=== PATIENT | male | born 1950 | race African-American/Black ===

== ENCOUNTER 2020-02-23 04:56 | Inpatient (IN) | payer MEDICARE, MEDICAID, OTHER ==
[2020-02-23] MEDS ORDERED: Furosemide 40 MG/4 ML VIAL ONE (05:16)
[2020-02-23 05:34] LABS: #Basophils 0.1 thou/uL (0.0-0.2); #Eosinphils 0.7 thou/uL (0.0-0.7); #Lymphocytes 0.9 thou/uL (1.20-3.40); #Monocytes 0.8 thou/uL (0.11-0.59); %Basophils 0.8 % (0.0-1.0); %Eosinophils 9.2 % (0.0-10.0); %Monocytes 11.2 % (0.0-10.0); %Neutrophils 66.8 % (42.0-75.0); Hemoglobin 10.2 g/dL (14.0-18.0); Mean Corpuscular HGB CONC 28.2 g/dL (32.0-36.0); Mean Corpuscular Hemoglobin 21.9 pg (27.0-31.0); Mean Corpuscular Volume 77.7 fL (78.0-98.0); Mean Platelet Volume 7.7 fL (7.4-10.4); Platelet Count 151 thou/uL (130-400); RBC Distribution Width 18.9 % (11.5-14.5); Red Blood Cell (RBC) Count 4.67 mill/uL (4.70-6.10); White Blood Cell (WBC) Count 7.5 thou/uL (4.8-10.8)
[2020-02-23 05:50] LABS: ALT (SGPT) 8 U/L (8-55); AST (SGOT) 16 U/L (5-34); Albumin 3.8 g/dL (3.4-4.8); Alkaline Phosphatase 47 U/L (40-110); Anion Gap 14 mmol/L (10-20); BUN (Urea Nitrogen) 26 mg/dL (8.4-25.7); Bilirubin, Total 1.8 mg/dL (0.2-1.2); Calc. Creatinine Clearance 0 mL/min (70-130); Calcium 8.5 mg/dL (7.8-10.44); Carbon Dioxide 23 mmol/L (23-31); Chloride 104 mmol/L (98-107); Estimated GFR-MDRD 42; Glucose 116 mg/dL (80-115); Potassium 4.4 mmol/L (3.5-5.1); Protein, Total 7.8 g/dL (5.8-8.1); Sodium 137 mmol/L (136-145)
[2020-02-23] MEDS ORDERED: Acetaminophen 325 MG TAB PO PRN (06:02)
[2020-02-23] MEDS ORDERED: Aspirin Chewable 81 MG TAB ONE (06:21)
[2020-02-23 06:29] LABS: CKMB 1.9 ng/mL (0-6.6)
--- NOTE | 2020-02-23 07:47 | RAD ---
EXAM: Single view of the chest HISTORY: Difficulty breathing COMPARISON: 02/08/2020 FINDINGS: Single view of the chest shows an enlarged but stable cardiomediastinal silhouette. The pa tient is status post sternotomy. The pacemaker is unchanged in position. There is no evidence of consolidation, mass, or pleural effusion. No acute osseous abnormality. IMPRESSION: Cardiomegaly without evidence of acute cardiopulmonary disease
--- NOTE | 2020-02-23 07:55 | HP ---
CHIEF COMPLAINT: Shortness of breath. HISTORY OF PRESENT ILLNESS: Mr. Pinto is a 69-year-old male with past medical history of congestive heart failure, COPD, hyperlipidemia, hypertension, and among others, presents to the emergency room with shortness of breath. When EMS got there, he was saturating in the high 80s on room air. The patient was recently admitted to the hospital secondary to fluid overload. He has been taking his fluid medication Lasix, but he says it has not been helping. The patient also notes worsening of both lower extremities and scrotal swelling. The patient has been having cough. Denies any fever or chills. The patient was swiped for COVID when he was hospitalized and it was negative. The patient states that he used to be on oxygen at home, but is no longer on it, but he feels that he needed to be on it again. He has a history of coronary artery bypass graft surgery, pacemaker, and cardiac stents. In the emergency room, the patient was orthopneic, edematous, and BNP elevated at 904. The patient was given 80 mg IV Lasix with some improvement. The patient is being admitted to hospital for further management. PAST MEDICAL HISTORY: 1. Congestive heart failure. 2. Hypertension. 3. Coronary artery disease. 4. Cardiac pacemaker. 5. CKD. PAST SURGICAL HISTORY: 1. Cardiac stent x2. 2. Coronary artery bypass graft surgery. 3. Cardiac pacemaker. 4. Tumor removed from navel. 5. Right eye surgery. PAST PSYCHIATRIC HISTORY: Depression. SOCIAL HISTORY: The patient is a former tobacco user, quit back in 2012. Denies alcohol drinking or drug abuse. FAMILY HISTORY: Reviewed and noncontributory. HOME MEDICATIONS: Please see home medication reconciliation form for updated medications. ALLERGIES: NO KNOWN ALLERGIES. REVIEW OF SYSTEMS: Review of 14 systems negative except what is mentioned in history of present illness. PHYSICAL EXAMINATION: GENERAL: The patient is awake, alert, orthopneic, in moderate respiratory distress. VITAL SIGNS: Blood pressure 146/90, pulse rate is 68, respiratory rate is 28, temperature is 98.5, and oxygen saturation is 98% on 2 L/minute nasal cannula. HEAD AND NECK: Normocephalic and atraumatic. NECK: Supple. CHEST: Few bibasilar crackles. HEART: Distant heart sounds. ABDOMEN: Obese and soft. Bowel sounds present. GENITOURINARY: Scrotal swelling. NEUROLOGIC: Awake, alert, oriented. He is moving extremities. Unable to assess extremities, positive for edema. LABORATORY DATA: BNP is elevated at 904. BUN is 26 and creatinine 1.9. Hemoglobin 10.2, WBC 7.5, and platelets 151. Chest x-ray shows cardiomegaly. Troponin 0.05. ASSESSMENT: 1. Acute exacerbation of congestive heart failure. 2. Acute on chronic renal failure. 3. Indeterminate troponin. 4. Coronary artery disease. 5. History of stents and coronary artery bypass graft surgery. 6. Hypertension. 7. Hyperlipidemia. PLAN: 1. Admit. 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 3. Oxygen to keep saturation more than 92%. 4. IV diuresis. 5. Monitor kidney function and urine output. 6. Serial troponins. 7. Consider Cardiology consultation in a.m. 8. Reconcile home medications. 9. DVT prophylaxis, as appropriate. 10. Expected length of stay, 2 midnights or more. Job ID: [id number]
[2020-02-23 08:02] VITALS: BMI 44.5
[2020-02-23] MEDS ORDERED: Aspirin 325 MG TAB PO SCH (09:00)
[2020-02-23] MEDS ORDERED: Heparin 5,000 UNITS/ML VIAL SC SCH (09:00)
[2020-02-23 09:36] LABS: INR-International Normal Ratio 1.3
[2020-02-23 09:56] LABS: Troponin I 0.058 ng/mL (< 0.028)
[2020-02-23] MEDS ORDERED: Nitroglycerin 0.4 MG TAB 1 EACH SL PRN (10:36)
--- NOTE | 2020-02-23 11:09 | PDOC.HOSPP ---
- Subjective Encounter Date: 02/23/20 Encounter Time: 11:08 Subjective: Mr. Pinto was seen today in follow-up of CHF exacerbation. He notes continued swelling in his legs and groin. He is breathing better. - Objective Vital Signs & Weight: Vital Signs (12 hours) Temp Pulse Resp BP Pulse Ox 02/23/20 08:00 100 02/23/20 07:20 97.5 F L 90 17 143/76 H 100 Weight Weight 284 lb 6 oz Result Diagrams: 02/23/20 05:17 02/23/20 05:17 - Exam Eye: PERRL, anicteric sclera Heart: RRR, no murmur, no gallops, no rubs, normal peripheral pulses Respiratory: no wheezes, no ronchi, rales (+ rales at both bases) Gastrointestinal: soft, non-tender, non-distended, normal bowel sounds, no palpable masses, no hepatomegaly Extremities: 1+ LE edema Extremities - other findings: + groin swelling Hosp A/P (1) Acute on chronic systolic heart failure, NYHA class 3 Code(s): I50.23 - ACUTE ON CHRONIC SYSTOLIC (CONGESTIVE) HEART FAILURE Status : Acute (2) Anticoagulant long-term use Code(s): Z79.01 - MAIL PROCESSOR (CURRENT) USE OF 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 Status: Chronic (3) COPD (chronic obstructive pulmonary disease) Status: Chronic Qualifiers: Emphysema type: unspecified (4) DMII (diabetes mellitus, type 2) Status: Chronic Qualifiers: Diabetes mellitus nursing home insulin use: without nursing home use Diabetes mellitus complication status: with kidney complications Diabetes mellitus complication detail: with chronic kidney disease Chronic kidney disease stage : stage 3 (moderate) Qualified Code(s): E11.22 - Type 2 diabetes mellitus with diabetic chronic kidney disease; N18.3 - Chronic kidney disease, stage 3 ( moderate) (5) HTN (hypertension) Code(s): I10 - ESSENTIAL (PRIMARY) HYPERTENSION Status: Chronic Qualifiers: Hypertension type: essential hypertension Qualified Code(s): I10 - Essential (primary) hypertension - Plan * Acute on chronic systolic heart failure- continue IV LAsix * Will re-start his home medications * Since he had a recent admission for similar complaints, and he reports being compliant with medications and diet- will consult Heart failure Specialist * Chronic kidney disease stage 3- slight worsening of his renal function * HTN- will re-start his home medications * Continue to monitor renal function and electrolytes
[2020-02-23 12:57] LABS: SARS-CoV-2 MS2 Positive; SARS-CoV-2 N Gene Negative; SARS-CoV-2 S Gene Negative; SARS-CoV-2 by NAA Not Detected (NotDetected); SARS-CoV-2 orf1ab Negative
[2020-02-23] MEDS ORDERED: Furosemide 40 MG/4 ML VIAL SLOW IVP SCH (14:00)
[2020-02-23] MEDS ORDERED: Furosemide 100 MG/10 ML VIAL SLOW IVP PRN (14:08)
[2020-02-23] MEDS: Milrinone Lactate/D5W 20 MG in Premix Bag 1 BAG IVPB SCH ×2 (15:39→23:55)
--- NOTE | 2020-02-23 16:05 | CON ---
DATE OF CONSULTATION: 02/23/2020 REASON FOR CONSULT: Management of acute on chronic heart failure. HISTORY OF PRESENT ILLNESS: Mr. Eulalio Pinto, a 69-year-old gentleman with known coronary artery disease and heart failure and renal insufficiency, was admitted for acute on chronic heart failure. He was recently moved back to [place], admitted on February 08, 2020, acute heart failure decompensation and discharged on February 10, 2020. He said that he went home and took all his medications including his increased dosage of furosemide. However, it did not help. He had increasing edema from the feet to leg, to his waist, to his abdomen, and to his lower back. He became more and more short of breath. He has orthopnea, where he needs to sleep at least 45 degrees angle or higher. He also has paroxysmal nocturnal dyspnea every night. He will wake up after sleeping to sit up to breathe and lean over. Then , he developed scrotal edema. He said the scrotal edema was painful. Combination of increasing edema everywhere, increasing shortness of breath, scrotal pain, and progressive loss of ability to even walk caused him to come into the hospital. Since being in the hospital this time, he did not feel like that much change has taken place. He was noted to have difficult to be diuresed, plus his creatinine was increasing, thus the consult was placed. Mr. Pinto's cardiac problems started back in 2015. He said he suffered a myocardial infarction. This occurred when he was incarcerated. He received coronary artery bypass in 2016. Two years later in 2018, he experienced chest pains. Apparently, he received two stents in the year 2018. He said those stents provided chest pain relief. He did not have chest pain symptoms since then. He remained incarcerated. His medical care apparently was done through [facility]. He was released from retirement in about December 2019. He moved back to [place], [place], that is where he finally resides. That is where he wants to live long-term. He currently lives with his sister in law Alyce Mireles and his niece in [place], [place]. PAST MEDICAL HISTORY: 1. Coronary artery disease with myocardial infarction by his history in 2015. 2. Coronary artery bypass in 2016. 3. Two stents in 2018. 4. Heart failure with reduced ejection fraction, requiring INSTALLATION TECHNICIAN-D. 5. Hypertension. 6. Type 2 diabetes. 7. COPD. 8. 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 SOCIAL HISTORY: 1. He said he smoked for 30 years, but stopped in the year 2019. 2. He said he used to drink alcohol, but stopped in 2009. 3. He used to use illicit drugs, especially cocaine, but he stopped the drug habit in 2012. FAMILY HISTORY: He does not know his father at all. His mother at age 73 due to complication of diabetes. He has five brothers and one sister. Three of his brother and his sister from HIV due to blood transfusion. Of note, he was incarcerated from 2012 through 2019. REVIEW OF SYSTEMS: GENERAL: There is no fever or chills. HEENT: There is no change in vision, hearing, or swallowing. However, he said that he has chronic difficulty seeing on the right eye, apparently, either cataracts or macular degeneration. There is no change in swallowing. PULMONARY: Please see HPI. CARDIAC: Please see HPI. GI: He does eat, however, he gets full earlier and he has a very much enlarged abdomen, please see HPI. : He says he has difficulty urinating. MUSCULOSKELETAL: He complains of lower back pain. INTEGUMENT: He does not complain of any new skin breakdown. NEUROLOGIC. He does not complain of any new focal deficits or weaknesses. MEDICATIONS: He is currently on that have cardiac effect include; 1. Aspirin 81 mg daily. 2. Atorvastatin 40 mg at bedtime. 3. Carvedilol at 12.5 mg b.i.d. 4. Losartan 25 mg daily. 5. Spironolactone 25 mg b.i.d. 6. Warfarin at 5 mg every afternoon. PHYSICAL EXAMINATION: VITAL SIGNS: Telemetry was reviewed. He is mainly in sinus rhythm, some paced rhythm. Currently, there is no concerning arrhythmia. His vitals are heart rate about 90, blood pressure 143/76. GENERAL: He is an obese gentleman, reclining in bed, looking in mild distress and uncomfortable. HEENT: Showed EOMI. Oropharynx shows poor dentition. NECK: He has a very large diameter neck, but his JVP seems to be elevated right at the earlobe. PULMONARY: He is tachypneic and short of breath at rest that he only can talk in short sentences. He has diffuse wheeze and he also has right basilar crackles. CARDIAC: Regular rate and rhythm. His heart sounds are distant; however, there is 2/6 holosystolic murmur best heard at the apex. ABDOMEN: Very much enlarged and distended with positive fluid wave and pitting edema, so he probably has a large amount of ascites. EXTREMITIES: His lower extremity has greater than 1 cm pitting edema from feet all the way to his waist. Overall, he is in state of anasarca. LABORATORY DATA: His labs were also reviewed, it showed sodium 137, potassium 4.4, BUN 26, and creatinine 1.94, this 1.94 is continuing to increase. His total bilirubin is also mildly elevated at 1.8. His troponin-I value is mildly increasing from 0.051 to 0.58. His BNP is about 905. His echocardiogram from February 09, 2020, was also reviewed. It showed; 1. Dilated left ventricle with an LVIDD at 6.5 cm. 2. Left ventricular ejection fraction of 25%. 3. There is moderate eccentric mitral regurgitation. 4. There is a moderately dilated right ventricle. 5. The right ventricular function is moderately depressed. 6. There is pulmonary hypertension with transpulmonary gradient about 40 by tricuspid jet. 7. The IVC is dilated and does not collapse. 8. Combining the 15 plus 40, which will give him pulmonary hypertension about 55 mmHg. 9. His chest x-ray was also reviewed. It showed cardiomegaly and mild pulmonary edema. There appears to be a INSTALLATION TECHNICIAN-D device. ASSESSMENT: A 69-year-old, gentleman, who is in severe heart failure decompensation due to heart failure with reduced ejection fraction with both systolic and diastolic dysfunctions. It is likely an ischemic cardiomyopathy since he has history of myocardial infarction, coronary artery bypass grafting, and stents. By echocardiogram and also by exam, he is showing right ventricular failure. Consequently, he will need a right ventricular augmentation, so the fluid can come off. He also has severe left ventricular dysfunction. By assessment, he is likely in [place] Heart Association stage D and [place] heart failure class 4 heart failure with reduced ejection fraction. Being in this amount of anasarca and this amount of cardiac dysfunction, he will need inotropic therapy to pull off fluids. Ideally, he is near the end of the age for consideration for advanced heart failure therapy such as left ventricular assist device. However, his social situation will make this possibility difficult. Please see the following for my recommendations. RECOMMENDATIONS: 1. Start milrinone at 0.125 mcg/kg per minute; if his systolic blood pressure is above 100 after 1 hour, then increase to 0.25 mcg/kg per minute; if his systolic blood pressure remains above 100 mmHg at 0.25 mcg/kg per minute, then increase milrinone to 0.375 mcg/kg per minute. 2. Please stop all IV Lasix diuretics for now. 3. Once Milrinone has reached a goal of 0.375 mcg/kg per minute, then give Lasix 80 mg IV one dose. This will be the test dose for how much diuretics that he will need tomorrow. 4. Please do abdominal ultrasound to quantify the amount of ascites. It may be necessary to consult Gastroenterology for paracentesis. 5. Please consider use of condom catheter because the patient requested. He has difficulty urinating. If condom catheter does not work, then we will need to do a Kilpatrick catheterization. 6. This gentleman is in severe anasarca. He will need to have inotropic support and long-term IV diuresis. It will take some time before sufficient fluid can come off. It has been a pleasure taking care of Mr. Pinto. If you have any questions, please give me a call. Job ID: [id number] MTDD
[2020-02-23 16:42] LABS: Troponin I 0.036 ng/mL (< 0.028)
[2020-02-23] MEDS: Warfarin Sodium 5 MG TAB PO SCH (17:26)
--- NOTE | 2020-02-23 17:35 | ULT ---
Sonogram abdomen limited HISTORY: Ascites. FINDINGS: Sonographic survey of the abdomen shows minimal fluid in the upper quadrants. IMPRESSION : Very small amount of free fluid in the abdomen.
[2020-02-23] MEDS: Atorvastatin Calcium 40 MG TAB PO SCH (20:38)
[2020-02-23] MEDS: Carvedilol 6.25 MG TAB PO SCH (20:39)
[2020-02-23] MEDS: Spironolactone 25 MG TAB PO SCH (20:40)
[2020-02-24 05:13] LABS: INR-International Normal Ratio 1.3
[2020-02-24] MEDS: Milrinone Lactate/D5W 20 MG in Premix Bag 1 BAG IVPB SCH ×3 (05:19→19:11)
[2020-02-24 05:23] LABS: Anion Gap 14 mmol/L (10-20); BUN (Urea Nitrogen) 35 mg/dL (8.4-25.7); Calc. Creatinine Clearance 66 mL/min (70-130); Calcium 8.4 mg/dL (7.8-10.44); Carbon Dioxide 26 mmol/L (23-31); Chloride 102 mmol/L (98-107); Estimated GFR-MDRD 43; Glucose 186 mg/dL (80-115); Potassium 5.2 mmol/L (3.5-5.1); Sodium 137 mmol/L (136-145)
[2020-02-24] MEDS: Losartan 25 MG TAB PO SCH (08:15)
[2020-02-24] MEDS: Aspirin 81 mg Enteric Coated Tablet PO SCH (08:16)
[2020-02-24] MEDS: Spironolactone 25 MG TAB PO SCH (08:16)
[2020-02-24] MEDS: Carvedilol 6.25 MG TAB PO SCH ×2 (08:16→21:03)
[2020-02-24] MEDS ORDERED: Furosemide 100 MG/10 ML VIAL SLOW IVP SCH (10:30)
--- NOTE | 2020-02-24 11:16 | PDOC.HOSPP ---
- Subjective Encounter Date: 02/24/20 Encounter Time: 11:14 Subjective: Mr. Pinto was seen today in follow-up of CHF exacerbation. He notes improved dyspnea. but has continued lower extremity edema. - Objective Vital Signs & Weight: Vital Signs (12 hours) Temp Pulse Resp BP Pulse Ox 02/24/20 08:05 97.6 F 63 17 124/59 L 97 02/24/20 04:00 97.7 F 91 24 H 153/65 H 94 L Weight Weight 278 lb I&O: 02/23/20 02/24/20 02/25/20 06:59 06:59 06:59 Intake Total 1170 Output Total 3500 Balance -2330 Result Diagrams: 02/23/20 05:17 02/24/20 04:32 Hospitalist ROS - Medication Medications: Active Medications Generic Name Dose Route Start Last Admin Trade Name Freq PRN Reason Stop Dose Admin Aspirin 81 mg 02/24/20 09:00 02/24/20 08:16 Ecotrin PO 81 mg DAILY WAYNE Administration Atorvastatin Calcium 40 mg 02/23/20 21:00 02/23/20 20:38 Lipitor PO 40 mg HS WAYNE Administration Carvedilol 12.5 mg 02/23/20 21:00 02/24/20 08:16 Coreg PO 12.5 mg BID WAYNE Administration Furosemide 80 mg 02/23/20 14:08 02/23/20 19:23 Lasix SLOW IVP 02/24/20 14:09 80 mg ONE PRN Administration ONCE MILRINONE@0.375MCG/KG/MIN Milrinone Lactate/Dextrose 20 100 mls @ 4.83 mls/hr 02/23/20 14:15 02/24/20 05:19 mg/ Device IVPB 100 mls INF WAYNE Administration 0.125 MCG/KG/MIN Losartan Potassium 25 mg 02/24/20 09:00 02/24/20 08:15 Cozaar PO 25 mg DAILY WAYNE Administration Warfarin Sodium 5 mg 02/23/20 17:00 02/23/20 17:26 Coumadin PO 5 mg 1700 WAYNE Administration - Exam Eye: PERRL, anicteric sclera Heart: RRR, no murmur, no gallops, no rubs, normal peripheral pulses Respiratory: no wheezes, no ronchi, rales (+ rales at both bases) Gastrointestinal: soft, non-tender, non-distended, normal bowel sounds, no palpable masses Extremities: no cyanosis, 1+ LE edema (+ bilateral lower extremity edema, massive up to the thighs) Hosp A/P (1) Acute on chronic systolic heart failure, NYHA class 3 Code(s): I50.23 - ACUTE ON CHRONIC SYSTOLIC (CONGESTIVE) HEART FAILURE Status : Acute (2) Anticoagulant long-term use Code(s): Z79.01 - MANPOWER DEVELOPMENT ADVISOR (CURRENT) USE OF 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 Status: Chronic (3) COPD (chronic obstructive pulmonary disease) Status: Chronic Qualifiers: Emphysema type: unspecified (4) DMII (diabetes mellitus, type 2) Status: Chronic Qualifiers: 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: without intermodal owner operator truck driver use Diabetes mellitus complication status: with kidney complications Diabetes mellitus complication detail: with chronic kidney disease Chronic kidney disease stage : stage 3 (moderate) Qualified Code(s): E11.22 - Type 2 diabetes mellitus with diabetic chronic kidney disease; N18.3 - Chronic kidney disease, stage 3 ( moderate) (5) HTN (hypertension) Code(s): I10 - ESSENTIAL (PRIMARY) HYPERTENSION Status: Chronic Qualifiers: Hypertension type: essential hypertension Qualified Code(s): I10 - Essential (primary) hypertension - Plan * Acute on chronic systolic heart failure- His Lasix dose has been adjusted * Aldoctone is on hold due to hyperkalemia * He has been started on a Milrinone drip * Chronic kidney disease stage 3- stable vsd slight improvement * HTN- better * Continue to monitor renal function and electrolytes * Right heart failure- we discussed the possibility of Sleep Apnea, and I have told him to obtain a sleep study once discharged from the hospital * Cardiac Rehab
--- NOTE | 2020-02-24 11:20 | PRG ---
DATE OF SERVICE: 02/24/2020 SUBJECTIVE: Mr. Pinto had a good day. He tolerated the start of milrinone without any difficulties. After milrinone was reached a goal 0.375 mcg/kg/min, Lasix 80 mg IV was given. The net result is that he had overall net negative 2.3 L out. He said that he can feel the fluid coming off, it is making him breathing easier. REVIEW OF SYSTEMS: GENERAL: There is no fever, chills, or productive cough. HEENT: There is no change in vision, hearing, or swallowing. PULMONARY: He is less short of breath. Please see HPI and more relaxed. CARDIAC: There is no chest pain, palpitation, or syncope. GI: He was able to eat. : He has a new condom catheter. He actually likes that because he is urinating better with that and that is what he believes. MUSCULOSKELETAL: There is no complaint of joint pain or muscle pain. INTEGUMENT: There are no complaints of skin breakdown. NEUROLOGIC: There are no complaints of new focal deficits or weaknesses. MEDICATIONS: To have cardiac effect include: 1. Aspirin 81 mg daily. 2. Atorvastatin 40 mg at bedtime. 3. Carvedilol 12.5 mg b.i.d. 4. Losartan 25 mg daily. 5. Spironolactone 25 mg b.i.d. 6. Warfarin 5 mg p.o. at bedtime. His pacemaker AICD BRIQUETTE OPERATOR-D was interrogated. Please see the procedure section for interrogation results. There were no arrhythmias. OBJECTIVE: VITAL SIGNS: His latest vitals consist of heart rate 75, blood pressure 126/58. GENERAL: He is very sleepy. He is sleeping in bed. He is easily arousable and answers questions correctly. He said he is breathing easier. HEENT: Show EOMI. Oropharynx shows poor dentition. Moist mucosa. NECK: His JVP is up to the earlobe. LUNGS: Decreased breath sounds at bilateral bases, worse on the left. CARDIAC: Regular rate and rhythm with normal S1 and S2. There is 2/6 holosystolic murmur at the apex. ABDOMEN: Very distended, large, soft. Positive bowel sounds. EXTREMITIES: Lower extremity, there is greater than 1 cm pitting edema from his feet all the way up towards his waist. He continued to be his stated anasarca. LABORATORY VALUES: Sodium 137, potassium 5.2, chloride 102, bicarb 26, BUN 35, creatinine has improved a bit down to 1.88. Procedure: His BRIQUETTE OPERATOR-D device was interrogated. It is a combination of biventricular pacing cardiac resynchronization device along with an automated implanted defibrillator. It is a Medtronic model Claria MRI quad BRIQUETTE OPERATOR-D [id number] with a serial #[id number], impedance atrial lead at 342 ohms, right ventricular impedance 342, and LV lead at 475. It is in DDD mode with lower rate 60 beats per minute. His nonadaptive pacing LV-RV with a fixed delay. This may have contributed to the dyssynchrony that is seen on the echocardiogram. There is no atrial fibrillation and atrial flutter. There is no ventricular tachycardia. There is also no ventricular fibrillation and he is biventricular paced about 98% at a time, but effective biventricular pacing about 97.6% at a time. His thoracic impedance in January 2019 was about 65. His thoracic impedance has been in a steady decline all way down to about 35 as of January to February 2020. Thus, he has significant fluid buildup for the last year. In terms of his OptiVol fluid index, he is in severe edematous territory since June 2019. ASSESSMENT: A 69-year-old gentleman has [id number] heart failure with reduced ejection fraction with combined systolic and diastolic dysfunction. He is needing milrinone to augment for effective diuresis. He may need a higher than 0.375 mcg/kg dosage. However, we will attempt to run this dosage. With amount of volume on board, it will be a slow and long process to get the fluid off him. This has been ongoing for 8 months now. He resides in [place] Heart Association stage C and [place] Heart Association class IIIB heart failure with reduced ejection fraction. It is due to ischemic cardiomyopathy. On the good side, there are no signs of arrhythmia. Please see the following for my recommendations. RECOMMENDATIONS: 1. Continue with milrinone 0.375 mcg/kg/min. 2. Adjust BRIQUETTE OPERATOR-D. This is already done. His basal rate changed from 60 to 70 beats per minute. He has non-adapted left ventricle to right ventricle, changed to an adapted left ventricle to right ventricle coordination with 0 msec delay. This is aimed to produce synchrony between the septum and lateral wall. 3. Need to do a followup echo to check a synchrony. 4. Discontinue all spironolactone for now. He is hyperkalemic. I am not sure if this is doing him any good. Initiate Lasix 80 mg IV daily. We will need to see how well this will go. 5. Yesterday gave worth of Lasix 80 mg IV one dose. He has significant urine output with net negative 2 L and improvement in creatinine. Thus, the milrinone 0.375 mcg/kg/min along with Lasix 80 mg IV daily seemed to be a good starting point for him. 6. For ease of infusion procedure, please consider placing a PICC. It is going to be a very difficult stick in terms of rotating IV and he may need more than one point, so this could be a consideration. It has been a pleasure taking care of Eulalio Pinto. If you have any questions, please give me a call. Job ID: [id number]
[2020-02-24 15:10] LABS: #Eosinphils 0.1 thou/uL (0.0-0.7); #Lymphocytes 0.8 thou/uL (1.20-3.40); #Monocytes 0.9 thou/uL (0.11-0.59); #Neutrophils 6.8 thou/uL (1.40-6.50); %Basophils 0.2 % (0.0-1.0); %Eosinophils 1.6 % (0.0-10.0); %Lymphocytes 9.1 % (21.0-51.0); %Monocytes 9.9 % (0.0-10.0); %Neutrophils 79.3 % (42.0-75.0); Anisocytosis SLIGHT = 6-15 cells (100X) (0-5/hpf); Elliptocytes MODERATE= 6-15 cells (100X) (0-1/hpf); Hemoglobin 9.6 g/dL (14.0-18.0); Hypochromia MODERATE=16-30 cells (100X) (0-5/hpf); MDiff Complete? YES; Mean Corpuscular HGB CONC 28.9 g/dL (32.0-36.0); Mean Corpuscular Hemoglobin 23.1 pg (27.0-31.0); Mean Corpuscular Volume 79.9 fL (78.0-98.0); Mean Platelet Volume 8.4 fL (7.4-10.4); Platelet Count 136 thou/uL (130-400); Platelet Morphology Comment Appears Decreased; Polychromasia SLIGHT = 2-3 cells (100X) (0-2/hpf); RBC Distribution Width 19.1 % (11.5-14.5); Red Blood Cell (RBC) Count 4.15 mill/uL (4.70-6.10); White Blood Cell (WBC) Count 8.6 thou/uL (4.8-10.8)
[2020-02-24 16:27] LABS: Chloride 102 mmol/L (98-107); Potassium 5.2 mmol/L (3.5-5.1); Sodium 135 mmol/L (136-145)
[2020-02-24 16:28] LABS: Calcium 8.4 mg/dL (7.8-10.44); Glucose 159 mg/dL (80-115)
[2020-02-24 16:30] LABS: Anion Gap 14 mmol/L (10-20); Carbon Dioxide 24 mmol/L (23-31)
[2020-02-24 16:32] LABS: BUN (Urea Nitrogen) 39 mg/dL (8.4-25.7); Calc. Creatinine Clearance 59 mL/min (70-130); Estimated GFR-MDRD 38
[2020-02-24] MEDS: Warfarin Sodium 5 MG TAB PO SCH (17:18)
[2020-02-24] MEDS: Atorvastatin Calcium 40 MG TAB PO SCH (21:03)
[2020-02-25] MEDS: Milrinone Lactate/D5W 20 MG in Premix Bag 1 BAG IVPB SCH ×5 (00:29→23:42)
[2020-02-25 04:58] LABS: Anion Gap 13 mmol/L (10-20); BUN (Urea Nitrogen) 42 mg/dL (8.4-25.7); Calc. Creatinine Clearance 59 mL/min (70-130); Calcium 8.3 mg/dL (7.8-10.44); Carbon Dioxide 26 mmol/L (23-31); Chloride 101 mmol/L (98-107); Estimated GFR-MDRD 38; Glucose 174 mg/dL (80-115); Potassium 4.7 mmol/L (3.5-5.1); Sodium 135 mmol/L (136-145)
[2020-02-25 06:38] LABS: INR-International Normal Ratio 1.2; Prothrombin Time 15.5 sec (12.0-14.7)
[2020-02-25] MEDS: Losartan 25 MG TAB PO SCH (08:16)
[2020-02-25] MEDS: Aspirin 81 mg Enteric Coated Tablet PO SCH (08:17)
[2020-02-25] MEDS: Carvedilol 6.25 MG TAB PO SCH ×2 (08:17→22:01)
[2020-02-25] MEDS ORDERED: Furosemide 100 MG/10 ML VIAL SLOW IVP SCH (09:00)
--- NOTE | 2020-02-25 09:58 | PDOC.HOSPP ---
- Subjective Encounter Date: 02/25/20 Encounter Time: 09:57 Subjective: Mr. Pinto was seen today in follow-up of CHF exacerbation. He says he is doing better. He notes decreased lower extremity edema. He denies chest pain. - Objective Vital Signs & Weight: Vital Signs (12 hours) Temp Pulse Resp BP Pulse Ox 02/25/20 04:00 98.1 F 81 18 108/55 L 95 Weight Weight 282 lb 1.6 oz I&O: 02/24/20 02/25/20 02/26/20 06:59 06:59 06:59 Intake Total 1170 1160 Output Total 3500 900 Balance -2330 260 Result Diagrams: 02/24/20 13:52 02/25/20 04:17 Hospitalist ROS - Medication Medications: Active Medications Generic Name Dose Route Start Last Admin Trade Name Freq PRN Reason Stop Dose Admin Aspirin 81 mg 02/24/20 09:00 02/25/20 08:17 Ecotrin PO 81 mg DAILY WAYNE Administration Atorvastatin Calcium 40 mg 02/23/20 21:00 02/24/20 21:03 Lipitor PO 40 mg HS WAYNE Administration Carvedilol 12.5 mg 02/23/20 21:00 02/25/20 08:17 Coreg PO 12.5 mg BID WAYNE Administration Furosemide 80 mg 02/25/20 09:00 02/25/20 08:17 Lasix SLOW IVP 80 mg DAILY WAYNE Administration Milrinone Lactate/Dextrose 20 100 mls @ 4.83 mls/hr 02/23/20 14:15 02/25/20 06:40 mg/ Device IVPB 100 mls INF WAYNE Administration 0.125 MCG/KG/MIN Losartan Potassium 25 mg 02/24/20 09:00 02/25/20 08:16 Cozaar PO 25 mg DAILY WAYNE Administration - Exam Eye: PERRL, anicteric sclera Heart: RRR, no murmur, no gallops, no rubs, normal peripheral pulses Respiratory: rales (+ rales bilaterally, no wheezing or rhonchi) Gastrointestinal: soft, non-tender, non-distended, normal bowel sounds, no palpable masses Extremities: no cyanosis, 2+ LE edema (+ lower extremity edema) Hosp A/P (1) Acute on chronic systolic heart failure, NYHA class 3 Code(s): I50.23 - ACUTE ON CHRONIC SYSTOLIC (CONGESTIVE) HEART FAILURE Status : Acute (2) Anticoagulant long-term use Code(s): Z79.01 - USABILITY ARCHITECT (CURRENT) USE OF 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 Status: Chronic (3) COPD (chronic obstructive pulmonary disease) Status: Chronic Qualifiers: Emphysema type: unspecified (4) DMII (diabetes mellitus, type 2) Status: Chronic Qualifiers: Diabetes mellitus terminal worker insulin use: without detention use Diabetes mellitus complication status: with kidney complications Diabetes mellitus complication detail: with chronic kidney disease Chronic kidney disease stage : stage 3 (moderate) Qualified Code(s): E11.22 - Type 2 diabetes mellitus with diabetic chronic kidney disease; N18.3 - Chronic kidney disease, stage 3 ( moderate) (5) HTN (hypertension) Code(s): I10 - ESSENTIAL (PRIMARY) HYPERTENSION Status: Chronic Qualifiers: Hypertension type: essential hypertension Qualified Code(s): I10 - Essential (primary) hypertension - Plan * Acute on chronic systolic heart failure- clinically improved. He has had negative fluid balance- ( unsure about the weight recording) * He has been started on a Milrinone drip * Chronic kidney disease stage 3- worsened overnight. May need to hold Lasix- and continue Milrinone * Will consult Nephrology * Echo results noted * Chronic anticoagulation- his INR has been subtherpeutic- will increase his coumadin dose * HTN- better * Continue to monitor renal function and electrolytes * Right heart failure- Outpatient sleep study * Cardiac Rehab- he was encouraged to participate in PT
--- NOTE | 2020-02-25 12:16 | PRG ---
DATE OF SERVICE: 02/25/2020 SUBJECTIVE: Mr. Pinto had a variable day. It was reported that he really did not want to get out of bed or participate with the nursing staff. However, he tells me that he is breathing better and feeling generally better. He believes that his edema has been decreasing. Some discussion took place about his prior care. He was seen at [facility]; however, he does not remember which doctor he did see at [facility] due to the need for potential advanced heart failure therapy evaluation. He agreed to [facility] in [place] because that will be his closer location. He also agreed to participate with physical therapy today. REVIEW OF SYSTEMS: GENERAL: There is no fever, chills, or productive cough. HEENT: There is no change in vision, hearing, or swallowing. PULMONARY: He is breathing easier. CARDIAC: There is no complaint of chest pain, palpitations, or syncope. GASTROINTESTINAL: He is able to eat. GENITOURINARY: He requests a condom catheter. It was reported that condom catheter is working. MUSCULOSKELETAL: There is no complaint of joint or muscle pains. INTEGUMENT: There are no complaints of skin breakdown. NEUROLOGIC: There are no focal deficits or weaknesses. MEDICATIONS: His active medications that have cardiac effect include, 1. Aspirin 81 mg daily. 2. Atorvastatin 40 mg at bedtime. 3. Carvedilol 12.5 mg twice a day. 4. Furosemide 80 mg IV daily. 5. Milrinone currently at 0.375 mcg/kg/minute. PHYSICAL EXAMINATION: TELEMETRY: Reviewed. He has a variety of rhythm including some long sustained bigeminy, which means that is a PVC followed by a regular ventricular beat. I did interrogate the patient to found that the bigeminy only occurs during slow normally conducted rhythm and otherwise when he has a slow natural beat, then the bigeminy occurs. During the bigeminy, he has ineffective contraction. During bigeminy, there is very diminished pulse pressure. VITAL SIGNS: His heart rate 75, blood pressure 107/55. GENERAL: He is alert and conversational, relaxing in bed, is under no acute distress this morning. He is breathing much easier than 2 days ago. HEENT: Show EOMI. Oropharynx is benign with moist mucosa, but poor dentition. NECK: His JVP is elevated at the earlobe. PULMONARY: There is decreased air movement in bilateral bases. CARDIAC: Regular rate and rhythm with normal S1 and S2. There is a 2/6 holosystolic murmur at the apex. ABDOMEN: Distended, soft, nontender. Positive bowel sounds. EXTREMITIES: Lower extremities, there is some about 1 cm pitting edema from feet to above his knees. Thus, he is still in a state of severe edema. LABORATORY VALUES: This morning, hemoglobin 9.6, platelets at 136. His chemistry shows sodium 135, potassium 4.7, chloride 101, bicarb 26, BUN 42, creatinine 2.12. His I's and O's for the last 24 hours recorded at 1160 in and 900 out. PROCEDURE: His AICD - HAT BLOCK BENCH HAND-D device was interrogated and reprogrammed for effect. It is a Nitro quad HAT BLOCK BENCH HAND-D, [id number]. It has a serial number of [id number]. Interrogation showed there is no atrial fibrillation, no ventricular tachycardia , and there is no ventricular fibrillation. During interrogation, it also showed that he does have bigeminy taking place in natural beat. His basal rate was slowed down to 50 bpd to see what the underlying rhythm is. With underlying rhythm, he will have bigeminy with his [place] rhythm. During bigeminy , he has ineffective contraction of every other beat as felt by greatly diminished pulse pressure during the immediate follow-on PVC of bigimeny. It was found that at a basal rate of 75 removed bigeminy and produced steady pulse with each beat. Furthermore, both atrial and ventricular rate stabilizations were turned on. So consequently, if there are PACs or PVCs, the device will speed up the rate just enough to suppress the PVCs and PACs. ASSESSMENT: 69-year-old gentleman has acute on chronic heart failure with reduced ejection fraction. This has both systolic and diastolic dysfunction. It is ischemic cardiomyopathy. He also remains in volume overload and anasarca state. He also has cardiorenal syndrome with renal dysfunction. At this point, milrinone at 0.375 mcg/kg/minute is insufficient in producing enough cardiac output to sustain diuresis. So, we will need to increase milrinone dose along with the HAT BLOCK BENCH HAND-D adjustment to increase cardiac output to sustain diuresis. Please see the following for my recommendations. RECOMMENDATIONS: 1. Increase milrinone to 0.5 mcg/kg/minute. 2. If his systolic blood pressure drops below 95 mm of pressure consistently, then we will need to reduce the milrinone dose to 0.25 mcg/kg/minute and add on dobutamine 2.5 mcg/kg/minute. 3. We will wait until how he does all day and tomorrow, if the kidney function is better, we will increase Lasix to 80 mg IV b.i.d. 4. His heart is not doing well. He does have a right ventricular dysfunction. He will need evaluation for advanced heart failure therapy sooner than later. However, his social status is troublesome. I will attempt to contact [facility] to see there is a possibility. It has been a pleasure taking care of Bianka Eulalio Pinto. If you have any questions, please give me a call. Job ID: [id number] MTDD
--- NOTE | 2020-02-25 14:06 | CON ---
DATE OF CONSULTATION: 02/25/2020 CONSULTING PHYSICIAN: Asim Romero MD REASON FOR CONSULTATION: Acute kidney injury. REASON FOR ADMISSION: Shortness of breath. HISTORY OF PRESENT ILLNESS: This is a 69-year-old male with history of CHF, COPD, who came to the hospital with shortness of breath and was found to have elevated creatinine. The patient is having diuresis. Nephrology consulted for renal management. The patient's creatinine is 2.12, baseline seems to be around 1.8 and 1.9. No fever or chills. No nausea or vomiting. PAST MEDICAL HISTORY: Positive for congestive heart failure, hypertension, coronary artery disease, and CKD. PAST SURGICAL HISTORY: Cardiac stents, coronary artery bypass, and pacemaker. HOME MEDICATIONS: Reviewed. ALLERGIES: NO KNOWN DRUG ALLERGIES. SOCIAL HISTORY: No smoking, alcohol, or illicit drugs abuse. FAMILY HISTORY: No history of kidney disease. REVIEW OF SYSTEMS: CONSTITUTIONAL: Negative for weight loss or gain, ability to conduct usual activities. SKIN: Negative for rash, itching. EYES: Negative for double vision, pain. ENT/MOUTH: Negative for nose bleeding, neck stiffness, pain, tenderness. CARDIOVASCULAR: Negative for palpitations, dyspnea on exertion, orthopnea. RESPIRATORY: Negative for shortness of breath, wheezing, cough, hemoptysis, fever or night sweats. GASTROINTESTINAL: Negative for poor appetite, abdominal pain, heartburn, nausea, vomiting, constipation, or diarrhea. GENITOURINARY: Negative for urgency, frequency, dysuria, nocturia. MUSCULOSKELETAL: Negative for pain, swelling. NEUROLOGIC/PSYCHIATRIC: Negative for anxiety, depression. ALLERGY/IMMUNOLOGIC: Negative for skin rash, bleeding tendency. PHYSICAL EXAMINATION: GENERAL: This is a well-built male, in no apparent distress. VITAL SIGNS: Temperature 97.4, pulse 78, respiratory rate 18, and blood pressure 115/54. HEENT: Atraumatic, normocephalic. Oral mucosa moist. NECK: Supple. CV: S1 and S2. Rate and rhythm regular. RESPIRATORY: Clear. GASTROINTESTINAL: Abdomen is soft. MUSCULOSKELETAL: No tenderness. No edema. DERMATOLOGIC: No skin rash. NEUROLOGIC: Alert and awake. PSYCHIATRIC: Mood and affect normal. LABORATORY DATA: Hemoglobin is 9.6, potassium is 4.7, BUN is 42, and creatinine is 2.1. ASSESSMENT AND PLAN: 1. Acute kidney injury on chronic kidney disease, stage 3, secondary to cardiorenal syndrome. Agree with diuresis for now. We will hold losartan while diuresing. 2. Edema. 3. Hypertension. 4. Fluid overload. 5. Cardiorenal syndrome. 6. History of hypertension. 7. History of hyperlipidemia. 8. History of coronary artery disease. Hold losartan and agree with holding the spironolactone while diuresis. We will follow. Job ID: [id number]
[2020-02-25 14:49] LABS: #Eosinphils 0.4 thou/uL (0.0-0.7); #Lymphocytes 0.6 thou/uL (1.20-3.40); #Monocytes 0.7 thou/uL (0.11-0.59); #Neutrophils 5.2 thou/uL (1.40-6.50); %Basophils 0.2 % (0.0-1.0); %Eosinophils 5.1 % (0.0-10.0); %Monocytes 10.2 % (0.0-10.0); %Neutrophils 75.5 % (42.0-75.0); Anisocytosis SLIGHT = 6-15 cells (100X) (0-5/hpf); Hemoglobin 9.9 g/dL (14.0-18.0); Hypochromia SLIGHT = 6-15 cells (100X) (0-5/hpf); Large Platelets SLIGHT; MDiff Complete? YES; Mean Corpuscular HGB CONC 28.6 g/dL (32.0-36.0); Mean Corpuscular Hemoglobin 23.1 pg (27.0-31.0); Mean Corpuscular Volume 80.7 fL (78.0-98.0); Platelet Count 132 thou/uL (130-400); Platelet Morphology Comment Appears Adequate; RBC Distribution Width 18.6 % (11.5-14.5); Red Blood Cell (RBC) Count 4.26 mill/uL (4.70-6.10); White Blood Cell (WBC) Count 6.9 thou/uL (4.8-10.8)
[2020-02-25 14:53] LABS: Anion Gap 13 mmol/L (10-20); BUN (Urea Nitrogen) 45 mg/dL (8.4-25.7); Calc. Creatinine Clearance 59 mL/min (70-130); Calcium 8.3 mg/dL (7.8-10.44); Carbon Dioxide 27 mmol/L (23-31); Chloride 100 mmol/L (98-107); Estimated GFR-MDRD 38; Glucose 145 mg/dL (80-115); Potassium 4.5 mmol/L (3.5-5.1); Sodium 135 mmol/L (136-145)
[2020-02-25] MEDS ORDERED: Warfarin Sodium 7.5 MG TAB PO SCH (17:00)
[2020-02-25] MEDS ORDERED: Apixaban 5 MG TAB PO SCH (21:00)
[2020-02-25] MEDS: Atorvastatin Calcium 40 MG TAB PO SCH (22:01)
[2020-02-26 00:44] VITALS: BP 105/51; TEMP 97.9
== END 2020-02-26 03:10 | disposition short-term general hospital (02) | DRG 291 ==
LOC: ERS 04:56 → 2NO 06:05
PROVIDERS: ADMIT Internal Medicine; ATTEND Internal Medicine
PROC: 4B02XTZ Measurement of Cardiac Defibrillator, External Approach (ICD-10-PCS; principal; 2020-02-25)
DX: I13.0 Hypertensive heart and chronic kidney disease with heart failure and stage 1 through stage 4 chronic kidney disease, or unspecified chronic kidney disease (principal); I50.43 Acute on chronic combined systolic (congestive) and diastolic (congestive) heart failure; N17.9 Acute kidney failure, unspecified; Z68.41 Body mass index [BMI] 40.0-44.9, adult; I25.10 Atherosclerotic heart disease of native coronary artery without angina pectoris; N18.3 Chronic kidney disease, stage 3 (moderate); E78.5 Hyperlipidemia, unspecified; E78.00 Pure hypercholesterolemia, unspecified; F32.9 Major depressive disorder, single episode, unspecified; Z20.828 Contact with and (suspected) exposure to other viral communicable diseases; E66.9 Obesity, unspecified; I34.0 Nonrheumatic mitral (valve) insufficiency; I25.5 Ischemic cardiomyopathy; I50.810 Right heart failure, unspecified; J43.9 Emphysema, unspecified; E11.22 Type 2 diabetes mellitus with diabetic chronic kidney disease; E87.5 Hyperkalemia; Z95.5 Presence of coronary angioplasty implant and graft; Z95.1 Presence of aortocoronary bypass graft; Z87.891 Personal history of nicotine dependence; I25.2 Old myocardial infarction; Z95.810 Presence of automatic (implantable) cardiac defibrillator; Z79.899 Other long term (current) drug therapy; Z79.01 Long term (current) use of anticoagulants; Z79.82 Long term (current) use of aspirin
CPT/HCPCS: 36415; 71045; 76705; 80048; 80053; 82553; 83735; 83880; 84484; 85025; 85610; 85730; 87635; 93005; 93306; 94760; 96374; J1940; J2260; U0003

== ENCOUNTER 2020-03-23 21:38 | Inpatient (IN) | payer MEDICARE, MEDICAID, OTHER ==
--- NOTE | 2020-03-23 22:35 | RAD ---
XR Chest 1 View Portable HISTORY: Dyspnea, cough COMPARISON: 02/23/2020 FINDINGS: Changes of median sternotomy, cardiomegaly and left-sided pacemaker are again seen. The aor ta is tortuous. No lobar consolidation, pneumothoraces, luis pulmonary edema or pleural effusions are seen. IMPRESSION: No radiographic evidence of acute cardiopulmonary process.
[2020-03-23 22:55] LABS: #Basophils 0.1 thou/uL (0.0-0.2); #Eosinphils 0.6 thou/uL (0.0-0.7); #Lymphocytes 0.7 thou/uL (1.20-3.40); #Monocytes 0.5 thou/uL (0.11-0.59); #Neutrophils 3.8 thou/uL (1.40-6.50); %Basophils 1.2 % (0.0-1.0); %Eosinophils 10.7 % (0.0-10.0); %Lymphocytes 12.3 % (21.0-51.0); %Monocytes 8.5 % (0.0-10.0); %Neutrophils 67.2 % (42.0-75.0); Hemoglobin 7.3 g/dL (14.0-18.0); Mean Corpuscular HGB CONC 28.5 g/dL (32.0-36.0); Mean Corpuscular Hemoglobin 21.7 pg (27.0-31.0); Mean Corpuscular Volume 76.1 fL (78.0-98.0); Platelet Count 138 thou/uL (130-400); RBC Distribution Width 21.5 % (11.5-14.5); Red Blood Cell (RBC) Count 3.36 mill/uL (4.70-6.10); White Blood Cell (WBC) Count 5.7 thou/uL (4.8-10.8)
[2020-03-23 23:12] LABS: ALT (SGPT) 11 U/L (8-55); AST (SGOT) 13 U/L (5-34); Alkaline Phosphatase 48 U/L (40-110); Anion Gap 16 mmol/L (10-20); BUN (Urea Nitrogen) 31 mg/dL (8.4-25.7); Bilirubin, Total 1.5 mg/dL (0.2-1.2); Calc. Creatinine Clearance 0 mL/min (70-130); Calcium 8.6 mg/dL (7.8-10.44); Carbon Dioxide 20 mmol/L (23-31); Chloride 104 mmol/L (98-107); Estimated GFR-MDRD 46; Globulin 3.9 g/dL (2.4-3.5); Glucose 115 mg/dL (80-115); Potassium 4.1 mmol/L (3.5-5.1); Protein, Total 7.9 g/dL (5.8-8.1); Sodium 136 mmol/L (136-145)
[2020-03-23 23:35] LABS: CKMB 2.4 ng/mL (0-6.6)
[2020-03-24] MEDS ORDERED: Furosemide 40 MG/4 ML VIAL ONE (00:59)
--- NOTE | 2020-03-24 02:19 | PDOC.HHP ---
Hospitalist HPI - History of Present Illness Shortness of breath History of Present Illness: 69-year-old gentleman with a history of chronic systolic heart failure, most recent ejection fraction of 20 to 25%, recently admitted about a month ago for anasarca, later transferred to [facility] for refractory anasarca and cardiogenic shock, presented to the emergency department with a complaint of shortness of breath. Patient reports the shortness of breath started when he choked on [place] fries. His BNP in the ED was 1400 compared to 900 during previous hospitalization. Chest x-ray did not demonstrate any overt pulmonary edema or vascular congestion. Patient was requiring oxygen to maintain SaO2 above 90%. He will dropped to the low 80s on room air. He denied any chest pain but endorsed lower extremity edema. He also reports abdominal distention that has persisted since his hospitalization 1 month ago. He was incarcerated and now on house arrest. Patient is admitted for further management of CHF exacerbation. Hospitalist ROS - Review of Systems Other: Except as documented, all other systems reviewed and negative. Hospitalist History - Past Medical History Cardiac: reports: CAD, CHF (Systolic heart failure), HTN Pulmonary: reports: COPD Heme/Onc: reports: Cancer (Testicular cancer status post removal.), Other Renal/: reports: Chronic renal failure Endocrine: reports: Diabetes - Past Surgical History Past Surgical History: reports: CABG, Other (Cardiac stent, eye surgery, tumor removed from the level, cardiac pacemaker.) - Family History Family History: reports: diabetes mellitus (Mother) - Social History Smoking Status: Former smoker Alcohol: reports: None Drugs: reports: none - Exam General - other findings: Morbidly obese Eye: PERRL, anicteric sclera ENT: normocephalic atraumatic, no oropharyngeal lesions, moist mucosa Neck: supple, symmetric, no JVD, no thyromegaly Heart: RRR, no murmur, no gallops, no rubs Respiratory: no rales Respiratory - other findings: Markedly diminished breath sounds Gastrointestinal: soft, non-tender, normal bowel sounds, distended (Ascites.) Extremities: no cyanosis, 2+ LE edema (Bilateral) Skin: normal turgor, no rashes Neurological: cranial nerve grossly intact, no focal deficits Musculoskeletal: normal tone, normal strength Hospitalist Results - Labs Result Diagrams: 03/23/20 22:40 03/23/20 22:40 Lab results: WBC 5.7 thou/uL (4.8-10.8) 03/23/20 22:40 Hgb 7.3 g/dL (14.0-18.0) L 03/23/20 22:40 Hct 25.6 % (42.0-52.0) L 03/23/20 22:40 MCV 76.1 fL (78.0-98.0) L 03/23/20 22:40 Plt Count 138 thou/uL (130-400) 03/23/20 22:40 Neutrophils % 67.2 % (42.0-75.0) 03/23/20 22:40 Sodium 136 mmol/L (136-145) 03/23/20 22:40 Potassium 4.1 mmol/L (3.5-5.1) 03/23/20 22:40 Chloride 104 mmol/L (98-107) 03/23/20 22:40 Carbon Dioxide 20 mmol/L (23-31) L 03/23/20 22:40 BUN 31 mg/dL (8.4-25.7) H 03/23/20 22:40 Creatinine 1.80 mg/dL (0.7-1.3) H 03/23/20 22:40 Glucose 115 mg/dL (80-115) 03/23/20 22:40 Calcium 8.6 mg/dL (7.8-10.44) 03/23/20 22:40 Total Bilirubin 1.5 mg/dL (0.2-1.2) H 03/23/20 22:40 AST 13 U/L (5-34) 03/23/20 22:40 ALT 11 U/L (8-55) 03/23/20 22:40 Alkaline Phosphatase 48 U/L (40-110) 03/23/20 22:40 CK-MB (CK-2) 2.4 ng/mL (0-6.6) 03/23/20 22:40 Troponin I 0.041 ng/mL (< 0.028) H 03/23/20 22:40 B-Natriuretic Peptide 1454.6 pg/mL (0-100) H 03/23/20 22:40 Serum Total Protein 7.9 g/dL (5.8-8.1) 03/23/20 22:40 Albumin 4.0 g/dL (3.4-4.8) 03/23/20 22:40 - Radiology Interpretation Chest x-ray Status: report reviewed by me (No acute cardiopulmonary disease.) Hospitalist H&P A/P - Problem (1) Acute on chronic systolic heart failure, NYHA class 3 Code(s): I50.23 - ACUTE ON CHRONIC SYSTOLIC (CONGESTIVE) HEART FAILURE Status: Acute (2) COPD exacerbation Code(s): J44.1 - CHRONIC OBSTRUCTIVE PULMONARY DISEASE W (ACUTE) EXACERBATION Status: Acute (3) Acute respiratory failure with hypoxia Code(s): J96.01 - ACUTE RESPIRATORY FAILURE WITH HYPOXIA Status: Acute (4) Elevated troponin Code(s): R79.89 - OTHER SPECIFIED ABNORMAL FINDINGS OF BLOOD CHEMISTRY Status: Acute (5) Ascites Code(s): R18.8 - OTHER ASCITES Status: Acute (6) DMII (diabetes mellitus, type 2) Status: Chronic Qualifiers: Diabetes mellitus retirement insulin use: without termination clerk use Diabetes mellitus complication status: with kidney complications Diabetes mellitus complication detail: with chronic kidney disease Chronic kidney disease stage: stage 3 (moderate) Qualified Code(s): E11.22 - Type 2 diabetes mellitus with diabetic chronic kidney disease; N18.3 - Chronic kidney disease, stage 3 (moderate) (7) HTN (hypertension) Code(s): I10 - ESSENTIAL (PRIMARY) HYPERTENSION Status: Chronic Qualifiers: Hypertension type: essential hypertension Qualified Code(s): I10 - Essential (primary) hypertension - Plan Plan: Admit to telemetry Trend troponin Start IV Lasix 40 mg twice daily Cardiology consult Monitor intake and output, daily weight. US paracentesis given patient is dyspneic and checks x-ray does not show any overt pulmonary edema. US paracentesis may also reduce the need for IV Lasix. Will treat COPD exacerbation with scheduled DuoNeb and short course IV steroids. Aldactone 12.5 mg daily. Monitor blood pressure and treat accordingly. Caution with antihypertensives as patient was hypotensive last hospitalization. Heart failure teaching.
--- NOTE | 2020-03-24 02:30 | PDOC.FMACP ---
Advance Care Planning - Problem (1) Acute on chronic systolic heart failure, NYHA class 3 Status: Acute Code(s): I50.23 - ACUTE ON CHRONIC SYSTOLIC (CONGESTIVE) HEART FAILURE (2) COPD exacerbation Status: Acute Code(s): J44.1 - CHRONIC OBSTRUCTIVE PULMONARY DISEASE W (ACUTE) EXACERBATION (3) Acute respiratory failure with hypoxia Status: Acute Code(s): J96.01 - ACUTE RESPIRATORY FAILURE WITH HYPOXIA (4) Elevated troponin Status: Acute Code(s): R79.89 - OTHER SPECIFIED ABNORMAL FINDINGS OF BLOOD CHEMISTRY (5) Ascites Status: Acute Code(s): R18.8 - OTHER ASCITES (6) DMII (diabetes mellitus, type 2) Status: Chronic Qualifiers: Diabetes mellitus assisted insulin use: without terminal computer operator use Diabetes mellitus complication status: with kidney complications Diabetes mellitus complication detail: with chronic kidney disease Chronic kidney disease stage: stage 3 (moderate) Qualified Code(s): E11.22 - Type 2 diabetes mellitus with diabetic chronic kidney disease; N18.3 - Chronic kidney disease, stage 3 (moderate) (7) HTN (hypertension) Status: Chronic Code(s): I10 - ESSENTIAL (PRIMARY) HYPERTENSION Qualifiers: Hypertension type: essential hypertension Qualified Code(s): I10 - Essential (primary) hypertension - Note Summary: Advanced Care Planning was discussed. The diagnosis, prognosis and goals of care were discussed. Appropriate forms and documentation to accomplish the goals of care were discussed. All questions were answered. The Palliative Care Team will be engaged to assist with completion of any outstanding forms that are needed. Patient stated his surrogate decision maker is her daughter Rosio Ann. He wishes to be full code. He has no living will. Time Spent (mins): 17
[2020-03-24 02:50] LABS: Troponin I 0.045 ng/mL (< 0.028)
[2020-03-24 03:08] VITALS: BMI 39.6
[2020-03-24] MEDS ORDERED: Dextrose 50% Abboject 50 ML SYRINGE SLOW IVP PRN (03:49)
[2020-03-24] MEDS ORDERED: Dextrose 5% in Water 1,000 ML IV PRN (03:49)
[2020-03-24 05:30] LABS: #Eosinphils 0.4 thou/uL (0.0-0.7); #Lymphocytes 0.7 thou/uL (1.20-3.40); #Monocytes 0.5 thou/uL (0.11-0.59); #Neutrophils 3.3 thou/uL (1.40-6.50); %Basophils 0.3 % (0.0-1.0); %Eosinophils 7.7 % (0.0-10.0); %Lymphocytes 14.5 % (21.0-51.0); %Monocytes 9.7 % (0.0-10.0); %Neutrophils 67.8 % (42.0-75.0); Hemoglobin 7.2 g/dL (14.0-18.0); Mean Corpuscular HGB CONC 28.8 g/dL (32.0-36.0); Mean Corpuscular Hemoglobin 21.9 pg (27.0-31.0); Mean Corpuscular Volume 75.9 fL (78.0-98.0); Mean Platelet Volume 6.4 fL (7.4-10.4); Platelet Count 114 thou/uL (130-400); Platelet Morphology Comment Appears Decreased; RBC Distribution Width 21.6 % (11.5-14.5); Red Blood Cell (RBC) Count 3.29 mill/uL (4.70-6.10); White Blood Cell (WBC) Count 4.9 thou/uL (4.8-10.8)
[2020-03-24 05:37] LABS: Troponin I 0.057 ng/mL (< 0.028)
[2020-03-24] MEDS: Furosemide 40 MG/4 ML VIAL SLOW IVP SCH ×2 (06:37→13:51)
[2020-03-24] MEDS: methylPREDNISolone Sod Succ 40 MG VIAL IVP SCH ×3 (06:37→21:42)
[2020-03-24] MEDS: Aspirin Chewable 81 MG TAB PO SCH (08:08)
[2020-03-24] MEDS: Spironolactone 25 MG TAB PO SCH (08:08)
--- NOTE | 2020-03-24 08:48 | ULT ---
EXAM: US Abdomen Limited CLINICAL HISTORY: Evaluate for ascites. Possible paracentesis. COMPARISON: None. FINDINGS: Sonographic imaging of all 4 quadrants demonstrates only a small amount of fluid in the rig ht lower quadrant. The amount of fluid does not warrant a paracentesis at this time. IMPRESSION: No significant ascites to warrant paracentesis at this time.
[2020-03-24] MEDS ORDERED: Heparin 1,000 UNITS/ML VIAL ONE (08:58)
[2020-03-24 11:52] LABS: SARS-CoV-2 by NAA DETECTED (NotDetected)
[2020-03-24 11:53] LABS: SARS-CoV-2 MS2 Positive; SARS-CoV-2 N Gene Positive; SARS-CoV-2 S Gene Negative; SARS-CoV-2 orf1ab Positive
[2020-03-24] MEDS ORDERED: cefTRIAXone\\ROCEPHIN 1 GM in Sodium Chloride 0.9% 100 ML IVPB SCH (13:00)
[2020-03-24] MEDS: HumaLOG 300 UNITS/3 ML VIAL SC PRN ×3 (13:51→22:54)
[2020-03-24] MEDS: hydrALAZINE 25 MG TAB PO SCH ×2 (13:52→21:37)
[2020-03-24] MEDS ORDERED: Magnesium 2 GM/50 ML 2 GM in Premix Bag 1 BAG IVPB SCH (15:00)
[2020-03-24] MEDS ORDERED: Carvedilol 6.25 MG TAB PO SCH (15:00)
[2020-03-24 15:01] LABS: Albumin 4.2 g/dL (3.4-4.8); Anion Gap 21 mmol/L (10-20); BUN (Urea Nitrogen) 31 mg/dL (8.4-25.7); Bilirubin, Total 1.6 mg/dL (0.2-1.2); Calc. Creatinine Clearance 59 mL/min (70-130); Calcium 9.1 mg/dL (7.8-10.44); Carbon Dioxide 18 mmol/L (23-31); Chloride 101 mmol/L (98-107); Estimated GFR-MDRD 43; Globulin 4.3 g/dL (2.4-3.5); Glucose 245 mg/dL (80-115); Potassium 4.7 mmol/L (3.5-5.1); Protein, Total 8.5 g/dL (5.8-8.1); Sodium 135 mmol/L (136-145)
[2020-03-24 15:02] LABS: ALT (SGPT) 10 U/L (8-55); AST (SGOT) 14 U/L (5-34); Alkaline Phosphatase 52 U/L (40-110); Magnesium 1.6 mg/dL (1.6-2.6)
--- NOTE | 2020-03-24 16:31 | CON ---
DATE OF CONSULTATION: 03/24/2020 REASON FOR CONSULT: Management of heart failure during hypoxia due to smalls virus. HISTORY OF PRESENT ILLNESS: Mr. Eulalio Pinto, 69-year-old gentleman with known history of coronary artery lngkzjw-THUO-lyqxzudketyj-heart failure with reduced ejection fraction, presented with severe shortness of breath. Mr. Pinto was recently discharged from [facility] in [place], [place] for acute on chronic heart failure with reduced ejection fraction. He said he came home. He was doing seemingly well at home. His niece, whom he lives with, started developing cough about 4 days ago. The cough was quite persistent. Then a day later, his nephew, which is the niece's son, also began to cough. Then 2 days ago, Mr. Pinto himself began to cough, and he became more short of breath during the coughing spells. Yesterday, he made himself some English fries. Unfortunately, the English fries were loaded with lot of salt and ketchup. As he was eating his English fries, he became very short of breath. He felt so short of breath that he came to the ER. He was noted that he had oxygen saturation about 80s% in room air. He required supplemental oxygen to bring his saturation above 90%. The COVID-19 test was done. He tested positive for COVID-19. Mr. Eulalio Pinto was transferred from [place] to [facility] for acute on chronic heart failure with reduced ejection fraction at 25% for possible consideration of left ventricular assist device workup on February 26, 2020. Milrinone was used to augment diuresis while maintaining renal function. A coronary angiogram was done. It was reported that HERNANDEZ to LAD is still open. Imaging also showed small area reversible ischemia was present at the apex but was not amenable to stenting. [facility] then use PA catheter guidance to diurese him down to PCWP of only 16. [facility] also reported that his LVEF improved. Together with family support questions, it was decided that they will manage Mr. Pinto medically instead of proceeding onto a LVAD. Mr. Pinto was doing well at first. He noticed that he had increasing edema around his legs. His shoes no longer fit. Because of that, he doubled up on the diuretics that was prescribed. He said that doubling up the diuretics did decrease some amount of swelling. But for the last several days, he noticed that he has two pillow orthopnea. Then for last 3 days before admission, he had paroxysmal nocturnal dyspnea once per night. He believes that he has gained water weight. However, the water weight that he has is much less than what it was in comparison to the last admission to [place]. Opon questioning carefully, Mr. Pinto has not been eating well. He has been adding salt to eggs. He has been having ice-cream. As seen above, he has been eating home cooked English fries with lots of salt and ketchup. In general, he has not been following a heart failure diet. He has been overindulgence on salty food. PAST MEDICAL HISTORY: 1. Coronary artery disease with myocardial infarction by history in 2015. 2. Coronary artery bypass done in 2016. 3. Two stents placed in 2019 due to chest pains and probably myocardial infarction. 4. Heart failure with reduced ejection fraction. EF was 25% at one point by echocardiogram, which required LIME KILN TENDER-D device. 5. Hypertension. 6. Type 2 diabetes. 7. COPD. 8. He said he had testicular cancer that was removed in 2009. 9. He then said he probably had atrial fibrillation one time and that he was on anticoagulation one time. SOCIAL HISTORY: 1. He said he has smoked for 30 years but stopped in year 2012. 2. He used to drink alcohol but stopped in year 2012. 3. He used to use illicit drugs especially cocaine, but he stopped that drug in 2012. 4. He was incarcerated from 2012 until 2019. FAMILY HISTORY: He does not know his father at all. His mother at age 73 due to complication of diabetes. He has 5 brothers and sisters. Three of brothers and one of his sisters from HIV. ADDITIONAL FAMILY AND SOCIAL HISTORY: Since being released from incarceration, he is still on probation. However, he lives with his niece and her mom in the past, they said they can stay with the patient and provide him support. REVIEW OF SYSTEMS: GENERAL: There is no fever, chills, or productive cough. HEENT: There is no change in vision, hearing, or swallowing. However, he has chronic difficulty seeing through the right eye. PULMONARY: He is short of breath. Please see HPI. CARDIAC: Please see HPI. GI: He does eat well. Please see HPI. : He does not have difficulty with urination. MUSCULOSKELETAL: He complains of lower back pain. INTEGUMENT: He does not complain of any new skin breakdown. NEUROLOGIC: He does not complain of any new focal deficits or weaknesses. ALLERGIES: HE IS ALLERGIC TO IBUPROFEN AND TOMATOES. CURRENT MEDICATIONS: Include 1. Aspirin 81 mg daily. 2. Atorvastatin 40 mg at bedtime. 3. Azithromycin 500 mg daily. 4. Carvedilol 3.125 mg b.i.d. 5. Ceftriaxone at 1 g IV q.24 hours. 6. Lasix 40 mg IV b.i.d. 7. Hydralazine 25 mg p.o. q.8 hours. 8. Solu-Medrol 40 mg IV q.8 hours. 9. Spironolactone 12.5 mg p.o. daily. Telemetry was reviewed. He is in sinus rhythm. There is no concerning arrhythmia. PHYSICAL EXAMINATION: VITAL SIGNS: His oxygen saturation is 87% on room air. 2 L of oxygen by nasal cannula will bring his oxygen saturations to 95%. His heart rate is measured to be 84 and blood pressure 145/77. GENERAL: He is alert and conversational, sitting comfortably in bed. He is a little bit short of breath but not severely so, better than the last visit that I saw him when he had acute heart failure with reduced ejection fraction exacerbation. HEENT: EOMI. Oropharynx is benign with moist mucosa. NECK: His JVP is very elevated about 14 cm with positive hepatojugular reflux. PULMONARY: His breath sounds are distant, but it is clear to auscultation. There are no crackles. CARDIAC: His heart sounds are distant. There is regular rate and rhythm. There is normal S1, S2. There is 2/6 holosystolic murmur near the apex with radiation to the left axilla. There also seemed to be a 1/6 systolic murmur at the left upper sternal border. He has mitral regurgitation and also tricuspid regurgitation murmur. There are no gallops, no rubs. ABDOMEN: Large, soft, nontender. Positive bowel sounds. This seemed to be more like fat than fluid. EXTREMITIES: There is some slight pitting edema at the thighs. He has severe pitting edema from feet to all of his knees. There is about 1 cm pitting. However, it is hard, so he has lot of fluid in his legs. LABORATORY DATA: His TSH is normal at 2.573. He has elevated BNP at 1495, which is higher than the previous admission. His indeterminate range of troponin I is 0.057. His BUN from yesterday is 31. There are no new labs from today in terms of the chemistry. His creatinine from yesterday is 1.8. Chest x-ray was reviewed. It shows cardiomegaly. There was prominent pulmonary vasculature. There are some Marcia B lines of very mild pulmonary edema, but no large amount of pulmonary edema. However, there are bilateral infiltrates and this could be a sign of coronavirus. There is also a spot on the right lower lung. There is a LIME KILN TENDER-D device with RA, RV, and LV leads. ASSESSMENT: 69-year-old gentleman has primary cause of severe shortness of breath due to COVID-19 infection. This is exacerbated by his heart failure with reduced ejection fraction. He also has cardiac renal syndrome and coronary artery disease. The sequence of 4 days coughing from his niece, transmission to his nephew, transmission to him followed by himself coughing, being short of breath, strongly support angie COVID-19. However, he also has a level of decompensated heart failure. He did have increasing edema where his shoes did not fit. He did admit to eating a lot of salty food. He also had paroxysmal nocturnal dyspnea. That is another sign of heart failure. On exam, he is very much volume overloaded. Thus besides the coronavirus infection, he also has acute on chronic heart failure with reduced ejection fraction due to ischemic cardiomyopathy. He resides in [place] [employer] Class C and [place] Heart [employer] class 3B heart failure with reduced ejection fraction with combined systolic and diastolic dysfunctions. At this point, we need to aggressively treat his COVID- 19. He is at a high risk for severe COVID-19 complication due to existence of heart failure, existence of hypertension, existence of diabetes and also being obese. Thus, he needs to be aggressively treated. Please see the following for my recommendations. RECOMMENDATIONS: 1. Agree with the current regimen of smalls treatment. 2. Please consider using remdesivir sooner than later. He is already needing supplemental oxygenation and he is on high risk for complications. 3. Increase carvedilol to 6.25 p.o. q.12 hours. Please check labs because we need to know his BUN and creatinine values, so we can adjust medication. We will also need to know his electrolytes and potassium. 4. Agree with Lasix 40 mg IV b.i.d. 5. Please start Entresto at 24/26 combination p.o. q.12 hours, first dose now. The patient was on anticoagulation before most likely due to history of atrial fibrillation. Coronavirus is also a probability, so for now I will go ahead and start Eliquis at 5 mg p.o. b.i.d. 6. We will monitor his kidney function closely. If he starts to decompensate with worsening renal function, then we will need to add milrinone to supplement cardiac output, but at this point, he does not quite need it. 7. I will contact [facility] to find out what was probably the outcome of the evaluation and what is their long-term plan forward. It has been a pleasure taking care of Mr. Eulalio Pinto. If any questions, please give me a call. The total visitation time was about 70 minutes. This includes personally performing history and physical, reading chest x-ray, reading outside records, reading data, coordinating care with multiple physicians and greater than 50% of time was spent on direct patient interaction. Job ID: [id number] MTDD
--- NOTE | 2020-03-24 18:57 | PDOC.HOSPP ---
- Subjective Subjective: Patient was seen examined at bedside. Patient still complaining of dyspnea. Patient was seen by advanced heart failure management, Dr. Mock who has optimized his heart failure regimen. His symptoms started about 4 days ago. I have discussed with ID, and he is high risk for decompensation. Dr. Gotti is okay to start him on Remdesivir. No fever. - Objective Vital Signs & Weight: Vital Signs (12 hours) Temp Pulse Resp BP Pulse Ox 03/24/20 15:49 80 16 149/65 H 100 03/24/20 13:52 84 03/24/20 12:14 98.2 F 84 18 145/77 H 95 03/24/20 11:30 87 L 03/24/20 08:00 80 20 03/24/20 07:42 98.2 F 84 16 145/77 H 97 Weight Weight 252 lb 14.4 oz I&O: 03/23/20 03/24/20 03/25/20 06:59 06:59 06:59 Intake Total 100 Output Total 600 550 Balance -500 -550 Result Diagrams: 03/24/20 05:00 03/24/20 14:38 Additional Labs: Accuchecks 03/24/20 03/24/20 03/24/20 17:53 12:41 06:54 POC Glucose 192 H 236 H 112 H Radiology Reviewed by me: Yes Hospitalist ROS - Medication Medications: Active Medications Generic Name Dose Route Start Last Admin Trade Name Freq PRN Reason Stop Dose Admin Aspirin 81 mg 03/24/20 09:00 03/24/20 08:08 Aspirin Chewable 81 Mg Tab PO 81 mg DAILY WAYNE Administration Furosemide 40 mg 03/24/20 06:00 03/24/20 13:51 Furosemide 40 Mg/4 Ml Vial SLOW IVP 03/25/20 06:01 40 mg 0600,1400 WAYNE Administration Hydralazine HCl 25 mg 03/24/20 14:00 03/24/20 13:52 Hydralazine 25 Mg Tab PO 25 mg Q8HR WAYNE Administration Ceftriaxone Sodium 1 gm/ 100 mls @ 200 mls/hr 03/24/20 13:00 03/24/20 13:50 Sodium Chloride IVPB 100 mls Q24HR WAYNE Administration Insulin Human Lispro 0 units 03/24/20 03:49 03/24/20 18:05 Humalog 300 Units/3 Ml Vial SC 2 unit .MODERATE SLIDING SC PRN Administration Moderate Correctional Scale Methylprednisolone Sodium Succinate 40 mg 03/24/20 06:00 03/24/20 13:51 Methylprednisolone Sod Succ 40 Mg Vial IVP 40 mg Q8HR WAYNE Administration Spironolactone 12.5 mg 03/24/20 09:00 03/24/20 08:08 Spironolactone 25 Mg Tab PO 12.5 mg DAILY WAYNE Administration - Exam General Appearance: NAD Eye: PERRL ENT: normocephalic atraumatic Neck: supple, symmetric Heart: RRR, no murmur Respiratory: CTAB, no wheezes Gastrointestinal: soft, non-tender Extremities: no cyanosis, no clubbing, no edema Skin: normal turgor, no lesions, no rashes Neurological: cranial nerve grossly intact Musculoskeletal: normal tone Psychiatric: normal affect, normal behavior, A&O x 3 Hosp A/P - Plan 69 years old -[place] gentleman, who has significant past medical history of chronic systolic heart failure, with EF of 20-25%, COPD, diabetes, who present to ED with worsening dyspnea. Pt was initially admitted for decompensated HF, later found to have positive COVID 19. Acute hypoxic respiratory failure likely due to multifactorial including COVID- 19 infection, heart failure, and COPD exacerbation --Continue O2 supplement, IV steroid, add empiric antibiotics. Discussed with ID, add Remdesivir COVID-19 infection --isolation, cont steroids, add empiric IV abx with azithromycin and Rocephin. Start Remdesivir Acute on chronic systolic heart failure with EF of 20% --Patient was seen by cardiology, Entresto was added. Continue current HF regimens as per cardiology --Monitor I&O and daily weight COPD with exac --mgt as above Ascites --Paracentesis was attempted but no not enough fluid. We will continue with IV diuresis as mentioned above. DM2 --cont Sliding scale DVT ppx: pt is on Eliquis PPI ppx: PPI Code: Full
[2020-03-24] MEDS ORDERED: Carvedilol 3.125 MG TAB PO SCH (21:00)
[2020-03-24] MEDS ORDERED: FLU VACC QS2020-21(65YR UP)/PF 240 MCG/0.7 ML SYRINGE IM ONE (21:00)
[2020-03-24] MEDS: Azithromycin 500 MG in Sodium Chloride 0.9% 250 ML 250 ML IVPB SCH (21:15)
[2020-03-24] MEDS: Atorvastatin Calcium 40 MG TAB PO SCH (21:37)
[2020-03-24] MEDS: Carvedilol 6.25 MG TAB PO SCH (21:37)
[2020-03-24] MEDS: Apixaban 5 MG TAB PO SCH (21:37)
[2020-03-24] MEDS ORDERED: Guaifenesin DM 100-10/5 ML UDCUP PO PRN (22:28)
[2020-03-25 05:32] LABS: #Lymphocytes 0.4 thou/uL (1.20-3.40); #Monocytes 0.2 thou/uL (0.11-0.59); #Neutrophils 5.5 thou/uL (1.40-6.50); %Lymphocytes 6.5 % (21.0-51.0); %Monocytes 2.6 % (0.0-10.0); %Neutrophils 90.8 % (42.0-75.0); Mean Corpuscular HGB CONC 28.8 g/dL (32.0-36.0); Mean Corpuscular Hemoglobin 21.7 pg (27.0-31.0); Mean Corpuscular Volume 75.3 fL (78.0-98.0); Mean Platelet Volume 7.2 fL (7.4-10.4); Platelet Count 84 thou/uL (130-400); RBC Distribution Width 20.9 % (11.5-14.5); Red Blood Cell (RBC) Count 3.23 mill/uL (4.70-6.10); Reticulocyte Count 3.3 % (0.5-1.5)
[2020-03-25 05:37] LABS: INR-International Normal Ratio 1.4; Prothrombin Time 17.6 sec (12.0-14.7)
[2020-03-25 05:51] LABS: Anion Gap 13 mmol/L (10-20); BUN (Urea Nitrogen) 36 mg/dL (8.4-25.7); Calc. Creatinine Clearance 62 mL/min (70-130); Calcium 8.2 mg/dL (7.8-10.44); Carbon Dioxide 24 mmol/L (23-31); Chloride 102 mmol/L (98-107); Estimated GFR-MDRD 45; Glucose 183 mg/dL (80-115); Iron 13 ug/dL (65-175); Iron Binding Capacity, Total 384 mcg/dL (261-462); Magnesium 1.9 mg/dL (1.6-2.6); Potassium 4.7 mmol/L (3.5-5.1); Sodium 134 mmol/L (136-145)
[2020-03-25] MEDS: HumaLOG 300 UNITS/3 ML VIAL SC PRN ×3 (06:20→18:43)
[2020-03-25] MEDS: methylPREDNISolone Sod Succ 40 MG VIAL IVP SCH ×3 (06:42→23:10)
[2020-03-25] MEDS: hydrALAZINE 25 MG TAB PO SCH (06:42)
[2020-03-25] MEDS: Furosemide 40 MG/4 ML VIAL SLOW IVP SCH (06:42)
[2020-03-25] MEDS: Apixaban 5 MG TAB PO SCH ×2 (09:35→23:08)
[2020-03-25] MEDS: Aspirin Chewable 81 MG TAB PO SCH (09:35)
[2020-03-25] MEDS: Spironolactone 25 MG TAB PO SCH (09:36)
[2020-03-25] MEDS: Carvedilol 6.25 MG TAB PO SCH ×2 (09:36→23:08)
[2020-03-25 11:27] LABS: Reticulocyte Count 3.1 % (0.5-1.5)
[2020-03-25 11:34] LABS: INR-International Normal Ratio 1.4; Prothrombin Time 17.9 sec (12.0-14.7)
[2020-03-25 11:40] LABS: CRP (Inflammatory) 0.5 mg/dL (= or < 0.5)
[2020-03-25 11:41] LABS: Iron 15 ug/dL (65-175); Iron Binding Capacity, Total 398 mcg/dL (261-462)
[2020-03-25] MEDS ORDERED: Furosemide 100 MG/10 ML VIAL SLOW IVP SCH (12:30)
[2020-03-25] MEDS ORDERED: Magnesium 2 GM/50 ML 2 GM in Premix Bag 1 BAG IVPB SCH (12:30)
--- NOTE | 2020-03-25 14:42 | PDOC.HOSPP ---
- Subjective Encounter Date: 03/25/20 Encounter Time: 10:30 Subjective: pt up in chair no complains - Objective Vital Signs & Weight: Vital Signs (12 hours) Temp Pulse Resp BP BP Pulse Ox 03/25/20 11:50 97.3 F L 76 20 134/65 99 03/25/20 09:36 124/63 03/25/20 08:40 100 03/25/20 08:10 96.2 F L 75 20 124/63 100 03/25/20 05:20 98.2 F 75 18 115/59 L 98 Weight Weight 244 lb 4.8 oz I&O: 03/24/20 03/25/20 03/26/20 06:59 06:59 06:59 Intake Total 100 2780 Output Total 600 2650 Balance -500 130 Result Diagrams: 03/25/20 05:23 03/25/20 05:23 Additional Labs: Accuchecks 03/25/20 03/24/20 11:54 17:53 POC Glucose 221 H 192 H Hospitalist ROS - Review of Systems Cardiovascular: denies: chest pain, palpitations, orthopnea, paroxysmal noc. dyspnea, edema, light headedness, other Gastrointestinal: denies: nausea, vomiting, abdominal pain, diarrhea, constipation, melena, hematochezia, other Genitourinary: denies: dysuria, frequency, incontinence, hematuria, retention, other - Medication Medications: Active Medications Generic Name Dose Route Start Last Admin Trade Name Freq PRN Reason Stop Dose Admin Aspirin 81 mg 03/24/20 09:00 03/25/20 09:35 Aspirin Chewable 81 Mg Tab PO 81 mg DAILY WAYNE Administration Atorvastatin Calcium 40 mg 03/24/20 21:00 03/24/20 21:37 Atorvastatin Calcium 40 Mg Tab PO 40 mg HS WAYNE Administration Guaifenesin/Dextromethorphan 15 ml 03/24/20 22:28 03/24/20 23:09 Guaifenesin Dm 100-10/5 Ml Udcup PO 15 ml Q4H PRN Administration Cough Azithromycin 500 mg/ Sodium 250 mls @ 250 mls/hr 03/24/20 20:00 03/24/20 21:15 Chloride IVPB 250 mls 2000 WAYNE Administration Magnesium Sulfate 2 gm/ Device 50 mls @ 100 mls/hr 03/25/20 12:30 03/25/20 13:12 IVPB 10/03/20 15:00 50 mls NOW WAYNE Administration Insulin Human Lispro 0 units 03/24/20 03:49 03/25/20 13:12 Humalog 300 Units/3 Ml Vial SC 4 unit .MODERATE SLIDING SC PRN Administration Moderate Correctional Scale Insulin Human Lispro 0 units 03/24/20 22:28 03/24/20 22:54 Humalog 300 Units/3 Ml Vial SC 2 unit .BEDTIME SLIDING SC PRN Administration Bedtime Correctional Scale Methylprednisolone Sodium Succinate 40 mg 03/24/20 06:00 03/25/20 06:42 Methylprednisolone Sod Succ 40 Mg Vial IVP 40 mg Q8HR WAYNE Administration Pantoprazole Sodium 40 mg 03/25/20 09:00 03/25/20 09:37 Pantoprazole 40 Mg Tab PO 40 mg DAILY WAYNE Administration Sacubitril/Valsartan 1 tab 03/24/20 21:00 03/25/20 11:14 Sacubitril 24mg/Valsartan 26mg Tab PO 1 tab Q12HR WAYNE Administration Sodium Chloride 10 ml 03/24/20 21:00 03/25/20 09:37 Flush - Normal Saline 10 Ml Syringe IVF 10 ml Q12HR WAYNE Administration Spironolactone 12.5 mg 03/24/20 09:00 03/25/20 09:36 Spironolactone 25 Mg Tab PO 12.5 mg DAILY WAYNE Administration - Exam Neck: negative: supple, symmetric, no JVD, no thyromegaly, no lymphadenopathy, no carotid bruit, JVD Heart: negative: RRR, no murmur, no gallops, no rubs, normal peripheral pulses, irregular, diminshed peripheral pulses, murmur present, II/IV, III/IV Respiratory: negative: CTAB, no wheezes, no rales, no ronchi, normal chest expansion, no tachypnea, normal percussion, rales, rhonchi, tachypneic, wheezes Gastrointestinal: negative: soft, non-tender, non-distended, normal bowel sounds, no palpable masses, no hepatomegaly, no splenomegaly, no bruit, no guarding, no rigidity, tender to palpation, distended, diminished bowl sounds, voluntary guarding Extremities: 1+ LE edema Hosp A/P (1) Acute respiratory failure with hypoxia Code(s): J96.01 - ACUTE RESPIRATORY FAILURE WITH HYPOXIA Status: Acute (2) Acute exacerbation of CHF (congestive heart failure) Code(s): I50.9 - HEART FAILURE, UNSPECIFIED Status: Acute Qualifiers: Heart failure type: unspecified Qualified Code(s): I50.9 - Heart failure, unspecified (3) Anticoagulant long-term use Code(s): Z79.01 - MCFP (CURRENT) USE OF 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 Status: Chronic (4) Atrial fibrillation with controlled ventricular response Code(s): I48.91 - UNSPECIFIED ATRIAL FIBRILLATION Status: Chronic (5) DMII (diabetes mellitus, type 2) Status: Chronic Qualifiers: Diabetes mellitus senior care insulin use: without senior care use Diabetes mellitus complication status: with kidney complications Diabetes mellitus complication detail: with chronic kidney disease Chronic kidney disease stage: stage 3 (moderate) Qualified Code(s): E11.22 - Type 2 diabetes mellitus with diabetic chronic kidney disease; N18.3 - Chronic kidney disease, stage 3 (moderate) (6) GERD (gastroesophageal reflux disease) Code(s): K21.9 - GASTRO-ESOPHAGEAL REFLUX DISEASE WITHOUT ESOPHAGITIS Status: Chronic (7) HTN (hypertension) Code(s): I10 - ESSENTIAL (PRIMARY) HYPERTENSION Status: Chronic Qualifiers: Hypertension type: essential hypertension Qualified Code(s): I10 - Essential (primary) hypertension (8) V tach Code(s): I47.2 - VENTRICULAR TACHYCARDIA Status: Acute - Plan pt's electrolytes stable. will monitor closely. Pt on diuretics. pt has thrombocytopenia will continue eliquis for now. pt on decadron. pt on solumedrol if he continues to improve will change to decadron.
[2020-03-25] MEDS ORDERED: Iron Sucrose Complex 100 MG in Sodium Chloride 0.9% 100 ML IVPB SCH (14:45)
[2020-03-25] MEDS ORDERED: Iron, Sodium Ferric Gluconate 125 MG in Sodium Chloride 0.9% 100 ML IVPB SCH (15:00)
[2020-03-25] MEDS: Atorvastatin Calcium 40 MG TAB PO SCH (23:08)
[2020-03-25] MEDS: Magnesium Oxide 400 MG TAB PO SCH (23:09)
[2020-03-25] MEDS: Azithromycin 500 MG in Sodium Chloride 0.9% 250 ML 250 ML IVPB SCH (23:17)
[2020-03-26] MEDS: methylPREDNISolone Sod Succ 40 MG VIAL IVP SCH ×2 (05:08→14:58)
[2020-03-26 05:35] LABS: INR-International Normal Ratio 1.6; Prothrombin Time 19.2 sec (12.0-14.7)
[2020-03-26] MEDS: HumaLOG 300 UNITS/3 ML VIAL SC PRN ×2 (05:51→11:18)
[2020-03-26 05:53] LABS: Anion Gap 16 mmol/L (10-20); BUN (Urea Nitrogen) 42 mg/dL (8.4-25.7); Calc. Creatinine Clearance 59 mL/min (70-130); Calcium 8.8 mg/dL (7.8-10.44); Carbon Dioxide 21 mmol/L (23-31); Chloride 100 mmol/L (98-107); Estimated GFR-MDRD 44; Glucose 231 mg/dL (80-115); Magnesium 2.2 mg/dL (1.6-2.6); Potassium 4.7 mmol/L (3.5-5.1); Sodium 132 mmol/L (136-145)
[2020-03-26 05:54] LABS: ALT (SGPT) 8 U/L (8-55); AST (SGOT) 12 U/L (5-34); Albumin 3.9 g/dL (3.4-4.8); Alkaline Phosphatase 47 U/L (40-110); Bilirubin, Direct 1.1 mg/dL (0.1-0.3); Bilirubin, Total 2.1 mg/dL (0.2-1.2); Protein, Total 7.9 g/dL (5.8-8.1)
[2020-03-26 06:10] LABS: Band 3 % (5-11); Hemoglobin 10.2 g/dL (14.0-18.0); Hypochromia SLIGHT = 6-15 cells (100X) (0-5/hpf); Lymphocytes 2 % (21-51); MDiff Complete? YES; Mean Corpuscular HGB CONC 29.5 g/dL (32.0-36.0); Mean Corpuscular Hemoglobin 23.4 pg (27.0-31.0); Mean Corpuscular Volume 79.1 fL (78.0-98.0); Mean Platelet Volume 7.6 fL (7.4-10.4); Microcytosis SLIGHT = 6-15 cells (100X) (0-5/hpf); Monocytes 3 % (0-10); Neutrophil 91 % (42-75); Platelet Count 88 thou/uL (130-400); Platelet Morphology Comment Appears Decreased; Reactive Lymphocytes 1 % (0-10); Red Blood Cell (RBC) Count 4.38 mill/uL (4.70-6.10); White Blood Cell (WBC) Count 7.9 thou/uL (4.8-10.8)
--- NOTE | 2020-03-26 06:20 | PRG ---
DATE OF SERVICE: 03/25/2020 SERVICE: [facility] SUBJECTIVE: Mr. Eulalio Pinto had a good day. He said he was able to urinate a lot of fluid yesterday. He felt better with that. He was able to sleep without having PND. He also received remdesivir, Solu-Medrol and also antibiotics including azithromycin for treatment of his coronavirus. He said he is coughing. The nurses did notice that he is coughing. I was able to talk to Dr. Live on the phone about what transpired at [facility] yesterday. The patient was placed on milrinone therapy. They were using milrinone augmentation to diurese him. After milrinone augmented diuresis, they did coronary angiogram. It seems like most of the grafts were down. However, his HERNANDEZ to LAD was still open. Afterwards, they did a myocardial perfusion and viability scan. There was spot of reversible ischemic region near the apex and apparently majority of his myocardium were salvageable. They also did a right heart catheterization. They were able to decrease RA pressure. He had a high PA pressure in the 50s. Eventually they were able to diurese down his pulmonary capillary wedge pressure down to about 16. Afterwards, the echocardiogram showed that he had significant improvement in ejection fraction to about 35% to 40%. Thus at that point, they did not think that he needed LVAD. They did not think they could find a way to do stenting, thus they opted for medical management. That is the reason why he was not on inotrope and did not receive LVAD. Furthermore, there are also issues with his family. He may not have enough family support to support LVAD, but this is yet to be determined. REVIEW OF SYSTEMS: GENERAL: There is no fever or chills. However, he does cough. See HPI. HEENT: There is no change in vision, hearing, or swallowing. PULMONARY: Please see HPI. CARDIAC: There are no complaints of chest pain, palpitations, syncope. GI: He is apparently eating well. There is no complaint of nausea or vomiting or diarrhea. : He is able to urinate. MUSCULOSKELETAL: He has some back pain. INTEGUMENT: There is no complaint of new skin breakdown. NEUROLOGIC: There are no focal deficits or weaknesses. MEDICATIONS: Medications that he is currently on include 1. Apixaban 5 mg b.i.d. 2. Aspirin 81 mg daily. 3. Atorvastatin at 40 mg at bedtime. 4. Azithromycin 500 mg daily. 5. Carvedilol 6.25 mg b.i.d. 6. Vitamin D or ergocalciferol 1.25 mg p.o. daily for 7 days. 7. Hydralazine 25 mg p.o. q.8 hours. 8. Solu-Medrol 40 mg IV q.8 hours. 9. Protonix 40 mg daily. 10. Remdesivir. 11. Sacubitril and valsartan at combination, one tab q.12 hours. 12. Spironolactone 12.5 mg daily. Telemetry was reviewed. Around 2:43 a.m., he had some wide-complex tachycardia. It starts with 3 beats of wide-complex tachycardia followed by 7 beats of wide-complex tachycardia. This was self-terminated. 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 PHYSICAL EXAMINATION: GENERAL: Mr. Pinto is reclining comfortably in bed. He is not short of breath with oxygen supplementation with 2 L of oxygen by nasal cannula. He is saturating at 99%. HEENT: EOMI. Oropharynx benign. NECK: JVP is elevated about 13 or 14 cm. PULMONARY: He has distant breath sounds. However, there are no crackles, so it is clear to auscultation. CARDIAC: Regular rate and rhythm with occasional irregularity, there is normal S1, S2, there is 2/6 holosystolic murmur at the apex and also the left sternal border. ABDOMEN: Large, mildly distended, positive bowel sounds. EXTREMITIES: He has some pitting edema about his thighs. He has a very tight and at least 1 cm pitting edema from the bilateral feet toward bilateral knees. LABORATORY DATA: White cell count is 6, hemoglobin 7, and platelets only 84. His chemistry shows sodium 134, potassium 4.7, chloride 102, bicarbonate 24, BUN at 36, creatinine 1.82, his glucose 183, magnesium 1.9. ASSESSMENT: 69-year-old gentleman has two diagnoses. His primary diagnosis is coronavirus pulmonary infection. This is causing him to be short of breath, now cough. He is being aggressively treated with steroids, antiviral, and also antibiotics. He also has acute on chronic heart failure with reduced ejection fraction. He resides in [place] Heart Association stage C and [place] heart Association class III heart failure with reduced ejection fraction with both systolic and diastolic dysfunctions. It is an ischemic cardiomyopathy. Per conversation with [facility], he remains ischemic. So this probably contributed to his short run of nonsustained ventricular tachycardia last night. He is also very anemic with hemoglobin 7.0. In heart failure and also ongoing ischemia, this needs to be transfused with a goal to keep the hemoglobin above 9. He also has thrombocytopenia. His platelet count has significant drop since admission. It is unclear which medication or what took place. I was unable to find documentation of heparin use. So apixaban could be a culprit, less so would be Entresto. At this point, we will stop apixaban for now to see if the platelet count comes back up. Please see the following for my recommendations. RECOMMENDATIONS: 1. Stop hydralazine. 2. Stop Eliquis. 3. Increase carvedilol to 12.5 mg q.12 hours. 4. Please do type and screen, retic count, iron studies. 5. Transfuse 2 units of blood. 6. Please give Lasix 60 mg IV one dose between 1st and 2nd unit of blood. 7. Please provide magnesium oxide 400 mg p.o. b.i.d. 8. Please give magnesium sulfate 2 g IV now. This is to reduce chance of another bout of NSVT. It has been a pleasure taking care of Mr. Eulalio Pinto. If you have any questions, please give me a call. This visitation took about 40 minutes. This includes personally performing history and physical, speaking to 7th grade teacher at [facility], coordinating care, reviewing data and direct patient interaction. Job ID: [id number] MTDD
[2020-03-26] MEDS: Aspirin Chewable 81 MG TAB PO SCH (11:11)
[2020-03-26] MEDS: Spironolactone 25 MG TAB PO SCH (11:11)
[2020-03-26] MEDS: Magnesium Oxide 400 MG TAB PO SCH ×2 (11:12→21:41)
[2020-03-26] MEDS: Carvedilol 6.25 MG TAB PO SCH ×2 (11:12→21:41)
[2020-03-26] MEDS: Apixaban 5 MG TAB PO SCH ×2 (11:12→21:41)
[2020-03-26] MEDS: Ergocalciferol 1.25 MG(50,000 UNITS) CAP PO SCH (11:13)
[2020-03-26] MEDS ORDERED: Furosemide 40 MG/4 ML VIAL SLOW IVP SCH (11:15)
--- NOTE | 2020-03-26 11:31 | PRG ---
DATE OF SERVICE: 03/26/2020 SERVICE: [facility] Consult Service. SUBJECTIVE: Mr. Pinto had a good day. He tolerated blood transfusion without any problem. He said that his breathing has really improved. He is a lot less short of breath and breathing easier. He is more energetic today too. This occurred despite that he is essentially net even, so remdesivir probably worked. REVIEW OF SYSTEMS: GENERAL: There is no fever or chills. His cough has decreased. HEENT: There is no change in vision, hearing, or swallowing. PULMONARY: Please see HPI. CARDIAC: There are no chest pain, palpitations, or syncope. GASTROINTESTINAL: There is no nausea, vomiting, or diarrhea. GENITOURINARY: He is able to urinate well on his own. MUSCULOSKELETAL: He has not complained of back or muscle pains today. INTEGUMENT: There is no skin breakdown. NEUROLOGIC: There are no focal deficits or weaknesses. MEDICATIONS: He is on, 1. Apixaban 5 mg b.i.d. 2. Aspirin 81 mg daily. 3. Atorvastatin 40 mg at bedtime. 4. Azithromycin at 500 mg daily. 5. Carvedilol at 12.5 mg b.i.d. 6. Vitamin D in ergocalciferol 1.25 mg daily for 7 days. 7. Insulin. 8. Magnesium oxide 400 mg b.i.d. 9. Solu-Medrol 40 mg IV q.8 hours. 10. Protonix 40 mg daily. 11. Remdesivir at 100 mg daily. 12. Sacubitril/valsartan, which is Entresto, combination one tab q.12 hours. 13. Spironolactone 12.5 mg daily. PHYSICAL EXAMINATION: TELEMETRY: Reviewed. He is in a majority of paced rhythm at 75 beats per minute. There are occasional PVCs. VITAL SIGNS: His blood pressure between 131 to 141 systolic and diastolic blood pressure between 67 to 62. GENERAL: He is doing well generally overall. He is alert and conversational, sitting and able to walk. He is looking much better today. HEENT: Show EOMI. Oropharynx is benign with moist mucosa. NECK: His JVP is difficult to tell, but is still elevated at least 12 cm. PULMONARY: His breath sounds are distant due to body habitus, but it appears to be clear to auscultation. CARDIAC: His heart sounds are very difficult to hear. Regular rate and rhythm. Normal S1 and S2. There is faint 1/6 holosystolic murmur near the apex. ABDOMEN: Distended, soft, nontender. Positive bowel sounds. He has about 0.5 cm or deeper pitting edema from his feet up to his knees, so he is still edematous. LABORATORY VALUES: White cell count 7.9, hemoglobin 12.2, platelets are stable at 88. His chemistry is sodium 132, potassium is 4.7, BUN 42, and creatinine 1.85. ASSESSMENT: 69-year-old gentleman is improving from COVID-19 infection. He is breathing easier, feeling better despite no volume change supports this premis. He has also improved energy after transfusing 2 units of blood. However, the source of blood loss needs to be investigated. He remains in [place] Heart Association stage C and [place] Heart Association class III heart failure with reduced ejection fraction with combined systolic and diastolic dysfunctions. This is due to ischemic cardiomyopathy. He is still volume overloaded, but seemed to be compensated. He is tolerating his increased doses of carvedilol and also Entresto without any problem. Being volume overloaded, we will be more aggressive in diuresis today. Please see the following for recommendations. RECOMMENDATIONS: 1. Agree with restarting apixaban at 5 mg b.i.d. to decrease thromboembolic event with coronavirus. In the past, he did have atrial fibrillation and he was on anticoagulation before, so this is excellent. 2. Start furosemide 40 mg IV b.i.d. We will follow this daily. We will transition to oral when it is needed. 3. Continue with current dose of carvedilol and Entresto. It has been a pleasure taking care of Mr. Eulalio Pinto. If you have any questions, please give me a call. Visitation time is 30 minutes. This includes personally performing history and physical, reviewing data, coordinating care, and also direct patient interaction. Job ID: [id number] [facility]
[2020-03-26] MEDS: Furosemide 40 MG/4 ML VIAL SLOW IVP SCH (14:58)
--- NOTE | 2020-03-26 17:08 | PDOC.HOSPP ---
- Subjective Encounter Date: 03/26/20 Encounter Time: 16:30 Subjective: pt up in bed feels good. - Objective Vital Signs & Weight: Weight Weight 244 lb 4.8 oz Most Recent Monitor Data Heart Rate from ECG 76 NIBP 140/62 Respiration from ECG 16 I&O: 03/25/20 03/26/20 03/27/20 06:59 06:59 06:59 Intake Total 2780 1994 Output Total 2650 1999 Balance 130 -5 Result Diagrams: 03/26/20 05:19 03/26/20 05:19 Additional Labs: Accuchecks 03/26/20 03/25/20 03/25/20 05:39 20:57 17:46 POC Glucose 192 H 221 H 212 H Hospitalist ROS - Review of Systems Respiratory: denies: cough, dry, shortness of breath, hemoptysis, SOB with excertion, pleuritic pain, sputum, wheezing, other Cardiovascular: denies: chest pain, palpitations, orthopnea, paroxysmal noc. dyspnea, edema, light headedness, other Gastrointestinal: denies: nausea, vomiting, abdominal pain, diarrhea, constipation, melena, hematochezia, other - Medication Medications: Active Medications Generic Name Dose Route Start Last Admin Trade Name Freq PRN Reason Stop Dose Admin Apixaban 5 mg 03/25/20 21:00 03/26/20 11:12 Apixaban 5 Mg Tab PO 5 mg BID WAYNE Administration Aspirin 81 mg 03/24/20 09:00 03/26/20 11:11 Aspirin Chewable 81 Mg Tab PO 81 mg DAILY WAYNE Administration Atorvastatin Calcium 40 mg 03/24/20 21:00 03/25/20 23:08 Atorvastatin Calcium 40 Mg Tab PO 40 mg HS WAYNE Administration Carvedilol 12.5 mg 03/25/20 21:00 03/26/20 11:12 Carvedilol 6.25 Mg Tab PO 12.5 mg BID WAYNE Administration Ergocalciferol 1.25 mg 03/26/20 09:00 03/26/20 11:13 Ergocalciferol 1.25 Mg(50,000 Units) Cap PO Not Given Q7D WAYNE Furosemide 40 mg 03/26/20 14:00 03/26/20 14:58 Furosemide 40 Mg/4 Ml Vial SLOW IVP 40 mg 0600,1400 WAYNE Administration Guaifenesin/Dextromethorphan 15 ml 03/24/20 22:28 03/24/20 23:09 Guaifenesin Dm 100-10/5 Ml Udcup PO 15 ml Q4H PRN Administration Cough Azithromycin 500 mg/ Sodium 250 mls @ 250 mls/hr 03/24/20 20:00 03/25/20 23:17 Chloride IVPB 250 mls 1999 WAYNE Administration Remdesivir 100 mg/ Sodium 250 mls @ 250 mls/hr 03/25/20 20:00 03/26/20 01:08 Chloride IV 03/28/20 20:59 250 mls Q24HR@1999 WAYNE Administration Insulin Human Lispro 0 units 03/24/20 03:49 03/26/20 11:18 Humalog 300 Units/3 Ml Vial SC 4 unit .MODERATE SLIDING SC PRN Administration Moderate Correctional Scale Insulin Human Lispro 0 units 03/24/20 22:28 03/24/20 22:54 Humalog 300 Units/3 Ml Vial SC 2 unit .BEDTIME SLIDING SC PRN Administration Bedtime Correctional Scale Magnesium Oxide 400 mg 03/25/20 21:00 03/26/20 11:12 Magnesium Oxide 400 Mg Tab PO 400 mg BID WAYNE Administration Methylprednisolone Sodium Succinate 40 mg 03/24/20 06:00 03/26/20 14:58 Methylprednisolone Sod Succ 40 Mg Vial IVP 40 mg Q8HR WAYNE Administration Pantoprazole Sodium 40 mg 03/25/20 09:00 03/26/20 11:12 Pantoprazole 40 Mg Tab PO 40 mg DAILY WAYNE Administration Sacubitril/Valsartan 1 tab 03/24/20 21:00 03/26/20 11:13 Sacubitril 24mg/Valsartan 26mg Tab PO 1 tab Q12HR WAYNE Administration Sodium Chloride 10 ml 03/24/20 21:00 03/26/20 11:13 Flush - Normal Saline 10 Ml Syringe IVF 10 ml Q12HR WAYNE Administration Spironolactone 12.5 mg 03/24/20 09:00 03/26/20 11:11 Spironolactone 25 Mg Tab PO 12.5 mg DAILY WAYNE Administration - Exam Heart: negative: RRR, no murmur, no gallops, no rubs, normal peripheral pulses, irregular, diminshed peripheral pulses, murmur present, II/IV, III/IV Respiratory: negative: CTAB, no wheezes, no rales, no ronchi, normal chest expansion, no tachypnea, normal percussion, rales, rhonchi, tachypneic, wheezes Gastrointestinal: negative: soft, non-tender, non-distended, normal bowel sounds, no palpable masses, no hepatomegaly, no splenomegaly, no bruit, no guarding, no rigidity, tender to palpation, distended, diminished bowl sounds, voluntary guarding Extremities: 2+ LE edema Hosp A/P (1) Acute respiratory failure with hypoxia Code(s): J96.01 - ACUTE RESPIRATORY FAILURE WITH HYPOXIA Status: Acute (2) Acute exacerbation of CHF (congestive heart failure) Code(s): I50.9 - HEART FAILURE, UNSPECIFIED Status: Acute Qualifiers: Heart failure type: unspecified Qualified Code(s): I50.9 - Heart failure, unspecified (3) Anticoagulant long-term use Code(s): Z79.01 - LONG-TERM (CURRENT) USE OF 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 Status: Chronic (4) Atrial fibrillation with controlled ventricular response Code(s): I48.91 - UNSPECIFIED ATRIAL FIBRILLATION Status: Chronic (5) DMII (diabetes mellitus, type 2) Status: Chronic Qualifiers: Diabetes mellitus salvage determiner insulin use: without [place] [facility] use Diabetes mellitus complication status: with kidney complications Diabetes mellitus complication detail: with chronic kidney disease Chronic kidney disease stage: stage 3 (moderate) Qualified Code(s): E11.22 - Type 2 diabetes mellitus with diabetic chronic kidney disease; N18.3 - Chronic kidney disease, stage 3 (moderate) (6) GERD (gastroesophageal reflux disease) Code(s): K21.9 - GASTRO-ESOPHAGEAL REFLUX DISEASE WITHOUT ESOPHAGITIS Status: Chronic (7) HTN (hypertension) Code(s): I10 - ESSENTIAL (PRIMARY) HYPERTENSION Status: Chronic Qualifiers: Hypertension type: essential hypertension Qualified Code(s): I10 - Essential (primary) hypertension (8) V tach Code(s): I47.2 - VENTRICULAR TACHYCARDIA Status: Acute - Plan pt's electrolytes stable. will monitor closely. Pt on diuretics. pt has thrombocytopenia will continue eliquis for now. pt on decadron. pt on solumedrol if he continues to improve will change to decadron. 03/26 we will change dosing of Solu-Medrol. Patient appears to be stable. Will need oxygen on discharge. Will talk with heart failure for possible discharge. Will continue Eliquis his thrombocytopenia is stable but not worsening.
[2020-03-26] MEDS: Azithromycin 500 MG in Sodium Chloride 0.9% 250 ML 250 ML IVPB SCH (21:40)
[2020-03-26] MEDS: Atorvastatin Calcium 40 MG TAB PO SCH (21:41)
[2020-03-27 05:15] LABS: #Lymphocytes 0.5 thou/uL (1.20-3.40); #Monocytes 0.4 thou/uL (0.11-0.59); %Eosinophils 0.1 % (0.0-10.0); %Lymphocytes 7.4 % (21.0-51.0); %Monocytes 5.4 % (0.0-10.0); %Neutrophils 87.1 % (42.0-75.0); Hemoglobin 9.7 g/dL (14.0-18.0); Mean Corpuscular HGB CONC 30.1 g/dL (32.0-36.0); Mean Corpuscular Hemoglobin 23.7 pg (27.0-31.0); Mean Corpuscular Volume 78.8 fL (78.0-98.0); Platelet Count 64 thou/uL (130-400); White Blood Cell (WBC) Count 6.8 thou/uL (4.8-10.8)
[2020-03-27 05:18] LABS: INR-International Normal Ratio 1.6; Prothrombin Time 19.2 sec (12.0-14.7)
[2020-03-27 05:36] LABS: Anion Gap 14 mmol/L (10-20); BUN (Urea Nitrogen) 50 mg/dL (8.4-25.7); Calc. Creatinine Clearance 53 mL/min (70-130); Calcium 8.3 mg/dL (7.8-10.44); Carbon Dioxide 24 mmol/L (23-31); Chloride 99 mmol/L (98-107); Estimated GFR-MDRD 38; Glucose 332 mg/dL (80-115); Magnesium 2.1 mg/dL (1.6-2.6); Potassium 4.4 mmol/L (3.5-5.1); Sodium 133 mmol/L (136-145)
[2020-03-27 05:37] LABS: ALT (SGPT) 8 U/L (8-55); AST (SGOT) 9 U/L (5-34); Albumin 3.7 g/dL (3.4-4.8); Alkaline Phosphatase 41 U/L (40-110); Bilirubin, Direct 0.6 mg/dL (0.1-0.3); Protein, Total 7.2 g/dL (5.8-8.1)
[2020-03-27] MEDS: Furosemide 40 MG/4 ML VIAL SLOW IVP SCH (06:29)
[2020-03-27] MEDS: HumaLOG 300 UNITS/3 ML VIAL SC PRN ×3 (06:29→22:06)
[2020-03-27] MEDS ORDERED: methylPREDNISolone Sod Succ 40 MG VIAL IVP SCH (09:00)
[2020-03-27] MEDS: Magnesium Oxide 400 MG TAB PO SCH ×2 (09:20→22:05)
[2020-03-27] MEDS: Carvedilol 6.25 MG TAB PO SCH ×2 (09:20→22:04)
[2020-03-27] MEDS: Apixaban 5 MG TAB PO SCH ×2 (09:20→22:03)
[2020-03-27] MEDS: Aspirin Chewable 81 MG TAB PO SCH (09:21)
[2020-03-27] MEDS: Spironolactone 25 MG TAB PO SCH (09:21)
[2020-03-27 11:42] LABS: INR-International Normal Ratio 1.5; Prothrombin Time 18.8 sec (12.0-14.7)
--- NOTE | 2020-03-27 13:08 | PRG ---
DATE OF SERVICE: 03/27/2020 SERVICE: [facility] Failure Cardiology Consulting Service. SUBJECTIVE: Mr. Eulalio Pinto had a good day. He said that he felt like a lot of fluid came off from yesterday. He is breathing easier. He still has cough, but the cough has decreased some. He is very happy with the care. He was notified that he has been approved for 14-day inpatient quarantine for coronavirus. REVIEW OF SYSTEMS: GENERAL: There is no fever or chills. HEENT: There is no change in vision, hearing, or swallowing. PULMONARY: Please see HPI. CARDIAC: There is no chest pain, palpitation, or syncope. GASTROINTESTINAL: There is no nausea, vomiting, or diarrhea. GENITOURINARY: He is able to urinate well. MUSCULOSKELETAL: He is not complaining of any joint or muscular pains. INTEGUMENT: There is no skin breakdown. NEUROLOGIC: There are no new focal deficits or weaknesses. MEDICATIONS: His current inpatient medications that have cardiac effects include, 1. Apixaban 5 mg b.i.d. 2. Aspirin 81 mg daily. 3. Atorvastatin at 40 mg at bedtime. 4. Azithromycin at 500 mg daily. 5. Carvedilol 12.5 mg b.i.d. 6. Ergocalciferol, which is vitamin D, at 1.25 mg daily for 7 days. 7. Furosemide 40 mg IV twice a day. 8. Lispro sliding scale insulin. 9. Magnesium oxide 400 mg b.i.d. 10. Solu-Medrol 40 mg IV daily. 11. Protonix 40 mg daily. 12. Remdesivir 100 mg daily, roughly for 5 days. 13. Entresto 24/26 combination 1 tablet twice a day. 14. Spironolactone at 12.5 mg daily. PHYSICAL EXAMINATION: TELEMETRY: Reviewed. He is paced rhythm at 75 beats per minute. However, he has another run of 4-beat wide-complex tachycardia. This is second time now in 2 days. VITAL SIGNS: He is on 2 L oxygen, saturating 100% on 2 L right now. His heart rate is 75 and pressure is144/58. GENERAL: He is looking much more comfortable as the best I have seen yet. He is alert, conversational, and not in any acute distress. HEENT: Show EOMI. Oropharynx is benign. NECK: His JVP is about 12 cm and positive hepatojugular reflux. LUNGS: His breath sounds are distant. However, there is still some slight wheeze. CARDIAC: His heart sounds are distant. It is regular rate and rhythm. Normal S1 and S2. There is 2/6 holosystolic murmur near the apex. ABDOMEN: Large, soft, and nontender. Positive bowel sounds. EXTREMITIES: He has about 0.5 cm pitting edema from feet up two-third of the way toward the knee. He has some slight pitting edema in his thighs. This is improved from yesterday. LABORATORY VALUES: Show white cell count 6.18, hemoglobin 9.7, platelets 64. His chemistry shows sodium 133, potassium 4.4, chloride 99, bicarb 24, BUN at 50, creatinine 2.09, and glucose at 332. ASSESSMENT: A 69-year-old gentleman suffered with 2 primary diagnoses of coronavirus infection and acute on chronic heart failure with reduced ejection fraction. He is improving from coronavirus perspective. He is breathing easier and his oxygen saturation is now 100% with 2 L nasal cannula. He seemed to be improving. He resides in [place] Heart Association stage C and [place] Heart Association class 3B heart failure with reduced ejection fraction. 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 He is still volume overloaded, but reaching toward euvolemia. However, his kidneys start to suffer, so at this point, we need to pull off IV diuresis. We will need to augment his cardiac output in this situation. He also has ventricular tachycardia. This also needs to be addressed. Please see the following for my recommendations. RECOMMENDATIONS: 1. Continue with the coronavirus treatment as you are. 2. Please continue remdesivir. 3. We will start milrinone at 0.125 mcg/kg/minute. If systolic blood pressure is greater than 100 after 1 hour, increase to 0.25 mcg/kg/minute. 4. Hold off Lasix for today, may restart tomorrow. 5. Increase atorvastatin to 80 mg p.o. at bedtime. 6. Start amiodarone 200 mg p.o. daily. It has been a pleasure taking care of Mr. Pinto. If you have any questions, please give me a call. The visitation time is total of 40 minutes. This includes personally performing history and physical, reviewing data, coordinating with other services, and direct patient interaction. Job ID: [id number]
[2020-03-27] MEDS: Milrinone Lactate/D5W 20 MG in Premix Bag 1 BAG IVPB SCH (15:13)
[2020-03-27 15:27] LABS: Hemoglobin A1c 6.6 % (4.0-6.0)
--- NOTE | 2020-03-27 16:13 | SPC ---
Ultrasound and Fluoroscopic guided right upper extremity PICC placement HISTORY: Covid positive. Patient needs long-term IV access. FINDINGS: Informed consent obtained prior to the procedure. An appropriate access site was determined with ultrasound guidance. The area was then meticulously pr epped and draped in usual sterile fashion. Skin overlying the left basilic vein anesthetized with 1% buffered lidocaine. Utilizing direct sonogr aphic guidance, vascular access is obtained via the left basilic vein, and an 0.018in guidewire was advanced to the cavoatrial junction. Intravascular length is calculated at 38.5 cm, and the PICC is c ut accordingly. Needle is removed and replaced with a peel-away sheath. The PICC was advanced over the wire. Wire and peel-away sheath were removed. The tip of the catheter overlies the cavoatrial junction. The catheter was accessed and aspirated/flushed easily. Exposure data: 0 minutes of fluoroscopic time 254 mGy centimeter squared FINDINGS: Technically successful placement of a 38.5 centimeter dual-lumen 5 [place]ili left upper extremity PICC l ine. IMPRESSION: Successful ultrasound guided placement of a left upper extremity PICC.
--- NOTE | 2020-03-27 17:22 | PDOC.HOSPP ---
- Subjective Encounter Date: 03/27/20 Encounter Time: 16:00 Subjective: pt up in bed no complains. Patient has been walking with physical therapy did well. - Objective Vital Signs & Weight: Vital Signs (12 hours) Temp Pulse Resp BP BP Pulse Ox 03/27/20 12:00 98.1 F 74 20 140/62 98 03/27/20 09:20 144/58 H 99 03/27/20 08:00 97.8 F 72 18 144/58 H 99 03/27/20 07:55 100 Weight Weight 245 lb 11.41 oz Most Recent Monitor Data Heart Rate from ECG 76 NIBP 140/62 Respiration from ECG 16 I&O: 03/26/20 03/27/20 03/28/20 06:59 06:59 06:59 Intake Total 1994 950 Output Total 1999 3142 [facility] -[id number] [id number] Result Diagrams: 03/27/20 04:31 03/27/20 04:31 Additional Labs: Accuchecks 03/27/20 03/26/20 03/26/20 12:24 21:07 11:22 POC Glucose 156 H 261 H 244 H 03/24/20 21:55 POC Glucose 211 H Hospitalist ROS - Review of Systems Respiratory: denies: cough, dry, shortness of breath, hemoptysis, SOB with excertion, pleuritic pain, sputum, wheezing, other Cardiovascular: denies: chest pain, palpitations, orthopnea, paroxysmal noc. dyspnea, edema, light headedness, other Gastrointestinal: denies: nausea, vomiting, abdominal pain, diarrhea, const ipation, melena, hematochezia, other Genitourinary: denies: dysuria, frequency, incontinence, hematuria, retention, other - Medication Medications: Active Medications Generic Name Dose Route Start Last Admin Trade Name Freq PRN Reason Stop Dose Admin Apixaban 5 mg 03/25/20 21:00 03/27/20 09:20 Apixaban 5 Mg Tab PO 5 mg BID WAYNE Administration Aspirin 81 mg 03/24/20 09:00 03/27/20 09:21 Aspirin Chewable 81 Mg Tab PO 81 mg DAILY WAYNE Administration Carvedilol 12.5 mg 03/25/20 21:00 03/27/20 09:20 Carvedilol 6.25 Mg Tab PO 12.5 mg BID WAYNE Administration Ergocalciferol 1.25 mg 03/26/20 09:00 03/26/20 11:13 Ergocalciferol 1.25 Mg(50,000 Units) Cap PO Not Given Q7D WAYNE Guaifenesin/Dextromethorphan 15 ml 03/24/20 22:28 03/24/20 23:09 Guaifenesin Dm 100-10/5 Ml Udcup PO 15 ml Q4H PRN Administration Cough Remdesivir 100 mg/ Sodium 250 mls @ 250 mls/hr 03/25/20 20:00 03/26/20 21:40 Chloride IV 03/29/20 20:59 250 mls Q24HR@2000 WAYNE Administration Milrinone Lactate/Dextrose 20 100 mls @ 4.18 mls/hr 03/27/20 13:00 03/27/20 15:13 mg/ Device IVPB 100 mls INF WAYNE Administration 0.125 MCG/KG/MIN Insulin Human Lispro 0 units 03/24/20 03:49 03/27/20 06:29 Humalog 300 Units/3 Ml Vial SC 8 unit .MODERATE SLIDING SC PRN Administration Moderate Correctional Scale Insulin Human Lispro 0 units 03/24/20 22:28 03/24/20 22:54 Humalog 300 Units/3 Ml Vial SC 2 unit .BEDTIME SLIDING SC PRN Administration Bedtime Correctional Scale Magnesium Oxide 400 mg 03/25/20 21:00 03/27/20 09:20 Magnesium Oxide 400 Mg Tab PO 400 mg BID WAYNE Administration Pantoprazole Sodium 40 mg 03/25/20 09:00 03/27/20 09:20 Pantoprazole 40 Mg Tab PO 40 mg DAILY WAYNE Administration Sacubitril/Valsartan 1 tab 03/24/20 21:00 03/27/20 10:15 Sacubitril 24mg/Valsartan 26mg Tab PO 1 tab Q12HR WAYNE Administration Sodium Chloride 10 ml 03/24/20 21:00 03/27/20 09:21 Flush - Normal Saline 10 Ml Syringe IVF 10 ml Q12HR WAYNE Administration Spironolactone 12.5 mg 03/24/20 09:00 03/27/20 09:21 Spironolactone 25 Mg Tab PO 12.5 mg DAILY WAYNE Administration - Exam Neck: negative: supple, symmetric, no JVD, no thyromegaly, no lymphadenopathy, no carotid bruit, JVD Heart: negative: RRR, no murmur, no gallops, no rubs, normal peripheral pulses, irregular, diminshed peripheral pulses, murmur present, II/IV, III/IV Respiratory: negative: CTAB, no wheezes, no rales, no ronchi, normal chest expansion, no tachypnea, normal percussion, rales, rhonchi, tachypneic, wheezes Gastrointestinal: negative: soft, non-tender, non-distended, normal bowel sounds, no palpable masses, no hepatomegaly, no splenomegaly, no bruit, no guarding, no rigidity, tender to palpation, distended, diminished bowl sounds, voluntary guarding Hosp A/P (1) Acute respiratory failure with hypoxia Code(s): J96.01 - ACUTE RESPIRATORY FAILURE WITH HYPOXIA Status: Acute (2) Acute exacerbation of CHF (congestive heart failure) Code(s): I50.9 - HEART FAILURE, UNSPECIFIED Status: Acute Qualifiers: Heart failure type: unspecified Qualified Code(s): I50.9 - Heart failure, unspecified (3) Anticoagulant long-term use Code(s): Z79.01 - Status: Chronic (4) Atrial fibrillation with controlled ventricular response Code(s): I48.91 - Status: Chronic (5) DMII (diabetes mellitus, type 2) Status: Chronic Qualifiers: Diabetes mellitus middle or intermediate school principal insulin use: without nursing home use Diabetes mellitus complication status: with kidney complications Diabetes mellitus complication detail: with chronic kidney disease Chronic kidney disease stage: stage 3 (moderate) (6) GERD (gastroesophageal reflux disease) Code(s): K21.9 - GASTRO-ESOPHAGEAL REFLUX DISEASE WITHOUT ESOPHAGITIS Status: Chronic (7) HTN (hypertension) Code(s): I10 - Status: Chronic Qualifiers: Hypertension type: essential hypertension Qualified Code(s): I10 - Essential (primary) hypertension (8) V tach Code(s): I47.2 - VENTRICULAR TACHYCARDIA Status: Acute - Plan pt's electrolytes stable. will monitor closely. Pt on diuretics. pt has thrombocytopenia will continue eliquis for now. pt on decadron. pt on solumedrol if he continues to improve will change to decadron. 03/26 we will change dosing of Solu-Medrol. Patient appears to be stable. Will need oxygen on discharge. Will talk with heart failure for possible discharge. Will continue Eliquis his thrombocytopenia is stable but not worsening. 03/27 we will stop Solu-Medrol. Will stop azithromycin. Patient started on milrinone per heart failure. Clinically patient is doing well. We will continue Eliquis. Will check CMP in the morning. Continue diuretics. Patient's platelets are little bit low than previous day. picc line placed
[2020-03-27] MEDS: Amiodarone 200 MG TAB PO SCH (22:03)
[2020-03-27] MEDS: Atorvastatin Calcium 40 MG TAB PO SCH (22:04)
[2020-03-28 05:13] LABS: #Lymphocytes 0.7 thou/uL (1.20-3.40); #Monocytes 0.6 thou/uL (0.11-0.59); #Neutrophils 5.3 thou/uL (1.40-6.50); %Basophils 0.1 % (0.0-1.0); %Lymphocytes 10.7 % (21.0-51.0); %Monocytes 9.7 % (0.0-10.0); %Neutrophils 79.5 % (42.0-75.0); Mean Corpuscular HGB CONC 29.9 g/dL (32.0-36.0); Mean Corpuscular Hemoglobin 23.7 pg (27.0-31.0); Mean Platelet Volume 8.8 fL (7.4-10.4); Platelet Count 55 thou/uL (130-400); RBC Distribution Width 21.7 % (11.5-14.5); Red Blood Cell (RBC) Count 3.81 mill/uL (4.70-6.10); White Blood Cell (WBC) Count 6.6 thou/uL (4.8-10.8)
[2020-03-28 05:16] LABS: INR-International Normal Ratio 1.9; Prothrombin Time 21.8 sec (12.0-14.7)
[2020-03-28 05:30] LABS: ALT (SGPT) 8 U/L (8-55); AST (SGOT) 10 U/L (5-34); Albumin 3.4 g/dL (3.4-4.8); Alkaline Phosphatase 35 U/L (40-110); Anion Gap 12 mmol/L (10-20); BUN (Urea Nitrogen) 51 mg/dL (8.4-25.7); Calc. Creatinine Clearance 57 mL/min (70-130); Calcium 8.2 mg/dL (7.8-10.44); Carbon Dioxide 28 mmol/L (23-31); Chloride 99 mmol/L (98-107); Estimated GFR-MDRD 42; Globulin 3.2 g/dL (2.4-3.5); Glucose 191 mg/dL (80-115); Magnesium 2.2 mg/dL (1.6-2.6); Potassium 4.3 mmol/L (3.5-5.1); Protein, Total 6.6 g/dL (5.8-8.1); Sodium 135 mmol/L (136-145)
[2020-03-28] MEDS: Milrinone Lactate/D5W 20 MG in Premix Bag 1 BAG IVPB SCH ×4 (05:47→23:41)
[2020-03-28] MEDS: Aspirin Chewable 81 MG TAB PO SCH (08:00)
[2020-03-28] MEDS: Amiodarone 200 MG TAB PO SCH ×2 (08:01→22:09)
[2020-03-28] MEDS: Carvedilol 6.25 MG TAB PO SCH ×2 (08:01→22:09)
[2020-03-28] MEDS: Spironolactone 25 MG TAB PO SCH (08:01)
[2020-03-28] MEDS: Magnesium Oxide 400 MG TAB PO SCH ×2 (08:02→22:09)
[2020-03-28] MEDS: HumaLOG 300 UNITS/3 ML VIAL SC PRN ×3 (12:39→22:34)
[2020-03-28] MEDS ORDERED: Dexamethasone 4 mg/ml Vial SLOW IVP SCH (16:15)
--- NOTE | 2020-03-28 16:31 | PDOC.HOSPP ---
- Subjective Encounter Date: 03/28/20 Encounter Time: 11:15 Subjective: Patient up in bed denies any complaints - Objective Vital Signs & Weight: Vital Signs (12 hours) Temp Pulse Resp BP Pulse Ox 03/28/20 12:40 75 113/51 L 94 L 03/28/20 11:34 97.9 F 76 18 107/46 L 95 03/28/20 08:00 97.9 F 74 20 116/55 L 98 Weight Weight 244 lb 1.6 oz Most Recent Monitor Data Heart Rate from ECG 76 NIBP 140/62 Respiration from ECG 16 I&O: 03/27/20 03/28/20 03/29/20 06:59 06:59 06:59 Intake Total 950 1666.8 Output Total 2425 1465 Balance -1475 201.8 Result Diagrams: 03/28/20 04:36 03/28/20 04:36 Additional Labs: Accuchecks 03/28/20 03/28/20 03/27/20 11:24 06:00 20:00 POC Glucose 220 H 169 H 360 H 03/27/20 17:14 POC Glucose 307 H Hospitalist ROS - Review of Systems Respiratory: denies: cough, dry, shortness of breath, hemoptysis, SOB with excertion, pleuritic pain, sputum, wheezing, other Cardiovascular: denies: chest pain, palpitations, orthopnea, paroxysmal noc. dyspnea, edema, light headedness, other Gastrointestinal: denies: nausea, vomiting, abdominal pain, diarrhea, constipation, melena, hematochezia, other - Medication Medications: Active Medications Generic Name Dose Route Start Last Admin Trade Name Anastacioq PRN Reason Stop Dose Admin Amiodarone HCl 200 mg 03/27/20 21:00 03/28/20 08:01 Amiodarone 200 Mg Tab PO 200 mg BID WAYNE Administration Apixaban 5 mg 03/25/20 21:00 03/27/20 22:03 Apixaban 5 Mg Tab PO 5 mg BID WAYNE Administration Aspirin 81 mg 03/24/20 09:00 03/28/20 08:00 Aspirin Chewable 81 Mg Tab PO 81 mg DAILY WAYNE Administration Atorvastatin Calcium 80 mg 03/27/20 21:00 03/27/20 22:04 Atorvastatin Calcium 40 Mg Tab PO 80 mg HS WAYNE Administration Carvedilol 12.5 mg 03/25/20 21:00 03/28/20 08:01 Carvedilol 6.25 Mg Tab PO 12.5 mg BID WAYNE Administration Ergocalciferol 1.25 mg 03/26/20 09:00 03/26/20 11:13 Ergocalciferol 1.25 Mg(50,000 Units) Cap PO Not Given Q7D WAYNE Guaifenesin/Dextromethorphan 15 ml 03/24/20 22:28 03/24/20 23:09 Guaifenesin Dm 100-10/5 Ml Udcup PO 15 ml Q4H PRN Administration Cough Remdesivir 100 mg/ Sodium 250 mls @ 250 mls/hr 03/25/20 20:00 03/26/20 21:40 Chloride IV 03/29/20 20:59 250 mls Q24HR@2000 WAYNE Administration Milrinone Lactate/Dextrose 20 100 mls @ 12.539 mls/hr 03/28/20 11:00 03/28/20 16:12 mg/ Device IVPB 100 mls INF WAYNE Administration 0.375 MCG/KG/MIN Insulin Human Lispro 0 units 03/24/20 03:49 03/28/20 12:39 Humalog 300 Units/3 Ml Vial SC 4 unit .MODERATE SLIDING SC PRN Administration Moderate Correctional Scale Insulin Human Lispro 0 units 03/24/20 22:28 03/27/20 22:06 Humalog 300 Units/3 Ml Vial SC 5 unit .BEDTIME SLIDING SC PRN Administration Bedtime Correctional Scale Magnesium Oxide 400 mg 03/25/20 21:00 03/28/20 08:02 Magnesium Oxide 400 Mg Tab PO 400 mg BID WAYNE Administration Pantoprazole Sodium 40 mg 03/25/20 09:00 03/28/20 08:02 Pantoprazole 40 Mg Tab PO 40 mg DAILY WAYNE Administration Sacubitril/Valsartan 1 tab 03/24/20 21:00 03/28/20 10:39 Sacubitril 24mg/Valsartan 26mg Tab PO 1 tab Q12HR WAYNE Administration Sodium Chloride 10 ml 03/24/20 21:00 03/28/20 09:00 Flush - Normal Saline 10 Ml Syringe IVF Not Given Q12HR WAYNE Spironolactone 12.5 mg 03/24/20 09:00 03/28/20 08:01 Spironolactone 25 Mg Tab PO 12.5 mg DAILY WAYNE Administration - Exam Neck: negative: supple, symmetric, no JVD, no thyromegaly, no lymphadenopathy, no carotid bruit, JVD Heart: negative: RRR, no murmur, no gallops, no rubs, normal peripheral pulses, irregular, diminshed peripheral pulses, murmur present, II/IV, III/IV Respiratory: negative: CTAB, no wheezes, no rales, no ronchi, normal chest expansion, no tachypnea, normal percussion, rales, rhonchi, tachypneic, wheezes Gastrointestinal: negative: soft, non-tender, non-distended, normal bowel sounds, no palpable masses, no hepatomegaly, no splenomegaly, no bruit, no guarding, no rigidity, tender to palpation, distended, diminished bowl sounds, voluntary guarding Hosp A/P (1) Acute respiratory failure with hypoxia Code(s): J96.01 - ACUTE RESPIRATORY FAILURE WITH HYPOXIA Status: Acute (2) Acute exacerbation of CHF (congestive heart failure) Code(s): I50.9 - HEART FAILURE, UNSPECIFIED Status: Acute Qualifiers: Heart failure type: unspecified Qualified Code(s): I50.9 - Heart failure, unspecified (3) Anticoagulant long-term use Code(s): Z79.01 - RESIDENTIAL (CURRENT) USE OF 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 Status: Chronic (4) Atrial fibrillation with controlled ventricular response Code(s): I48.91 - UNSPECIFIED ATRIAL FIBRILLATION Status: Chronic (5) DMII (diabetes mellitus, type 2) Status: Chronic Qualifiers: Diabetes mellitus usp insulin use: without usp use Diabetes mellitus complication status: with kidney complications Diabetes mellitus complication detail: with chronic kidney disease Chronic kidney disease stage: stage 3 (moderate) (6) GERD (gastroesophageal reflux disease) Code(s): K21.9 - GASTRO-ESOPHAGEAL REFLUX DISEASE WITHOUT ESOPHAGITIS Status: Chronic (7) HTN (hypertension) Code(s): I10 - ESSENTIAL (PRIMARY) HYPERTENSION Status: Chronic Qualifiers: Hypertension type: essential hypertension Qualified Code(s): I10 - Essential (primary) hypertension (8) V tach Code(s): I47.2 - VENTRICULAR TACHYCARDIA Status: Acute - Plan pt's electrolytes stable. will monitor closely. Pt on diuretics. pt has thrombocytopenia will continue eliquis for now. pt on decadron. pt on solumedrol if he continues to improve will change to decadron. 03/26 we will change dosing of Solu-Medrol. Patient appears to be stable. Will need oxygen on discharge. Will talk with heart failure for possible discharge. Will continue Eliquis his thrombocytopenia is stable but not worsening. 03/27 we will stop Solu-Medrol. Will stop azithromycin. Patient started on milrinone per heart failure. Clinically patient is doing well. We will continue Eliquis. Will check CMP in the morning. Continue diuretics. Patient's platelets are little bit low than previous day. picc line placed 03/28 we will check labs in a.m. Will start patient on Decadron. Patient will need oxygen when he goes home. Will monitor CBC for hemoglobin and platelets. Patient currently on SCDs Eliquis on hold. Patient is up and ambulating. Tolerating oral diet no diarrhea.
[2020-03-28 21:04] LABS: #Lymphocytes 0.4 thou/uL (1.20-3.40); #Monocytes 0.3 thou/uL (0.11-0.59); #Neutrophils 5.1 thou/uL (1.40-6.50); %Eosinophils 0.2 % (0.0-10.0); %Lymphocytes 6.4 % (21.0-51.0); %Monocytes 4.7 % (0.0-10.0); %Neutrophils 88.7 % (42.0-75.0); Hemoglobin 9.4 g/dL (14.0-18.0); Mean Corpuscular HGB CONC 29.6 g/dL (32.0-36.0); Mean Corpuscular Hemoglobin 23.7 pg (27.0-31.0); Mean Platelet Volume 10.6 fL (7.4-10.4); Platelet Count 61 thou/uL (130-400); RBC Distribution Width 21.8 % (11.5-14.5); Red Blood Cell (RBC) Count 3.98 mill/uL (4.70-6.10); White Blood Cell (WBC) Count 5.7 thou/uL (4.8-10.8)
[2020-03-28] MEDS: Atorvastatin Calcium 40 MG TAB PO SCH (22:08)
--- NOTE | 2020-03-29 00:25 | CON ---
DATE OF CONSULTATION: 03/28/2020 REQUESTING PHYSICIAN: Daniel Mock MD REASON FOR CONSULTATION: Iron deficiency anemia. HISTORY OF PRESENT ILLNESS: Eulalio Pinto is a 69-year-old -French gentleman who was admitted to the hospital 4 days ago with COVID pneumonia complicating chronic systolic heart failure. He has a known history of chronic systolic CHF with ejection fraction of 20% to 25% and was recently admitted here with cardiogenic shock and transferred to [facility] for further treatment. It was decided to treat medically instead of proceeding with an LVAD. He has a pacemaker in place. He had been discharged from the hospital, is currently under house arrest, but staying with family. He had been doing well until about 3 to 4 days prior to admission. At that time, multiple family members developed a cough and then he also developed a cough. He started feeling short of breath. Upon presentation, he was hypoxic, requiring nasal cannula oxygen to maintain his saturations above 90%. It was also felt his abdomen was distended and lower extremity edema had worsened. His BNP was quite elevated and COVID PCR was positive. He has been treated aggressively with steroids, nebulizers, Lasix and remdesivir as well as Entresto and azithromycin. He was also started on Eliquis 5 mg b.i.d. Notably on presentation, his hemoglobin was 7.3 down from baseline of 9 to 10. He received 2 units RBC transfusion and came up to 10.2, but over the course of a couple of days, it is down to 9.0. Through all of this, he denies any overt bleeding from anywhere. He denies any hematemesis, epistaxis, gross hematuria, melena, or hematochezia. He has no known history of gastrointestinal illness or malignancy. He does not recall ever having undergone upper or lower endoscopy. He is not having any abdominal symptoms. He is tolerating his diet well. Further labs do demonstrate iron deficiency. He has been receiving Eliquis the past few days, though it was held last night. REVIEW OF SYSTEMS: Full review of systems including constitutional, head, eyes, ears, nose, throat, GI, , cardiovascular, respiratory, musculoskeletal, neurologic systems is negative except as noted in the HPI. PAST MEDICAL HISTORY: 1. Chronic systolic congestive heart failure with ejection fraction of 20% to 25%. 2. Coronary artery disease. 3. Coronary artery bypass graft in 2017. 4. Coronary stents in 2019. 5. Hypertension. 6. Diabetes type 2. 7. COPD. 8. Testicular cancer removed in 2009. 9. Tobacco abuse, quit smoking in 2012. 10. Drug abuse including cocaine, quit in 2012. SOCIAL HISTORY: The patient is under house arrest. He was recently incarcerated. He is a former smoker. Formerly used cocaine, none since 2012. No alcohol use currently. FAMILY HISTORY: Noncontributory. ALLERGIES: IBUPROFEN AND TOMATO. MEDICATIONS: 1. Amiodarone. 2. Eliquis 5 mg b.i.d. 3. Aspirin 81 mg daily. 4. Lipitor. 5. Coreg. 6. Robitussin. 7. Sliding scale insulin. 8. Magnesium oxide 400 mg b.i.d. 9. Milrinone drip. 10. Pantoprazole 40 mg daily. 11. Remdesivir. 12. Entresto. 13. Spironolactone. PHYSICAL EXAMINATION: VITAL SIGNS: Temperature 97.9, pulse 75, blood pressure 113/51, and 94% oxygen saturation on room air. GENERAL: A 69-year-old man, sitting up in bed comfortably, in no distress. Breathing comfortably on nasal cannula. SKIN: No jaundice, no rashes were palpable. EYES: No scleral icterus. Extraocular movements intact. ENT: Mucous membranes moist. No oral lesions. LYMPH: No submandibular or supraclavicular lymphadenopathy. THYROID: Nontender to palpation. HEART: Regular rate and rhythm. LUNGS: Bibasilar crackles. No respiratory distress. ABDOMEN: Bowel sounds present. Soft, nontender to palpation throughout. EXTREMITIES: Trace pretibial edema bilaterally. NEURO: Cranial nerves 2 through 12 intact bilaterally. No focal deficits. LABORATORY STUDIES: Hemoglobin 9.0, WBC 6.6, and platelets 55. INR 1.9. Sodium 135, potassium 4.3, BUN 51, creatinine 1.94, glucose 220, total bilirubin 1.0, alkaline phosphatase 35, AST 10, and ALT 8. BNP was 1495, now down to 505. Ferritin 19.34, iron only 15, TIBC 398, 4% iron saturation. FOBT negative. IMAGING STUDIES: Abdominal ultrasound showed not enough abdominal fluid to tap. Initial chest x-ray was read as no acute processes. There is cardiomegaly and pacemaker placement. There is some interstitial prominence. ASSESSMENT AND PLAN: 1. Iron deficiency anemia, in the absence of any overt bleeding. FOBT is negative, but this is not adequately reassuring in ruling out occult gastrointestinal bleeding lesion in this context. 2. Congestive heart failure, severe systolic, on Eliquis. 3. COVID pneumonia, active, currently on remdesivir and steroids. I had a long discussion with the patient about iron deficiency anemia. He has never undergone endoscopy. Occult gastrointestinal bleeding lesion would lead the differential, despite the negative FOBT. On the other hand, this is not really an acute part of his presentation. He responded well to transfusion. There is no overt bleeding. EGD and colonoscopy are certainly warranted for further investigation, but now is not the time to do this, in the context of active COVID pneumonia. I would not perform any aerosolizing procedures in the context of COVID unless it was a life-threatening emergency. I think if the patient's hemoglobin remains stable this admission, then we should plan to follow up in clinic in the next few weeks, plan for outpatient EGD and colonoscopy in the next month or two. 4. Also, the patient's Eliquis would need to be held for at least 2 days prior to the procedure. He can probably be continued for now. 5. We will follow up H and H tomorrow. Job ID: [id number]
[2020-03-29 05:00] LABS: #Lymphocytes 0.4 thou/uL (1.20-3.40); #Monocytes 0.2 thou/uL (0.11-0.59); #Neutrophils 4.1 thou/uL (1.40-6.50); %Eosinophils 0.1 % (0.0-10.0); %Lymphocytes 8.3 % (21.0-51.0); %Monocytes 4.7 % (0.0-10.0); %Neutrophils 86.9 % (42.0-75.0); Hemoglobin 9.1 g/dL (14.0-18.0); Mean Corpuscular HGB CONC 29.7 g/dL (32.0-36.0); Mean Corpuscular Hemoglobin 23.7 pg (27.0-31.0); Mean Corpuscular Volume 79.8 fL (78.0-98.0); Mean Platelet Volume 6.9 fL (7.4-10.4); Platelet Count 50 thou/uL (130-400); Red Blood Cell (RBC) Count 3.82 mill/uL (4.70-6.10); White Blood Cell (WBC) Count 4.7 thou/uL (4.8-10.8)
[2020-03-29 05:09] LABS: INR-International Normal Ratio 1.4; Prothrombin Time 17.6 sec (12.0-14.7)
[2020-03-29 05:38] LABS: Anion Gap 14 mmol/L (10-20); BUN (Urea Nitrogen) 52 mg/dL (8.4-25.7); Calc. Creatinine Clearance 51 mL/min (70-130); Calcium 8.1 mg/dL (7.8-10.44); Carbon Dioxide 25 mmol/L (23-31); Chloride 98 mmol/L (98-107); Estimated GFR-MDRD 37; Glucose 406 mg/dL (80-115); Magnesium 2.2 mg/dL (1.6-2.6); Potassium 4.8 mmol/L (3.5-5.1); Sodium 132 mmol/L (136-145)
--- NOTE | 2020-03-29 07:31 | PRG ---
DATE OF SERVICE: 03/28/2020 SUBJECTIVE: Mr. Eulalio Pinto did very well. He said that his cough has decreased. He is breathing easy. Apparently, he is able to be with oxygen saturation over 90% on room air now, this is a significant improvement. He feels like that he is still losing swelling around his abdomen. Overall, he is very satisfied. He denied any dark color stool. He denied blood in his stool. REVIEW OF SYSTEMS: GENERAL: There is no fever, chills. HEENT: There is no change in vision, hearing, or swallowing. PULMONARY: Please see HPI. CARDIAC: There is no palpitation, chest pain or syncope. GASTROINTESTINAL: Please see HPI. GENITOURINARY: There is no difficulty with urination. MUSCULOSKELETAL: He does not complain of pain. INTEGUMENT: There is no new breakdown. NEUROLOGIC: There are no focal deficits or weaknesses. MEDICATIONS: His medications that have cardiac effect include 1. Amiodarone 200 mg b.i.d. 2. Apixaban 5 mg b.i.d. 3. Aspirin 81 mg daily. 4. Atorvastatin 80 mg at bedtime. 5. Carvedilol 12.5 mg b.i.d. 6. Ergocalciferol 1.25 mg daily for 7 days. 7. He is on moderate insulin sliding scale. 8. Magnesium oxide 400 mg b.i.d. 9. Milrinone 0.25 mcg/kg/minute. 10. Protonix 40 mg daily. 11. Remdesivir 100 mg IV daily. 12. Sacubitril and valsartan, which is Entresto at 24/26 combination one tab q.12 hours. 13. Spironolactone 12.5 mg daily. 14. His prednisone has been stopped. His telemetry was reviewed. It is paced rate at 75. At this time around, there is no ventricular tachycardia seen. PHYSICAL EXAMINATION: VITAL SIGNS: His oxygen saturation on room air saturating 97%. His heart rate is 75, blood pressure 116/55. GENERAL: He is alert and conversational, sitting comfortably in bed. HEENT: EOMI. Oropharynx is benign with moist mucosa. NECK: His JVP is approximately 10 cm with positive hepatojugular reflux. PULMONARY: He has distant breath sounds. He appears to have good air movement without crackles or wheeze. CARDIAC: His heart sounds are distant, normal rate and rhythm with normal S1, S2, there is 2/6 holosystolic murmur near the apex. ABDOMEN: Distended, but soft, nontender. EXTREMITIES: There is at least 1 cm pitting edema from the feet on toward the knees. His lower extremities still very fully infected and quite tense. His 24-hour I and O is 1667 in and 1465 out.. LABORATORY DATA: White cell count 6.6, hemoglobin 9, this is a significant drop. Platelets also dropped to 55. His chemistries are sodium 135, potassium 4.3, BUN 51, creatinine 1.94. ASSESSMENT: 69-year-old gentleman has made significant progress in COVID-19 pulmonary infection. He pretty much normalized on room air with remdesivir treatment. His acute on chronic heart failure is also improving. He is still volume overloaded, but he appears to be well compensated. He will need milrinone augmentation for fluid removal. He has an open issue of iron deficiency anemia. Apparently, he is losing blood. His hemoglobin had drop significantly in 2 days from 10.2 down to 9.0. This is despite diuresing and in negative of volume. He also has a very low iron of 15, very low ferritin of 19, and also only 4% iron saturation. So this suggests that he has been bleeding somewhere. Thus, this should be investigated. Please see the following for my recommendations. RECOMMENDATIONS: 1. Increase milrinone to 0.375 mcg/kg/minute. 2. We will hold diuretics for another day to improve renal function. So this will allow the next two doses of remdesivir to be used. 3. Continue to follow up CBC. 4. Consult Gastroenterology to see how and when to investigate a potential GI bleed. He is at an age of colon cancer. He may also have AVMs. 5. The platelet has been dropping, so please consider stopping apixaban. It has been a pleasure taking care of Mr. Eulalio Pinto. If any questions, please give me a call. The total visit time is 40 minutes. This includes personally performing history and physical, reviewing data including telemetry, coordinating his care with multiple services and direct patient interaction. Job ID: [id number] [id number]
[2020-03-29] MEDS: Milrinone Lactate/D5W 20 MG in Premix Bag 1 BAG IVPB SCH ×2 (08:07→16:46)
[2020-03-29] MEDS: HumaLOG 300 UNITS/3 ML VIAL SC PRN ×4 (08:09→20:39)
[2020-03-29] MEDS: Amiodarone 200 MG TAB PO SCH ×2 (08:11→20:35)
[2020-03-29] MEDS: Aspirin Chewable 81 MG TAB PO SCH (08:12)
[2020-03-29] MEDS: Carvedilol 6.25 MG TAB PO SCH ×2 (08:12→20:36)
[2020-03-29] MEDS: Dexamethasone 4 mg/ml Vial SLOW IVP SCH (08:12)
[2020-03-29] MEDS: Magnesium Oxide 400 MG TAB PO SCH ×2 (08:12→20:36)
[2020-03-29] MEDS ORDERED: Iron, Sodium Ferric Gluconate 125 MG in Sodium Chloride 0.9% 100 ML IVPB SCH (08:15)
[2020-03-29] MEDS ORDERED: Insulin Glargine 5 UNITS in Pre-Filled Syringe 1 EACH SC SCH (08:15)
[2020-03-29] MEDS: Spironolactone 25 MG TAB PO SCH (08:16)
[2020-03-29] MEDS: Polyethylene Glycol 3350 17 GM Packet PO SCH (08:22)
[2020-03-29 10:20] LABS: INR-International Normal Ratio 1.4; Prothrombin Time 17.3 sec (12.0-14.7)
[2020-03-29 13:13] LABS: ALT (SGPT) 13 U/L (8-55); AST (SGOT) 31 U/L (5-34); Albumin 3.5 g/dL (3.4-4.8); Alkaline Phosphatase 38 U/L (40-110); Bilirubin, Direct 0.4 mg/dL (0.1-0.3); Protein, Total 7.1 g/dL (5.8-8.1)
--- NOTE | 2020-03-29 13:41 | PRG ---
DATE OF SERVICE: 03/29/2020 SUBJECTIVE: Mr. Eulalio Pinto said he is feeling pretty good. He said the cough has been decreasing. He is able to sleep well overnight. He said he believed the flu is still coming off, however, his platelet count is decreasing. He has increased oxygen need again, so he has been requiring oxygen supplementation again. He also had some brief episodes of hypotension yesterday. He says overall he is actually doing worse. REVIEW OF SYSTEMS: GENERAL: There is no fever or chills. HEENT: There is no change in vision, hearing, or swallowing. PULMONARY: He is currently not short of breath, decreasing cough, but increasing oxygen need. CARDIAC: No chest pain, palpitations, or syncope. GASTROINTESTINAL: There is no nausea, vomiting, or diarrhea. GENITOURINARY: He is able to urinate on his own. MUSCULOSKELETAL: There is no complaint of joint pains or muscle pains. INTEGUMENT: No new reports of skin breakdown. NEUROLOGIC: There is no focal deficits or weaknesses. MEDICATIONS: Include: 1. Amiodarone 200 mg b.i.d. 2. Aspirin 81 mg daily. 3. Atorvastatin 80 mg at bedtime. 4. Carvedilol 12.5 mg b.i.d. 5. Dexamethasone 6 mg IV daily. 6. Ergocalciferol 1.25 mg daily. 7. Lispro Insulin - sliding scale 8. Magnesium oxide 400 mg b.i.d. 9. Milrinone currently at 0.375 mcg/kg/minute. 10. Protonix 40 mg daily. 11. Remdesivir 100 mg daily. 12. Entresto 24/ combination 1 tablet twice a day. 13. Spironolactone 12.5 mg daily. PHYSICAL EXAMINATION: Telemetry was reviewed. He is in mainly paced rhythm of 75 beats per minute, however, there is occasional PVC. There is 1 set of wide-complex not quite tachycardia, but this is most likely due to PVC followed by paced beat fused together. VITAL SIGNS: His current vital signs are heart rate 75, blood pressure 140/64. His input and output are probably not correct, reported 250 in and 1450 out. I think he drank more than 250 in; thus, the I/O is not accurate. GENERAL: Alert and conversational. Little bit more short of breath than yesterday on oxygen via nasal cannula. HEENT: Show EOMI. Oropharynx benign. NECK: His JVP is approximately 10 cm with positive hepatojugular reflux. PULMONARY: Distant breath sounds, but there are no crackles. CARDIAC: Regular rate and rhythm with occasional irregularity with 2/6 holosystolic murmur at the apex. ABDOMEN: Distended, soft, nontender. Positive bowel sounds. No change from yesterday. EXTREMITIES: Lower extremity has 0.5 cm pitting edema that is firm from feet toward his knee, is no change from yesterday. LABORATORY VALUES: This morning, white cell count 4.7; hemoglobin 9.1; platelet count is 50, does further drop. His chemistry shows sodium 132, potassium 4.8, bicarb 25, BUN 52, and creatinine 2.16. He said his BUN and creatinine are a bit worse. ASSESSMENT: 69-year-old gentleman is getting worse from his COVID-19 infection. The need for oxygen again. Worsening renal function and dropping platelet, all points to this likely possibility. He also resides in [place] [employer] stage C and also [place] Heart [employer] class 3B heart failure with reduced ejection fraction. 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 Currently, his COVID-19 infection is having systemic effect, causing multiple organ dysfunctions. At this point, we need to support his cardiac output as much as we can, allow his renal function and platelets to recover. Please see the following for my recommendations. RECOMMENDATIONS: 1. Continue remdesivir as much as he can. 2. Continue Milrinone at 0.375 mcg/kg/minute. 3. Hold Entresto for now because we need the kidney function to return. 4. Hold spironolactone for now. We need kidney function to return. 5. We may reinitiate diuresis tomorrow as soon as that he has some better renal function with milrinone. 6. He is heading into the critical 7-10 days. He is at high-risk for a bad outcome. So, we need to keep him in the hospital and monitor this closely. 7. Please provide insulin regimen to keep his glucose under control. He is getting a little bit too high. It has been a pleasure taking care of Mr. Pinto. If you have any questions, please give me a call. Visitation time is 35 minutes. This includes personally performing history and physical, reviewing data, coordinating care, and direct patient interaction. Job ID: [id number] MTDD
[2020-03-29] MEDS ORDERED: HumaLOG 300 UNITS/3 ML VIAL SC SCH ×2 (13:45→21:00)
--- NOTE | 2020-03-29 16:58 | PDOC.HOSPP ---
- Subjective Encounter Date: 03/29/20 - Objective Vital Signs & Weight: Vital Signs (12 hours) Temp Pulse Resp BP Pulse Ox 03/29/20 15:23 98.0 F 75 17 127/56 L 97 03/29/20 11:00 97.7 F 75 16 140/64 100 03/29/20 08:00 97.6 F 72 16 151/68 H 100 Weight Weight 246 lb 9.6 oz Most Recent Monitor Data Heart Rate from ECG 76 NIBP 140/62 Respiration from ECG 16 I&O: 03/28/20 03/29/20 03/30/20 06:59 06:59 06:59 Intake Total 1666.8 250 Output Total 1465 1450 Balance 201.8 -1200 Result Diagrams: 03/29/20 04:37 03/29/20 04:37 Additional Labs: Accuchecks 03/29/20 03/29/20 03/28/20 16:44 10:55 22:35 POC Glucose 277 H 321 H 370 H 03/28/20 17:07 POC Glucose 199 H Hospitalist ROS - Medication Medications: Active Medications Generic Name Dose Route Start Last Admin Trade Name Freq PRN Reason Stop Dose Admin Amiodarone HCl 200 mg 03/27/20 21:00 03/29/20 08:11 Amiodarone 200 Mg Tab PO 200 mg BID WAYNE Administration Aspirin 81 mg 03/24/20 09:00 03/29/20 08:12 Aspirin Chewable 81 Mg Tab PO 81 mg DAILY WAYNE Administration Atorvastatin Calcium 80 mg 03/27/20 21:00 03/28/20 22:08 Atorvastatin Calcium 40 Mg Tab PO 80 mg HS WAYNE Administration Carvedilol 12.5 mg 03/25/20 21:00 03/29/20 08:12 Carvedilol 6.25 Mg Tab PO 12.5 mg BID WAYNE Administration Dexamethasone 6 mg 03/29/20 09:00 03/29/20 08:12 Dexamethasone 4 Mg/Ml Vial SLOW IVP 6 mg DAILY WAYNE Administration Ergocalciferol 1.25 mg 03/26/20 09:00 03/26/20 11:13 Ergocalciferol 1.25 Mg(50,000 Units) Cap PO Not Given Q7D WAYNE Guaifenesin/Dextromethorphan 15 ml 03/24/20 22:28 03/24/20 23:09 Guaifenesin Dm 100-10/5 Ml Udcup PO 15 ml Q4H PRN Administration Cough Remdesivir 100 mg/ Sodium 250 mls @ 250 mls/hr 03/25/20 20:00 03/28/20 22:06 Chloride IV 03/29/20 20:59 250 mls Q24HR@2000 WAYNE Administration Milrinone Lactate/Dextrose 20 100 mls @ 12.539 mls/hr 03/28/20 11:00 03/29/20 16:46 mg/ Device IVPB 100 mls INF WAYNE Administration 0.375 MCG/KG/MIN Insulin Human Lispro 0 units 03/24/20 03:49 03/29/20 16:42 Humalog 300 Units/3 Ml Vial SC 6 unit .MODERATE SLIDING SC PRN Administration Moderate Correctional Scale Insulin Human Lispro 0 units 03/24/20 22:28 03/28/20 22:34 Humalog 300 Units/3 Ml Vial SC 5 unit .BEDTIME SLIDING SC PRN Administration Bedtime Correctional Scale Magnesium Oxide 400 mg 03/25/20 21:00 03/29/20 08:12 Magnesium Oxide 400 Mg Tab PO 400 mg BID WAYNE Administration Pantoprazole Sodium 40 mg 03/25/20 09:00 03/29/20 08:13 Pantoprazole 40 Mg Tab PO 40 mg DAILY WAYNE Administration Polyethylene Glycol 17 gm 03/29/20 09:00 03/29/20 08:22 Polyethylene Glycol 3350 17 Gm Packet PO 17 gm DAILY WAYNE Administration Sodium Chloride 10 ml 03/24/20 21:00 03/29/20 08:16 Flush - Normal Saline 10 Ml Syringe IVF 10 ml Q12HR WAYNE Administration Hosp A/P (1) Acute respiratory failure with hypoxia Code(s): J96.01 - ACUTE RESPIRATORY FAILURE WITH HYPOXIA Status: Acute (2) Acute exacerbation of CHF (congestive heart failure) Code(s): I50.9 - HEART FAILURE, UNSPECIFIED Status: Acute Qualifiers: Heart failure type: unspecified Qualified Code(s): I50.9 - Heart failure, unspecified (3) Anticoagulant long-term use Code(s): 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 Status: Chronic (4) Atrial fibrillation with controlled ventricular response Code(s): I48.91 - UNSPECIFIED ATRIAL FIBRILLATION Status: Chronic (5) DMII (diabetes mellitus, type 2) Status: Chronic Qualifiers: Diabetes mellitus penitentiary insulin use: without terminal carman use Diabetes mellitus complication status: with kidney complications Diabetes mellitus complication detail: with chronic kidney disease Chronic kidney disease stage: stage 3 (moderate) (6) GERD (gastroesophageal reflux disease) Code(s): K21.9 - GASTRO-ESOPHAGEAL REFLUX DISEASE WITHOUT ESOPHAGITIS Status: Chronic (7) HTN (hypertension) Code(s): I10 - ESSENTIAL (PRIMARY) HYPERTENSION Status: Chronic Qualifiers: Hypertension type: essential hypertension Qualified Code(s): I10 - Essent ial (primary) hypertension (8) V tach Code(s): I47.2 - VENTRICULAR TACHYCARDIA Status: Acute - Plan pt's electrolytes stable. will monitor closely. Pt on diuretics. pt has thrombocytopenia will continue eliquis for now. pt on decadron. pt on solumedrol if he continues to improve will change to decadron. 03/26 we will change dosing of Solu-Medrol. Patient appears to be stable. Will need oxygen on discharge. Will talk with heart failure for possible discharge. Will continue Eliquis his thrombocytopenia is stable but not worsening. 03/27 we will stop Solu-Medrol. Will stop azithromycin. Patient started on milrinone per heart failure. Clinically patient is doing well. We will continue Eliquis. Will check CMP in the morning. Continue diuretics. Patient's platelets are little bit low than previous day. picc line placed 03/28 we will check labs in a.m. Will start patient on Decadron. Patient will need oxygen when he goes home. Will monitor CBC for hemoglobin and platelets. Patient currently on SCDs Eliquis on hold. Patient is up and ambulating. Tolerating oral diet no diarrhea. 03/29 patient continues to have thrombocytopenia. We will continue to monitor Eliquis is on hold he does require aspirin given his ischemia. If patient continues to have thrombocytopenia may consider consulting hematology. However I think his thrombocytopenia could be due to his underlying COVID. Continue steroids. Patient's fecal occult was negative. We will give him IV iron since his iron level is low.. I discussed this with the heart failure physician we will continue to monitor. I will hold his Entresto and spironolactone given his worsening kidney function.
--- NOTE | 2020-03-29 17:38 | PRG ---
DATE OF SERVICE: 03/29/2020 SUBJECTIVE: Mr. Pinto has had no blood in his stool. Nursing does report brown stools. OBJECTIVE: GENERAL: No acute distress. VITAL SIGNS: Temperature is 98.0, pulse 75, blood pressure 127/56. LABORATORY DATA: White blood cell count 4.7, hemoglobin 9.1, platelets 50. INR 1.4. Creatinine 2.16. IMPRESSION: 1. Iron deficiency anemia, on Eliquis without evidence of overt bleeding. 2. Congestive heart failure. 3. COVID pneumonia, on steroids and remdesivir. RECOMMENDATIONS: 1. After resolution of the acute pneumonia and heart failure, he can follow up in GI Clinic over the next 1 to 2 months and we can perform outpatient endoscopy for further evaluation of his iron deficiency anemia. 2. I will sign off for now. Please call if GI can be of assistance. Job ID: [id number]
[2020-03-29] MEDS: Atorvastatin Calcium 40 MG TAB PO SCH (20:36)
[2020-03-30] MEDS: Milrinone Lactate/D5W 20 MG in Premix Bag 1 BAG IVPB SCH ×3 (00:33→17:57)
[2020-03-30] MEDS: HumaLOG 300 UNITS/3 ML VIAL SC PRN ×2 (06:12→21:17)
[2020-03-30 06:26] LABS: INR-International Normal Ratio 1.3; Prothrombin Time 16.6 sec (12.0-14.7)
[2020-03-30 06:39] LABS: #Lymphocytes 0.6 thou/uL (1.20-3.40); #Monocytes 0.6 thou/uL (0.11-0.59); %Basophils 0.2 % (0.0-1.0); %Eosinophils 0.1 % (0.0-10.0); %Lymphocytes 9.9 % (21.0-51.0); %Monocytes 10.1 % (0.0-10.0); %Neutrophils 79.8 % (42.0-75.0); Mean Corpuscular HGB CONC 29.2 g/dL (32.0-36.0); Mean Corpuscular Hemoglobin 23.9 pg (27.0-31.0); Mean Corpuscular Volume 81.6 fL (78.0-98.0); Platelet Count 51 thou/uL (130-400); RBC Distribution Width 22.2 % (11.5-14.5); Red Blood Cell (RBC) Count 3.76 mill/uL (4.70-6.10); White Blood Cell (WBC) Count 6.3 thou/uL (4.8-10.8)
[2020-03-30] MEDS ORDERED: Iron Sucrose Complex 100 MG in Sodium Chloride 0.9% 100 ML IVPB SCH (07:00)
[2020-03-30] MEDS ORDERED: Iron, Sodium Ferric Gluconate 125 MG in Sodium Chloride 0.9% 100 ML IVPB SCH (07:15)
[2020-03-30 07:34] LABS: Anion Gap 12 mmol/L (10-20); BUN (Urea Nitrogen) 44 mg/dL (8.4-25.7); Calc. Creatinine Clearance 59 mL/min (70-130); Calcium 8.5 mg/dL (7.8-10.44); Carbon Dioxide 25 mmol/L (23-31); Chloride 100 mmol/L (98-107); Estimated GFR-MDRD 43; Glucose 345 mg/dL (80-115); Magnesium 2.3 mg/dL (1.6-2.6); Potassium 5.1 mmol/L (3.5-5.1); Sodium 132 mmol/L (136-145)
[2020-03-30] MEDS ORDERED: HumaLOG 300 UNITS/3 ML VIAL SC SCH (08:00)
[2020-03-30] MEDS: Aspirin Chewable 81 MG TAB PO SCH (09:17)
[2020-03-30] MEDS: Magnesium Oxide 400 MG TAB PO SCH ×2 (09:17→21:16)
[2020-03-30] MEDS: Dexamethasone 4 mg/ml Vial SLOW IVP SCH (09:17)
[2020-03-30] MEDS: Ferrous Gluconate 324 MG TAB PO SCH (09:17)
[2020-03-30] MEDS: Amiodarone 200 MG TAB PO SCH ×2 (09:17→21:16)
[2020-03-30] MEDS: Carvedilol 6.25 MG TAB PO SCH ×2 (09:18→21:16)
[2020-03-30] MEDS: Insulin Glargine 10 UNITS in Pre-Filled Syringe 1 EACH SC SCH (09:18)
[2020-03-30] MEDS: Polyethylene Glycol 3350 17 GM Packet PO SCH (09:18)
[2020-03-30] MEDS: HumaLOG 300 UNITS/3 ML VIAL SC SCH ×3 (09:18→17:59)
[2020-03-30] MEDS ORDERED: Cosyntropin 250 MCG VIAL SLOW IVP SCH (17:15)
--- NOTE | 2020-03-30 17:33 | PDOC.HOSPP ---
- Subjective Encounter Date: 03/30/20 Encounter Time: 11:30 Subjective: pt up in bed no complains - Objective Vital Signs & Weight: Vital Signs (12 hours) Temp Pulse Resp BP Pulse Ox 03/30/20 12:10 97.9 F 74 18 115/50 L 95 03/30/20 08:20 98.0 F 75 18 127/52 L 100 Weight Weight 247 lb Most Recent Monitor Data Heart Rate from ECG 76 NIBP 140/62 Respiration from ECG 16 I&O: 03/29/20 03/30/20 03/31/20 06:59 06:59 06:59 Intake Total 250 1464 Output Total 1450 1550 Balance -1200 -86 Result Diagrams: 03/31/20 04:56 03/31/20 04:56 Additional Labs: Accuchecks 03/30/20 03/30/20 03/29/20 12:11 06:00 19:53 POC Glucose 220 H 322 H 298 H Hospitalist ROS - Review of Systems Cardiovascular: denies: chest pain, palpitations, orthopnea, paroxysmal noc. dyspnea, edema, light headedness, other Gastrointestinal: denies: nausea, vomiting, abdominal pain, diarrhea, constipation, melena, hematochezia, other Genitourinary: denies: dysuria, frequency, incontinence, hematuria, retention, other - Medication Medications: Active Medications Generic Name Dose Route Start Last Admin Trade Name Freq PRN Reason Stop Dose Admin Amiodarone HCl 200 mg 03/27/20 21:00 03/30/20 09:17 Amiodarone 200 Mg Tab PO 200 mg BID WAYNE Administration Aspirin 81 mg 03/24/20 09:00 03/30/20 09:17 Aspirin Chewable 81 Mg Tab PO 81 mg DAILY WAYNE Administration Atorvastatin Calcium 80 mg 03/27/20 21:00 03/29/20 20:36 Atorvastatin Calcium 40 Mg Tab PO 80 mg HS WAYNE Administration Carvedilol 12.5 mg 03/25/20 21:00 03/30/20 09:18 Carvedilol 6.25 Mg Tab PO 12.5 mg BID WAYNE Administration Dexamethasone 6 mg 03/29/20 09:00 03/30/20 09:17 Dexamethasone 4 Mg/Ml Vial SLOW IVP 6 mg DAILY WAYNE Administration Ergocalciferol 1.25 mg 03/26/20 09:00 03/26/20 11:13 Ergocalciferol 1.25 Mg(50,000 Units) Cap PO Not Given Q7D WAYNE Ferrous Gluconate 324 mg 03/30/20 08:00 03/30/20 09:17 Ferrous Gluconate 324 Mg Tab PO 324 mg QAM-WM WAYNE Administration Guaifenesin/Dextromethorphan 15 ml 03/24/20 22:28 03/24/20 23:09 Guaifenesin Dm 100-10/5 Ml Udcup PO 15 ml Q4H PRN Administration Cough Milrinone Lactate/Dextrose 20 100 mls @ 12.539 mls/hr 03/28/20 11:00 03/30/20 10:00 mg/ Device IVPB 03/31/20 05:59 100 mls INF WAYNE Administration 0.375 MCG/KG/MIN Insulin Glargine 10 units/ 0.1 mls @ 0 mls/hr 03/30/20 09:00 03/30/20 09:18 Miscellaneous Medication SC 0.1 mls QAM WAYNE Administration Insulin Human Lispro 0 units 03/24/20 03:49 03/30/20 06:12 Humalog 300 Units/3 Ml Vial SC 8 unit .MODERATE SLIDING SC PRN Administration Moderate Correctional Scale Insulin Human Lispro 0 units 03/24/20 22:28 03/28/20 22:34 Humalog 300 Units/3 Ml Vial SC 5 unit .BEDTIME SLIDING SC PRN Administration Bedtime Correctional Scale Insulin Human Lispro 8 units 03/30/20 08:00 03/30/20 11:54 Humalog 300 Units/3 Ml Vial SC 8 unit TID-WM WAYNE Administration Magnesium Oxide 400 mg 03/25/20 21:00 03/30/20 09:17 Magnesium Oxide 400 Mg Tab PO 400 mg BID WAYNE Administration Pantoprazole Sodium 40 mg 03/25/20 09:00 03/30/20 09:17 Pantoprazole 40 Mg Tab PO 40 mg DAILY WAYNE Administration Polyethylene Glycol 17 gm 03/29/20 09:00 03/30/20 09:18 Polyethylene Glycol 3350 17 Gm Packet PO 17 gm DAILY WAYNE Administration Sodium Chloride 10 ml 03/24/20 21:00 03/30/20 09:18 Flush - Normal Saline 10 Ml Syringe IVF 10 ml Q12HR WAYNE Administration - Exam Neck: negative: supple, symmetric, no JVD, no thyromegaly, no lymphadenopathy, no carotid bruit, JVD Heart: negative: RRR, no murmur, no gallops, no rubs, normal peripheral pulses, irregular, diminshed peripheral pulses, murmur present, II/IV, III/IV Respiratory: negative: CTAB, no wheezes, no rales, no ronchi, normal chest expansion, no tachypnea, normal percussion, rales, rhonchi, tachypneic, wheezes Gastrointestinal: negative: soft, non-tender, non-distended, normal bowel sounds, no palpable masses, no hepatomegaly, no splenomegaly, no bruit, no guarding, no rigidity, tender to palpation, distended, diminished bowl sounds, voluntary guarding Hosp A/P (1) Acute respiratory failure with hypoxia Code(s): J96.01 - ACUTE RESPIRATORY FAILURE WITH HYPOXIA Status: Acute (2) Acute exacerbation of CHF (congestive heart failure) Code(s): I50.9 - HEART FAILURE, UNSPECIFIED Status: Acute Qualifiers: Heart failure type: unspecified Qualified Code(s): I50.9 - Heart failure, unspecified (3) Anticoagulant long-term use 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 Status: Chronic (4) Atrial fibrillation with controlled ventricular response Code(s): I48.91 - UNSPECIFIED ATRIAL FIBRILLATION Status: Chronic (5) DMII (diabetes mellitus, type 2) Status: Chronic 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 Diabetes mellitus complication status: with kidney complications Diabetes mellitus complication detail: with chronic kidney disease Chronic kidney disease stage: stage 3 (moderate) (6) GERD (gastroesophageal reflux disease) Code(s): K21.9 - GASTRO-ESOPHAGEAL REFLUX DISEASE WITHOUT ESOPHAGITIS Status: Chronic (7) HTN (hypertension) Code(s): I10 - ESSENTIAL (PRIMARY) HYPERTENSION Status: Chronic Qualifiers: Hypertension type: essential hypertension Qualified Code(s): I10 - Essential (primary) hypertension (8) V tach Code(s): I47.2 - VENTRICULAR TACHYCARDIA Status: Acute - Plan pt's electrolytes stable. will monitor closely. Pt on diuretics. pt has thrombocytopenia will continue eliquis for now. pt on decadron. pt on solumedrol if he continues to improve will change to decadron. 03/26 we will change dosing of Solu-Medrol. Patient appears to be stable. Will need oxygen on discharge. Will talk with heart failure for possible discharge. Will continue Eliquis his thrombocytopenia is stable but not worsening. 03/27 we will stop Solu-Medrol. Will stop azithromycin. Patient started on milrinone per heart failure. Clinically patient is doing well. We will continue Eliquis. Will check CMP in the morning. Continue diuretics. Patient's platelets are little bit low than previous day. picc line placed 03/28 we will check labs in a.m. Will start patient on Decadron. Patient will need oxygen when he goes home. Will monitor CBC for hemoglobin and platelets. Patient currently on SCDs Eliquis on hold. Patient is up and ambulating. Tolerating oral diet no diarrhea. 03/29 patient continues to have thrombocytopenia. We will continue to monitor Eliquis is on hold he does require aspirin given his ischemia. If patient continues to have thrombocytopenia may consider consulting hematology. However I think his thrombocytopenia could be due to his underlying COVID. Continue steroids. Patient's fecal occult was negative. We will give him IV iron since his iron level is low.. I discussed this with the heart failure physician we will continue to monitor. I will hold his Entresto and spironolactone given his worsening kidney function. 03/30 we will continue milrinone drip. Patient continues to have thrombocytopenia. Will continue to hold anticoagulation. Patient on SCDs. Patient's kidney function improving.
--- NOTE | 2020-03-30 17:52 | PRG ---
DATE OF SERVICE: 03/30/2020 SUBJECTIVE: Mr. Pinto had a better day. He is breathing easier. He was able to get off oxygen for most of the day. He had a cough, but it essentially has dissipated. He also noticed that he has continued to lose edema around his abdomen and around his legs too. He wants to go home. He also is asking for [place] 3 times a day for back pain. He says his chronic back pain is getting worse. REVIEW OF SYSTEMS: GENERAL: There is no fever, chills, productive cough. HEENT: There is no change in vision, hearing, or swallowing. PULMONARY: Please see HPI. CARDIAC: There is no palpitation, chest pain, or syncope. GI: There is no nausea, vomiting, diarrhea. : He is able to urinate on his own. MUSCULOSKELETAL: He has chronic back pain. He has complained about that today. INTEGUMENT: There is no new skin breakdown. NEUROLOGIC: There are no focal deficits or weaknesses. CURRENT MEDICATIONS: 1. Amiodarone 200 mg twice a day. 2. Aspirin 81 mg daily. 3. Atorvastatin 80 mg at bedtime. 4. Carvedilol 12.5 mg b.i.d. 5. Dexamethasone 6 mg daily. 6. Vitamin D in cholecalciferol 1.25 mg daily. 7. Ferrous gluconate 324 mg daily. 8. Lispro insulin at 8 units t.i.d. with schedule. 9. Mag oxide 400 mg b.i.d. 10. Milrinone currently at 0.375 mcg/kg/minute. 11. Protonix 40 mg daily. 12. MiraLAX 17 g daily. Telemetry is briefly reviewed. He is in paced rhythm, 75 beats per minute. PHYSICAL EXAMINATION: VITAL SIGNS: Current vitals are heart rate 75, which is paced, and blood pressure 115/50. GENERAL: He is alert and conversational. He is relaxed. He is looking the best yet. HEENT: Show EOMI. Oropharynx with moist mucosa. NECK: His JVP is approximately 10 or 11 cm. PULMONARY: His breath sounds are distant, but there are no crackles or wheezes. CARDIAC: His heart sounds are distant. Normal S1, S2. There is a likely 1/6 holosystolic murmur near the apex. ABDOMEN: Distended, soft, nontender, but less distended than admission. EXTREMITIES: Lower extremity has 0.5 cm pitting edema, but a lot less than yesterday, much loose on his feet on toward his knees, so he is less edematous. His in's and out's for the day is 1464 in and 1550 out but looking at him, it actually seem to be greater net loss than 100 mL. LABORATORY DATA: His white cell count is 6.8, hemoglobin 9, and platelets 51. His platelets really did not change from yesterday, so he still has thrombocytopenia. His chemistry shows sodium 132, potassium 5.1, chloride 100, bicarb 25, BUN 44, and creatinine 1.8, it is an improvement to what it was and BUN has also dropped. ASSESSMENT: This 69-year-old gentleman is making good recovery from COVID-19 infection again. He is breathing easier. He can almost go off oxygen support now. However, he still has low platelets. He remains in [place] [employer] stage C, [place] Heart class III heart failure with reduced ejection fraction. His volume status, his functional status has improved significantly with milrinone alone. At this point, we will need to slowly titrate off the milrinone and get him back on his oral heart failure medications. He still has thrombocytopenia likely due to smalls virus. He has low diastolic pressure. He could be adrenally suppressed at this point. So we will need to do a Cortrosyn stimulation test. If he is, he will need to be supplemented with fludrocortisone and also low-dose hydrocortisone. Please see the following for my recommendations. RECOMMENDATION: 1. Decrease milrinone to 0.25 mcg/kg/minute. 2. Use Lyrica 75 mg twice a day for his back pain. 3. Please consider Cortrosyn stimulation test to see if he has a good response. If he does not, we will need to start adrenal supplementation. 4. If all goes well, we will aim for discharge on Friday morning. It has been a pleasure taking care of Mr. Pinto. If any questions, please give me a call. This visit took 45 minutes. This includes personally performing history and physical, reviewing his data, direct patient interaction including a long counseling and explanation session. Of note, I told him that I will not be able to prescribe opioids as an outpatient for him. Job ID: [id number] [facility]
[2020-03-30] MEDS: Atorvastatin Calcium 40 MG TAB PO SCH (21:16)
[2020-03-30] MEDS: Pregabalin 75 MG CAP PO SCH (21:16)
[2020-03-31 05:15] LABS: INR-International Normal Ratio 1.3; Prothrombin Time 16.7 sec (12.0-14.7)
[2020-03-31 05:22] LABS: #Lymphocytes 0.6 thou/uL (1.20-3.40); #Monocytes 0.4 thou/uL (0.11-0.59); #Neutrophils 5.6 thou/uL (1.40-6.50); %Eosinophils 0.1 % (0.0-10.0); %Lymphocytes 8.9 % (21.0-51.0); %Monocytes 6.2 % (0.0-10.0); %Neutrophils 84.7 % (42.0-75.0); Hemoglobin 9.2 g/dL (14.0-18.0); Mean Corpuscular HGB CONC 30.1 g/dL (32.0-36.0); Mean Corpuscular Hemoglobin 24.3 pg (27.0-31.0); Mean Corpuscular Volume 80.5 fL (78.0-98.0); Mean Platelet Volume 7.2 fL (7.4-10.4); Platelet Count 51 thou/uL (130-400); RBC Distribution Width 22.4 % (11.5-14.5); Red Blood Cell (RBC) Count 3.79 mill/uL (4.70-6.10); White Blood Cell (WBC) Count 6.6 thou/uL (4.8-10.8)
[2020-03-31 05:37] LABS: ALT (SGPT) 16 U/L (8-55); AST (SGOT) 14 U/L (5-34); Albumin 3.4 g/dL (3.4-4.8); Alkaline Phosphatase 41 U/L (40-110); Anion Gap 8 mmol/L (10-20); BUN (Urea Nitrogen) 38 mg/dL (8.4-25.7); Bilirubin, Total 0.9 mg/dL (0.2-1.2); Calc. Creatinine Clearance 61 mL/min (70-130); Calcium 8.7 mg/dL (7.8-10.44); Carbon Dioxide 30 mmol/L (23-31); Chloride 98 mmol/L (98-107); Estimated GFR-MDRD 44; Globulin 3.2 g/dL (2.4-3.5); Glucose 361 mg/dL (80-115); Magnesium 2.2 mg/dL (1.6-2.6); Potassium 4.9 mmol/L (3.5-5.1); Protein, Total 6.6 g/dL (5.8-8.1); Sodium 131 mmol/L (136-145)
[2020-03-31] MEDS: HumaLOG 300 UNITS/3 ML VIAL SC PRN ×4 (05:58→21:16)
[2020-03-31] MEDS: Milrinone Lactate/D5W 20 MG in Premix Bag 1 BAG IVPB SCH (06:06)
[2020-03-31] MEDS: Insulin Glargine 10 UNITS in Pre-Filled Syringe 1 EACH SC SCH (09:32)
[2020-03-31] MEDS: HumaLOG 300 UNITS/3 ML VIAL SC SCH ×3 (09:33→17:18)
[2020-03-31] MEDS: Carvedilol 6.25 MG TAB PO SCH ×2 (09:36→21:06)
[2020-03-31] MEDS: Dexamethasone 4 mg/ml Vial SLOW IVP SCH (09:36)
[2020-03-31] MEDS: Amiodarone 200 MG TAB PO SCH ×2 (09:36→21:06)
[2020-03-31] MEDS: Aspirin Chewable 81 MG TAB PO SCH (09:36)
[2020-03-31] MEDS: Ferrous Gluconate 324 MG TAB PO SCH (09:36)
[2020-03-31] MEDS: Pregabalin 75 MG CAP PO SCH ×2 (09:38→21:04)
[2020-03-31] MEDS: Magnesium Oxide 400 MG TAB PO SCH ×2 (09:38→21:03)
[2020-03-31] MEDS: Polyethylene Glycol 3350 17 GM Packet PO SCH (09:38)
[2020-03-31] MEDS ORDERED: Fludrocortisone Acetate 0.1 MG TAB PO SCH (13:45)
[2020-03-31] MEDS ORDERED: Torsemide 20 MG TAB PO SCH (14:00)
--- NOTE | 2020-03-31 14:32 | PRG ---
DATE OF SERVICE: 03/31/2020 SUBJECTIVE: Mr. Eulalio Pinto had an excellent day. He is breathing easier. He said his cough has pretty much ceased. He also noticed his lower extremity edema has gone down. He is comfortable with staying here. However, he persistently asks for [place] 3 times a day for back pain as outpatient. Lyrica 75 mg twice a day was started for back pain, he said it does help his back pain some, but he still prefers [place]. REVIEW OF SYSTEMS: GENERAL: There is no fever, chills, or productive cough. HEENT: There is no change in vision, hearing, or swallowing. PULMONARY: Please see HPI. CARDIAC: There is no palpitation, chest pain, or syncope. GI: There is no nausea, vomiting, or diarrhea. : He is able to urinate on his own. MUSCULOSKELETAL: There is no joint or muscle pains. INTEGUMENT: There is no new skin breakdown. NEUROLOGIC: There are no new focal deficits or weaknesses. MEDICATIONS: His cardiac medications include; 1. Amiodarone 200 mg twice a day. 2. Aspirin 81 mg daily. 3. Atorvastatin 80 mg p.o. at bedtime. 4. Carvedilol 12.5 mg b.i.d. 5. Insulin. 6. Magnesium oxide 400 mg b.i.d. 7. Lyrica 75 mg b.i.d. The telemetry was reviewed. It is paced rhythm at 75 beats per minute. There is occasional PVC, but other than that, there is no concerning arrhythmia. PHYSICAL EXAMINATION: VITAL SIGNS: Heart rate 75, blood pressure 136/62. GENERAL: He is alert and conversational. He is sitting up, looking relaxed. HEENT: Showed EOMI. Oropharynx is benign with moist mucosa. NECK: His JVP is now a little bit more elevated at 11 cm, this is the highest I have seen in several days. PULMONARY: The lungs sounds are distant; however, I believe it is clear to auscultation bilaterally. CARDIAC: Heart sounds are distant too, regular rate and rhythm, normal S1 and S2, has faint 1/6 holosystolic murmur at the apex. ABDOMEN: Soft, nontender. Positive bowel sounds. EXTREMITIES: Lower extremities, I do not feel any thigh edema today. He still has a mild pedal edema and some lower extremity edema about 1/[address] up towards the knee, but definitely a lot less. LABORATORY DATA: His CBC shows white cell count 6.6, hemoglobin 9.2, platelets 51. His chemistry shows sodium 131, potassium 4.9, BUN of 38, creatinine 1.85, again this is an improvement. Cortrosyn stimulation test was done. His cortisol response was this, at baseline value was 1.5, at 30 minutes 7.7, in 60 minutes 10.3, in 90 minutes 10.3, so he had response of 8.5, this is very much less than the 20. Thus, he has adrenal insufficiency. It is not surprising since he has been on steroids and his other factors. ASSESSMENT: 69-year-old gentleman continues to make progress in terms of COVID-19 infection. He is breathing easier and his cough has decreased. However, he still has thrombocytopenia with this. He also has adrenal insufficiency, cannot tell if it is because of coronavirus effect or the steroid he received. However, he resides in [place] Heart Association stage C, also [place] Heart Association class 3 heart failure with reduced ejection fraction. With milrinone, he improved. Now we can decrease milrinone some more with a goal of titrating off. We will need to supplement for his adrenal insufficiency and also start mild diuresis again. Please see following for my recommendations. RECOMMENDATIONS: 1. Decrease milrinone to 0.125 mcg/kg per minute at 6 p.m. tonight. We will aim to turn off tomorrow. 2. Start fludrocortisone at 0.1 mg daily, this is supplement for his adrenal insufficiency. 3. He will need some form of glucocorticoid supplemen in future, but for now, dexamethasone is sufficient. 4. Start torsemide 20 mg p.o. daily, first dose now. 5. Tomorrow when the milrinone goes off, we will need to start the Entresto again. It has been a pleasure taking care of Mr. Eulalio Pinto. If you have any questions, please give me a call. Time for this visit is 35 minutes. This includes direct patient interaction, reviewing data, and also coordinating care, mostly direct patient interaction. Job ID: [id number] MTDD
[2020-03-31] MEDS ORDERED: Milrinone Lactate/D5W 20 MG in Premix Bag 1 BAG IVPB SCH (18:00)
--- NOTE | 2020-03-31 18:57 | PDOC.HOSPP ---
- Subjective Encounter Date: 03/31/20 Encounter Time: 15:55 Subjective: pt up in bed no complains - Objective Vital Signs & Weight: Vital Signs (12 hours) Temp Pulse Resp BP BP Pulse Ox 03/31/20 15:30 97.9 F 74 20 136/65 96 03/31/20 11:13 98.3 F 74 20 117/57 L 94 L 03/31/20 07:40 98.2 F 75 22 H 136/62 94 L Weight Weight 250 lb 14.4 oz Most Recent Monitor Data Heart Rate from ECG 76 NIBP 140/62 Respiration from ECG 16 I&O: 03/30/20 03/31/20 04/01/20 06:59 06:59 06:59 Intake Total 1464 2259.6 600 Output Total 1550 2425 400 Balance -86 -165.4 200 Result Diagrams: 03/31/20 04:56 03/31/20 04:56 Additional Labs: Accuchecks 03/31/20 03/31/20 03/31/20 16:38 11:16 04:46 POC Glucose 263 H 307 H 309 H 03/30/20 20:37 POC Glucose 264 H Hospitalist ROS - Review of Systems Respiratory: denies: cough, dry, shortness of breath, hemoptysis, SOB with excertion, pleuritic pain, sputum, wheezing, other Cardiovascular: denies: chest pain, palpitations, orthopnea, paroxysmal noc. dyspnea, edema, light headedness, other Gastrointestinal: denies: nausea, vomiting, abdominal pain, diarrhea, constipation, melena, hematochezia, other - Medication Medications: Active Medications Generic Name Dose Route Start Last Admin Trade Name Anastacioq PRN Reason Stop Dose Admin Amiodarone HCl 200 mg 03/27/20 21:00 03/31/20 09:36 Amiodarone 200 Mg Tab PO 200 mg BID WAYNE Administration Aspirin 81 mg 03/24/20 09:00 03/31/20 09:36 Aspirin Chewable 81 Mg Tab PO 81 mg DAILY WAYNE Administration Atorvastatin Calcium 80 mg 03/27/20 21:00 03/30/20 21:16 Atorvastatin Calcium 40 Mg Tab PO 80 mg HS WAYNE Administration Carvedilol 12.5 mg 03/25/20 21:00 03/31/20 09:36 Carvedilol 6.25 Mg Tab PO 12.5 mg BID WAYNE Administration Cosyntropin 250 mcg 03/30/20 17:15 03/30/20 17:59 Cosyntropin 250 Mcg Vial SLOW IVP 250 mcg WILLCALL WAYNE Administration Dexamethasone 6 mg 03/29/20 09:00 03/31/20 09:36 Dexamethasone 4 Mg/Ml Vial SLOW IVP 6 mg DAILY WAYNE Administration Ergocalciferol 1.25 mg 03/26/20 09:00 03/26/20 11:13 Ergocalciferol 1.25 Mg(50,000 Units) Cap PO Not Given Q7D WAYNE Ferrous Gluconate 324 mg 03/30/20 08:00 03/31/20 09:36 Ferrous Gluconate 324 Mg Tab PO 324 mg QAM-WM WAYNE Administration Guaifenesin/Dextromethorphan 15 ml 03/24/20 22:28 03/24/20 23:09 Guaifenesin Dm 100-10/5 Ml Udcup PO 15 ml Q4H PRN Administration Cough Insulin Glargine 10 units/ 0.1 mls @ 0 mls/hr 03/30/20 09:00 03/31/20 09:32 Miscellaneous Medication SC 0.1 mls QAM WAYNE Administration Milrinone Lactate/Dextrose 20 100 mls @ 4.18 mls/hr 03/31/20 18:00 03/31/20 17:17 mg/ Device IVPB 100 mls INF WAYNE Administration 0.125 MCG/KG/MIN Insulin Human Lispro 0 units 03/24/20 03:49 03/31/20 17:19 Humalog 300 Units/3 Ml Vial SC 6 unit .MODERATE SLIDING SC PRN Administration Moderate Correctional Scale Insulin Human Lispro 0 units 03/24/20 22:28 03/30/20 21:17 Humalog 300 Units/3 Ml Vial SC 3 unit .BEDTIME SLIDING SC PRN Administration Bedtime Correctional Scale Insulin Human Lispro 8 units 03/30/20 08:00 03/31/20 17:18 Humalog 300 Units/3 Ml Vial SC 8 unit TID-WM WAYNE Administration Magnesium Oxide 400 mg 03/25/20 21:00 03/31/20 09:38 Magnesium Oxide 400 Mg Tab PO 400 mg BID WAYNE Administration Pantoprazole Sodium 40 mg 03/25/20 09:00 03/31/20 09:38 Pantoprazole 40 Mg Tab PO 40 mg DAILY WAYNE Administration Polyethylene Glycol 17 gm 03/29/20 09:00 03/31/20 09:38 Polyethylene Glycol 3350 17 Gm Packet PO 17 gm DAILY WAYNE Administration Pregabalin 75 mg 03/30/20 21:00 03/31/20 09:38 Pregabalin 75 Mg Cap PO 75 mg BID WAYNE Administration Sodium Chloride 10 ml 03/24/20 21:00 03/31/20 09:35 Flush - Normal Saline 10 Ml Syringe IVF 10 ml Q12HR WAYNE Administration - Exam Neck: negative: supple, symmetric, no JVD, no thyromegaly, no lymphadenopathy, no carotid bruit, JVD Heart: negative: RRR, no murmur, no gallops, no rubs, normal peripheral pulses, irregular, diminshed peripheral pulses, murmur present, II/IV, III/IV Respiratory: negative: CTAB, no wheezes, no rales, no ronchi, normal chest expansion, no tachypnea, normal percussion, rales, rhonchi, tachypneic, wheezes Gastrointestinal: negative: soft, non-tender, non-distended, normal bowel sounds, no palpable masses, no hepatomegaly, no splenomegaly, no bruit, no guarding, no rigidity, tender to palpation, distended, diminished bowl sounds, voluntary guarding Hosp A/P (1) Acute respiratory failure with hypoxia Code(s): J96.01 - ACUTE RESPIRATORY FAILURE WITH HYPOXIA Status: Acute (2) Acute exacerbation of CHF (congestive heart failure) Code(s): I50.9 - HEART FAILURE, UNSPECIFIED Status: Acute Qualifiers: Heart failure type: unspecified Qualified Code(s): I50.9 - Heart failure, unspecified (3) Anticoagulant long-term use Code(s): 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 Status: Chronic (4) Atrial fibrillation with controlled ventricular response Code(s): I48.91 - UNSPECIFIED ATRIAL FIBRILLATION Status: Chronic (5) DMII (diabetes mellitus, type 2) Status: Chronic Qualifiers: Diabetes mellitus chcf insulin use: without moth exterminator use Diabetes mellitus complication status: with kidney complications Diabetes mellitus complication detail: with chronic kidney disease Chronic kidney disease stage: stage 3 (moderate) (6) GERD (gastroesophageal reflux disease) Code(s): K21.9 - GASTRO-ESOPHAGEAL REFLUX DISEASE WITHOUT ESOPHAGITIS Status: Chronic (7) HTN (hypertension) Code(s): I10 - ESSENTIAL (PRIMARY) HYPERTENSION Status: Chronic Qualifiers: Hypertension type: essential hypertension Qualified Code(s): I10 - Essential (primary) hypertension (8) V tach Code(s): I47.2 - VENTRICULAR TACHYCARDIA Status: Acute - Plan pt's electrolytes stable. will monitor closely. Pt on diuretics. pt has thrombocytopenia will continue eliquis for now. pt on decadron. pt on solumedrol if he continues to improve will change to decadron. 03/26 we will change dosing of Solu-Medrol. Patient appears to be stable. Will need oxygen on discharge. Will talk with heart failure for possible discharge. Will continue Eliquis his thrombocytopenia is stable but not worsening. 03/27 we will stop Solu-Medrol. Will stop azithromycin. Patient started on milrinone per heart failure. Clinically patient is doing well. We will continue Eliquis. Will check CMP in the morning. Continue diuretics. Patient's platelets are little bit low than previous day. picc line placed 03/28 we will check labs in a.m. Will start patient on Decadron. Patient will need oxygen when he goes home. Will monitor CBC for hemoglobin and platelets. Patient currently on SCDs Eliquis on hold. Patient is up and ambulating. Tolerating oral diet no diarrhea. 03/29 patient continues to have thrombocytopenia. We will continue to monitor Eliquis is on hold he does require aspirin given his ischemia. If patient continues to have thrombocytopenia may consider consulting hematology. However I think his thrombocytopenia could be due to his underlying COVID. Continue steroids. Patient's fecal occult was negative. We will give him IV iron since his iron level is low.. I discussed this with the heart failure physician we will continue to monitor. I will hold his Entresto and spironolactone given his worsening kidney function. 03/30 we will continue milrinone drip. Patient continues to have thrombocytopenia. Will continue to hold anticoagulation. Patient on SCDs. Patient's kidney function improving. 03/31 we will continue milrinone drip. Patient's thrombocytopenia low stable. Patient has been encouraged to keep the SCDs on since we are unable to an ticoagulate him for DVT prophylaxis due to his thrombocytopenia. H&H low stable. Creatinine stable. Patient was started on fludrocortisone by heart failure
[2020-03-31] MEDS: Atorvastatin Calcium 40 MG TAB PO SCH (21:06)
[2020-04-01 05:15] LABS: INR-International Normal Ratio 1.2; Prothrombin Time 15.4 sec (12.0-14.7)
[2020-04-01 05:30] LABS: Anion Gap 13 mmol/L (10-20); BUN (Urea Nitrogen) 40 mg/dL (8.4-25.7); Calc. Creatinine Clearance 59 mL/min (70-130); Carbon Dioxide 29 mmol/L (23-31); Chloride 97 mmol/L (98-107); Estimated GFR-MDRD 43; Glucose 312 mg/dL (80-115); Magnesium 2.1 mg/dL (1.6-2.6); Potassium 4.8 mmol/L (3.5-5.1); Sodium 134 mmol/L (136-145)
[2020-04-01 05:40] LABS: #Lymphocytes 0.7 thou/uL (1.20-3.40); #Monocytes 0.7 thou/uL (0.11-0.59); #Neutrophils 6.9 thou/uL (1.40-6.50); %Basophils 0.2 % (0.0-1.0); %Eosinophils 0.1 % (0.0-10.0); %Lymphocytes 8.3 % (21.0-51.0); %Monocytes 8.4 % (0.0-10.0); %Neutrophils 82.9 % (42.0-75.0); Anisocytosis MODERATE=16-30 cells (100X) (0-5/hpf); Hemoglobin 9.6 g/dL (14.0-18.0); Hypochromia SLIGHT = 6-15 cells (100X) (0-5/hpf); MDiff Complete? YES; Mean Corpuscular HGB CONC 29.6 g/dL (32.0-36.0); Mean Corpuscular Hemoglobin 23.7 pg (27.0-31.0); Mean Platelet Volume 8.1 fL (7.4-10.4); Platelet Count 62 thou/uL (130-400); Platelet Morphology Comment Appears Decreased; RBC Distribution Width 22.9 % (11.5-14.5); Red Blood Cell (RBC) Count 4.05 mill/uL (4.70-6.10); White Blood Cell (WBC) Count 8.3 thou/uL (4.8-10.8)
[2020-04-01] MEDS: HumaLOG 300 UNITS/3 ML VIAL SC PRN ×2 (06:05→21:19)
[2020-04-01] MEDS: Pregabalin 75 MG CAP PO SCH ×2 (08:27→21:09)
[2020-04-01] MEDS: Polyethylene Glycol 3350 17 GM Packet PO SCH (08:27)
[2020-04-01] MEDS: Magnesium Oxide 400 MG TAB PO SCH ×2 (08:27→21:08)
[2020-04-01] MEDS: Carvedilol 6.25 MG TAB PO SCH ×2 (08:28→21:09)
[2020-04-01] MEDS: Torsemide 20 MG TAB PO SCH (08:28)
[2020-04-01] MEDS: Aspirin Chewable 81 MG TAB PO SCH (08:28)
[2020-04-01] MEDS: Ferrous Gluconate 324 MG TAB PO SCH (08:29)
[2020-04-01] MEDS: Fludrocortisone Acetate 0.1 MG TAB PO SCH (08:29)
[2020-04-01] MEDS: Dexamethasone 4 mg/ml Vial SLOW IVP SCH (08:29)
[2020-04-01] MEDS: Amiodarone 200 MG TAB PO SCH (08:29)
[2020-04-01] MEDS: HumaLOG 300 UNITS/3 ML VIAL SC SCH ×3 (08:31→17:59)
[2020-04-01] MEDS: Insulin Glargine 10 UNITS in Pre-Filled Syringe 1 EACH SC SCH (09:28)
--- NOTE | 2020-04-01 10:39 | PDOC.HOSPP ---
- Subjective Encounter Date: 04/01/20 Encounter Time: 10:38 Subjective: Mr. Pinto was seen today in follow-up of respiratory failure due to CHF . He says he feels " great". He denies feeling short of breath. He is laying in bed, without supplemental oxygen. He denies chest pain or diarrhea. - Objective Vital Signs & Weight: Vital Signs (12 hours) Temp Pulse Resp BP Pulse Ox 04/01/20 08:43 98.6 F 75 17 135/60 96 04/01/20 05:01 98.0 F 74 16 137/64 94 L 04/01/20 01:05 98.0 F 73 18 139/60 95 Weight Weight 250 lb 9 oz Most Recent Monitor Data Heart Rate from ECG 76 NIBP 140/62 Respiration from ECG 16 I&O: 03/31/20 04/01/20 04/02/20 06:59 06:59 06:59 Intake Total 2259.6 1493.4 Output Total 2425 1510 Balance -165.4 -16.6 Result Diagrams: 04/01/20 04:48 04/01/20 04:48 Additional Labs: Accuchecks 03/31/20 03/31/20 03/31/20 21:19 16:38 11:16 POC Glucose 261 H 263 H 307 H Hospitalist ROS - Medication Medications: Active Medications Generic Name Dose Route Start Last Admin Trade Name Freq PRN Reason Stop Dose Admin Amiodarone HCl 200 mg 03/27/20 21:00 04/01/20 08:29 Amiodarone 200 Mg Tab PO 200 mg BID WAYNE Administration Aspirin 81 mg 03/24/20 09:00 04/01/20 08:28 Aspirin Chewable 81 Mg Tab PO 81 mg DAILY WAYNE Administration Atorvastatin Calcium 80 mg 03/27/20 21:00 03/31/20 21:06 Atorvastatin Calcium 40 Mg Tab PO 80 mg HS WAYNE Administration Carvedilol 12.5 mg 03/25/20 21:00 04/01/20 08:28 Carvedilol 6.25 Mg Tab PO 12.5 mg BID WAYNE Administration Cosyntropin 250 mcg 03/30/20 17:15 03/30/20 17:59 Cosyntropin 250 Mcg Vial SLOW IVP 250 mcg WILLCALL WAYNE Administration Dexamethasone 6 mg 03/29/20 09:00 04/01/20 08:29 Dexamethasone 4 Mg/Ml Vial SLOW IVP 6 mg DAILY WAYNE Administration Ergocalciferol 1.25 mg 03/26/20 09:00 03/26/20 11:13 Ergocalciferol 1.25 Mg(50,000 Units) Cap PO Not Given Q7D WAYNE Ferrous Gluconate 324 mg 03/30/20 08:00 04/01/20 08:29 Ferrous Gluconate 324 Mg Tab PO 324 mg QAM-WM WAYNE Administration Fludrocortisone Acetate 0.1 mg 04/01/20 09:00 04/01/20 08:29 Fludrocortisone Acetate 0.1 Mg Tab PO 0.1 mg DAILY WAYNE Administration Guaifenesin/Dextromethorphan 15 ml 03/24/20 22:28 03/24/20 23:09 Guaifenesin Dm 100-10/5 Ml Udcup PO 15 ml Q4H PRN Administration Cough Insulin Glargine 10 units/ 0.1 mls @ 0 mls/hr 03/30/20 09:00 04/01/20 09:28 Miscellaneous Medication SC 0.1 mls QAM WAYNE Administration Insulin Human Lispro 0 units 03/24/20 03:49 04/01/20 06:05 Humalog 300 Units/3 Ml Vial SC 8 unit .MODERATE SLIDING SC PRN Administration Moderate Correctional Scale Insulin Human Lispro 0 units 03/24/20 22:28 03/31/20 21:16 Humalog 300 Units/3 Ml Vial SC 3 unit .BEDTIME SLIDING SC PRN Administration Bedtime Correctional Scale Insulin Human Lispro 8 units 03/30/20 08:00 04/01/20 08:31 Humalog 300 Units/3 Ml Vial SC 8 unit TID-WM WAYNE Administration Magnesium Oxide 400 mg 03/25/20 21:00 04/01/20 08:27 Magnesium Oxide 400 Mg Tab PO 400 mg BID WAYNE Administration Pantoprazole Sodium 40 mg 03/25/20 09:00 04/01/20 08:29 Pantoprazole 40 Mg Tab PO 40 mg DAILY WAYNE Administration Polyethylene Glycol 17 gm 03/29/20 09:00 04/01/20 08:27 Polyethylene Glycol 3350 17 Gm Packet PO 17 gm DAILY WAYNE Administration Pregabalin 75 mg 03/30/20 21:00 04/01/20 08:27 Pregabalin 75 Mg Cap PO 75 mg BID WAYNE Administration Sodium Chloride 10 ml 03/24/20 21:00 04/01/20 08:28 Flush - Normal Saline 10 Ml Syringe IVF 10 ml Q12HR WAYNE Administration Torsemide 20 mg 04/01/20 09:00 04/01/20 08:28 Torsemide 20 Mg Tab PO 20 mg DAILY WAYNE Administration - Exam Eye: PERRL, anicteric sclera Heart: RRR, no murmur, no gallops, no rubs, normal peripheral pulses Respiratory: CTAB, no wheezes, no rales, no ronchi, normal chest expansion, no tachypnea, normal percussion Gastrointestinal: soft, non-tender, non-distended, normal bowel sounds, no p alpable masses, no hepatomegaly Extremities: no cyanosis, no edema Hosp A/P (1) Acute on chronic systolic heart failure, NYHA class 3 Code(s): I50.23 - ACUTE ON CHRONIC SYSTOLIC (CONGESTIVE) HEART FAILURE Status: Acute (2) COVID-19 virus infection Code(s): U07.1 - COVID-19 Status: Acute (3) Acute exacerbation of CHF (congestive heart failure) Code(s): I50.9 - HEART FAILURE, UNSPECIFIED Status: Acute Qualifiers: Heart failure type: unspecified Qualified Code(s): I50.9 - Heart failure, unspecified (4) DMII (diabetes mellitus, type 2) Status: Chronic Qualifiers: Diabetes mellitus intermediate project manager insulin use: without [place] [facility] use Diabetes mellitus complication status: with kidney complications Diabetes mellitus complication detail: with chronic kidney disease Chronic kidney disease stage: stage 3 (moderate) (5) GERD (gastroesophageal reflux disease) Code(s): K21.9 - GASTRO-ESOPHAGEAL REFLUX DISEASE WITHOUT ESOPHAGITIS Status: Chronic (6) HTN (hypertension) Code(s): I10 - ESSENTIAL (PRIMARY) HYPERTENSION Status: Chronic Qualifiers: Hypertension type: essential hypertension Qualified Code(s): I10 - Essential (primary) hypertension (7) Adrenal insufficiency Code(s): E27.40 - UNSPECIFIED ADRENOCORTICAL INSUFFICIENCY Status: Acute - Plan * Acute on chronic systolic heart failure- he is now off the Milronone dip * He has diuresed well, with stable renal function * COVID infection- relatively asymptomatic from this- continue Decadron * DM- Blood glucose is elevated- will increase the dose of Lantus * HTN- blood pressure is stable * Adrenal insufficiency- continue Florinef * Anticipate home soon
[2020-04-01] MEDS ORDERED: Insulin Glargine 5 UNITS in Pre-Filled Syringe 1 EACH SC SCH (12:00)
[2020-04-01] MEDS ORDERED: HYDROcodone/Acetaminophen 5/325 mg Tablet PO PRN (12:31)
--- NOTE | 2020-04-01 17:38 | PRG ---
DATE OF SERVICE: 04/01/2020 SERVICE: [facility]. SUBJECTIVE: Mr. Eulalio Pinto had an excellent day. He said he is breathing easy. He does not have any more cough. He was able to ambulate around the room without any difficulties. He says this is the best he has felt in a long, long time. He is quite pleased. REVIEW OF SYSTEMS: GENERAL: There is no fever, chills, or productive cough. PULMONARY: Please see the HPI. CARDIAC: There is no palpitation, chest pain, or syncope. GI: There is no nausea, vomiting, or diarrhea. : He is able to urinate well on his own. MUSCULOSKELETAL: He has chronic lower back pain. INTEGUMENT: There is no new skin breakdown. NEUROLOGIC: There are no focal deficits or weaknesses. The telemetry was reviewed. He resides in a paced rhythm at 75 beats per minute. There is occasional PVC. Other than that, there are no other problems. There is no any wide-complex tachycardia at all. MEDICATIONS: His current cardiac medications include: 1. Amiodarone 200 mg twice a day. 2. Aspirin 81 mg daily. 3. Atorvastatin 80 mg at bedtime. 4. Carvedilol 12.5 mg b.i.d. 5. Dexamethasone still at 6 mg daily. 6. Insulin lispro 8 units t.i.d. a.c. 7. Magnesium oxide 400 mg b.i.d. 8. Lyrica for his back pain 75 mg b.i.d. 9. Torsemide 20 mg daily. PHYSICAL EXAMINATION: VITAL SIGNS: His vitals are excellent. They have increased since stopping of the milrinone. His systolic blood pressure between 135 to 140. This is a bit high, but it sits into the mid range Entresto. His heart rate is as before paced at 75. GENERAL: He is alert and conversational, relaxed. He is able to walk around without any difficulties. HEENT: EOMI. Oropharynx benign with moist mucosa. NECK: His JVP is roughly right about 10 cm. LUNGS: Breath sounds are distant, but they are clear to auscultation. CARDIAC: The heart sounds are distant. They are normal rate and rhythm, normal S1/S2, there is 2/6 holosystolic murmur at the left sternal border. ABDOMEN: Soft, nontender. Positive bowel sounds. EXTREMITIES: Lower extremity, there is about 0.5 cm pitting edema, but this is much, much better than what it was before. LABORATORY DATA: His laboratory value shows white cell count at 8.3, hemoglobin 9.6, platelet is increasing finally at 62. His chemistry showed that sodium is 134, this is an increase. Potassium 4.8, chloride 97, bicarbonate 29, BUN 14, creatinine 1.91. His glucose is still high at 312 and magnesium is 2.1. ASSESSMENT: 69-year-old gentleman is recovering from Coronavirus infection. He is doing exceptionally well. Resolution of needing oxygen and platelet is coming back combine to show strong evidence of recovery from Coronavirus infection. He has been titrated off milrinone. His BUN and creatinine as we expected to rise some due to loss of his inotropic support. However, he resides in [place] Heart Association stage C, [place] Heart Association class III heart failure with reduced ejection fraction. He has both systolic and diastolic dysfunction. This is due to ischemic cardiomyopathy. We will aim to maximize his treatment with carvedilol and also Entresto. We will leave off spironolactone for now because spironolactone will elevate potassium too high and has the least effective in comparison to the other two. RECOMMENDATIONS: Please see the following for my recommendations: 1. Start Entresto at 49/51 combination, first dose tonight. It is for b.i.d. 2. Please help with the patient, we would give him a note that he has recovered from COVID-19. The people he stay want to see that note, otherwise they will be afraid to let him back in. 3. Reduce amiodarone to 200 mg just once a day. 4. Increase Lyrica to 150 mg twice a day. 5. If everything goes well, the patient should be ready to be discharged on Friday morning. 6. Make sure the patient has the [facility]' 30 days free samples cart. Please instruct the patient to apply for assistance for continuation of the Entresto on the lower cost. This will be a Federal low-income assistance. However, if the patient is on Medicaid, it is already completely pay for. It has been a pleasure taking care of Mr. Pinto. If you have any questions, please give me a call. Time for this visit is 35 minutes. This includes personally performing history and physical, reviewing data, coordinating the care, and direct patient interaction. Job ID: [id number] MTDD
[2020-04-01] MEDS: Atorvastatin Calcium 40 MG TAB PO SCH (21:08)
[2020-04-01] MEDS: Sacubitril 49 MG/Valsartan 51 MG TABLET PO SCH (21:09)
[2020-04-02 05:12] LABS: INR-International Normal Ratio 1.1
[2020-04-02 05:26] LABS: Anion Gap 13 mmol/L (10-20); BUN (Urea Nitrogen) 41 mg/dL (8.4-25.7); Calc. Creatinine Clearance 49 mL/min (70-130); Calcium 8.9 mg/dL (7.8-10.44); Carbon Dioxide 32 mmol/L (23-31); Chloride 95 mmol/L (98-107); Estimated GFR-MDRD 35; Glucose 333 mg/dL (80-115); Sodium 135 mmol/L (136-145)
[2020-04-02 05:35] LABS: #Lymphocytes 0.9 thou/uL (1.20-3.40); #Monocytes 0.8 thou/uL (0.11-0.59); %Basophils 0.2 % (0.0-1.0); %Eosinophils 0.3 % (0.0-10.0); %Lymphocytes 9.5 % (21.0-51.0); %Neutrophils 82.1 % (42.0-75.0); Anisocytosis SLIGHT = 6-15 cells (100X) (0-5/hpf); Hemoglobin 10.2 g/dL (14.0-18.0); Hypochromia SLIGHT = 6-15 cells (100X) (0-5/hpf); MDiff Complete? YES; Mean Corpuscular HGB CONC 29.4 g/dL (32.0-36.0); Mean Corpuscular Hemoglobin 23.9 pg (27.0-31.0); Mean Corpuscular Volume 81.1 fL (78.0-98.0); Platelet Count 103 thou/uL (130-400); Platelet Morphology Comment Appears Decreased; RBC Distribution Width 23.4 % (11.5-14.5); Red Blood Cell (RBC) Count 4.27 mill/uL (4.70-6.10); White Blood Cell (WBC) Count 9.8 thou/uL (4.8-10.8)
[2020-04-02] MEDS: HumaLOG 300 UNITS/3 ML VIAL SC PRN ×4 (05:49→20:28)
[2020-04-02] MEDS ORDERED: Insulin Glargine 15 UNITS in Pre-Filled Syringe 1 EACH SC SCH (09:00)
[2020-04-02] MEDS: HumaLOG 300 UNITS/3 ML VIAL SC SCH ×3 (09:50→16:55)
[2020-04-02] MEDS: Amiodarone 200 MG TAB PO SCH (09:53)
[2020-04-02] MEDS: Ferrous Gluconate 324 MG TAB PO SCH (09:53)
[2020-04-02] MEDS: Dexamethasone 4 mg/ml Vial SLOW IVP SCH (09:54)
[2020-04-02] MEDS: Fludrocortisone Acetate 0.1 MG TAB PO SCH (09:54)
[2020-04-02] MEDS: Magnesium Oxide 400 MG TAB PO SCH ×2 (09:54→20:16)
[2020-04-02] MEDS: Aspirin Chewable 81 MG TAB PO SCH (09:54)
[2020-04-02] MEDS: Carvedilol 6.25 MG TAB PO SCH ×2 (09:54→20:18)
[2020-04-02] MEDS: Ergocalciferol 1.25 MG(50,000 UNITS) CAP PO SCH (09:54)
[2020-04-02] MEDS: Sacubitril 49 MG/Valsartan 51 MG TABLET PO SCH (09:55)
[2020-04-02] MEDS: Polyethylene Glycol 3350 17 GM Packet PO SCH (09:55)
[2020-04-02] MEDS: Pregabalin 75 MG CAP PO SCH ×2 (09:55→20:17)
[2020-04-02] MEDS: Torsemide 20 MG TAB PO SCH (09:55)
--- NOTE | 2020-04-02 10:40 | PDOC.HOSPP ---
- Subjective Encounter Date: 04/02/20 Encounter Time: 10:38 Subjective: Mr. Pinto was seen today in follow-up of CHF exacerbation. He says he feels fine. No complaints. He has been off supplemental oxygen for 2 days without difficulty. - Objective Vital Signs & Weight: Vital Signs (12 hours) Temp Pulse Resp BP BP Pulse Ox 04/02/20 08:20 98.5 F 75 15 136/67 95 04/02/20 04:40 98.6 F 73 19 116/57 L 92 L 04/02/20 00:03 98.1 F 75 18 120/57 L 97 Weight Weight 246 lb 12.8 oz Most Recent Monitor Data Heart Rate from ECG 76 NIBP 140/62 Respiration from ECG 16 I&O: 04/01/20 04/02/20 04/03/20 06:59 06:59 06:59 Intake Total 1493.4 1000 Output Total 1510 2450 Balance -16.6 -1450 Result Diagrams: 04/02/20 04:56 04/02/20 04:56 Additional Labs: Accuchecks 04/01/20 04/01/20 16:48 12:19 POC Glucose 247 H 283 H Hospitalist ROS - Medication Medications: Active Medications Generic Name Dose Route Start Last Admin Trade Name Freq PRN Reason Stop Dose Admin Amiodarone HCl 200 mg 04/02/20 09:00 04/02/20 09:53 Amiodarone 200 Mg Tab PO 200 mg DAILY WAYNE Administration Aspirin 81 mg 03/24/20 09:00 04/02/20 09:54 Aspirin Chewable 81 Mg Tab PO 81 mg DAILY WAYNE Administration Atorvastatin Calcium 80 mg 03/27/20 21:00 04/01/20 21:08 Atorvastatin Calcium 40 Mg Tab PO 80 mg HS WAYNE Administration Carvedilol 12.5 mg 03/25/20 21:00 04/02/20 09:54 Carvedilol 6.25 Mg Tab PO 12.5 mg BID WAYNE Administration Cosyntropin 250 mcg 03/30/20 17:15 03/30/20 17:59 Cosyntropin 250 Mcg Vial SLOW IVP 250 mcg WILLCALL WAYNE Administration Dexamethasone 6 mg 03/29/20 09:00 04/02/20 09:54 Dexamethasone 4 Mg/Ml Vial SLOW IVP 6 mg DAILY WAYNE Administration Ergocalciferol 1.25 mg 03/26/20 09:00 04/02/20 09:54 Ergocalciferol 1.25 Mg(50,000 Units) Cap PO 1.25 mg Q7D WAYNE Administration Ferrous Gluconate 324 mg 03/30/20 08:00 04/02/20 09:53 Ferrous Gluconate 324 Mg Tab PO 324 mg QAM-WM WAYNE Administration Fludrocortisone Acetate 0.1 mg 04/01/20 09:00 04/02/20 09:54 Fludrocortisone Acetate 0.1 Mg Tab PO 0.1 mg DAILY WAYNE Administration Guaifenesin/Dextromethorphan 15 ml 03/24/20 22:28 03/24/20 23:09 Guaifenesin Dm 100-10/5 Ml Udcup PO 15 ml Q4H PRN Administration Cough Insulin Glargine 15 units/ 0.15 mls @ 0 mls/hr 04/02/20 09:00 04/02/20 09:49 Miscellaneous Medication SC 0.15 mls QAM WAYNE Administration Insulin Human Lispro 0 units 03/24/20 03:49 04/02/20 05:49 Humalog 300 Units/3 Ml Vial SC 8 unit .MODERATE SLIDING SC PRN Administration Moderate Correctional Scale Insulin Human Lispro 0 units 03/24/20 22:28 04/01/20 21:19 Humalog 300 Units/3 Ml Vial SC 3 unit .BEDTIME SLIDING SC PRN Administration Bedtime Correctional Scale Insulin Human Lispro 8 units 03/30/20 08:00 04/02/20 09:50 Humalog 300 Units/3 Ml Vial SC 8 unit TID-WM WAYNE Administration Magnesium Oxide 400 mg 03/25/20 21:00 04/02/20 09:54 Magnesium Oxide 400 Mg Tab PO 400 mg BID WAYNE Administration Pantoprazole Sodium 40 mg 03/25/20 09:00 04/02/20 09:55 Pantoprazole 40 Mg Tab PO 40 mg DAILY WAYNE Administration Polyethylene Glycol 17 gm 03/29/20 09:00 04/02/20 09:55 Polyethylene Glycol 3350 17 Gm Packet PO 17 gm DAILY WAYNE Administration Pregabalin 150 mg 04/01/20 21:00 04/02/20 09:55 Pregabalin 75 Mg Cap PO 150 mg BID WAYNE Administration Sacubitril/Valsartan 1 tab 04/01/20 21:00 04/02/20 09:55 Sacubitril 49 Mg/Valsartan 51 Mg Tablet PO 1 tab BID WAYNE Administration Sodium Chloride 10 ml 03/24/20 21:00 04/02/20 09:53 Flush - Normal Saline 10 Ml Syringe IVF 10 ml Q12HR WAYNE Administration Torsemide 20 mg 04/01/20 09:00 04/02/20 09:55 Torsemide 20 Mg Tab PO 20 mg DAILY WAYNE Administration - Exam Eye: PERRL, anicteric sclera Heart: RRR, no murmur, no gallops, no rubs, normal peripheral pulses Respiratory: CTAB, no wheezes, no rales, no ronchi, normal chest expansion, no tachypnea, normal percussion Gastrointestinal: soft, non-tender, non-distended, normal bowel sounds, no palpa ble masses, no hepatomegaly Extremities: no cyanosis, no edema Hosp A/P (1) Acute on chronic systolic heart failure, NYHA class 3 Code(s): I50.23 - ACUTE ON CHRONIC SYSTOLIC (CONGESTIVE) HEART FAILURE Status: Acute (2) COVID-19 virus infection Code(s): U07.1 - COVID-19 Status: Acute (3) Acute exacerbation of CHF (congestive heart failure) Code(s): I50.9 - HEART FAILURE, UNSPECIFIED Status: Acute Qualifiers: Heart failure type: unspecified Qualified Code(s): I50.9 - Heart failure, unspecified (4) DMII (diabetes mellitus, type 2) Status: Chronic Qualifiers: Diabetes mellitus prison insulin use: without prison use Diabetes mellitus complication status: with kidney complications Diabetes mellitus complication detail: with chronic kidney disease Chronic kidney disease stage: stage 3 (moderate) (5) GERD (gastroesophageal reflux disease) Code(s): K21.9 - GASTRO-ESOPHAGEAL REFLUX DISEASE WITHOUT ESOPHAGITIS Status: Chronic (6) HTN (hypertension) Code(s): I10 - ESSENTIAL (PRIMARY) HYPERTENSION Status: Chronic Qualifiers: Hypertension type: essential hypertension Qualified Code(s): I10 - Essential (primary) hypertension (7) Adrenal insufficiency Code(s): E27.40 - UNSPECIFIED ADRENOCORTICAL INSUFFICIENCY Status: Acute - Plan * Acute on chronic systolic heart failure- Entresto was added, as well as Torsemide last night * His creatinine has bumped up a bit, but this is expected with the ARB- will continue to monitor * COVID infection- relatively asymptomatic from this- Decadron can be stopped * Will place him on Decadron 2mg twice a day for adrenal insufficiency * DM- Blood glucose is elevated- will increase the dose of Lantus * HTN- blood pressure is stable * Adrenal insufficiency- continue Florinef * Anticipate home tomorrow
[2020-04-02] MEDS: Dexamethasone 1 MG TAB PO SCH (16:52)
--- NOTE | 2020-04-02 16:57 | PRG ---
DATE OF SERVICE: 04/02/2020 SERVICE: [facility]. SUBJECTIVE: Mr. Eulalio Pinto did very well today. He also did well last night. He said he is breathing easy. The cough is completely dissipated. He is able to walk around the room without any difficulties. He also believes that he is urinating quite a bit. He believes his edema continues to decrease. He is very happy about this and wanted to go home. However, he said he still has a chronic back pain. He wants [place] for his chronic back pain. He did admit Lyrica did help his back pain. He also wants to seek some type of letter or reference stating that he is safe for the people around him. Apparently, the niece whom he lives with, their family have concerns about having coming back in house. REVIEW OF SYSTEMS: GENERAL: There is no fever, chills, or productive cough. HEENT: There is no change in vision, hearing, or swallowing. PULMONARY: Please see HPI. CARDIAC: There is no palpitation, chest pain, or syncope. GI: There is no nausea, vomiting, or diarrhea. : He is able to urinate well on his own. MUSCULOSKELETAL: There are no muscle or joint pains. INTEGUMENT: There is no new skin breakdown. NEUROLOGIC: There are no new focal deficits or weaknesses. CURRENT MEDICATIONS: Include: 1. Amiodarone 200 mg daily. 2. Aspirin 81 mg daily. 3. Atorvastatin 80 mg at bedtime. 4. Carvedilol at 12.5 mg b.i.d. 5. Ferrous gluconate 325 mg daily. 6. Fludrocortisone at 0.1 mg daily. 7. He is on lispro insulin 8 units t.i.d. a.c. 8. Magnesium oxide 400 mg b.i.d. 9. Lyrica 150 mg b.i.d. for back pain. 10. He was on sacubitril/valsartan 49/51 mg twice a day. 11. Torsemide 20 mg daily. PHYSICAL EXAMINATION: His telemetry was reviewed. It showed paced rhythm at 75 beats per minute. VITAL SIGNS: Currently, heart rate paced at 75, blood pressure 130/68. GENERAL: He is alert and conversational. Apparent, heart relaxed, breathing easily, and able to sustain long sentences. HEENT: Show EOMI. Oropharynx with moist mucosa. NECK: JVP is about 10 cm. PULMONARY: His lung sounds are distant. However, there is good air movement. Clear to auscultation bilaterally. CARDIAC: Regular rate and rhythm. There is normal S1 and S2. There is 2/6 holosystolic murmur near the apex. ABDOMEN: Still large, soft, nontender. Positive bowel sounds. EXTREMITIES: Lower extremity, there is about 0.5 cm pitting edema from feet to about 2/[address] up towards knees; however, this amounted edema is dramatically less than his admission. LABORATORY VALUES: Show white cell count 9.8, hemoglobin at 10.2, platelet count has increased to 103 from 62. Thus, his thrombocytopenia has resolved with clearing of COVID. His chemistry shows sodium 135, potassium 5, chloride 95, bicarb 32, BUN 41, creatinine 2.26. This has increased back towards the baseline due to combination, stopping the milrinone, and also restarting of Entresto. This will need to decrease Entresto. ASSESSMENT: 69-year-old gentleman has recovered well from his COVID-19 infection. Resolution of hypoxia and being able to breathe well without oxygen is excellent recovery. His platelet count also returned back towards normal. He is doing well from coronavirus perspective. He has [place] [employer] stage C and [place] Heart Association class III heart failure with reduced ejection fraction. It is due to ischemic cardiomyopathy. He has both systolic and diastolic dysfunction. Currently, his creatinine would be well compensated. He still has mildly volume overloaded, so he will need to continue diuresis. For now, he will need both carvedilol at 12.5 and reduced dose of Entresto of . Unfortunately, he will need to continue with amiodarone at 200 mg daily to suppress his nonsustained ventricular tachycardia. He also has chronic cardiorenal syndrome. As long as creatinine stays below 2.5, then he should be okay. Please see the following for my recommendations. RECOMMENDATIONS: 1. Decrease Entresto dose down to 24 combination one tablet twice a day. 2. Continue with the current cardiac regimen including amiodarone 200 mg daily, aspirin 81 mg daily, atorvastatin 80 mg at bedtime, carvedilol 12.5 mg b.i.d., sacubitril/valsartan at combination b.i.d., torsemide at 20 mg daily. 3. He also need to have fludrocortisone 0.1 mg daily, this is for his adrenal insufficiency. Please do consider adding on hydrocortisone 10 in the morning, 5 in the afternoon. This may be needed because his adrenal is fully suppressed. 4. Please ensure that the patient has followup at the [facility] with the nurse practitioner, Gale Gaspar. It has been a pleasure taking care of Mr. Eulalio Pinto. If you have any questions, please give me a call. Total visitation time is 35 minutes. This includes personally performing history and physical, coordinating care, and direct patient interaction. Job ID: [id number] MTDD
[2020-04-02] MEDS: Atorvastatin Calcium 40 MG TAB PO SCH (20:17)
[2020-04-03 05:15] LABS: INR-International Normal Ratio 1.2; Prothrombin Time 15.6 sec (12.0-14.7)
[2020-04-03 05:38] LABS: Anion Gap 13 mmol/L (10-20); BUN (Urea Nitrogen) 45 mg/dL (8.4-25.7); Calc. Creatinine Clearance 50 mL/min (70-130); Calcium 8.5 mg/dL (7.8-10.44); Carbon Dioxide 30 mmol/L (23-31); Chloride 93 mmol/L (98-107); Estimated GFR-MDRD 36; Glucose 407 mg/dL (80-115); Potassium 4.7 mmol/L (3.5-5.1); Sodium 131 mmol/L (136-145)
[2020-04-03 05:43] LABS: #Lymphocytes 0.8 thou/uL (1.20-3.40); #Monocytes 0.7 thou/uL (0.11-0.59); #Neutrophils 9.6 thou/uL (1.40-6.50); %Eosinophils 0.3 % (0.0-10.0); %Lymphocytes 6.9 % (21.0-51.0); %Monocytes 6.2 % (0.0-10.0); %Neutrophils 86.6 % (42.0-75.0); Anisocytosis SLIGHT = 6-15 cells (100X) (0-5/hpf); Hemoglobin 10.1 g/dL (14.0-18.0); MDiff Complete? YES; Mean Corpuscular HGB CONC 29.7 g/dL (32.0-36.0); Mean Corpuscular Hemoglobin 24.1 pg (27.0-31.0); Mean Corpuscular Volume 80.9 fL (78.0-98.0); Platelet Count 157 thou/uL (130-400); RBC Distribution Width 23.6 % (11.5-14.5); Red Blood Cell (RBC) Count 4.19 mill/uL (4.70-6.10); White Blood Cell (WBC) Count 11.1 thou/uL (4.8-10.8)
[2020-04-03] MEDS: HumaLOG 300 UNITS/3 ML VIAL SC PRN (06:21)
[2020-04-03 08:16] VITALS: TEMP 97.7
[2020-04-03] MEDS: Polyethylene Glycol 3350 17 GM Packet PO SCH (08:41)
[2020-04-03] MEDS: Dexamethasone 1 MG TAB PO SCH ×2 (08:41→17:17)
[2020-04-03] MEDS: Magnesium Oxide 400 MG TAB PO SCH (08:41)
[2020-04-03] MEDS: Aspirin Chewable 81 MG TAB PO SCH (08:41)
[2020-04-03] MEDS: Ferrous Gluconate 324 MG TAB PO SCH (08:42)
[2020-04-03] MEDS: Carvedilol 6.25 MG TAB PO SCH (08:42)
[2020-04-03] MEDS: Torsemide 20 MG TAB PO SCH (08:42)
[2020-04-03] MEDS: Fludrocortisone Acetate 0.1 MG TAB PO SCH (08:42)
[2020-04-03] MEDS: Pregabalin 75 MG CAP PO SCH (08:43)
[2020-04-03] MEDS: Amiodarone 200 MG TAB PO SCH (08:43)
[2020-04-03] MEDS: HumaLOG 300 UNITS/3 ML VIAL SC SCH ×3 (08:45→17:16)
[2020-04-03] MEDS ORDERED: Insulin Glargine 20 UNITS in Pre-Filled Syringe 1 EACH SC SCH (09:00)
--- NOTE | 2020-04-03 09:36 | PDOC.HOSPP ---
- Subjective Encounter Date: 04/03/20 Encounter Time: 09:34 Subjective: Mr. Pinto was seen today in follow-up of respiratory failure. He says he feels fine, and is ready to go home. - Objective Vital Signs & Weight: Vital Signs (12 hours) Temp Pulse Resp BP BP Pulse Ox 04/03/20 07:30 97.7 F 75 16 147/71 H 95 04/03/20 03:07 98.7 F 75 16 129/59 L 95 04/02/20 23:35 98.1 F 75 16 109/55 L 94 L Weight Weight 245 lb 12.8 oz Most Recent Monitor Data Heart Rate from ECG 76 NIBP 140/62 Respiration from ECG 16 I&O: 04/02/20 04/03/20 04/04/20 06:59 06:59 06:59 Intake Total 1000 1547 Output Total 2450 1750 300 Balance -1450 -203 -300 Result Diagrams: 04/03/20 04:56 04/03/20 04:56 Additional Labs: Accuchecks 04/03/20 04/03/20 04/02/20 09:00 06:22 20:32 POC Glucose 340 H 358 H 295 H 04/02/20 04/02/20 17:01 12:22 POC Glucose 282 H 270 H Hospitalist ROS - Medication Medications: Active Medications Generic Name Dose Route Start Last Admin Trade Name Freq PRN Reason Stop Dose Admin Amiodarone HCl 200 mg 04/02/20 09:00 04/03/20 08:43 Amiodarone 200 Mg Tab PO 200 mg DAILY WAYNE Administration Aspirin 81 mg 03/24/20 09:00 04/03/20 08:41 Aspirin Chewable 81 Mg Tab PO 81 mg DAILY WAYNE Administration Atorvastatin Calcium 80 mg 03/27/20 21:00 04/02/20 20:17 Atorvastatin Calcium 40 Mg Tab PO 80 mg HS WAYNE Administration Carvedilol 12.5 mg 03/25/20 21:00 04/03/20 08:42 Carvedilol 6.25 Mg Tab PO 12.5 mg BID WAYNE Administration Cosyntropin 250 mcg 03/30/20 17:15 03/30/20 17:59 Cosyntropin 250 Mcg Vial SLOW IVP 250 mcg WILLCALL WAYNE Administration Dexamethasone 2 mg 04/02/20 17:00 04/03/20 08:41 Dexamethasone 1 Mg Tab PO 2 mg BID-WM WAYNE Administration Ergocalciferol 1.25 mg 03/26/20 09:00 04/02/20 09:54 Ergocalciferol 1.25 Mg(50,000 Units) Cap PO 1.25 mg Q7D WAYNE Administration Ferrous Gluconate 324 mg 03/30/20 08:00 04/03/20 08:42 Ferrous Gluconate 324 Mg Tab PO 324 mg QAM-WM WAYNE Administration Fludrocortisone Acetate 0.1 mg 04/01/20 09:00 04/03/20 08:42 Fludrocortisone Acetate 0.1 Mg Tab PO 0.1 mg DAILY WAYNE Administration Guaifenesin/Dextromethorphan 15 ml 03/24/20 22:28 03/24/20 23:09 Guaifenesin Dm 100-10/5 Ml Udcup PO 15 ml Q4H PRN Administration Cough Insulin Glargine 20 units/ 0.2 mls @ 0 mls/hr 04/03/20 09:00 04/03/20 08:46 Miscellaneous Medication SC 0.2 mls QAM WAYNE Administration Insulin Human Lispro 0 units 03/24/20 03:49 04/03/20 06:21 Humalog 300 Units/3 Ml Vial SC 10 unit .MODERATE SLIDING SC PRN Administration Moderate Correctional Scale Insulin Human Lispro 0 units 03/24/20 22:28 04/02/20 20:28 Humalog 300 Units/3 Ml Vial SC 3 unit .BEDTIME SLIDING SC PRN Administration Bedtime Correctional Scale Insulin Human Lispro 8 units 03/30/20 08:00 04/03/20 08:45 Humalog 300 Units/3 Ml Vial SC 8 unit TID-WM WAYNE Administration Magnesium Oxide 400 mg 03/25/20 21:00 04/03/20 08:41 Magnesium Oxide 400 Mg Tab PO 400 mg BID WAYNE Administration Pantoprazole Sodium 40 mg 03/25/20 09:00 04/03/20 08:42 Pantoprazole 40 Mg Tab PO 40 mg DAILY WAYNE Administration Polyethylene Glycol 17 gm 03/29/20 09:00 04/03/20 08:41 Polyethylene Glycol 3350 17 Gm Packet PO 17 gm DAILY WAYNE Administration Pregabalin 150 mg 04/01/20 21:00 04/03/20 08:43 Pregabalin 75 Mg Cap PO 150 mg BID WAYNE Administration Sacubitril/Valsartan 1 tab 04/02/20 21:00 04/03/20 08:41 Sacubitril 24mg/Valsartan 26mg Tab PO 1 tab BID WAYNE Administration Sodium Chloride 10 ml 03/24/20 21:00 04/03/20 08:44 Flush - Normal Saline 10 Ml Syringe IVF 10 ml Q12HR WAYNE Administration Torsemide 20 mg 04/01/20 09:00 04/03/20 08:42 Torsemide 20 Mg Tab PO 20 mg DAILY WAYNE Administration - Exam Eye: PERRL, anicteric sclera Heart: RRR, no murmur, no gallops, no rubs, normal peripheral pulses Respiratory: CTAB, no wheezes, no rales, no ronchi, normal chest expansion Gastrointestinal: soft, non-tender, non-distended, normal bowel sounds, no palpable masses, no hepatomegaly Extremities: no cyanosis, 1+ LE edema Hosp A/P (1) Acute on chronic systolic heart failure, NYHA class 3 Code(s): I50.23 - ACUTE ON CHRONIC SYSTOLIC (CONGESTIVE) HEART FAILURE Status: Acute (2) COVID-19 virus infection Code(s): U07.1 - COVID-19 Status: Acute (3) Acute exacerbation of CHF (congestive heart failure) Code(s): I50.9 - HEART FAILURE, UNSPECIFIED Status: Acute Qualifiers: Heart failure type: unspecified Qualified Code(s): I50.9 - Heart failure, unspecified (4) DMII (diabetes mellitus, type 2) Status: Chronic Qualifiers: Diabetes mellitus longterm insulin use: without longterm use Diabetes mellitus complication status: with kidney complications Diabetes mellitus complication detail: with chronic kidney disease Chronic kidney disease stage: stage 3 (moderate) (5) GERD (gastroesophageal reflux disease) Code(s): K21.9 - GASTRO-ESOPHAGEAL REFLUX DISEASE WITHOUT ESOPHAGITIS Status: Chronic (6) HTN (hypertension) Code(s): I10 - ESSENTIAL (PRIMARY) HYPERTENSION Status: Chronic Qualifiers: Hypertension type: essential hypertension Qualified Code(s): I10 - Essential (primary) hypertension (7) Adrenal insufficiency Code(s): E27.40 - UNSPECIFIED ADRENOCORTICAL INSUFFICIENCY Status: Acute - Plan * Acute on chronic systolic heart failure- compensated * His rebnal function remained stable overnight * Stable for discharge home
[2020-04-03 13:51] VITALS: BP 131/61
--- NOTE | 2020-04-04 01:09 | DIS ---
DATE OF ADMISSION: 03/24/2020 DATE OF DISCHARGE: 04/03/2020 PRIMARY CARE PHYSICIAN: The patient currently does not have a primary care physician. DISCHARGE DISPOSITION: Home. DISCHARGE DIAGNOSES: 1. Acute respiratory failure with hypoxemia. 2. Acute on chronic systolic heart failure. 3. COVID-19 infection. 4. Chronic kidney disease stage 3. 5. Diabetes mellitus type 2. 6. Hypertension. 7. Right heart failure with history of cor pulmonale. DISCHARGE MEDICATIONS: Include; 1. Entresto one tablet p.o. b.i.d. 2. Fergon 324 mg p.o. daily. 3. Florinef 0.1 mg p.o. daily. 4. Lantus insulin 25 units subcu daily. 5. Lyrica 150 mg p.o. b.i.d. 6. Magnesium oxide 400 mg p.o. b.i.d. 7. Novolin R sliding scale. 8. Decadron 2 mg p.o. daily. 9. Coreg 12.5 mg p.o. b.i.d. 10. Amiodarone 200 mg p.o. daily. 11. Aspirin 81 mg daily. 12. Vitamin D2 of 50,000 units p.o. once a week. 13. Omeprazole 20 mg p.o. b.i.d. 14. Atorvastatin 40 mg p.o. at bedtime. IMAGING DONE DURING THE HOSPITAL STAY: The patient had an abdominal ultrasound, which was negative for ascites and there was no need for paracentesis. CODE STATUS: Full code. ALLERGIES: TO IBUPROFEN AND TOMATOES. HOSPITAL COURSE: Mr. Pinto is a pleasant 69-year-old gentleman, who has a history of chronic systolic as well as diastolic heart failure and right heart failure as well. He had recently been hospitalized at our facility approximately a month ago and discharged to [facility] for advanced treatment of heart failure. He had been treated and then discharged home when shortly thereafter he began having shortness of breath once again as well as a cough, but no fever. He was found to have bilateral infiltrates on exam consistent with heart failure exacerbation. He also had a COVID screen as well, which came back positive. It is therefore felt that the COVID-19 infection precipitated his heart failure exacerbation. He was seen by Dr. Mock, the heart failure specialist while he was in the hospital. He was placed on a Milrinone drip as well as his heart failure medications were adjusted. He was also seen by Dr. Gotti with Infectious Disease and was felt to be a candidate for remdesivir, in which he received this treatment as well. He slowly improved over the course of the next several days. Due to concerns for potentially worsening his renal failure. The dose of Entresto was reduced as well as his diuretic dose. His renal function remained stable. It was also felt that there was concern for his blood pressure being marginal to low side. He had a Cortrosyn stim test done during his hospital stay, which demonstrated that he had some degree of adrenal insufficiency. He was started on Florinef as well as Decadron, which was for two purposes, one for the COVID-19 infection and one for the adrenal insufficiency. At the time of discharge, the dose of Decadron was decreased to 2 mg daily and Florinef was continued. Also as a result of the steroid treatment, his blood glucose was elevated. For this reason, he was placed on a scheduled dose of long-acting insulin in the form of Lantus as well as a sliding scale. The patient has used insulin before he was able to talk me through how he would administer his insulin at home as well as a sliding scale. Once he was clinically stable, he was able to be discharged home. He is to follow up with Dr. Mock as instructed and also with his primary care physician in 1 to 2 weeks. Job ID: [id number]
== END 2020-04-03 17:33 | disposition home or self-care (01) | DRG 177 ==
LOC: ERS 21:38 → 2SW 03-24 01:55 → OBSVTOIN 03-24 12:28
PROVIDERS: ADMIT Internal Medicine; ATTEND Internal Medicine
PROC: 8E0ZXY6 Isolation (ICD-10-PCS; principal; 2020-03-24)
PROC: XW033E5 Introduction of Remdesivir Anti-infective into Peripheral Vein, Percutaneous Approach, New Technology Group 5 (ICD-10-PCS; 2020-03-24)
PROC: 3E02340 Introduction of Influenza Vaccine into Muscle, Percutaneous Approach (ICD-10-PCS; 2020-03-25)
PROC: 30233N1 Transfusion of Nonautologous Red Blood Cells into Peripheral Vein, Percutaneous Approach (ICD-10-PCS; 2020-03-25)
PROC: 02HV33Z Insertion of Infusion Device into Superior Vena Cava, Percutaneous Approach (ICD-10-PCS; 2020-03-27)
PROC: B548ZZA Ultrasonography of Superior Vena Cava, Guidance (ICD-10-PCS; 2020-03-27)
DX: U07.1 COVID-19 (principal); J96.01 Acute respiratory failure with hypoxia; I50.43 Acute on chronic combined systolic (congestive) and diastolic (congestive) heart failure; J12.89 Other viral pneumonia; E27.40 Unspecified adrenocortical insufficiency; J44.1 Chronic obstructive pulmonary disease with (acute) exacerbation; J44.0 Chronic obstructive pulmonary disease with (acute) lower respiratory infection; R18.8 Other ascites; I47.2 Ventricular tachycardia; I48.20 Chronic atrial fibrillation, unspecified; I13.0 Hypertensive heart and chronic kidney disease with heart failure and stage 1 through stage 4 chronic kidney disease, or unspecified chronic kidney disease; N18.30 Chronic kidney disease, stage 3 unspecified; E11.22 Type 2 diabetes mellitus with diabetic chronic kidney disease; I50.810 Right heart failure, unspecified; I25.10 Atherosclerotic heart disease of native coronary artery without angina pectoris; D69.6 Thrombocytopenia, unspecified; K21.9 Gastro-esophageal reflux disease without esophagitis; I25.5 Ischemic cardiomyopathy; D50.9 Iron deficiency anemia, unspecified; Z95.1 Presence of aortocoronary bypass graft; Z87.891 Personal history of nicotine dependence; I25.2 Old myocardial infarction; Z88.6 Allergy status to analgesic agent; Z23 Encounter for immunization
CPT/HCPCS: 36415; 36416; 36430; 36569; 71045; 76705; 80048; 80053; 80076; 80400; 82274; 82553; 82728; 83036; 83540; 83550; 83615; 83735; 83880; 84443; 84484; 85025; 85046; 85610; 86140; 86850; 86900; 86901; 87635; 90471; 90662; 93005; 93798; 94640; 96374; 96375; 96376; G0008; G0378; J0456; J0696; J0834; J1100; J1644; J1815; J1940; J2260; J2916; J2920; J3475; J3490; J7050; J7620; J8540; P9016; U0003

== ENCOUNTER 2020-06-13 14:25 | Inpatient (IN) | payer MEDICARE, MEDICAID ==
--- NOTE | 2020-06-13 15:37 | RAD ---
EXAM: XR Chest Pa Lat STANDARD PROVIDED CLINICAL HISTORY: Fluid overload COMPARISON: 03/23/2020 FINDINGS: Cardiac silhouette remains enlarged. Median sternotomy changes and left subclavian cardiac pacing dev ice are redemonstrated. Pulmonary vasculature is upper limits normal. No focal consolidation, pleural fluid or pneumothorax apparent. IMPRESSION: Cardiomegaly without definite evidence for an acute cardiopulmonary process.
[2020-06-13 16:30] LABS: #Eosinphils 0.3 thou/uL (0.0-0.7); #Lymphocytes 0.8 thou/uL (1.20-3.40); #Monocytes 0.6 thou/uL (0.11-0.59); #Neutrophils 5.1 thou/uL (1.40-6.50); %Basophils 0.2 % (0.0-1.0); %Eosinophils 4.3 % (0.0-10.0); %Lymphocytes 12.1 % (21.0-51.0); %Monocytes 8.8 % (0.0-10.0); %Neutrophils 74.6 % (42.0-75.0); Hemoglobin 11.1 g/dL (14.0-18.0); Mean Corpuscular HGB CONC 30.2 g/dL (32.0-36.0); Mean Corpuscular Hemoglobin 25.9 pg (27.0-31.0); Mean Corpuscular Volume 85.8 fL (78.0-98.0); Mean Platelet Volume 10.3 fL (7.4-10.4); Platelet Count 233 thou/uL (130-400); RBC Distribution Width 18.4 % (11.5-14.5); White Blood Cell (WBC) Count 6.8 thou/uL (4.8-10.8)
[2020-06-13] MEDS ORDERED: Furosemide 40 MG/4 ML VIAL ONE (16:40)
[2020-06-13] MEDS ORDERED: Nitroglycerin 2% Ointment 1 INCH/1 GM Packet ONE (16:40)
[2020-06-13] MEDS ORDERED: Albuterol 200 PUFF (6.7GM INHALER) ONE (16:44)
[2020-06-13 16:52] LABS: ALT (SGPT) 8 U/L (8-55); AST (SGOT) 12 U/L (5-34); Albumin 3.8 g/dL (3.4-4.8); Alkaline Phosphatase 46 U/L (40-110); Anion Gap 14 mmol/L (10-20); BUN (Urea Nitrogen) 16 mg/dL (8.4-25.7); Bilirubin, Total 1.2 mg/dL (0.2-1.2); Calc. Creatinine Clearance 0 mL/min (70-130); Calcium 8.4 mg/dL (7.8-10.44); Carbon Dioxide 24 mmol/L (23-31); Chloride 105 mmol/L (98-107); Globulin 3.4 g/dL (2.4-3.5); Glucose 122 mg/dL (80-115); Potassium 3.8 mmol/L (3.5-5.1); Protein, Total 7.2 g/dL (5.8-8.1); Sodium 139 mmol/L (136-145)
[2020-06-13 17:14] LABS: CKMB 2.5 ng/mL (0-6.6)
--- NOTE | 2020-06-13 18:10 | PDOC.HHP ---
Hospitalist HPI - History of Present Illness Dyspnea History of Present Illness: PCP: None The patient is a 69-year-old male with a past medical history significant for CHF, CAD (2 stents), COPD and DM2 that presents to the emergency department for the above complaint. The patient reports over the past 4 days increasing swelling to his bilateral lower extremities. He reports associated dyspnea on exertion, orthopnea, weight gain of approximately 10 to 15 pounds. He reports that he is been eating poorly, including high salt intake. He has also been noncompliant with his diuretic. He denies any chest pain, heart palpitations or lightheadedness. He denies any cough, wheezing or increased sputum. Denies any abdominal pain, nausea, vomiting, diarrhea. He has no fever or illness. Of note, he was recently admitted to our hospital in March of this year for congestive heart failure and Covid pneumonia. He reports that he completed his course of remdesivir and that Dr. Mock evaluated him for his heart failure. ED Course: VITAL SIGNS FriJun 13, 2020 14:27 TOM Montez Dannette Pulse: 74, Resp: 18, Temp: 97.6 (Oral), O2 sat: 95, Time: 06/13/2020 14:27. VITAL SIGNS FriJun 13, 2020 15:55 TOM Connors Elizabeth BP: 138/69, Pulse: 75, Resp: 19, Pain: 10, O2 sat: 96, Time: 06/13/2020 15:55. VITAL SIGNS FriJun 13, 2020 16:06 TOM Connors Elizabeth Temp: 97.8 (Oral), Time: 06/13/2020 16:06. VITAL SIGNS FriJun 13, 2020 16:47 TOM Connors Elizabeth BP: 142/84, MAP: 103, Pulse: 75, Resp: 16, Pain: 8, O2 sat: 93 on (Room Air), Time: 06/13/2020 16:47. Medications: Proventil HFA 2 inhalation Inhaler-MDI Given 16:49 06/13/2020 furosemide injection 40 mg IV Push Given 16:46 06/13/2020 Nitro-Bid transdermal 1 inch Topical Given 16:45 06/13/2020 Hospitalist ROS - Review of Systems All other systems reviewed; all pertinent +/- noted in HPI/Subj - Medication Medications: Medication Instructions Recorded Confirmed Type Amiodarone [Cordarone] 200 mg PO DAILY #30 tab 04/03/20 06/13/20 Rx Aspirin Chewable [Aspirin Chewable 81 mg PO DAILY #30 tab 04/03/20 06/13/20 Rx Tablet] Carvedilol [Coreg] 12.5 mg PO BID #60 tab 04/03/20 06/13/20 Rx Dexamethasone [Decadron] 2 mg PO DAILY #30 tab 04/03/20 06/13/20 Rx Ferrous Gluconate [Fergon] 324 mg PO QAM-WM #30 tab 04/03/20 06/13/20 Rx Fludrocortisone Acetate [Florinef] 0.1 mg PO DAILY #30 tab 04/03/20 06/13/20 Rx Magnesium Oxide 400 mg PO BID #60 tab 04/03/20 06/13/20 Rx Pregabalin [Lyrica] 150 mg PO BID #60 cap 04/03/20 Rx Sacubitril/Valsartan [Entresto 24 1 tab PO BID #60 tab 04/03/20 06/13/20 Rx mg-26 mg Tablet] Torsemide [Demadex] 20 mg PO DAILY #30 tab 04/03/20 06/13/20 Rx DULoxetine HCl [Cymbalta] 30 mg PO DAILY 06/13/20 06/13/20 History HYDROcodone/Acetaminophen [[place] 2 tab PO TID PRN 06/13/20 06/13/20 History 5-325 Tablet] Warfarin Sodium 2 mg PO 06/14/20 History Allergies: Ibuprofen, tomato 06/13/20 18:38 Resuscitation Status Routine Co-Sign Provider: Resuscitation Status: FULL: Full Resuscitation Discussed with: Patient Hospitalist History - Past Medical History Source: patient, RN notes reviewed Cardiac: reports: CAD, CHF ([place] heart association class III), HTN, Hyperlipidemia Pulmonary: reports: COPD Heme/Onc: reports: Cancer (Testicular cancer status post removal.), Other Renal/: reports: Chronic renal insuff (Stage III) Endocrine: reports: Diabetes (Type II) - Past Surgical History Past Surgical History: reports: CABG, Other (Cardiac stent, eye surgery, tumor removed from the level, cardiac pacemaker.) - Family History Family History: reports: diabetes mellitus - Social History Smoking Status: Former smoker (Quit 2012) Alcohol: reports: None Drugs: reports: cocaine (Quit 2013), marijuana (Smokes daily) Living Situation: With Family Occupation: Disabled on Social Security Activity level: uses cane/walker - Exam General Appearance: NAD, awake alert. negative: ill appearing Eye: PERRL, anicteric sclera ENT: normocephalic atraumatic Neck: supple, symmetric, JVD (Mild) Heart: RRR, no gallops, no rubs, normal peripheral pulses, III/IV Respiratory: no rales, no ronchi, no tachypnea, wheezes (Expiratory) Gastrointestinal: soft, non-tender, normal bowel sounds, no guarding, no rigidity Extremities: 2+ LE edema (Tot) Skin: no rashes Neurological: no focal deficits Psychiatric: normal affect, A&O x 3 Hospitalist Results - Labs Result Diagrams: 06/13/20 16:15 06/13/20 16:15 Lab results: WBC 6.8 thou/uL (4.8-10.8) 06/13/20 16:15 Hgb 11.1 g/dL (14.0-18.0) L 06/13/20 16:15 Hct 36.9 % (42.0-52.0) L 06/13/20 16:15 MCV 85.8 fL (78.0-98.0) 06/13/20 16:15 Plt Count 233 thou/uL (130-400) 06/13/20 16:15 Neutrophils % 74.6 % (42.0-75.0) 06/13/20 16:15 Sodium 139 mmol/L (136-145) 06/13/20 16:15 Potassium 3.8 mmol/L (3.5-5.1) 06/13/20 16:15 Chloride 105 mmol/L (98-107) 06/13/20 16:15 Carbon Dioxide 24 mmol/L (23-31) 06/13/20 16:15 BUN 16 mg/dL (8.4-25.7) 06/13/20 16:15 Creatinine 1.75 mg/dL (0.7-1.3) H 06/13/20 16:15 Glucose 122 mg/dL (80-115) H 06/13/20 16:15 Calcium 8.4 mg/dL (7.8-10.44) 06/13/20 16:15 Total Bilirubin 1.2 mg/dL (0.2-1.2) 06/13/20 16:15 AST 12 U/L (5-34) 06/13/20 16:15 ALT 8 U/L (8-55) 06/13/20 16:15 Alkaline Phosphatase 46 U/L (40-110) 06/13/20 16:15 CK-MB (CK-2) 2.5 ng/mL (0-6.6) 06/13/20 16:15 Troponin I 0.048 ng/mL (< 0.028) H 06/13/20 16:15 B-Natriuretic Peptide 1265.7 pg/mL (0-100) H 06/13/20 16:15 Serum Total Protein 7.2 g/dL (5.8-8.1) 06/13/20 16:15 Albumin 3.8 g/dL (3.4-4.8) 06/13/20 16:15 - EKG Interpretation EK lead EKG interpreted by Emergency Department Physician at time of study, Heart rate 75, AV dual paced rhythm, left bundle branch block morphology c onsistent with V paced rhythm, negative Sgarbossa criteria. - Radiology Interpretation Chest x-ray Status: report reviewed by me Additional Comment: IMPRESSION: Cardiomegaly without definite evidence for an acute cardiopulmonary process. Hospitalist H&P A/P - Problem (1) Acute exacerbation of CHF (congestive heart failure) Code(s): I50.9 - HEART FAILURE, UNSPECIFIED Status: Acute (2) Dyspnea Code(s): R06.00 - DYSPNEA, UNSPECIFIED Status: Acute (3) Elevated troponin Code(s): R77.8 - OTHER SPECIFIED ABNORMALITIES OF PLASMA PROTEINS Status: Acute (4) COPD (chronic obstructive pulmonary disease) Status: Chronic (5) DM2 (diabetes mellitus, type 2) Status: Chronic (6) CAD (coronary artery disease) of artery bypass graft Code(s): I25.810 - ATHEROSCLEROSIS OF CABG W/O ANGINA PECTORIS Status: Acute (7) HLD (hyperlipidemia) Code(s): E78.5 - HYPERLIPIDEMIA, UNSPECIFIED Status: Chronic (8) H/O cardiac arrhythmia Code(s): Z86.79 - PERSONAL HISTORY OF OTHER DISEASES OF THE CIRCULATORY SYSTEM Status: Chronic (9) CKD (chronic kidney disease), stage III Code(s): N18.30 - CHRONIC KIDNEY DISEASE, STAGE 3 UNSPECIFIED Status: Chronic - Plan Plan: 69/M with PMH CAD (on warfarin), CHF (PM), and COPD that presents to the hospital for lower extremity swelling and dyspnea. Admit to telemetry floor, inpatient status. Expected length stay greater than 2 midnights. Presented stable vital signs. EKG AV paced, 75 bpm, LBBB, negative Grey score. CXR no acute process. Troponin 0.048, BNP 1265 Creatinine 1.75, BUN 16, glucose 122 WBC 6.8 #Acute exacerbation of CHF NYHA class III, chronic. Echo 02/24/2020 EF 20-30%, hypokinetic ventricle, moderate dilated LA, trivial AR, mildmoderate TR, moderate MR, mild TX. Received Lasix 40 mg IVP in ED with 1L UOP. Continue Lasix IVP twice daily. Continue Nitropaste. Strict I's and O's, 1500 mL FR, daily weights, low-sodium diet. Consult cardiology. Restart home dose amiodarone, entretresto and carvedilol when reconciled by nursing. #Dyspnea Likely related to problem #1. #Elevated troponin Patient denied any chest pain. EKG paced rhythm, negative sgarbossa criteria. Likely secondary to demand ischemia. Appears chronically elevated, indeterminate Trend troponins. Continue patient's home dose aspirin and warfarin. Check TSH and mag level. #COPD Chronic, stable. Restart home medications when reconciled by nursing. #DM2 Poor historian, denies taking home insulin. We will start moderate ISS. Accu-Cheks AC at bedtime. We will review home medications when reconciled by nursing. #CAD History CABG x2 (2017) Dual pacemaker (2017) Stents x2. Takes warfarin and aspirin unknown dosage. -History atrial fibrillation Restart home medications reconciled by nursing. We will check PT/INR. #HLD Restart home statin when reconciled by nursing. Recent FLP on 02/09/2020. #History of cardiac arrhythmia Has history of atrial fibrillation and V. tach. Has dual-chamber pacemaker. Takes warfarin at home. 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 #CKD stage III Chronic, stable. No pharmacological DVT prophylaxis. No SCDs for DVT prophylaxis. Talk for GI prophylaxis. Full code. Medical power of linux system admin is his daughter Joanne, unable to give her telephone number. Discussed the case with Dr. Jones.
[2020-06-13] MEDS ORDERED: Dextrose 50% Abboject 50 ML SYRINGE SLOW IVP PRN (18:38)
[2020-06-13] MEDS ORDERED: Senokot S 8.6-50 MG TAB PO PRN (18:38)
[2020-06-13] MEDS ORDERED: Bisacodyl 5 MG TAB PO PRN (18:38)
[2020-06-13] MEDS ORDERED: Calcium Carbonate 500 MG ChewTAB PO PRN (18:38)
[2020-06-13] MEDS ORDERED: Dextrose 5% in Water 1,000 ML IV PRN (18:38)
[2020-06-13] MEDS ORDERED: Acetaminophen 325 MG TAB PO PRN (18:38)
[2020-06-13] MEDS ORDERED: Ondansetron PF 4 MG/2 ML Vial IVP PRN (18:38)
[2020-06-13] MEDS ORDERED: Ondansetron ODT 4 MG TAB PO PRN (18:38)
[2020-06-13] MEDS ORDERED: Guaifenesin DM 100-10/5 ML UDCUP PO PRN (18:38)
[2020-06-13] MEDS ORDERED: Sodium Chloride 0.9% (PF) 10 ML VIAL FS PRN (19:15)
[2020-06-13 19:31] LABS: INR-International Normal Ratio 1.2; PTT 29.9 sec (22.9-36.1)
[2020-06-13 19:59] LABS: Troponin I 0.048 ng/mL (< 0.028)
[2020-06-13] MEDS ORDERED: Enoxaparin Sodium 40 MG/0.4 ML SYRINGE SC SCH (21:00)
[2020-06-13 21:19] VITALS: BMI 42.3
[2020-06-13] MEDS: Nitroglycerin 2% Ointment 1 INCH/1 GM Packet TOP SCH (22:05)
[2020-06-13 23:26] LABS: Troponin I 0.035 ng/mL (< 0.028)
[2020-06-14 06:06] LABS: SARS-CoV-2 MS2 Positive; SARS-CoV-2 N Gene Negative; SARS-CoV-2 S Gene Negative; SARS-CoV-2 by NAA Not Detected (NotDetected); SARS-CoV-2 orf1ab Negative
[2020-06-14] MEDS: Furosemide 40 MG/4 ML VIAL SLOW IVP SCH ×2 (06:21→16:01)
[2020-06-14] MEDS: Nitroglycerin 2% Ointment 1 INCH/1 GM Packet TOP SCH ×3 (06:21→21:17)
--- NOTE | 2020-06-14 06:55 | PDOC.HOSPP ---
- Subjective Encounter Date: 06/14/20 Subjective: Patient with known history of CHF as well as medication and diet noncompliance presents to emergency department for evaluation of about 4 to 5 days progression of shortness of breath, dyspnea on exertion, orthopnea, lower extremity edema. Tells me that he frequently forgets to take his heart medications. During my assessment he is currently requiring no oxygen and he is laying down flat. On exam he does have bilateral crackles as well as lower extremity edema. Chest x- ray does appear to have some pulmonary congestion per my own interpretation although official read is clear. BNP is elevated > 1000. Troponin 0.035. Receiving IV Lasix for diuresis. - Objective Vital Signs & Weight: Vital Signs (12 hours) Temp Pulse Resp BP BP Pulse Ox 06/14/20 04:13 97.6 F 76 18 128/64 93 L 06/14/20 00:34 97.7 F 68 18 123/58 L 93 L 06/13/20 20:10 97.4 F L 75 22 H 152/70 H 97 Weight Weight 270 lb 4.8 oz I&O: 06/12/20 06/13/20 06/14/20 06:59 06:59 06:59 Intake Total 720 Output Total 1575 Balance -855 Result Diagrams: 06/14/20 07:57 06/14/20 07:57 Additional Labs: Accuchecks 06/14/20 06/13/20 06:08 22:04 POC Glucose 119 H 130 H Radiology Reviewed by me: Yes (Possible pulmonary congestion ) Hospitalist ROS - Review of Systems Constitutional: denies: fever, chills, sweats, weakness, malaise, other Respiratory: reports: cough, shortness of breath, SOB with excertion Cardiovascular: reports: orthopnea, edema. denies: chest pain, palpitations, paroxysmal noc. dyspnea, light headedness, other Gastrointestinal: denies: nausea, vomiting, abdominal pain, diarrhea, constipation, melena, hematochezia, other Genitourinary: denies: dysuria, frequency, incontinence, hematuria, retention, other Musculoskeletal: reports: back pain (History of chronic back pain). denies: neck pain, shoulder pain, arm pain, hand pain, leg pain, foot pain, other Neurological: denies: weakness, numbness, incoordination, change in speech, confusion, seizures, other - Medication Medications: Active Medications Generic Name Dose Route Start Last Admin Trade Name Alejandra PRN Reason Stop Dose Admin Furosemide 40 mg 06/14/20 06:00 06/14/20 06:21 Furosemide 40 Mg/4 Ml Vial SLOW IVP 40 mg 0600,1400 WAYNE Administration Nitroglycerin 0.5 inch 06/13/20 22:00 06/14/20 06:21 Nitroglycerin 2% Ointment 1 Inch/1 Gm Packet TOP 0.5 inch Q8HR AWYNE Administration Sodium Chloride 10 ml 06/13/20 21:00 06/13/20 22:05 Flush - Normal Saline 10 Ml Syringe IVF 10 ml Q12HR WAYNE Administration - Exam General Appearance: NAD, awake alert Eye: PERRL, anicteric sclera Neck: supple, symmetric, no JVD, no thyromegaly, no lymphadenopathy, no carotid bruit Heart: no murmur, no gallops, no rubs, normal peripheral pulses Respiratory: no wheezes, no ronchi, normal chest expansion, no tachypnea, normal percussion, rales (Bilateral crackles) Gastrointestinal: soft, non-tender, non-distended, normal bowel sounds, no palpable masses, no hepatomegaly, no splenomegaly, no bruit Extremities: no cyanosis, no clubbing, no edema, 1+ LE edema (Mild pitting edema that extends above the knee) Neurological: cranial nerve grossly intact, normal sensation to touch, no weakness, no focal deficits, no new deficit Musculoskeletal: normal tone, normal strength, no muscle wasting Musculoskeletal - other findings: Chronic back pain Psychiatric: normal affect, normal behavior, A&O x 3 Hosp A/P - Plan old records reviewed/req A/P: Presents with above 4-5 days progression of shortness of breath, dyspnea on exertion, orthopnea, lower extremity edema. Admits to poor compliance with diet and diuretics. On exam with evidence of fluid overload including bilateral crackles, lower extremity edema above the knee, not requiring any oxygen. Initial blood work reveals elevated BNP of > 1000 as well as marginal elevation of troponin markers. CHF exacerbation: Acute exacerbation of systolic CHF. Continue mely diuresis at current dose of 40 mg IV Lasix twice daily. Continue with nitroglycerin. Continue Entresto. Monitor electrolytes and fluid status closely. Recent echocardiogram on file with ejection fraction 25-30%. Extensively counseled regarding medication compliance and diet modifications. Recheck BNP in 2-3 days to assess progression. CAD status post CABG and PCI: None history of CABG x2, PCI with stenting x2. Marginal elevation of troponin marker in setting of demand ischemia due to CHF. No EKG changes to suggest acute myocardial injury. Continue with aspirin and carvedilol. Noted not to be on any statins & no allergies listed. Check lipid profile in a.m. Will consider starting statin prior to discharge. History of cardiac dysrhythmia: History of V. fib, V. tach, AF status post PPM. Continue with amiodarone and beta-andrés (carvedilol). Warfarin for AC. Continue with magnesium supplements. COPD: No evidence of acute exacerbation. Continue to monitor. COVID19: Recent history of COVID19 PNA. Repeat COVID19 on 06-13-20 is negative. CKD: Close to baseline with BUN of 18/SCr 1.8. Continue to monitor closely while being diuresed. HTN: Continue with carvedilol, Entresto DM Type2: Unclear history of diabetes mellitus, check A1c in a.m. Continue with ISS. Anemia of chronic disease: H&H is stable. Continue to monitor. Outpatient follow up. Adrenal insufficiency: Continue with fludrocortisone as well as dexamethasone. Chronic back pain: Continue with Tylenol and [place] PRN. Promote mobility when able. DISPOSITION: Continue with IV diuresis for treatment of acute exacerbation of systolic CHF. Disposition pending clinical progression.
[2020-06-14 08:34] LABS: Anion Gap 14 mmol/L (10-20); BUN (Urea Nitrogen) 18 mg/dL (8.4-25.7); Calc. Creatinine Clearance 67 mL/min (70-130); Calcium 8.3 mg/dL (7.8-10.44); Carbon Dioxide 27 mmol/L (23-31); Chloride 104 mmol/L (98-107); Glucose 107 mg/dL (80-115); Potassium 3.7 mmol/L (3.5-5.1); Sodium 141 mmol/L (136-145)
[2020-06-14] MEDS ORDERED: Dexamethasone 1 MG TAB PO SCH (09:00)
[2020-06-14] MEDS ORDERED: Carvedilol 6.25 MG TAB PO SCH (09:00)
[2020-06-14] MEDS: Amiodarone 200 MG TAB PO SCH (09:26)
[2020-06-14] MEDS: DULoxetine 30 MG CAP PO SCH (09:26)
[2020-06-14] MEDS: Ferrous Gluconate 324 MG TAB PO SCH (09:26)
[2020-06-14] MEDS: Aspirin Chewable 81 MG TAB PO SCH (09:26)
[2020-06-14] MEDS: Fludrocortisone Acetate 0.1 MG TAB PO SCH (09:26)
[2020-06-14] MEDS: Magnesium Oxide 400 MG TAB PO SCH ×2 (09:26→21:17)
[2020-06-14] MEDS: Pantoprazole 40 MG VIAL IVP SCH (09:27)
[2020-06-14 09:38] LABS: #Eosinphils 0.3 thou/uL (0.0-0.7); #Lymphocytes 0.8 thou/uL (1.20-3.40); #Monocytes 0.5 thou/uL (0.11-0.59); #Neutrophils 4.3 thou/uL (1.40-6.50); %Eosinophils 5.2 % (0.0-10.0); %Lymphocytes 13.1 % (21.0-51.0); %Monocytes 7.9 % (0.0-10.0); %Neutrophils 73.7 % (42.0-75.0); Hemoglobin 10.5 g/dL (14.0-18.0); Hypochromia SLIGHT = 6-15 cells (100X) (0-5/hpf); MDiff Complete? YES; Mean Corpuscular HGB CONC 29.4 g/dL (32.0-36.0); Mean Corpuscular Hemoglobin 24.6 pg (27.0-31.0); Mean Corpuscular Volume 83.8 fL (78.0-98.0); Mean Platelet Volume 10.8 fL (7.4-10.4); Platelet Count 263 thou/uL (130-400); Platelet Morphology Comment Appears Adequate; Polychromasia SLIGHT = 2-3 cells (100X) (0-2/hpf); RBC Distribution Width 18.4 % (11.5-14.5); Red Blood Cell (RBC) Count 4.28 mill/uL (4.70-6.10); White Blood Cell (WBC) Count 5.9 thou/uL (4.8-10.8)
[2020-06-14] MEDS: HYDROcodone/Acetaminophen 5/325 mg Tablet PO PRN ×2 (12:20→21:19)
[2020-06-14 14:22] LABS: INR-International Normal Ratio 1.1; Prothrombin Time 14.6 sec (12.0-14.7)
[2020-06-14] MEDS: Warfarin Sodium 5 MG TAB PO SCH (16:03)
[2020-06-14] MEDS ORDERED: Potassium Chloride 20 MEQ TAB PO SCH (17:00)
--- NOTE | 2020-06-14 17:14 | CON ---
DATE OF CONSULTATION: 06/14/2020 REASON FOR CONSULTATION: Congestive heart failure. PRIMARY DIRECTOR OF SPORTS PERFORMANCE: Dr. Vikash Gaffney. HISTORY OF PRESENT ILLNESS: Mr. Pinto is a 69-year-old gentleman with advanced heart disease. He has been in the hospital here in March. He was seen by Dr. Mock and did receive intravenous pressors to help on diurese. He has actually done pretty well up until the last few days. He started suddenly increasing his weight and increasing the swelling of his lower extremities, also becoming somewhat short of breath. He came to the emergency room extremely volume overloaded, has been admitted. He is feeling better now. No chest pain or pressure. PAST MEDICAL HISTORY: Does have a history of coronary artery disease as outlined previously in the chart; history of congestive heart failure, systolic, chronic in the past. HOME MEDICATIONS: He was takin. Carvedilol 12.5 mg twice a day. 2. Torsemide 20 mg a day. 3. Entresto 24/26 twice a day. 4. Magnesium. 5. Warfarin. 6. Amiodarone. 7. Aspirin. SOCIAL HISTORY: Lives at home. ALLERGIES: HE IS ALLERGIC TO IBUPROFEN AND TOMATOES. REVIEW OF SYSTEMS: CONSTITUTIONAL: Positive for weight gain. VISION: No changes. HEARING: No changes. PULMONARY: Positive for shortness of breath. CARDIAC: No chest pain. GASTROINTESTINAL: No nausea, vomiting, or diarrhea. SKIN: No rashes. NEUROLOGIC: No unilateral weakness or numbness. PSYCHIATRIC: No unusual depression or anxiety. PHYSICAL EXAMINATION: GENERAL: This is a very pleasant gentleman. He is extremely edematous. VITAL SIGNS: Blood pressure 121/58, pulse 76 and regular. EYES: Sclerae nonicteric. MOUTH: Mucous membranes moist. NECK: Supple. No lymphadenopathy. Neck veins are somewhat distended. LUNGS: Clear anteriorly and posteriorly. CARDIAC: Normal S1, normal S2. I do not hear murmur, rub, or gallop. ABDOMEN: Obese, nontender. No hepatosplenomegaly. EXTREMITIES: No clubbing or cyanosis. There is severe peripheral edema. LABORATORY AND DIAGNOSTIC DATA: On reviewing records, his ferritin level is 19.3 on the last admission. On this admission, the patient's hemoglobin is 10.5, it was all the way down to 7.2 on March. His creatinine is stable at 1.8, estimated GFR is 45. The EKG reveals atrial and ventricular paced rhythm, appears to be a biventricular device/defibrillator. The patient's previous evaluation did reveal that he has severely depressed left ventricular function with an ejection fraction of 25% to 30%. ASSESSMENT: 1. Congestive heart failure, systolic, acute on chronic, decompensated. 2. Renal failure, stage 3, stable. 3. History of iron-deficiency anemia, he remains anemic. PLAN: 1. Continue diuresis. 2. Hold next dose of Coreg, then reduce dose until he is compensated. 3. Check ferritin level. If it is under 100, give him intravenous iron. 4. The patient hopes to be home by [place]. It is unclear whether he will be able to be diurese that fast. We will give him another dose of Lasix tonight. Dr. Ferreira will see tomorrow. Job ID: [id number] MTDD
[2020-06-14] MEDS: HumaLOG 300 UNITS/3 ML VIAL SC PRN ×2 (18:31→21:18)
[2020-06-14] MEDS ORDERED: Furosemide 40 MG/4 ML VIAL SLOW IVP SCH (20:00)
[2020-06-14] MEDS: Iron, Sodium Ferric Gluconate 250 MG in Sodium Chloride 0.9% 100 ML IVPB SCH (21:17)
[2020-06-15 05:16] LABS: Hemoglobin A1c 8.4 % (4.0-6.0)
[2020-06-15 05:18] LABS: #Eosinphils 0.1 thou/uL (0.0-0.7); #Lymphocytes 0.6 thou/uL (1.20-3.40); #Monocytes 0.5 thou/uL (0.11-0.59); #Neutrophils 6.2 thou/uL (1.40-6.50); %Basophils 0.1 % (0.0-1.0); %Eosinophils 1.2 % (0.0-10.0); %Lymphocytes 8.4 % (21.0-51.0); %Monocytes 6.8 % (0.0-10.0); %Neutrophils 83.5 % (42.0-75.0); Hemoglobin 10.9 g/dL (14.0-18.0); Mean Corpuscular HGB CONC 28.9 g/dL (32.0-36.0); Mean Corpuscular Hemoglobin 24.5 pg (27.0-31.0); Mean Corpuscular Volume 84.9 fL (78.0-98.0); Mean Platelet Volume 10.5 fL (7.4-10.4); Platelet Count 313 thou/uL (130-400); RBC Distribution Width 18.3 % (11.5-14.5); Red Blood Cell (RBC) Count 4.47 mill/uL (4.70-6.10); White Blood Cell (WBC) Count 7.4 thou/uL (4.8-10.8)
[2020-06-15 05:36] LABS: Anion Gap 14 mmol/L (10-20); BUN (Urea Nitrogen) 22 mg/dL (8.4-25.7); Calc. Creatinine Clearance 59 mL/min (70-130); Calcium 8.4 mg/dL (7.8-10.44); Carbon Dioxide 24 mmol/L (23-31); Cardiac Risk 3.5 (Less than 4.5); Chloride 103 mmol/L (98-107); Cholesterol 144 mg/dl (< 200 Desired); Glucose 150 mg/dL (80-115); HDL Cholesterol 41 mg/dL (>60 Neg Risk); LDL Cholesterol, Calculated 88 mg/dL; Magnesium 1.7 mg/dL (1.6-2.6); Potassium 4.3 mmol/L (3.5-5.1); Sodium 137 mmol/L (136-145); Triglycerides 75 mg/dL (Less than 150)
[2020-06-15 06:02] LABS: INR-International Normal Ratio 1.2; Prothrombin Time 15.1 sec (12.0-14.7)
[2020-06-15] MEDS: Nitroglycerin 2% Ointment 1 INCH/1 GM Packet TOP SCH ×2 (06:17→13:22)
[2020-06-15] MEDS: Furosemide 40 MG/4 ML VIAL SLOW IVP SCH ×2 (06:17→13:22)
[2020-06-15] MEDS: HYDROcodone/Acetaminophen 5/325 mg Tablet PO PRN ×2 (06:23→21:27)
[2020-06-15] MEDS: Aspirin Chewable 81 MG TAB PO SCH (08:40)
[2020-06-15] MEDS: Ferrous Gluconate 324 MG TAB PO SCH (08:40)
[2020-06-15] MEDS: Magnesium Oxide 400 MG TAB PO SCH ×2 (08:40→21:22)
[2020-06-15] MEDS: Amiodarone 200 MG TAB PO SCH (08:41)
[2020-06-15] MEDS: Dexamethasone 4 MG TAB PO SCH (08:41)
[2020-06-15] MEDS: Fludrocortisone Acetate 0.1 MG TAB PO SCH (08:42)
[2020-06-15] MEDS: Pantoprazole 40 MG VIAL IVP SCH (08:43)
[2020-06-15] MEDS: DULoxetine 30 MG CAP PO SCH (08:46)
[2020-06-15] MEDS: hydrALAZINE 25 MG TAB PO SCH ×3 (08:48→21:22)
[2020-06-15] MEDS ORDERED: Carvedilol 6.25 MG TAB PO SCH ×2 (09:00→09:15)
[2020-06-15] MEDS: Iron, Sodium Ferric Gluconate 250 MG in Sodium Chloride 0.9% 100 ML IVPB SCH (10:33)
[2020-06-15] MEDS: HumaLOG 300 UNITS/3 ML VIAL SC PRN ×3 (13:23→21:23)
[2020-06-15] MEDS: Carvedilol 6.25 MG TAB PO SCH (17:07)
[2020-06-15] MEDS: Warfarin Sodium 5 MG TAB PO SCH (17:09)
--- NOTE | 2020-06-15 20:42 | PDOC.HOSPP ---
- Subjective Encounter Date: 06/15/20 Encounter Time: 14:00 Subjective: Patient seen and examined for congestive heart failure exacerbation. Shortness of breath improving. Denies any fever or chills. No chest pain, palpitations or syncope. - Objective Vital Signs & Weight: Vital Signs (12 hours) Temp Pulse Resp BP BP Pulse Ox 06/15/20 17:07 113/64 06/15/20 16:00 97.3 F L 75 16 118/58 L 06/15/20 15:35 77 118/58 L 06/15/20 12:00 96.9 F L 77 16 125/67 93 L 06/15/20 10:43 153/69 H 06/15/20 10:33 153/69 H 06/15/20 08:48 75 153/69 H Weight Weight 264 lb 1.6 oz I&O: 06/14/20 06/15/20 06/16/20 06:59 06:59 06:59 Intake Total 720 1540 1560 Output Total 7941 4089 1041 [facility], [place] [phone] Result Diagrams: 06/15/20 04:31 06/15/20 04:31 Additional Labs: Accuchecks 06/15/20 06/15/20 06/15/20 16:56 10:59 05:54 POC Glucose 251 H 170 H 153 H 06/14/20 17:21 POC Glucose 277 H Abnormal Lab Results - Last 48 hrs 06/13/20 22:51: Troponin I 0.035 H 06/14/20 07:57: Creatinine 1.81 H 06/14/20 07:57: RBC 4.28 L, Hgb 10.5 L, Hct 35.8 L, MCH 24.6 L, MCHC 29.4 L, RDW 18.4 H, MPV 10.8 H, Lymphocytes % 13.1 L, Lymphocytes # 0.8 L 06/14/20 07:57: Ferritin 20.43 L 06/15/20 04:31: Creatinine 2.05 H 06/15/20 04:31: RBC 4.47 L, Hgb 10.9 L, Hct 37.9 L, MCH 24.5 L, MCHC 28.9 L, RDW 18.3 H, MPV 10.5 H, Neutrophils % 83.5 H, Lymphocytes % 8.4 L, Lymphocytes # 0.6 L 06/15/20 04:31: PT 15.1 H 06/15/20 04:31: Hemoglobin A1c 8.4 H Radiology Reviewed by me: Yes (Cardiomegaly with some pulmonary vascular congestion) EKG Reviewed by me: Yes (Sinus rhythm on telemetry) Hospitalist ROS - Review of Systems Constitutional: denies: fever, chills, sweats, weakness, malaise, other Gastrointestinal: denies: nausea, vomiting, abdominal pain, diarrhea, constipation, melena, hematochezia, other - Medication Medications: Active Medications Generic Name Dose Route Start Last Admin Trade Name Freq PRN Reason Stop Dose Admin Hydrocodone Bitart/Acetaminophen 2 tab 06/14/20 11:10 06/15/20 06:23 Hydrocodone/Acetaminophen 5/325 Mg Tablet PO 2 tab TID PRN Administration Moderate Pain Amiodarone HCl 200 mg 06/14/20 09:00 06/15/20 08:41 Amiodarone 200 Mg Tab PO 200 mg DAILY WAYNE Administration Aspirin 81 mg 06/14/20 09:00 06/15/20 08:40 Aspirin Chewable 81 Mg Tab PO 81 mg DAILY WAYNE Administration Carvedilol 6.25 mg 06/15/20 17:00 06/15/20 17:07 Carvedilol 6.25 Mg Tab PO 6.25 mg BID-WM WAYNE Administration Dexamethasone 2 mg 06/15/20 09:00 06/15/20 08:41 Dexamethasone 4 Mg Tab PO 2 mg DAILY WAYNE Administration Duloxetine HCl 30 mg 06/14/20 09:00 06/15/20 08:46 Duloxetine 30 Mg Cap PO 30 mg DAILY WAYNE Administration Ferrous Gluconate 324 mg 06/14/20 08:00 06/15/20 08:40 Ferrous Gluconate 324 Mg Tab PO 324 mg QAM-WM WAYNE Administration Fludrocortisone Acetate 0.1 mg 06/14/20 09:00 06/15/20 08:42 Fludrocortisone Acetate 0.1 Mg Tab PO 0.1 mg DAILY WAYNE Administration Furosemide 40 mg 06/14/20 06:00 06/15/20 13:22 Furosemide 40 Mg/4 Ml Vial SLOW IVP 40 mg 0600,1400 WAYNE Administration Hydralazine HCl 25 mg 06/15/20 09:00 06/15/20 15:35 Hydralazine 25 Mg Tab PO Not Given TID WAYNE Insulin Human Lispro 0 units 06/13/20 18:38 06/15/20 17:07 Humalog 300 Units/3 Ml Vial SC 6 unit .MODERATE SLIDING SC PRN Administration Moderate [place] Scale Insulin Human Lispro 0 units 06/13/20 18:38 06/14/20 21:18 Humalog 300 Units/3 Ml Vial SC 2 unit .BEDTIME SLIDING SC PRN Administration Bedtime Correctional Scale Magnesium Oxide 400 mg 06/14/20 09:00 06/15/20 08:40 Magnesium Oxide 400 Mg Tab PO 400 mg BID WAYNE Administration Pantoprazole Sodium 40 mg 06/14/20 09:00 06/15/20 08:43 Pantoprazole 40 Mg Vial IVP 40 mg DAILY WAYNE Administration Sacubitril/Valsartan 1 tab 06/14/20 09:00 06/15/20 08:42 Sacubitril 24mg/Valsartan 26mg Tab PO 1 tab BID WAYNE Administration Sodium Chloride 10 ml 06/13/20 21:00 06/15/20 08:41 Flush - Normal Saline 10 Ml Syringe IVF 10 ml Q12HR WAYNE Administration Warfarin Sodium 5 mg 06/14/20 17:00 06/15/20 17:09 Warfarin Sodium 5 Mg Tab PO 5 mg 1700 WAYNE Administration - Exam General Appearance: ill appearing Neck: supple Heart: RRR, no gallops Respiratory: no wheezes, rales, rhonchi Gastrointestinal: soft, non-tender, no guarding, no rigidity Extremities: 1+ LE edema Neurological: no new deficit Psychiatric: normal affect, A&O x 3 Hosp A/P - Plan DVT proph w/SCDs Acute on chronic systolic heart failure exacerbation CKD stage III Chronic anemia suspected due to nutritional deficiency Coronary artery disease s/p stent COPD Diabetes mellitus type 2 History of testicular cancer Hypertension Hyperlipidemia Hypomagnesemia History of paroxysmal atrial fibrillation on anticoagulationsubtherapeutic INR Former smoker History of cocaine abuse Chronic pain syndrome Morbid obesity with a BMI of 41.4 Suspected sleep apneasleep study as outpatient is recommended Plan: Continue IV diuretics. Discontinue nitroglycerin patch. Continue asp irin. Continue warfarin. Continue Entresto. Continue sliding scale. Add fluid restriction 1500 mL in 24 hours. Counseled on congestive heart failure. Cardiac rehabilitation. Continue amiodarone. Continue warfarin. Monitor PT/INR. Low vitamin K diet. A.m. labs. Continue other medications as above
[2020-06-16 04:40] LABS: INR-International Normal Ratio 1.2; Prothrombin Time 15.6 sec (12.0-14.7)
[2020-06-16 04:54] LABS: Phosphorus 3.1 mg/dL (2.3-4.7)
[2020-06-16 05:04] LABS: Anion Gap 14 mmol/L (10-20); BUN (Urea Nitrogen) 21 mg/dL (8.4-25.7); Calc. Creatinine Clearance 62 mL/min (70-130); Calcium 8.6 mg/dL (7.8-10.44); Carbon Dioxide 27 mmol/L (23-31); Chloride 99 mmol/L (98-107); Glucose 169 mg/dL (80-115); Magnesium 1.7 mg/dL (1.6-2.6); Potassium 3.8 mmol/L (3.5-5.1); Sodium 136 mmol/L (136-145)
[2020-06-16] MEDS: HumaLOG 300 UNITS/3 ML VIAL SC PRN ×3 (05:56→21:03)
[2020-06-16] MEDS: Furosemide 40 MG/4 ML VIAL SLOW IVP SCH ×2 (05:56→14:46)
[2020-06-16] MEDS: Pantoprazole 40 MG VIAL IVP SCH (08:45)
[2020-06-16] MEDS: DULoxetine 30 MG CAP PO SCH (08:46)
[2020-06-16] MEDS: Fludrocortisone Acetate 0.1 MG TAB PO SCH (08:46)
[2020-06-16] MEDS: Carvedilol 6.25 MG TAB PO SCH ×2 (08:46→17:32)
[2020-06-16] MEDS: Dexamethasone 4 MG TAB PO SCH (08:46)
[2020-06-16] MEDS: Aspirin Chewable 81 MG TAB PO SCH (08:46)
[2020-06-16] MEDS: Ferrous Gluconate 324 MG TAB PO SCH (08:46)
[2020-06-16] MEDS: Magnesium Oxide 400 MG TAB PO SCH ×2 (08:46→21:05)
[2020-06-16] MEDS: Amiodarone 200 MG TAB PO SCH (08:46)
[2020-06-16] MEDS: hydrALAZINE 25 MG TAB PO SCH ×3 (08:47→21:05)
[2020-06-16] MEDS: HYDROcodone/Acetaminophen 5/325 mg Tablet PO PRN ×3 (09:01→22:42)
[2020-06-16] MEDS: Isosorbide Dinitrate 20 MG TAB PO SCH ×3 (09:01→21:05)
[2020-06-16] MEDS ORDERED: Magnesium 2 GM/50 ML 2 GM in Premix Bag 1 BAG IVPB SCH (10:00)
[2020-06-16] MEDS ORDERED: Magnesium Sulfate 2 GM in Sodium Chloride 0.9% 100 ML IVPB SCH (10:00)
[2020-06-16] MEDS ORDERED: Electrolyte Replacement Protocol 1 EACH FS SCH (10:00)
--- NOTE | 2020-06-16 15:00 | PDOC.HOSPP ---
- Subjective Encounter Date: 06/16/20 Encounter Time: 12:30 Subjective: Patient seen and examined for shortness of breath due to CHF/COPD exacerbation. Shortness of breath improving. Mild dry cough. Denies any wheezing. - Objective Vital Signs & Weight: Vital Signs (12 hours) Temp Pulse Pulse Pulse Resp BP BP 06/16/20 14:46 75 06/16/20 10:45 76 75 137/63 129/60 06/16/20 08:47 75 06/16/20 08:00 96.8 F L 73 17 06/16/20 04:34 06/16/20 04:20 97.8 F 75 14 BP Pulse Ox Pulse Ox Pulse Ox 06/16/20 14:46 06/16/20 10:45 92 L 94 L 06/16/20 08:47 06/16/20 08:00 127/61 94 L 06/16/20 04:34 100 06/16/20 04:20 124/58 L 86 L Weight Weight 259 lb 6.4 oz I&O: 06/15/20 06/16/20 06/17/20 06:59 06:59 06:59 Intake Total 1540 1800 Output Total 0261 3107 Balance -1835 -2315 Result Diagrams: 06/15/20 04:31 06/16/20 04:10 Additional Labs: Accuchecks 06/16/20 06/16/20 06/15/20 10:51 05:51 16:56 POC Glucose 170 H 171 H 251 H Abnormal Lab Results - Last 48 hrs 06/14/20 07:57: Ferritin 20.43 L 06/15/20 04:31: Creatinine 2.05 H 06/15/20 04:31: RBC 4.47 L, Hgb 10.9 L, Hct 37.9 L, MCH 24.5 L, MCHC 28.9 L, RDW 18.3 H, MPV 10.5 H, Neutrophils % 83.5 H, Lymphocytes % 8.4 L, Lymphocytes # 0.6 L 06/15/20 04:31: PT 15.1 H 06/15/20 04:31: Hemoglobin A1c 8.4 H 06/16/20 04:10: Creatinine 1.92 H 06/16/20 04:11: PT 15.6 H EKG Reviewed by me: Yes (Sinus rhythm on telemetry) Hospitalist ROS - Review of Systems Cardiovascular: denies: chest pain, palpitations, orthopnea, paroxysmal noc. dyspnea, edema, light headedness, other Gastrointestinal: denies: nausea, vomiting, abdominal pain, diarrhea, constipation, melena, hematochezia, other - Medication Medications: Active Medications Generic Name Dose Route Start Last Admin Trade Name Freq PRN Reason Stop Dose Admin Hydrocodone Bitart/Acetaminophen 2 tab 06/14/20 11:10 06/16/20 14:46 Hydrocodone/Acetaminophen 5/325 Mg Tablet PO 2 tab TID PRN Administration Moderate Pain Amiodarone HCl 200 mg 06/14/20 09:00 06/16/20 08:46 Amiodarone 200 Mg Tab PO 200 mg DAILY WAYNE Administration Aspirin 81 mg 06/14/20 09:00 06/16/20 08:46 Aspirin Chewable 81 Mg Tab PO 81 mg DAILY WAYNE Administration Carvedilol 6.25 mg 06/15/20 17:00 06/16/20 08:46 Carvedilol 6.25 Mg Tab PO 6.25 mg BID-WM WAYNE Administration Dexamethasone 2 mg 06/15/20 09:00 06/16/20 08:46 Dexamethasone 4 Mg Tab PO 2 mg DAILY WAYNE Administration Duloxetine HCl 30 mg 06/14/20 09:00 06/16/20 08:46 Duloxetine 30 Mg Cap PO 30 mg DAILY WAYNE Administration Ferrous Gluconate 324 mg 06/14/20 08:00 06/16/20 08:46 Ferrous Gluconate 324 Mg Tab PO 324 mg QAM-WM WAYNE Administration Fludrocortisone Acetate 0.1 mg 06/14/20 09:00 06/16/20 08:46 Fludrocortisone Acetate 0.1 Mg Tab PO 0.1 mg DAILY WAYNE Administration Furosemide 40 mg 06/14/20 06:00 06/16/20 14:46 Furosemide 40 Mg/4 Ml Vial SLOW IVP 40 mg 0600,1400 WAYNE Administration Hydralazine HCl 25 mg 06/15/20 09:00 06/16/20 14:46 Hydralazine 25 Mg Tab PO 25 mg TID WAYNE Administration Insulin Human Lispro 0 units 06/13/20 18:38 06/16/20 05:56 Humalog 300 Units/3 Ml Vial SC 2 unit .MODERATE SLIDING SC PRN Administration Moderate Correctional Scale Insulin Human Lispro 0 units 06/13/20 18:38 06/15/20 21:23 Humalog 300 Units/3 Ml Vial SC 2 unit .BEDTIME SLIDING SC PRN Administration Bedtime Correctional Scale Isosorbide Dinitrate 20 mg 06/16/20 09:00 06/16/20 14:46 Isosorbide Dinitrate 20 Mg Tab PO 20 mg TID WAYNE Administration Magnesium Oxide 400 mg 06/14/20 09:00 06/16/20 08:46 Magnesium Oxide 400 Mg Tab PO 400 mg BID WAYNE Administration Pantoprazole Sodium 40 mg 06/14/20 09:00 06/16/20 08:45 Pantoprazole 40 Mg Vial IVP 40 mg DAILY WAYNE Administration Sacubitril/Valsartan 1 tab 06/14/20 09:00 06/16/20 08:53 Sacubitril 24mg/Valsartan 26mg Tab PO 1 tab BID WAYNE Administration Sodium Chloride 10 ml 06/13/20 21:00 06/16/20 08:47 Flush - Normal Saline 10 Ml Syringe IVF 10 ml Q12HR WAYNE Administration Warfarin Sodium 5 mg 06/14/20 17:00 06/15/20 17:09 Warfarin Sodium 5 Mg Tab PO 5 mg 1700 WAYNE Administration - Exam General Appearance: NAD Neck: supple, no JVD Heart: RRR, no gallops Respiratory: no wheezes, rhonchi Gastrointestinal: non-tender, non-distended Extremities: no cyanosis, no clubbing Hosp A/P - Plan DVT proph w/SCDs Acute on chronic systolic heart failure exacerbation CKD stage III Chronic anemia suspected due to nutritional deficiency Coronary artery disease s/p stent COPD Diabetes mellitus type 2 History of testicular cancer Hypertension Hyperlipidemia Hypomagnesemia History of paroxysmal atrial fibrillation on anticoagulationINR subtherapeutic Former smoker History of cocaine abuse Chronic pain syndrome Morbid obesity with a BMI of 41.4 Suspected sleep apneasleep study as outpatient is recommended Plan: Continue IV diuretics. Continue beta-blockers. Replace magnesium. Continue aspirin with Entresto/isosorbide dinitrate/hydralazine. A.m. labs. Continue other medications as above. Monitor INR on the daily basis. INR 1.2 today. Continue warfarin.
[2020-06-16] MEDS: Warfarin Sodium 5 MG TAB PO SCH (17:32)
[2020-06-17 05:21] LABS: INR-International Normal Ratio 1.1; Prothrombin Time 14.7 sec (12.0-14.7)
[2020-06-17 05:35] LABS: Anion Gap 12 mmol/L (10-20); BUN (Urea Nitrogen) 23 mg/dL (8.4-25.7); Calc. Creatinine Clearance 56 mL/min (70-130); Calcium 8.9 mg/dL (7.8-10.44); Carbon Dioxide 34 mmol/L (23-31); Chloride 96 mmol/L (98-107); Glucose 183 mg/dL (80-115); Phosphorus 2.9 mg/dL (2.3-4.7); Potassium 4.1 mmol/L (3.5-5.1); Sodium 138 mmol/L (136-145)
[2020-06-17] MEDS: Furosemide 40 MG/4 ML VIAL SLOW IVP SCH (05:45)
[2020-06-17] MEDS: HumaLOG 300 UNITS/3 ML VIAL SC PRN (05:45)
[2020-06-17] MEDS ORDERED: Magnesium 2 GM/50 ML 2 GM in Premix Bag 1 BAG IVPB SCH (06:30)
[2020-06-17] MEDS: HYDROcodone/Acetaminophen 5/325 mg Tablet PO PRN (07:23)
[2020-06-17] MEDS: Amiodarone 200 MG TAB PO SCH (08:17)
[2020-06-17] MEDS: Carvedilol 6.25 MG TAB PO SCH (08:17)
[2020-06-17] MEDS: Aspirin Chewable 81 MG TAB PO SCH (08:17)
[2020-06-17] MEDS: Dexamethasone 4 MG TAB PO SCH (08:17)
[2020-06-17] MEDS: hydrALAZINE 25 MG TAB PO SCH (08:17)
[2020-06-17] MEDS: Ferrous Gluconate 324 MG TAB PO SCH (08:17)
[2020-06-17] MEDS: Isosorbide Dinitrate 20 MG TAB PO SCH (08:17)
[2020-06-17] MEDS: Magnesium Oxide 400 MG TAB PO SCH (08:17)
[2020-06-17] MEDS: Fludrocortisone Acetate 0.1 MG TAB PO SCH (08:18)
[2020-06-17] MEDS: Pantoprazole 40 MG VIAL IVP SCH (08:18)
[2020-06-17] MEDS: DULoxetine 30 MG CAP PO SCH (08:18)
[2020-06-17 09:04] LABS: Hemoglobin 10.8 g/dL (14.0-18.0); Platelet Count 347 thou/uL (130-400)
[2020-06-17 11:51] VITALS: BP 131/61; TEMP 97.7
[2020-06-17] MEDS ORDERED: Warfarin Sodium 10 MG TAB PO SCH (17:00)
[2020-06-18] MEDS ORDERED: Furosemide 40 MG TAB PO SCH (07:30)
--- NOTE | 2020-06-18 15:03 | DIS ---
DATE OF ADMISSION: 06/13/2020 DATE OF DISCHARGE: 06/17/2020 DISCHARGE DISPOSITION: Home. PRIMARY DISCHARGE DIAGNOSES: CHF exacerbation with systolic dysfunction and ejection fraction of around 25%, acute kidney injury with history of chronic kidney disease stage 3. SECONDARY DISCHARGE DIAGNOSES: COPD, history of coronary artery disease with prior stent, chronic anemia, diabetes mellitus type 2, history of chronic atrial fibrillation, obesity, chronic pain syndrome, chronic anemia. PROCEDURES DONE DURING HOSPITALIZATION: BNP 1267. Chest x-ray done on the day of admission showed cardiomegaly. H and H 10 and 37, platelet count 347, MCV 84. Discharge BUN and creatinine are 23 and 2.0. Serum bicarb 34 on the day of discharge. Total cholesterol 144, triglycerides 75, LDL 88, HDL 41. COVID-19 PCR was not detected on 06/13/2020. DISCHARGE MEDICATIONS: 1. Cymbalta 30 mg p.o. daily. 2. [place] p.r.n. for pain. 3. Hydralazine 25 mg three times daily. 4. Aspirin 81 mg p.o. daily. 5. Amiodarone 200 mg p.o. daily. 6. Carvedilol 6.25 mg twice daily. 7. Dexamethasone 2 mg daily. 8. Eliquis 2.5 mg twice daily. 9. Entresto 24/26 mg one tablet twice daily. 10. Ferrous sulfate 324 mg p.o. daily. 11. Florinef 0.1 mg p.o. daily. 12. Isordil 20 mg three times daily. 13. Lasix 40 mg daily. 14. Magnesium oxide 400 mg twice daily. ALLERGIES: MOTRIN AND TOMATO. DISCHARGE PLAN: The patient to find a primary care physician and follow up in 1 week. He needs to follow up with [facility] in 1 week, Dr. Ferreira in 2 to 3 weeks. BRIEF COURSE DURING HOSPITALIZATION: The patient initially came on the with complaints of shortness of breath. The patient was found to be in CHF exacerbation with known history of systolic dysfunction and ejection fraction of around 25%. The patient had gained nearly 15 pounds prior to hospitalization. He had bilateral lower extremity edema as well. He has had gentle diuresis done during the stay here. The patient has had consultation with Dr. Ferreira for Cardiology as well. Dr. Ferreira and Dr. Burris for Cardiology as well. He has done remarkably well with diuresis and is at his baseline. The patient lost around 12 pounds during his brief stay here. He is ambulating and is wanting to go home today. He has been cleared by Cardiology for discharge. Medications were optimized. The patient has been advised heart healthy 2 g sodium restricted diet with fluid restrictions as well. He is also counseled regarding medication compliance. Please note, I have seen and examined the patient on the day of discharge. Job ID: [id number]
--- NOTE | 2020-06-24 11:27 | EKG ---
Test Reason : Blood Pressure : / mmHG Vent. Rate : 075 BPM Atrial Rate : 046 BPM P-R Int : 000 ms QRS Dur : 144 ms QT Int : 470 ms P-R-T Axes : 000 129 004 degrees QTc Int : 524 ms AV sequential or dual chamber electronic pacemaker Confirmed by PATRICIA FLORES ([id number]), editor house organ GINA LOMBRADO ([id number]) on 06/24/2020 11:27:33 AM Referred By: Confirmed By:PATRICIA FLORES
== END 2020-06-17 12:40 | disposition home or self-care (01) | DRG 291 ==
LOC: ERS 14:25 → 2NO 17:27
PROVIDERS: ADMIT Internal Medicine; ATTEND Internal Medicine
DX: I13.0 Hypertensive heart and chronic kidney disease with heart failure and stage 1 through stage 4 chronic kidney disease, or unspecified chronic kidney disease (principal); I50.23 Acute on chronic systolic (congestive) heart failure; N17.9 Acute kidney failure, unspecified; E27.40 Unspecified adrenocortical insufficiency; J44.1 Chronic obstructive pulmonary disease with (acute) exacerbation; I24.8 Other forms of acute ischemic heart disease; Z68.41 Body mass index [BMI] 40.0-44.9, adult; Z20.828 Contact with and (suspected) exposure to other viral communicable diseases; N18.30 Chronic kidney disease, stage 3 unspecified; D63.1 Anemia in chronic kidney disease; E11.22 Type 2 diabetes mellitus with diabetic chronic kidney disease; G89.4 Chronic pain syndrome; E78.5 Hyperlipidemia, unspecified; F12.10 Cannabis abuse, uncomplicated; I25.10 Atherosclerotic heart disease of native coronary artery without angina pectoris; I08.3 Combined rheumatic disorders of mitral, aortic and tricuspid valves; D50.9 Iron deficiency anemia, unspecified; I48.0 Paroxysmal atrial fibrillation; E83.42 Hypomagnesemia; G47.30 Sleep apnea, unspecified; I42.8 Other cardiomyopathies; M54.9 Dorsalgia, unspecified; Z95.1 Presence of aortocoronary bypass graft; Z95.5 Presence of coronary angioplasty implant and graft; Z87.891 Personal history of nicotine dependence; Z91.14 Patient's other noncompliance with medication regimen; Z79.899 Other long term (current) drug therapy; Z79.82 Long term (current) use of aspirin; Z79.01 Long term (current) use of anticoagulants; Z88.8 Allergy status to other drugs, medicaments and biological substances; Z91.018 Allergy to other foods; Z85.47 Personal history of malignant neoplasm of testis; Z90.79 Acquired absence of other genital organ(s); Z83.3 Family history of diabetes mellitus; Z95.0 Presence of cardiac pacemaker; Z86.19 Personal history of other infectious and parasitic diseases; E66.01 Morbid (severe) obesity due to excess calories
CPT/HCPCS: 36415; 36416; 71046; 80048; 80053; 80061; 82553; 82728; 83036; 83735; 83880; 84100; 84443; 84484; 85014; 85018; 85025; 85049; 85610; 85730; 87635; 93005; 93798; 96374; C9113; J1940; J2916; J3475; J3490; J8540; U0003

== ENCOUNTER 2020-07-14 03:29 | Inpatient (IN) | payer MEDICARE, MEDICAID ==
[2020-07-14] MEDS ORDERED: Albuterol Sulfate 2.5 mg/3 ml Neb ONE (03:50)
[2020-07-14 04:05] LABS: #Eosinphils 0.2 thou/uL (0.0-0.7); #Lymphocytes 0.7 thou/uL (1.20-3.40); #Monocytes 0.8 thou/uL (0.11-0.59); #Neutrophils 6.9 thou/uL (1.40-6.50); %Basophils 0.1 % (0.0-1.0); %Eosinophils 1.8 % (0.0-10.0); %Lymphocytes 8.6 % (21.0-51.0); %Monocytes 9.5 % (0.0-10.0); %Neutrophils 80.1 % (42.0-75.0); Hemoglobin 13.1 g/dL (14.0-18.0); Mean Corpuscular HGB CONC 30.1 g/dL (32.0-36.0); Mean Corpuscular Volume 86.4 fL (78.0-98.0); Mean Platelet Volume 11.5 fL (7.4-10.4); Platelet Count 197 thou/uL (130-400); RBC Distribution Width 18.7 % (11.5-14.5); Red Blood Cell (RBC) Count 5.02 mill/uL (4.70-6.10); White Blood Cell (WBC) Count 8.7 thou/uL (4.8-10.8)
[2020-07-14 04:27] LABS: ALT (SGPT) 10 U/L (8-55); AST (SGOT) 17 U/L (5-34); Albumin 4.2 g/dL (3.4-4.8); Alkaline Phosphatase 52 U/L (40-110); Anion Gap 17 mmol/L (10-20); BUN (Urea Nitrogen) 24 mg/dL (8.4-25.7); Bilirubin, Total 2.4 mg/dL (0.2-1.2); CK (CPK) 174 U/L (30-200); Calc. Creatinine Clearance 0 mL/min (70-130); Calcium 9.3 mg/dL (7.8-10.44); Carbon Dioxide 22 mmol/L (23-31); Chloride 102 mmol/L (98-107); Glucose 124 mg/dL (80-115); Potassium 4.2 mmol/L (3.5-5.1); Protein, Total 8.2 g/dL (5.8-8.1); Sodium 137 mmol/L (136-145)
[2020-07-14 04:52] LABS: CKMB 2.6 ng/mL (0-6.6)
[2020-07-14] MEDS ORDERED: Aspirin Chewable 81 MG TAB ONE (05:13)
[2020-07-14] MEDS ORDERED: Furosemide 100 MG/10 ML VIAL ONE (05:13)
--- NOTE | 2020-07-14 06:01 | PDOC.HHP ---
Hospitalist HPI - History of Present Illness Shortness of breath History of Present Illness: This is a 69-year-old male patient with a history of COPD, CHF, carotid artery disease status post CABG was brought in by EMS on account of Shortness of breath for days duration. Patient notes that he run out of his medications and has been unable to fill them. At baseline uses 2 L oxygen at home. He activated EMS brought him in for further evaluation. According to EMS notes his saturation was at 80% when they got to him. He was placed on CPAP with 100% oxygenation. Out on arrival, BP was 167/103, pulse 103, respiratory rate 27, temperature 99.0, saturation at 100 on CPAP. his troponin was slightly elevated at 0.074, BNP was 1641 from thousand 265 on his last visit. Creatinine was 1.95 around baseline, chest x-ray was concerning for bilateral congestion. He was started on Lasix 80 mg, aspirin 3 to 4 mg, albuterol inhalation. Hospitalist team was consulted to admit for heart failure exacerbation. Hospitalist ROS - Review of Systems Constitutional: reports: weakness, malaise. denies: fever, chills, sweats Respiratory: reports: cough, shortness of breath, SOB with excertion. denies: hemoptysis Cardiovascular: denies: chest pain, palpitations, orthopnea, paroxysmal noc. dyspnea Gastrointestinal: denies: nausea, vomiting, abdominal pain, diarrhea Neurological: denies: weakness, numbness, incoordination, change in speech All other systems reviewed; all pertinent +/- noted in HPI/Subj - Medication Medications: Medications: Currently refer to ambulatory orders. Allergies: No known drug allergies. Hospitalist History - Past Medical History Heme/Onc: reports: Cancer (Testicular cancer status post removal.), Other Renal/: reports: Chronic renal insuff (Stage III) Endocrine: reports: Diabetes (Type II) Other Medical History: Diabetes mellitus, hypertension, CHF, COPD - Past Surgical History Past Surgical History: reports: CABG, Other (Cardiac stent, eye surgery, tumor removed from the level, cardiac pacemaker.) Other Surgical History: CABG, pacemaker placement, - Family History Family History: reports: diabetes mellitus - Social History Smoking Status: Former smoker Alcohol: reports: None Drugs: reports: cocaine (Quit 2013), marijuana (Smokes daily) Occupation: Disabled on Social Security Activity level: uses cane/walker - Exam General Appearance: awake alert General - other findings: On CPAP, mild respiratory distress Eye: PERRL, anicteric sclera ENT: normocephalic atraumatic Heart: RRR, no murmur, no gallops, normal peripheral pulses Respiratory: CTAB, wheezes (Generalized) Gastrointestinal: soft, non-tender, non-distended, normal bowel sounds Extremities: no cyanosis, no clubbing, 1+ LE edema Neurological: cranial nerve grossly intact, no weakness, no focal deficits Musculoskeletal: normal tone, normal strength Psychiatric: normal affect, normal behavior, A&O x 3 Hospitalist Results - Labs Result Diagrams: 07/14/20 03:50 07/14/20 03:40 Lab results: WBC 8.7 thou/uL (4.8-10.8) 07/14/20 03:50 Hgb 13.1 g/dL (14.0-18.0) L 07/14/20 03:50 Hct 43.4 % (42.0-52.0) 07/14/20 03:50 MCV 86.4 fL (78.0-98.0) 07/14/20 03:50 Plt Count 197 thou/uL (130-400) 07/14/20 03:50 Neutrophils % 80.1 % (42.0-75.0) H 07/14/20 03:50 Sodium 137 mmol/L (136-145) 07/14/20 03:40 Potassium 4.2 mmol/L (3.5-5.1) 07/14/20 03:40 Chloride 102 mmol/L (98-107) 07/14/20 03:40 Carbon Dioxide 22 mmol/L (23-31) L 07/14/20 03:40 BUN 24 mg/dL (8.4-25.7) 07/14/20 03:40 Creatinine 1.95 mg/dL (0.7-1.3) H 07/14/20 03:40 Glucose 124 mg/dL (80-115) H 07/14/20 03:40 Lactic Acid 2.1 mmol/L (0.5-2.2) 07/14/20 03:41 Calcium 9.3 mg/dL (7.8-10.44) 07/14/20 03:40 Total Bilirubin 2.4 mg/dL (0.2-1.2) H 07/14/20 03:40 AST 17 U/L (5-34) 07/14/20 03:40 ALT 10 U/L (8-55) 07/14/20 03:40 Alkaline Phosphatase 52 U/L (40-110) 07/14/20 03:40 Creatine Kinase 174 U/L (30-200) 07/14/20 03:40 CK-MB (CK-2) 2.6 ng/mL (0-6.6) 07/14/20 03:40 Troponin I 0.074 ng/mL (< 0.028) H 07/14/20 03:40 B-Natriuretic Peptide 1641.4 pg/mL (0-100) H 07/14/20 03:50 Serum Total Protein 8.2 g/dL (5.8-8.1) H 07/14/20 03:40 Albumin 4.2 g/dL (3.4-4.8) 07/14/20 03:40 Hospitalist H&P A/P - Plan Plan: 69-year-old male patient with history of Diabetes mellitus, hyperlipidemia, hypertension, CHF and COPD was brought in by EMS on account of worsening shortness of breath and hypoxia likely secondary to heart failure exacerbation. Acute hypoxic respiratory failure Likely secondary to heart failure exacerbation possible superimposed COPD exacerbation. 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 EF in 02/2020 was 25-30 Diuresis Lasix Low-sodium diet Daily weight input output monitoring. Monitor electrolytes Continue carvedilol secondary to once verified Consider cardiology consult. COPD exacerbation Duo nebs/steroids NSTEMI Slightly elevated troponin 00.07 Likely demand We will trend Patient received aspirincontinue Anemia Hemoglobin 13 point mildmild Monitor CBC Chronic low back pain Continue Skipwith as needed at next CKD Creatinine at baseline Continue monitor BMP CODE STATUSfull code PT prophylaxis
[2020-07-14] MEDS ORDERED: Bacteriostatic Water 30 ML VIAL FS PRN (06:45)
[2020-07-14] MEDS ORDERED: Dextrose 50% Abboject 50 ML SYRINGE SLOW IVP PRN (07:07)
[2020-07-14] MEDS ORDERED: Dextrose 5% in Water 1,000 ML IV PRN (07:07)
[2020-07-14 07:16] LABS: SARS-CoV-2 NAA Rapid Test Not Detected (NotDetected)
[2020-07-14 07:20] LABS: Lactic Acid 1.4 mmol/L (0.5-2.2)
[2020-07-14 07:37] LABS: Troponin I 0.059 ng/mL (< 0.028)
--- NOTE | 2020-07-14 07:55 | RAD ---
EXAM: Single view of the chest HISTORY: Respiratory distress COMPARISON: 03/23/2020 FINDINGS: Single view of the chest shows an enlarged but stable cardiomediastinal silhouette. The pat ient is status post sternotomy. Pacemaker is unchanged in position. Bilateral pulmonary vascular enlargement is seen. There is no evidence of consolidation, mass, or pleural effusion. No acute osse ous abnormality. IMPRESSION: Cardiomegaly with pulmonary vascular congestion.
[2020-07-14] MEDS ORDERED: Furosemide 40 MG/4 ML VIAL SLOW IVP SCH ×2 (09:00→14:00)
[2020-07-14 09:58] LABS: Bacteria/HPF None Seen HPF (None Seen); Bilirubin Negative (Negative); Blood, Urine Negative (Negative); Clarity Clear (Clear); Glucose, Urine (Dipstick) Normal (Negative); Ketone, Urine Negative (Negative); Leukocyte Negative Leu/uL (Negative); Nitrite Negative (Negative); Protein, Urine (Dipstick) 50 mg/dL (Neg-Trace); RBC/HPF 0-3 HPF (0-3); Specific Gravity, Urine 1.007 (1.002-1.036); Squamous Epithelial None Seen HPF (0-3); Urobilinogen Normal mg/dL (Less than 2); WBC/HPF 0-3 HPF (0-3); pH, Urine 5.5 (5.0-9.0)
[2020-07-14 10:30] LABS: Troponin I 0.042 ng/mL (< 0.028)
[2020-07-14 11:46] VITALS: BMI 39.8
[2020-07-14] MEDS: methylPREDNISolone Sod Succ 40 MG VIAL IVP SCH ×2 (11:48→17:55)
[2020-07-14] MEDS: HYDROcodone/Acetaminophen 5/325 mg Tablet PO PRN ×2 (13:19→20:51)
--- NOTE | 2020-07-14 15:14 | PDOC.HOSPP ---
- Subjective Encounter Date: 07/14/20 Encounter Time: 11:20 Subjective: Patient complains of short of breath - Objective Vital Signs & Weight: Vital Signs (12 hours) Temp Pulse Resp BP Pulse Ox 07/14/20 14:07 83 20 96 07/14/20 12:39 98 07/14/20 12:36 81 20 98 07/14/20 11:47 86 145/66 H 07/14/20 11:35 99.0 F 89 18 175/79 H 98 Weight Weight 254 lb 6.4 oz Result Diagrams: 07/14/20 03:50 07/14/20 03:40 Hospitalist ROS - Review of Systems Respiratory: reports: shortness of breath - Medication Medications: Active Medications Generic Name Dose Route Start Last Admin Trade Name Freq PRN Reason Stop Dose Admin Hydrocodone Bitart/Acetaminophen 2 tab 07/14/20 07:00 07/14/20 13:19 Hydrocodone/Acetaminophen 5/325 Mg Tablet PO 2 tab TIDPRN PRN Administration Moderate Pain (4-6) Albuterol/Ipratropium 3 ml 07/14/20 06:30 07/14/20 14:07 Ipratropium/Albuterol Sulfate 3 Ml Neb NEB 3 ml [id number] WAYNE Administration Furosemide 40 mg 07/14/20 09:00 07/14/20 11:23 Furosemide 40 Mg/4 Ml Vial SLOW IVP Not Given DAILY WAYNE Methylprednisolone Sodium Succinate 40 mg 07/14/20 12:00 07/14/20 11:48 Methylprednisolone Sod Succ 40 Mg Vial IVP 40 mg Q6HR WAYNE Administration - Exam Heart: negative: RRR, no murmur, no gallops, no rubs, normal peripheral pulses, irregular, diminshed peripheral pulses, murmur present, II/IV, III/IV Respiratory: wheezes Gastrointestinal: negative: soft, non-tender, non-distended, normal bowel sounds, no palpable masses, no hepatomegaly, no splenomegaly, no bruit, no guarding, no rigidity, tender to palpation, distended, diminished bowl sounds, voluntary guarding Extremities: 2+ LE edema Hosp A/P (1) Acute exacerbation of CHF (congestive heart failure) Code(s): I50.9 - HEART FAILURE, UNSPECIFIED Status: Acute Qualifiers: Heart failure type: unspecified Qualified Code(s): I50.9 - Heart failure, unspecified (2) Acute on chronic systolic heart failure, NYHA class 3 Code(s): I50.23 - ACUTE ON CHRONIC SYSTOLIC (CONGESTIVE) HEART FAILURE Status: Acute (3) CAD (coronary artery disease) of artery bypass graft Code(s): I25.810 - ATHEROSCLEROSIS OF CABG W/O ANGINA PECTORIS Status: Acute (4) COPD exacerbation Code(s): J44.1 - CHRONIC OBSTRUCTIVE PULMONARY DISEASE W (ACUTE) EXACERBATION Status: Acute (5) Dyspnea Code(s): R06.00 - DYSPNEA, UNSPECIFIED Status: Acute (6) Anticoagulant long-term use Code(s): Z79.01 - HALF-WAY (CURRENT) USE OF 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 Status: Chronic (7) CKD (chronic kidney disease), stage III Code(s): N18.30 - CHRONIC KIDNEY DISEASE, STAGE 3 UNSPECIFIED Status: Chronic (8) DM2 (diabetes mellitus, type 2) Status: Chronic - Plan We will start patient on neb treatment, patient currently on steroid. Patient also on diuretics will change it to twice a day. Patient has been noncompliant with his medications. We will continue to monitor. Patient denies any chest pain.
[2020-07-14] MEDS: hydrALAZINE 25 MG TAB PO SCH ×2 (16:23→20:46)
[2020-07-14] MEDS: Isosorbide Dinitrate 20 MG TAB PO SCH ×2 (16:27→20:46)
[2020-07-14] MEDS: Carvedilol 6.25 MG TAB PO SCH (16:27)
[2020-07-14] MEDS: HumaLOG 300 UNITS/3 ML VIAL SC PRN ×2 (17:57→22:20)
[2020-07-14] MEDS: Apixaban 2.5 MG TAB PO SCH (20:46)
[2020-07-14] MEDS: Magnesium Oxide 400 MG TAB PO SCH (20:46)
[2020-07-15] MEDS: methylPREDNISolone Sod Succ 40 MG VIAL IVP SCH ×5 (00:20→23:29)
[2020-07-15 04:47] LABS: Band 6 % (5-11); Hemoglobin 12.2 g/dL (14.0-18.0); Lymphocytes 5 % (21-51); MDiff Complete? YES; Mean Corpuscular HGB CONC 30.1 g/dL (32.0-36.0); Mean Corpuscular Hemoglobin 26.1 pg (27.0-31.0); Mean Corpuscular Volume 86.8 fL (78.0-98.0); Mean Platelet Volume 11.3 fL (7.4-10.4); Monocytes 3 % (0-10); Neutrophil 86 % (42-75); Platelet Count 172 thou/uL (130-400); Platelet Morphology Comment Appears Adequate; RBC Distribution Width 18.2 % (11.5-14.5); Red Blood Cell (RBC) Count 4.68 mill/uL (4.70-6.10); White Blood Cell (WBC) Count 8.3 thou/uL (4.8-10.8)
[2020-07-15 05:00] LABS: Anion Gap 16 mmol/L (10-20); BUN (Urea Nitrogen) 26 mg/dL (8.4-25.7); Calc. Creatinine Clearance 60 mL/min (70-130); Calcium 8.6 mg/dL (7.8-10.44); Carbon Dioxide 24 mmol/L (23-31); Chloride 100 mmol/L (98-107); Glucose 235 mg/dL (80-115); Potassium 5.2 mmol/L (3.5-5.1); Sodium 135 mmol/L (136-145)
[2020-07-15] MEDS: HumaLOG 300 UNITS/3 ML VIAL SC PRN ×4 (06:23→21:15)
[2020-07-15] MEDS ORDERED: Furosemide 40 MG TAB PO SCH (07:30)
[2020-07-15] MEDS ORDERED: Vancomycin 1.5 GRAM/300 ML BAG 1.5 GM in Premix Bag 1 BAG IVPB SCH (09:00)
[2020-07-15] MEDS: Carvedilol 6.25 MG TAB PO SCH ×2 (09:08→16:54)
[2020-07-15] MEDS: Ferrous Gluconate 324 MG TAB PO SCH (09:09)
[2020-07-15] MEDS: Amiodarone 200 MG TAB PO SCH (09:09)
[2020-07-15] MEDS: DULoxetine 30 MG CAP PO SCH (09:10)
[2020-07-15] MEDS: Apixaban 2.5 MG TAB PO SCH ×2 (09:10→20:25)
[2020-07-15] MEDS: Aspirin Chewable 81 MG TAB PO SCH (09:10)
[2020-07-15] MEDS: Fludrocortisone Acetate 0.1 MG TAB PO SCH (09:10)
[2020-07-15] MEDS: Furosemide 40 MG/4 ML VIAL SLOW IVP SCH ×2 (09:11→20:25)
[2020-07-15] MEDS: Isosorbide Dinitrate 20 MG TAB PO SCH ×3 (09:11→20:26)
[2020-07-15] MEDS: hydrALAZINE 25 MG TAB PO SCH ×3 (09:11→20:26)
[2020-07-15] MEDS: Magnesium Oxide 400 MG TAB PO SCH ×2 (09:12→20:26)
[2020-07-15] MEDS: HYDROcodone/Acetaminophen 5/325 mg Tablet PO PRN ×2 (09:12→20:25)
--- NOTE | 2020-07-15 17:19 | PDOC.HOSPP ---
- Subjective Encounter Date: 07/15/20 Encounter Time: 11:20 Subjective: Patient up in bed states he feels much better. - Objective Vital Signs & Weight: Vital Signs (12 hours) Temp Pulse Resp BP BP Pulse Ox 07/15/20 16:53 74 135/66 07/15/20 15:31 97.1 F L 75 18 138/64 97 07/15/20 12:00 97.5 F L 75 18 131/66 99 07/15/20 11:35 75 20 07/15/20 11:33 97.4 F L 75 18 139/65 100 07/15/20 08:01 90 17 07/15/20 07:58 97.5 F L 75 17 146/72 H 96 Weight Weight 253 lb 8.505 oz I&O: 07/14/20 07/15/20 07/16/20 06:59 06:59 06:59 Intake Total 1920 Output Total 2225 Balance -305 Result Diagrams: 07/15/20 04:30 07/15/20 04:30 Additional Labs: Accuchecks 07/15/20 07/15/20 07/15/20 16:29 10:56 05:42 POC Glucose 282 H 323 H 247 H 07/14/20 07/14/20 21:10 17:24 POC Glucose 306 H 277 H Hospitalist ROS - Review of Systems Cardiovascular: denies: chest pain, palpitations, orthopnea, paroxysmal noc. dyspnea, edema, light headedness, other Gastrointestinal: denies: nausea, vomiting, abdominal pain, diarrhea, con stipation, melena, hematochezia, other Genitourinary: denies: dysuria, frequency, incontinence, hematuria, retention, other - Medication Medications: Active Medications Generic Name Dose Route Start Last Admin Trade Name Freq PRN Reason Stop Dose Admin Hydrocodone Bitart/Acetaminophen 2 tab 07/14/20 07:00 07/15/20 09:12 Hydrocodone/Acetaminophen 5/325 Mg Tablet PO 2 tab TIDPRN PRN Administration Moderate Pain (4-6) Albuterol/Ipratropium 3 ml 07/14/20 06:30 07/15/20 16:51 Ipratropium/Albuterol Sulfate 3 Ml Neb NEB Not Given [id number] WAYNE Amiodarone HCl 200 mg 07/15/20 09:00 07/15/20 09:09 Amiodarone 200 Mg Tab PO 200 mg DAILY WAYNE Administration Apixaban 2.5 mg 07/14/20 21:00 07/15/20 09:10 Apixaban 2.5 Mg Tab PO 2.5 mg BID WAYNE Administration Aspirin 81 mg 07/15/20 09:00 07/15/20 09:10 Aspirin Chewable 81 Mg Tab PO 81 mg DAILY WAYNE Administration Carvedilol 6.25 mg 07/14/20 17:00 07/15/20 16:54 Carvedilol 6.25 Mg Tab PO 6.25 mg BID-WM WAYNE Administration Duloxetine HCl 30 mg 07/15/20 09:00 07/15/20 09:10 Duloxetine 30 Mg Cap PO 30 mg DAILY WAYNE Administration Ferrous Gluconate 324 mg 07/15/20 08:00 07/15/20 09:09 Ferrous Gluconate 324 Mg Tab PO 324 mg QAM-WM WAYNE Administration Fludrocortisone Acetate 0.1 mg 07/15/20 09:00 07/15/20 09:10 Fludrocortisone Acetate 0.1 Mg Tab PO 0.1 mg DAILY WAYNE Administration Furosemide 40 mg 07/15/20 09:00 07/15/20 09:11 Furosemide 40 Mg/4 Ml Vial SLOW IVP 40 mg BID WAYNE Administration Hydralazine HCl 25 mg 07/14/20 15:00 07/15/20 15:37 Hydralazine 25 Mg Tab PO 25 mg TID WAYNE Administration Insulin Human Lispro 0 units 07/14/20 07:07 07/15/20 16:55 Humalog 300 Units/3 Ml Vial SC 4 unit .MILD SLIDING SCALE PRN Administration Mild Correctional Scale Isosorbide Dinitrate 20 mg 07/14/20 15:00 07/15/20 15:38 Isosorbide Dinitrate 20 Mg Tab PO 20 mg TID [facility]1983 Administration Magnesium Oxide 400 mg 07/14/20 21:00 07/15/20 09:12 Magnesium Oxide 400 Mg Tab PO 400 mg BID WAYNE Administration Methylprednisolone Sodium Succinate 40 mg 07/14/20 12:00 07/15/20 16:58 Methylprednisolone Sod Succ 40 Mg Vial IVP 40 mg Q6HR WAYNE Administration Sacubitril/Valsartan 1 tab 07/14/20 21:00 07/15/20 09:12 Sacubitril 24mg/Valsartan 26mg Tab PO 1 tab BID WAYNE Administration - Exam Neck: negative: supple, symmetric, no JVD, no thyromegaly, no lymphadenopathy, no carotid bruit, JVD Heart: negative: RRR, no murmur, no gallops, no rubs, normal peripheral pulses, irregular, diminshed peripheral pulses, murmur present, II/IV, III/IV Respiratory: rales Gastrointestinal: negative: soft, non-tender, non-distended, normal bowel sounds, no palpable masses, no hepatomegaly, no splenomegaly, no bruit, no guarding, no rigidity, tender to palpation, distended, diminished bowl sounds, voluntary guarding Extremities: 2+ LE edema Hosp A/P (1) Acute exacerbation of CHF (congestive heart failure) Code(s): I50.9 - HEART FAILURE, UNSPECIFIED Status: Acute Qualifiers: Heart failure type: unspecified Qualified Code(s): I50.9 - Heart failure, unspecified (2) Acute on chronic systolic heart failure, NYHA class 3 Code(s): I50.23 - ACUTE ON CHRONIC SYSTOLIC (CONGESTIVE) HEART FAILURE Status: Acute (3) CAD (coronary artery disease) of artery bypass graft Code(s): I25.810 - ATHEROSCLEROSIS OF CABG W/O ANGINA PECTORIS Status: Acute (4) COPD exacerbation Code(s): J44.1 - CHRONIC OBSTRUCTIVE PULMONARY DISEASE W (ACUTE) EXACERBATION Status: Acute (5) Dyspnea Code(s): R06.00 - DYSPNEA, UNSPECIFIED Status: Acute (6) Anticoagulant long-term use Code(s): Z79.01 - [facility]FP (CURRENT) USE OF 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 Status: Chronic (7) CKD (chronic kidney disease), stage III Code(s): N18.30 - CHRONIC KIDNEY DISEASE, STAGE 3 UNSPECIFIED Status: Chronic (8) DM2 (diabetes mellitus, type 2) Status: Chronic - Plan We will start patient on neb treatment, patient currently on steroid. Patient also on diuretics will change it to twice a day. Patient has been noncompliant with his medications. We will continue to monitor. Patient denies any chest pain. 07/15 spoke with patient in detail about diet he states that he eats significantly salty foods. I did explain to him the importance of low-salt diet. Patient has a follow-up appointment with his primary on Friday. He has been diuresing well. Patient states that he feels much better. Possible discharge in the next 24 to 48 hours.
[2020-07-16] MEDS: HYDROcodone/Acetaminophen 5/325 mg Tablet PO PRN ×3 (03:39→20:39)
[2020-07-16 04:56] LABS: #Lymphocytes 0.9 thou/uL (1.20-3.40); #Monocytes 0.3 thou/uL (0.11-0.59); #Neutrophils 10.5 thou/uL (1.40-6.50); %Eosinophils 0.1 % (0.0-10.0); %Lymphocytes 7.5 % (21.0-51.0); %Monocytes 2.6 % (0.0-10.0); %Neutrophils 89.9 % (42.0-75.0); Hemoglobin 11.8 g/dL (14.0-18.0); Mean Corpuscular HGB CONC 28.9 g/dL (32.0-36.0); Mean Corpuscular Hemoglobin 24.8 pg (27.0-31.0); Mean Corpuscular Volume 85.8 fL (78.0-98.0); Mean Platelet Volume 11.4 fL (7.4-10.4); Platelet Count 211 thou/uL (130-400); RBC Distribution Width 18.3 % (11.5-14.5); Red Blood Cell (RBC) Count 4.75 mill/uL (4.70-6.10); White Blood Cell (WBC) Count 11.7 thou/uL (4.8-10.8)
[2020-07-16 05:15] LABS: Anion Gap 14 mmol/L (10-20); BUN (Urea Nitrogen) 30 mg/dL (8.4-25.7); Calc. Creatinine Clearance 60 mL/min (70-130); Calcium 8.7 mg/dL (7.8-10.44); Carbon Dioxide 27 mmol/L (23-31); Chloride 96 mmol/L (98-107); Glucose 257 mg/dL (80-115); Potassium 4.4 mmol/L (3.5-5.1); Sodium 133 mmol/L (136-145)
[2020-07-16] MEDS: HumaLOG 300 UNITS/3 ML VIAL SC PRN ×3 (06:31→23:10)
[2020-07-16] MEDS: methylPREDNISolone Sod Succ 40 MG VIAL IVP SCH ×2 (06:32→13:18)
[2020-07-16] MEDS: Amiodarone 200 MG TAB PO SCH (10:30)
[2020-07-16] MEDS: hydrALAZINE 25 MG TAB PO SCH ×3 (10:30→20:38)
[2020-07-16] MEDS: Ferrous Gluconate 324 MG TAB PO SCH (10:31)
[2020-07-16] MEDS: Magnesium Oxide 400 MG TAB PO SCH ×2 (10:31→20:37)
[2020-07-16] MEDS: Isosorbide Dinitrate 20 MG TAB PO SCH ×3 (10:31→20:38)
[2020-07-16] MEDS: Carvedilol 6.25 MG TAB PO SCH ×2 (10:31→17:03)
[2020-07-16] MEDS: Aspirin Chewable 81 MG TAB PO SCH (10:32)
[2020-07-16] MEDS: DULoxetine 30 MG CAP PO SCH (10:32)
[2020-07-16] MEDS: Apixaban 2.5 MG TAB PO SCH ×2 (10:32→20:38)
[2020-07-16] MEDS: Fludrocortisone Acetate 0.1 MG TAB PO SCH (10:32)
[2020-07-16] MEDS: Furosemide 40 MG/4 ML VIAL SLOW IVP SCH (10:33)
[2020-07-16] MEDS: Insulin Glargine 10 UNITS in Pre-Filled Syringe 1 EACH SC SCH (10:33)
[2020-07-16 12:40] LABS: Hemoglobin A1c 7.3 % (4.0-6.0)
--- NOTE | 2020-07-16 14:22 | PDOC.HOSPP ---
- Subjective Encounter Date: 07/16/20 Encounter Time: 10:15 Subjective: pt up in bed complains of sob. - Objective Vital Signs & Weight: Vital Signs (12 hours) Temp Pulse Resp BP BP Pulse Ox 07/16/20 11:25 71 13 07/16/20 11:18 108/58 L 07/16/20 10:30 75 07/16/20 08:03 75 16 07/16/20 08:00 97.4 F L 75 16 132/66 96 07/16/20 04:00 97.6 F 77 20 146/69 H 93 L Weight Weight 254 lb 4.8 oz I&O: 07/15/20 07/16/20 07/17/20 06:59 06:59 06:59 Intake Total 1920 2860 375 Output Total 2229 3825 250 Balance -305 -965 125 Result Diagrams: 07/16/20 04:32 07/16/20 04:32 Additional Labs: Accuchecks 07/16/20 07/15/20 07/15/20 05:48 20:22 16:29 POC Glucose 260 H 367 H 282 H Hospitalist ROS - Review of Systems Respiratory: reports: shortness of breath Cardiovascular: denies: chest pain, palpitations, orthopnea, paroxysmal noc. dyspnea, edema, light headedness, other Gastrointestinal: denies: nausea, vomiting, abdominal pain, diarrhea, constipation, melena, hematochezia, other Musculoskeletal: denies: neck pain, shoulder pain, arm pain, back pain, hand pain, leg pain, foot pain, other - Medication Medications: Active Medications Generic Name Dose Route Start Last Admin Trade Name Freq PRN Reason Stop Dose Admin Hydrocodone Bitart/Acetaminophen 2 tab 07/14/20 07:00 07/16/20 10:41 Hydrocodone/Acetaminophen 5/325 Mg Tablet PO 2 tab TIDPRN PRN Administration Moderate Pain (4-6) Albuterol/Ipratropium 3 ml 07/14/20 06:30 07/16/20 11:25 Ipratropium/Albuterol Sulfate 3 Ml Neb NEB 3 ml [id number] WAYNE Administration Amiodarone HCl 200 mg 07/15/20 09:00 07/16/20 10:30 Amiodarone 200 Mg Tab PO 200 mg DAILY WAYNE Administration Apixaban 2.5 mg 07/14/20 21:00 07/16/20 10:32 Apixaban 2.5 Mg Tab PO 2.5 mg BID WAYNE Administration Aspirin 81 mg 07/15/20 09:00 07/16/20 10:32 Aspirin Chewable 81 Mg Tab PO 81 mg DAILY WAYNE Administration Carvedilol 6.25 mg 07/14/20 17:00 07/16/20 10:31 Carvedilol 6.25 Mg Tab PO 6.25 mg BID-WM WAYNE Administration Duloxetine HCl 30 mg 07/15/20 09:00 07/16/20 10:32 Duloxetine 30 Mg Cap PO 30 mg DAILY [facility] Administration Ferrous Gluconate 324 mg 07/15/20 08:00 07/16/20 10:31 Ferrous Gluconate 324 Mg Tab PO 324 mg QAM-WM [facility] Administration Fludrocortisone Acetate 0.1 mg 07/15/20 09:00 07/16/20 10:32 Fludrocortisone Acetate 0.1 Mg Tab PO 0.1 mg DAILY WAYNE Administration Hydralazine HCl 25 mg 07/14/20 15:00 07/16/20 10:30 Hydralazine 25 Mg Tab PO 25 mg TID [facility] Administration Insulin Glargine 10 units/ 0.1 mls @ 0 mls/hr 07/16/20 09:00 07/16/20 10:33 Miscellaneous Medication SC 0.1 mls QAM [facility] Administration Insulin Human Lispro 0 units 07/14/20 07:07 07/16/20 13:18 Humalog 300 Units/3 Ml Vial SC 4 unit .MILD SLIDING SCALE PRN Administration Mild Correctional Scale Insulin Human Lispro 0 units 07/15/20 21:03 07/15/20 21:15 Humalog 300 Units/3 Ml Vial SC 5 unit .BEDTIME SLIDING SC PRN Administration Bedtime Correctional Scale Isosorbide Dinitrate 20 mg 07/14/20 15:00 07/16/20 10:31 Isosorbide Dinitrate 20 Mg Tab PO 20 mg TID [facility] Administration Magnesium Oxide 400 mg 07/14/20 21:00 07/16/20 10:31 Magnesium Oxide 400 Mg Tab PO 400 mg BID WAYNE Administration Sacubitril/Valsartan 1 tab 07/14/20 21:00 07/16/20 10:30 Sacubitril 24mg/Valsartan 26mg Tab PO 1 tab BID WAYNE Administration Sterile Water 1 ml 07/14/20 06:45 07/16/20 13:19 Bacteriostatic Water 30 Ml Vial FS 1 ml PRN PRN Administration RECONSTITUTION - Exam Neck: negative: supple, symmetric, no JVD, no thyromegaly, no lymphadenopathy, no carotid bruit, JVD Heart: negative: RRR, no murmur, no gallops, no rubs, normal peripheral pulses, irregular, diminshed peripheral pulses, murmur present, II/IV, III/IV Respiratory: wheezes Gastrointestinal: negative: soft, non-tender, non-distended, normal bowel sounds, no palpable masses, no hepatomegaly, no splenomegaly, no bruit, no guarding, no rigidity, tender to palpation, distended, diminished bowl sounds, voluntary guarding Hosp A/P (1) Acute exacerbation of CHF (congestive heart failure) Code(s): I50.9 - HEART FAILURE, UNSPECIFIED Status: Acute Qualifiers: Heart failure type: unspecified Qualified Code(s): I50.9 - Heart failure, unspecified (2) Acute on chronic systolic heart failure, NYHA class 3 Code(s): I50.23 - ACUTE ON CHRONIC SYSTOLIC (CONGESTIVE) HEART FAILURE Status: Acute (3) CAD (coronary artery disease) of artery bypass graft Code(s): I25.810 - ATHEROSCLEROSIS OF CABG W/O ANGINA PECTORIS Status: Acute (4) COPD exacerbation Code(s): J44.1 - CHRONIC OBSTRUCTIVE PULMONARY DISEASE W (ACUTE) EXACERBATION Status: Acute (5) Dyspnea Code(s): R06.00 - DYSPNEA, UNSPECIFIED Status: Acute (6) Anticoagulant long-term use Code(s): Z79.01 - VULNERABILITY ASSESSMENT ANALYST (CURRENT) USE OF 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 Status: Chronic (7) CKD (chronic kidney disease), stage III Code(s): N18.30 - CHRONIC KIDNEY DISEASE, STAGE 3 UNSPECIFIED Status: Chronic (8) DM2 (diabetes mellitus, type 2) Status: Chronic - Plan We will start patient on neb treatment, patient currently on steroid. Patient also on diuretics will change it to twice a day. Patient has been noncompliant with his medications. We will continue to monitor. Patient denies any chest pain. 07/15 spoke with patient in detail about diet he states that he eats significantly salty foods. I did explain to him the importance of low-salt diet. Patient has a follow-up appointment with his primary on Friday. He has been diuresing well. Patient states that he feels much better. Possible discharge in the next 24 to 48 hours. 07/16 will decreae to daily. will get echo. will change steroids to oral. His blood cx i believe is a contaminant. I did give him one dose of abx.
[2020-07-16] MEDS: HumaLOG 300 UNITS/3 ML VIAL SC SCH (17:02)
[2020-07-17] MEDS: HumaLOG 300 UNITS/3 ML VIAL SC PRN (06:08)
[2020-07-17] MEDS: HYDROcodone/Acetaminophen 5/325 mg Tablet PO PRN ×2 (06:09→14:21)
[2020-07-17] MEDS ORDERED: predniSONE 20 MG TAB PO SCH (08:00)
[2020-07-17] MEDS: HumaLOG 300 UNITS/3 ML VIAL SC SCH ×2 (08:56→12:20)
[2020-07-17] MEDS: Insulin Glargine 10 UNITS in Pre-Filled Syringe 1 EACH SC SCH (08:56)
[2020-07-17] MEDS: Carvedilol 6.25 MG TAB PO SCH (09:00)
[2020-07-17] MEDS ORDERED: Furosemide 40 MG/4 ML VIAL SLOW IVP SCH (09:00)
[2020-07-17] MEDS: Amiodarone 200 MG TAB PO SCH (09:01)
[2020-07-17] MEDS: Apixaban 2.5 MG TAB PO SCH (09:01)
[2020-07-17] MEDS: Aspirin Chewable 81 MG TAB PO SCH (09:01)
[2020-07-17] MEDS: Ferrous Gluconate 324 MG TAB PO SCH (09:01)
[2020-07-17] MEDS: DULoxetine 30 MG CAP PO SCH (09:02)
[2020-07-17] MEDS: Magnesium Oxide 400 MG TAB PO SCH (09:02)
[2020-07-17] MEDS: Fludrocortisone Acetate 0.1 MG TAB PO SCH (09:02)
[2020-07-17] MEDS: hydrALAZINE 25 MG TAB PO SCH ×2 (09:02→14:21)
[2020-07-17] MEDS: Isosorbide Dinitrate 20 MG TAB PO SCH ×2 (09:02→14:20)
--- NOTE | 2020-07-17 12:07 | DIS ---
DATE OF ADMISSION: 07/14/2020 DATE OF DISCHARGE: 07/17/2020 PRIMARY CARE PROVIDER: He states he has one, does not know his number, has an appointment to see him tomorrow. DIAGNOSES: 1. Acute on chronic systolic heart failure. 2. Acute respiratory failure on chronic respiratory failure. 3. Chronic obstructive pulmonary disease exacerbation. 4. Elevated troponins, chronic. 5. Diabetes mellitus type 2. 6. Hypertension. 7. Dyslipidemia. 8. Atrial fibrillation. DISCHARGE MEDICATIONS: He takes, 1. Hydrocodone 5/325, which he did not receive a prescription for. 2. Aspirin 81 mg a day. 3. Hydralazine 25 mg p.o. t.i.d. 4. Entresto one tablet twice a day. 5. Isordil 20 mg p.o. t.i.d. 6. Insulin glargine 10 units in the morning. 7. Lasix 40 mg a day. 8. Florinef 0.1 mg a day. 9. Cymbalta 30 mg a day. 10. Coreg 6.25 mg twice a day. 11. Eliquis 2.5 mg twice a day. 12. Amiodarone 200 mg a day. ALLERGIES: IBUPROFEN. CODE STATUS: Full. DIET: Diabetic. No added salt. PENDING AT TIME OF DISCHARGE: Nothing. HOSPITAL COURSE: The patient admitted to the Hospitalist Service through emergency department with decompensated heart failure. It is pertinent to note that the patient did not refill his medicines on his last visit. Pertinent to note, this is his fourth admission since 01/2020. In fact, he blamed me for not refilling his medicines and the last time I saw him was in January of 2020. The patient was found to have cardiomegaly with pulmonary vascular congestion. His O2 saturation was below 90. It is valid to note he is on home O2. His laboratory; CBC, white count 8.7, hemoglobin 13.1, platelet count 197,000. Comprehensive metabolic profile, lytes balanced. Creatinine 1.95, blood sugar 124. Lactic acid was normal. Total bilirubin was minimally elevated at 2.4. Transaminases were normal. His troponins were 0.074, 0.059, consistent with past admissions. The patient was given a short course of steroids, short course of IV Lasix. His chest cleared. At the present time, he is doing well, desirous of going home. He is being discharged. CONSULTATIONS: None. PROCEDURES: None. FOLLOWUP: He does have follow up with his PCP tomorrow. Job ID: [id number]
[2020-07-17 12:20] VITALS: TEMP 97.3
[2020-07-17 14:21] VITALS: BP 144/62
--- NOTE | 2020-07-20 20:39 | PQF ---
CLINICAL DOCUMENTATION CLARIFICATION FORM: Dear : MIMI JOYA MD Date / Time: 07/21/2020 Please exercise your independent, professional judgment in responding to the clarification form. Clinical indicators are provided on the bottom of this form for your review Please check appropriate box(es) to clarify if the following diagnosis has been ruled in our ruled out: [ ] Ruled in NSTEMI [ ] Continue to treat [ ] Resolved [ ] Ruled out NSTEMI [ ] Improving [ w ] Cannot rule out diagnosis [ ] Other diagnosis (Please specify if any) [ ] Unable to determine In addition, please specify: Present on Admission (POA): [ w ] Yes [ ] No [ ] Unable to determine Physician Signature: Date/Time: For continuity of documentation, please document condition throughout progress notes and discharge summary. Thank You. To be completed by CDI/Coding staff for physician review: Present Clinical Indicators - Signs / Symptoms / Labs Results and Location in Medical Record [x] NSTEMI, likely demand H&P on 07/14 [x] Troponin-0.0074,0.059, 0.042 Laboratory on 07/14 [x] Elevated troponin, chronic Discharge summary on 07/17 [ ] Present Risk Factors Results and Location in Medical Record [x] Hypertension, CHF H&P on 07/14 [x] CAD Hospitalist PN on 07/14 Present Treatments Results and Location in Medical Record [x] Aspirin 81mg PO Medication from 07/15 to 07/17 [ ] [ ] [ ] CDS/Flute Teacher Signature: AAS Phone #: Date/Time: 07/21/2020 This is a permanent part of the Medical Record [facility]
== END 2020-07-17 14:35 | disposition home or self-care (01) | DRG 280 ==
LOC: ERS 03:29 → SUATTDRO 03:29 → 2NO 05:18
PROVIDERS: ADMIT Internal Medicine; ATTEND Internal Medicine
DX: I13.0 Hypertensive heart and chronic kidney disease with heart failure and stage 1 through stage 4 chronic kidney disease, or unspecified chronic kidney disease (principal); I50.23 Acute on chronic systolic (congestive) heart failure; I21.4 Non-ST elevation (NSTEMI) myocardial infarction; J96.21 Acute and chronic respiratory failure with hypoxia; J44.1 Chronic obstructive pulmonary disease with (acute) exacerbation; I25.810 Atherosclerosis of coronary artery bypass graft(s) without angina pectoris; E78.5 Hyperlipidemia, unspecified; N18.30 Chronic kidney disease, stage 3 unspecified; E11.22 Type 2 diabetes mellitus with diabetic chronic kidney disease; M54.5 Low back pain; G89.29 Other chronic pain; D64.9 Anemia, unspecified; I48.91 Unspecified atrial fibrillation; Z95.1 Presence of aortocoronary bypass graft; Z95.0 Presence of cardiac pacemaker; Z88.8 Allergy status to other drugs, medicaments and biological substances; Z79.899 Other long term (current) drug therapy; Z87.891 Personal history of nicotine dependence; Z91.018 Allergy to other foods; Z79.82 Long term (current) use of aspirin; Z95.5 Presence of coronary angioplasty implant and graft; Z79.01 Long term (current) use of anticoagulants
CPT/HCPCS: 0240U; 36415; 36416; 71045; 80048; 80053; 81003; 81015; 82550; 82553; 83036; 83605; 83880; 84484; 85025; 87040; 87149; 93005; 93306; 94640; 94660; 94760; 96374; J1815; J1940; J2920; J3370; J7512; J7611; J7620

== ENCOUNTER 2020-08-03 22:28 | Inpatient (IN) | payer MEDICARE, MEDICAID ==
[2020-08-03] MEDS ORDERED: Albuterol 200 PUFF (6.7GM INHALER) ONE (23:12)
[2020-08-03] MEDS ORDERED: Dexamethasone 10 MG/ML VIAL ONE (23:13)
[2020-08-03 23:39] LABS: ALT (SGPT) 15 U/L (8-55); AST (SGOT) 21 U/L (5-34); Albumin 3.8 g/dL (3.4-4.8); Alkaline Phosphatase 64 U/L (40-110); Anion Gap 20 mmol/L (10-20); BUN (Urea Nitrogen) 30 mg/dL (8.4-25.7); Bilirubin, Total 4.1 mg/dL (0.2-1.2); Calc. Creatinine Clearance 0 mL/min (70-130); Calcium 8.4 mg/dL (7.8-10.44); Carbon Dioxide 23 mmol/L (23-31); Chloride 96 mmol/L (98-107); Glucose 130 mg/dL (80-115); Potassium 4.5 mmol/L (3.5-5.1); Protein, Total 7.8 g/dL (5.8-8.1); Sodium 134 mmol/L (136-145)
[2020-08-03 23:47] LABS: Band 12 % (5-11); Hemoglobin 11.3 g/dL (14.0-18.0); Lymphocytes 5 % (21-51); MDiff Complete? YES; Mean Corpuscular HGB CONC 29.4 g/dL (32.0-36.0); Mean Corpuscular Hemoglobin 25.3 pg (27.0-31.0); Mean Platelet Volume 11.9 fL (7.4-10.4); Monocytes 6 % (0-10); Neutrophil 76 % (42-75); Platelet Count 162 thou/uL (130-400); RBC Distribution Width 19.3 % (11.5-14.5); Red Blood Cell (RBC) Count 4.48 mill/uL (4.70-6.10); White Blood Cell (WBC) Count 18.6 thou/uL (4.8-10.8)
[2020-08-04 00:01] LABS: CKMB 1.3 ng/mL (0-6.6)
[2020-08-04] MEDS ORDERED: cefTRIAXone\\ROCEPHIN 1 GM VIAL ONE (00:21)
[2020-08-04] MEDS ORDERED: Nitroglycerin 2% Ointment 1 INCH/1 GM Packet ONE (00:21)
[2020-08-04 00:57] LABS: Bacteria/HPF 3+ HPF (None Seen); Bilirubin 1+ (Negative); Blood, Urine 3+ (Negative); Calcium Oxalate Crystals Rare HPF (None Seen); Clarity Extra Turbid (Clear); Glucose, Urine (Dipstick) Normal (Negative); Ketone, Urine Negative (Negative); Leukocyte 500 Leu/uL (Negative); Nitrite Negative (Negative); Protein, Urine (Dipstick) 300 mg/dL (Neg-Trace); RBC/HPF Greater than 50 HPF (0-3); Specific Gravity, Urine 1.021 (1.002-1.036); Squamous Epithelial None Seen HPF (0-3); Urobilinogen 6 mg/dL (Less than 2); WBC/HPF Greater than 50 HPF (0-3)
[2020-08-04] MEDS ORDERED: Furosemide 40 MG/4 ML VIAL ONE (01:23)
[2020-08-04 02:04] LABS: SARS-CoV-2 NAA Rapid Test Not Detected (NotDetected)
[2020-08-04 03:44] LABS: Troponin I 0.107 ng/mL (< 0.028)
[2020-08-04 04:24] VITALS: BMI 38.9
[2020-08-04 06:48] LABS: Troponin I 0.081 ng/mL (< 0.028)
[2020-08-04 07:00] LABS: Glucose 211 mg/dL (80-115)
--- NOTE | 2020-08-04 08:30 | RAD ---
PORTABLE CHEST: DATE: 08/03/2020. PROVIDED CLINICAL HISTORY: Shortness of breath. FINDINGS: Comparison 07/14/2020. Cardiac and mediastinal silhouette unchanged in appearance. Left subclavian c ardiac pacing device, atherosclerosis, and median sternotomy change are redemonstrated. There is poo r definition to the left costophrenic angle that may reflect pleural fluid. There is no evidence for pneumothorax. No focal consolidation is evident. IMPRESSION: Cardiomegaly and possible left pleural fluid. POS: DEVEN
[2020-08-04] MEDS ORDERED: Senokot S 8.6-50 MG TAB PO PRN (08:40)
[2020-08-04] MEDS ORDERED: Ondansetron ODT 4 MG TAB PO PRN (08:40)
[2020-08-04] MEDS ORDERED: Acetaminophen 325 MG TAB PO PRN (08:40)
[2020-08-04] MEDS ORDERED: Enoxaparin Sodium 40 MG/0.4 ML SYRINGE SC SCH (09:00)
[2020-08-04] MEDS: Famotidine 20 MG TAB PO SCH (10:24)
[2020-08-04] MEDS: HYDROcodone/Acetaminophen 5/325 mg Tablet PO PRN ×3 (10:25→22:26)
--- NOTE | 2020-08-04 11:17 | HP ---
PRIMARY CARE PHYSICIAN: At . CONSULTATION CALLED: Dr. Yeimy Suh, Cardiology. REASON FOR ADMISSION: Shortness of breath and wheezing. HISTORY OF PRESENT ILLNESS: This is a very pleasant 69-year-old male gentleman, who recently was discharged on 07/17/2020 for congestive heart failure with an ejection fraction of 20% to 25%, associated with history of COPD and extensive medical noncompliance, presents back to the emergency room early this morning with complaints of shortness of breath associated with wheezing and generalized weakness. The patient says he was unable to follow up with his primary care physician because he had a to attend and unfortunately was noncompliant on his medications. Basing on the patient's past medical history, he had many recurrent admissions and at one point of time, he was on noninvasive ventilation. The patient takes Eliquis for his cardiomyopathy and currently evaluation in the emergency room with a chest x-ray showed evidence of left pleural effusion with possibility of tinge of pneumonia. The patient on my evaluation at his bedside has back pain, shortness of breath associated with bilateral wheezing. No other complaints of chest pain, abdominal pain, fever, rigors, chills, nausea, vomiting, diaphoresis, blurring of vision, tingling, numbness, burning micturition, constipation, claudication, anxiety, depression, hematuria, hematochezia, cough, expectoration, syncope, seizures, PND, or orthopnea has been noted. The patient does claim though he has significant orthopnea at home and unfortunately has not been compliant with fluid intake as he has been extensively educated prior for restricting fluid intake per day to 2 L. PAST MEDICAL HISTORY: 1. Diabetes mellitus type 2, insulin dependent. 2. Benign essential hypertension. 3. Congestive heart failure, ejection fraction of 20% to 25%. 4. COPD. PAST SURGICAL HISTORY: 1. History of CABG. 2. Status post pacemaker and questionable AICD presence. 3. History of PTCA. FAMILY HISTORY: Strong family history of diabetes, hypertension, and coronary artery disease both in his maternal and paternal family. SOCIAL HISTORY: The patient is a former smoker. Denies alcohol use. 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 OCCUPATION: The patient is disabled, on social security. ACTIVITY LEVEL: Uses a cane, walker. MEDICATIONS AT HOME: 1. Amiodarone 200 mg daily. 2. Eliquis 2.5 mg b.i.d. 3. Aspirin 81 mg daily. 4. Coreg 6.25 mg b.i.d. 5. Decadron 2 mg daily. 6. Cymbalta 30 mg daily. 7. Ferrous gluconate 324 mg daily. 8. Fludrocortisone 0.1 mg daily. 9. Lasix 40 mg twice daily. 10. Hydralazine 25 mg t.i.d. 11. Isosorbide dinitrate 20 mg t.i.d. 12. Entresto 1 tab b.i.d. REVIEW OF SYSTEMS: Except as documented, all systems reviewed and negative. PHYSICAL EXAMINATION: GENERAL: This is a very pleasant 69-year-old male gentleman, who is morbidly obese, associated with complaints of shortness of breath and some cough. VITAL SIGNS: Has a temperature of 98.1 degrees Fahrenheit, heart rate of 75 per minute, blood pressure of 142/73 mmHg, respiratory rate of 21 per minute, saturation 98% on 2 L of oxygen. Has an airway, which is clear. HEENT: Atraumatic, normocephalic. NECK: Supple. No bruit. No lymphadenopathy. CVS: S1, S2. No abnormal rhythms noted. CHEST: Bilateral air entry present, but decreased. Basal creps noted. ABDOMEN: Soft, nontender. Bowel sounds are present. No organomegaly. EXTREMITIES: No cyanosis. No edema. No icterus. No pallor. NEUROLOGIC: The patient is alert, oriented. No focal motor or sensory deficits noted. HEME: No ecchymosis or petechiae. PSYCH: No depression. Normal mood. EXTREMITIES: No cyanosis. SKIN: Dry and intact. DIAGNOSTICS: WBC is 18.6, hemoglobin 11.3, hematocrit 38.5, platelets are 162. Sodium 134, potassium 4.5, chloride 96, carbon dioxide 23, BUN 30, creatinine 2.12, glucose 130, total bilirubin 4.1, AST 21, ALT 15. CK-MB is 1.3. Troponins 0.116, 0.107, 0.081. BNP is 1695. Urinalysis has been reviewed, shows 3+ bacteria. COVID-19 testing is negative including influenza evaluation. Chest x-ray review shows evidence of cardiomegaly and possible left-sided pleural fluid. ASSESSMENT: 1. Acute systolic congestive heart failure exacerbation. Ejection fraction of 20% to 25%. The patient currently has been started on Lasix 40 mg twice daily along with continuing Entresto as well as Coreg. 2. Parapneumonic effusion. We will start the patient on oral Augmentin therapy 875 mg b.i.d. at this point of time. This is more mild to moderate. 3. Chronic obstructive pulmonary disease, chronic in nature. We will start the patient on DuoNeb nebulizations at this point of time. 4. Type 2 [id number] myocardial infarction, likely demand ischemia and this is chronic, though we have consulted cardiology services. 5. Anemia of chronic disease. 6. Chronic low back pain, on [place]. 7. Chronic kidney disease, stage 3 or 4. 8. Morbid obesity. 9. Significant medical noncompliance in followup and medication use. 10. History of pacemaker placement, not sure if the patient has an AICD. PLAN: Discussed in detail of the diagnosis, treatment, and followup with the patient. I have advised the patient about continuation of Eliquis and home medications including Entresto and Coreg. I will start the patient on Lasix for fluid overload with 40 mg IV twice daily. Close monitoring of the patient's renal parameters to be noted at this point of time and any increase in the trend, we will consult nephrology services. Advance directives are full code. The patient has been repeatedly extensively educated in regard to medical noncompliance on medical and medication use as this is very important for the patient's comorbidities. I have explained the patient about adverse consequences, not excluding and sudden cardiac . I advised the patient about Lasix, Eliquis, and congestive heart failure medications. We will start the patient on DuoNeb nebulizations every 6 hours. We will restart the patient back on [place] for his back pain. I have consulted Dr. Gaffney, community worker on consult, for further review of the patient's CHF. The patient has recurrent admissions to the hospital with similar complaints and elevated troponins, which are not uncommon and the patient is unfortunately significantly noncompliant. Discharge plan will depend on further hospital course. DVT/GI prophylaxis has been activated. Job ID: [id number] [facility]
[2020-08-04] MEDS: hydrALAZINE 25 MG TAB PO SCH ×2 (14:37→21:00)
[2020-08-04] MEDS: Furosemide 40 MG/4 ML VIAL SLOW IVP SCH (14:37)
[2020-08-04] MEDS: Isosorbide Dinitrate 20 MG TAB PO SCH ×2 (14:38→21:00)
[2020-08-04] MEDS: Carvedilol 6.25 MG TAB PO SCH (16:37)
--- NOTE | 2020-08-04 20:04 | CON ---
DATE OF CONSULTATION: 08/04/2020 HISTORY OF PRESENT ILLNESS: Mr. Pinto is a 69-year-old male with a significant history for congestive heart failure as well as noncompliance who was actually discharged from our facility on July 17, 2020. He states that he had continuous coughing with white productive sputum, shortness of breath and wheezing as well as orthopnea at night. He statess that these symptoms never resolved since his discharge. So, he decided to come to the emergency room. He states he has been sleeping, sitting up on the couch due to his back pain and shortness of breath which ultimately brought him to the emergency room. He denies any chest pain or palpitations. After his last discharge in June, he said he was to follow up with primary care provider, but was unable to do due to a in the family. He has had several recurrent hospital admissions for congestive heart failure exacerbation and COPD. He does state he did take his medications upon discharge but is unable to remember the names of the medications. PAST MEDICAL HISTORY: Coronary artery disease. He did have a myocardial infarction as well as a coronary artery bypass graft done in 2017. He did have 2 stents placed in 2019 due to chest pain. He does have a history of congestive heart failure. Most recent echocardiogram on July 17, 2020 did show an ejection fraction of 20% to 25%, diastolic disfunction, moderately dilated left atrium. He does have a BiV ICD with leads visualized in the right atrium. He does have a moderately enlarged right atrium. He also has mild mitral regurgitation as well as mitral tricuspid regurgitation as well as mild pulmonic regurgitation. He also has history of COPD, type 2 diabetes, hypertension, and chronic back pain. PAST SURGICAL HISTORY: Include CABG in 2017 as well as pacemaker defibrillator placed in 2017 in [place] per the patient report. He did have stent placed in 2019. 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 He has also been having some issue with his left eye. He is having trouble seeing in his left eye and he also states he is seeing an eye doctor for this. SOCIAL HISTORY: The patient states that he used illicit drugs and smoked, but stopped all of that in 2012. He also states he quit drinking alcohol in 2012. He does live with his niece. He does have 1 daughter. FAMILY HISTORY: Significant for diabetes, hypertension, and coronary artery disease. ALLERGIES: HE IS ALLERGIC TO IBUPROFEN WHICH CAUSES ITCHING AND TOMATOES. REVIEW OF SYSTEMS: HEENT: He denies any headache, hearing loss, tinnitus, vertigo, or nose bleed. He does complain of vision changes to his left eye. PULMONARY: He does complain of wheezing and shortness of breath. He denies any smoking. CARDIAC: He denies palpitations or chest pains. He does complain of orthopnea and dyspnea on exertion. GASTROINTESTINAL: He does denied dysphagia, dyspepsia, abdominal pain, nausea, vomiting, diarrhea, constipation, jaundice, change in bowel habits, rectal bleeding. GENITOURINARY: He does complain of dysuria as well as dark foul-smelling urine and urinary hesitancy and frequency. MUSCULOSKELETAL: He does complain of right upper leg pain. He states he experienced this since before his last discharge. NEUROLOGICAL: He denies any seizure, syncope, paralysis, tremors, or weakness. PHYSICAL EXAMINATION: VITAL SIGNS: His current set of vital signs, blood pressure 162/80, temperature 97.6 degrees Fahrenheit, pulse is 75, respirations 18. He is 96% on room air. HEENT: Normocephalic and atraumatic. His carotids are 2+. I do not hear any bruits. I do not see any JVD. CHEST: He does have diminished breath sounds bilaterally, anteriorly, and posteriorly throughout. He does appear slightly tachypneic upon examination and he does have audible expiratory wheezing. CARDIOVASCULAR: He does have a regular rate and rhythm with a normal S1 and S2. I do not hear any significant murmurs, heaves, thrills, or rubs. ABDOMEN: His abdomen is obese and distended. It is soft but nontender. He does have bowel sounds present in 4 quadrants. He said this is his normal abdomen size for him. EXTREMITIES AND MUSCULOSKELETAL: He does have a normal gait. He does use a walker. Normal muscle strength and tone. No cyanosis or clubbing. He pedal pulses are 1+ and equal. NEUROLOGICAL: Unremarkable. LABORATORY DATA: Most recent labs include white blood cell count of 18.6, red blood cells 4.48, hemoglobin 11.3, hematocrit 38.5, platelets are 162. Sodium level 134, potassium 4.5, BUN is 30, his creatinine is 2.12. His most recent glucose is 252. His BNP is 1695.5 and he did have troponins 0.116 and they have trended down to 0.081. MEDICATIONS: His home medications upon arrival to the hospital included: 1. Aspirin 81 mg. 2. Ferrous gluconate 324 mg once daily with meals. 3. Cymbalta 30 mg daily. 4. He was on Lantus insulin 10 units every morning. 5. Hydrocodone/[place] 5/325 two tablets 3 times a day as needed. 6. Hydralazine 25 mg 3 times a day. 7. Amiodarone 200 mg daily. 8. Carvedilol 6.25 mg twice a day. 9. He is on Eliquis 2.5 mg twice daily. 10. He is on Entresto 24/26 mg 1 tablet twice daily. 11. He does take florinef 0.1 mg daily. 12. He is on isosorbide dinitrate 20 mg 3 times daily. 13. He is also on furosemide 40 mg daily. 14. Magnesium oxide 400 mg twice daily. 15. Decadron 1 mg tablet. He takes 2 mg once a day. IMPRESSION AND PLAN: 1. Acute systolic congestive heart failure exacerbation. Right now, we currently have him on IV Lasix 40 mg twice daily. We will also place him on a fluid restriction diet 15,000 mL per day. He has diuresed some today. He will continue to monitor this closely. He is also on aspirin, Coreg, Entresto. 2. He does have a left pleural effusion. He is started on Augmentin for this. 3. Chronic obstructive pulmonary disease. 4. Type 2 non-ST segment elevation myocardial infarction more than likely demand ischemia which is chronic for him. 5. He does have urinary tract infection. He is on antibiotics for this and is treated by the primary care services. 6. Chronic anemia. 7. Chronic low back pain. 8. Chronic kidney disease. His creatinine today is 2.12. 9. Morbid obesity. 10. Noncompliance. 11. Biventricular ICD placement which was placed in [place] in 2017 per report. At this time, we will continue to follow Mr. Pinto and we will continue current treatment. We will monitor his intake and output closely and make changes as needed. Thank you for the consultation. Job ID: [id number] [facility]
[2020-08-04] MEDS: Amoxicillin/Potassium Clav 875 MG TAB PO SCH (20:59)
[2020-08-04] MEDS: Apixaban 2.5 MG TAB PO SCH (20:59)
[2020-08-04] MEDS: Magnesium Oxide 400 MG TAB PO SCH (21:00)
[2020-08-05] MEDS: HYDROcodone/Acetaminophen 5/325 mg Tablet PO PRN ×3 (05:29→22:45)
[2020-08-05] MEDS: Furosemide 40 MG/4 ML VIAL SLOW IVP SCH ×2 (05:30→14:48)
[2020-08-05 05:47] LABS: #Lymphocytes 0.4 thou/uL (1.20-3.40); #Monocytes 0.6 thou/uL (0.11-0.59); #Neutrophils 10.8 thou/uL (1.40-6.50); %Basophils 0.1 % (0.0-1.0); %Lymphocytes 3.2 % (21.0-51.0); %Monocytes 5.3 % (0.0-10.0); %Neutrophils 91.3 % (42.0-75.0); Hemoglobin 10.2 g/dL (14.0-18.0); Mean Corpuscular HGB CONC 28.5 g/dL (32.0-36.0); Mean Corpuscular Hemoglobin 24.6 pg (27.0-31.0); Mean Corpuscular Volume 86.4 fL (78.0-98.0); Mean Platelet Volume 11.1 fL (7.4-10.4); Platelet Count 172 thou/uL (130-400); RBC Distribution Width 19.1 % (11.5-14.5); Red Blood Cell (RBC) Count 4.16 mill/uL (4.70-6.10); White Blood Cell (WBC) Count 11.8 thou/uL (4.8-10.8)
[2020-08-05 06:00] LABS: ALT (SGPT) 15 U/L (8-55); AST (SGOT) 15 U/L (5-34); Albumin 3.5 g/dL (3.4-4.8); Alkaline Phosphatase 60 U/L (40-110); Anion Gap 15 mmol/L (10-20); BUN (Urea Nitrogen) 42 mg/dL (8.4-25.7); Bilirubin, Total 1.4 mg/dL (0.2-1.2); Calc. Creatinine Clearance 51 mL/min (70-130); Calcium 8.2 mg/dL (7.8-10.44); Carbon Dioxide 24 mmol/L (23-31); Chloride 98 mmol/L (98-107); Globulin 3.6 g/dL (2.4-3.5); Glucose 332 mg/dL (80-115); Potassium 4.2 mmol/L (3.5-5.1); Protein, Total 7.1 g/dL (5.8-8.1); Sodium 133 mmol/L (136-145)
--- NOTE | 2020-08-05 09:52 | PDOC.CPN ---
- Subjective Date: 08/05/20 Time: 09:50 Interval history: No overnight events, patient denies any chest pain or shortness of breath, he is complaining of a cough and back pain. - Review of Systems General: denies: fever/chills, weight/appetite/sleep changes, night sweats, fatigue Respiratory: reports: cough. denies: congestion, shortness of breath, exercise intolerance Cardiovascular: denies: chest pain, palpitation, edema, paroxysmal nocturnal dyspnea, orthopnea Gastrointestinal: denies: nausea, vomiting, diarrhea, constipation, abd pain, GI bleeding Musculoskeletal: reports: pain. denies: tenderness, stiffness, swelling, arthritis/arthralgias Neurological: denies: numbness, syncope, seizure, weakness - Objective Allergies/Adverse Reactions: Allergies Allergy/AdvReac Type Severity Reaction Status Date / Time ibuprofen Allergy Verified 06/13/20 22:56 tomato Allergy Verified 06/13/20 22:56 Visit Medications: Current Medications Acetaminophen (Acetaminophen 325 Mg Tab) 650 mg PO Q4H PRN PRN Reason: Headache/Fever/Mild Pain (1-3) Hydrocodone Bitart/Acetaminophen (Hydrocodone/Acetaminophen 5/325 Mg Tablet) 2 tab PO TIDPRN PRN PRN Reason: Moderate Pain (4-6) Last Admin: 08/05/20 05:29 Dose: 2 tab Documented by: Albuterol/Ipratropium (Ipratropium/Albuterol Sulfate 3 Ml Neb) 3 ml EZPAP Q6HR- RT [facility] Last Admin: 08/05/20 07:53 Dose: 3 ml Documented by: Amiodarone HCl (Amiodarone 200 Mg Tab) 200 mg PO DAILY [facility] Amoxicillin/Clavulanate Potassium (Amoxicillin/Potassium Clav 875 Mg Tab) 875 mg PO Q12HR [facility] Last Admin: 08/04/20 20:59 Dose: 875 mg Documented by: Apixaban (Apixaban 2.5 Mg Tab) 2.5 mg PO BID [facility] Last Admin: 08/04/20 20:59 Dose: 2.5 mg Documented by: Aspirin (Aspirin Chewable 81 Mg Tab) 81 mg PO DAILY [facility] Carvedilol (Carvedilol 6.25 Mg Tab) 6.25 mg PO BID-[facility] Last Admin: 08/04/20 16:37 Dose: 6.25 mg Documented by: Dexamethasone (Dexamethasone 1 Mg Tab) 2 mg PO DAILY [facility] Duloxetine HCl (Duloxetine 30 Mg Cap) 30 mg PO DAILY [facility] Famotidine (Famotidine 20 Mg Tab) 20 mg PO DAILY [facility] Last Admin: 08/04/20 10:24 Dose: 20 mg Documented by: Ferrous Gluconate (Ferrous Gluconate 324 Mg Tab) 324 mg PO QAM-[facility] Fludrocortisone Acetate (Fludrocortisone Acetate 0.1 Mg Tab) 0.1 mg PO DAILY [facility] Furosemide (Furosemide 40 Mg/4 Ml Vial) 40 mg SLOW IVP 0600,1400 [facility] Last Admin: 08/05/20 05:30 Dose: 40 mg Documented by: Hydralazine HCl (Hydralazine 25 Mg Tab) 25 mg PO TID [facility] Last Admin: 08/04/20 21:00 Dose: Not Given Documented by: Insulin Glargine 10 units/ (Miscellaneous Medication) 0.1 mls @ 0 mls/[facility] Isosorbide Dinitrate (Isosorbide Dinitrate 20 Mg Tab) 20 mg PO TID [facility] Last Admin: 08/04/20 21:00 Dose: Not Given Documented by: Magnesium Oxide (Magnesium Oxide 400 Mg Tab) 400 mg PO BID [facility] Last Admin: 08/04/20 21:00 Dose: 400 mg Documented by: Ondansetron HCl (Ondansetron Odt 4 Mg Tab) 4 mg PO Q6H PRN PRN Reason: Nausea/Vomiting Sacubitril/Valsartan (Sacubitril 24mg/Valsartan 26mg Tab) 1 tab PO BID [facility] Last Admin: 08/04/20 21:00 Dose: Not Given Documented by: Senna/Docusate Sodium (Senokot S 8.6-50 Mg Tab) 2 tab PO BIDPRN PRN PRN Reason: Constipation Sodium Chloride (Flush - Normal Saline 10 Ml Syringe) 10 ml IVF Q12HR [facility] Last Admin: 08/04/20 21:00 Dose: 10 ml Documented by: Sodium Chloride (Flush - Normal Saline 10 Ml Syringe) 10 ml IVF PRN PRN PRN Reason: Saline Flush Last Admin: 08/05/20 05:30 Dose: 10 ml Documented by: Vital Signs & Weight: Vital Signs Temp Pulse Resp BP BP Pulse Ox 08/05/20 08:33 97.7 F 75 22 H 140/63 98 08/05/20 07:53 75 18 95 08/05/20 05:00 97.8 F 76 16 120/62 96 08/05/20 01:05 95 08/05/20 01:04 72 14 95 08/04/20 22:29 73 20 110/65 96 Weight 248 lb 4 oz - Quality Measures CV meds: Beta Damaris: Yes, YORDY/ARB: Yes, ASA: Yes, Anticoagulant: Yes - Medication Contraindications No Antithrombotic reason: Treatment not indicated - Physical Exam General: alert & oriented x3, appears well, no apparent distress HEENT: mucus membranes moist Neck: no bruit Cardiac: regular rate and rhythm, no murmur, S1/S2 Lungs: normal breath sounds, oxygen, other (slight wheezing to biilateral posterior lower lobes, improved from yesterday) Neuro: grossly intact, motor function intact Abdomen: active bowel sounds, soft, non-tender Extremities: no cyanosis, no clubbing, 2+ Posterior Tibial, 2+ Dorsalis Pedus Skin: clear Musculoskeletal: no fluid collection, other (c/o chronic back pain) - Labs Result Diagrams: 08/05/20 05:28 08/05/20 05:28 Troponin/CKMB CK-MB (CK-2) 1.3 ng/mL (0-6.6) 08/03/20 23:10 Troponin I 0.081 ng/mL (< 0.028) H 08/04/20 06:07 - EKG Interpretation EKG Method: Telemetry EKG: sinus rhythm - Assessment/Plan Assessment/Plan: 1. CHF exacerbation: his lung sounds have improved since yesterday but he still has wheezing to his bilateral lower lobes, he also retained about 400 L of fluid per record. Will add Metalozone to be given 1 hour before Lasix. He is currently on Aspirin, Entresto, Coreg, and Eliquis, he is on a lower dose due to CKD. 2. Left pleural effusion: Receiving antibiotics, he states his HARDING and SOB have improved, currently on 1 L NC 3. COPD 4. Type II NSTEMI more than likely due to demand ischemia 5. UTI: treated by primary care services he states dysuria is improved compared to yesterday 6. Chronic Anemia 7. Chronic low back pain: he is complaining of back pain today 8. Chronic kidney disease, his Creatinine has increased from 2.12 to 2.18 today' 9. Morbid obesity 10. BiV ICD 11. Noncompliance We will continue to follow the patient Pt. seen and eval. by me. We have discussed the pt. together and I agree with the A/P by the SHIP RUNNER. Not certain whether he is taking his medications or not. He assured me thatb he was taking them but denied to other staff. I will continue to follow with you. monique
[2020-08-05] MEDS: Dexamethasone 1 MG TAB PO SCH (10:03)
[2020-08-05] MEDS: hydrALAZINE 25 MG TAB PO SCH ×3 (10:03→20:16)
[2020-08-05] MEDS: DULoxetine 30 MG CAP PO SCH (10:04)
[2020-08-05] MEDS: Amoxicillin/Potassium Clav 875 MG TAB PO SCH ×2 (10:04→20:16)
[2020-08-05] MEDS: Famotidine 20 MG TAB PO SCH (10:04)
[2020-08-05] MEDS: Aspirin Chewable 81 MG TAB PO SCH (10:04)
[2020-08-05] MEDS: Isosorbide Dinitrate 20 MG TAB PO SCH ×3 (10:04→20:17)
[2020-08-05] MEDS: Apixaban 2.5 MG TAB PO SCH ×2 (10:05→20:16)
[2020-08-05] MEDS: Fludrocortisone Acetate 0.1 MG TAB PO SCH (10:05)
[2020-08-05] MEDS: Magnesium Oxide 400 MG TAB PO SCH ×2 (10:05→20:16)
[2020-08-05] MEDS: Ferrous Gluconate 324 MG TAB PO SCH (10:05)
[2020-08-05] MEDS: Amiodarone 200 MG TAB PO SCH (10:05)
[2020-08-05] MEDS: Carvedilol 6.25 MG TAB PO SCH ×2 (10:05→17:21)
[2020-08-05] MEDS: Insulin Glargine 10 UNITS in Pre-Filled Syringe 1 EACH SC SCH (10:06)
[2020-08-05] MEDS ORDERED: Metolazone 5 MG TAB PO SCH (10:15)
--- NOTE | 2020-08-05 10:26 | PRG ---
DATE OF SERVICE: 08/05/2020 TIME OF SERVICE: 9:00 a.m. CONSULTATION ON THE CASE: Dr. Yeimy Suh, Cardiology. SUBJECTIVE: The patient was seen and evaluated at bedside. The patient is alert, oriented, feels better today. Currently, on aggressive diuretic therapy with Lasix as well as Zaroxolyn. OBJECTIVE: VITAL SIGNS: Temperature 97.7 degrees Fahrenheit, pulse of 75 per minute, respiratory rate of 18 per minute, saturation 98%. He is on 1 L of nasal cannula oxygen with a blood pressure of 140/63 mmHg. Has an airway, which is clear. HEENT: Atraumatic and normocephalic. NECK: Supple. No bruit. No lymphadenopathy. CVS: S1, S2. Normal sinus rhythm. CHEST: Bilateral air entry present. No rhonchi. No wheeze. ABDOMEN: Soft, nontender. Bowel sounds are present. No organomegaly. EXTREMITIES: No cyanosis. No icterus. No pallor. Edema noted, 2+. HEME: No ecchymosis or petechiae. PSYCH: No depression or anxiety. DIAGNOSTIC STUDIES: WBC is 11.8, hemoglobin 10.2, hematocrit 35.9, platelets are 172. Sodium 133, potassium 4.2, chloride 98, carbon dioxide 24, BUN 42, creatinine 2.18. AST 15, ALT 15. Troponin 0.107, 0.081. COVID-19 screening evaluation negative. MEDICATIONS: 1. Insulin glargine 10 units in a.m. 2. Augmentin 875 mg q.12 hours. 3. Amiodarone 200 mg daily. 4. Eliquis 2.5 mg b.i.d. 5. Aspirin 81 mg daily. 6. Coreg 6.25 mg b.i.d. 7. Decadron 2 mg daily. 8. Pepcid 20 mg daily. 9. Cymbalta 30 mg daily. 10. Ferrous gluconate 324 mg daily. 11. Isosorbide dinitrate 20 mg t.i.d. 12. DuoNeb nebulizations every 6 hours. 13. Entresto one tablet p.o. b.i.d. ASSESSMENT: 1. Acute systolic congestive heart failure exacerbation with fluid overload. Ejection fraction of 20% to 25% noted on previous echocardiogram in 2020. The patient is currently on Lasix as well as Zaroxolyn for aggressive diuresis along with continuation of Entresto as well as Coreg. 2. Parapneumonic effusion. The patient is currently on Augmentin therapy for a 5-day course. 3. Chronic obstructive pulmonary disease, chronic in nature. We will continue DuoNeb nebulizations. 4. Type 2 [id number] elevation myocardial infarction, demand ischemia, secondary to congestive heart failure. 5. Anemia of chronic disease. 6. Chronic low back pain, on [place]. 7. Chronic kidney disease, stage 3 or 4. 8. Morbid obesity. 9. History of significant medical noncompliance and followup and medication use. 10. History of pacemaker placement. PLAN: I discussed in detail of the diagnosis, treatment, and followup with the patient as well as the patient's current consult front end engineer. We will continue Zaroxolyn and Lasix. Continue Eliquis for anticoagulation. Discharge planning will depend on further hospital course once cleared by Cardiology and diuresis is optimized. Job ID: [id number]
[2020-08-05] MEDS ORDERED: Dextrose 5% in Water 1,000 ML IV PRN (14:43)
[2020-08-05] MEDS ORDERED: Dextrose 50% Abboject 50 ML SYRINGE SLOW IVP PRN (14:43)
[2020-08-05 14:51] LABS: Strep pneumo Urine Ag NEGATIVE (NEGATIVE)
[2020-08-05] MEDS: HumaLOG 300 UNITS/3 ML VIAL SC PRN ×2 (18:40→21:22)
[2020-08-06 04:15] LABS: ALT (SGPT) 18 U/L (8-55); AST (SGOT) 22 U/L (5-34); Albumin 3.5 g/dL (3.4-4.8); Alkaline Phosphatase 54 U/L (40-110); Anion Gap 16 mmol/L (10-20); BUN (Urea Nitrogen) 44 mg/dL (8.4-25.7); Calc. Creatinine Clearance 61 mL/min (70-130); Calcium 8.6 mg/dL (7.8-10.44); Carbon Dioxide 25 mmol/L (23-31); Chloride 97 mmol/L (98-107); Globulin 3.8 g/dL (2.4-3.5); Glucose 201 mg/dL (80-115); Protein, Total 7.3 g/dL (5.8-8.1); Sodium 133 mmol/L (136-145)
[2020-08-06] MEDS: Metolazone 2.5 MG TAB PO SCH (04:32)
[2020-08-06] MEDS: Furosemide 40 MG/4 ML VIAL SLOW IVP SCH ×2 (05:28→17:37)
[2020-08-06] MEDS: HumaLOG 300 UNITS/3 ML VIAL SC PRN ×4 (05:33→20:37)
[2020-08-06 05:56] LABS: Band 12 % (5-11); Hemoglobin 10.9 g/dL (14.0-18.0); Lymphocytes 3 % (21-51); MDiff Complete? YES; Mean Corpuscular HGB CONC 29.4 g/dL (32.0-36.0); Mean Corpuscular Hemoglobin 25.4 pg (27.0-31.0); Mean Corpuscular Volume 86.3 fL (78.0-98.0); Mean Platelet Volume 11.6 fL (7.4-10.4); Monocytes 4 % (0-10); Neutrophil 81 % (42-75); Platelet Count 193 thou/uL (130-400); RBC Distribution Width 18.8 % (11.5-14.5); Red Blood Cell (RBC) Count 4.28 mill/uL (4.70-6.10); White Blood Cell (WBC) Count 9.5 thou/uL (4.8-10.8)
[2020-08-06] MEDS: Insulin Glargine 10 UNITS in Pre-Filled Syringe 1 EACH SC SCH (08:55)
[2020-08-06] MEDS: HYDROcodone/Acetaminophen 5/325 mg Tablet PO PRN ×2 (08:59→20:33)
[2020-08-06] MEDS: Dexamethasone 1 MG TAB PO SCH (09:01)
[2020-08-06] MEDS: Fludrocortisone Acetate 0.1 MG TAB PO SCH (09:01)
[2020-08-06] MEDS: Apixaban 2.5 MG TAB PO SCH ×2 (09:02→20:34)
[2020-08-06] MEDS: Amiodarone 200 MG TAB PO SCH (09:02)
[2020-08-06] MEDS: Magnesium Oxide 400 MG TAB PO SCH ×2 (09:02→20:33)
[2020-08-06] MEDS: Famotidine 20 MG TAB PO SCH (09:02)
[2020-08-06] MEDS: Amoxicillin/Potassium Clav 875 MG TAB PO SCH ×2 (09:02→20:33)
[2020-08-06] MEDS: Aspirin Chewable 81 MG TAB PO SCH (09:02)
[2020-08-06] MEDS: DULoxetine 30 MG CAP PO SCH (09:03)
[2020-08-06] MEDS: Isosorbide Dinitrate 20 MG TAB PO SCH ×3 (09:03→20:34)
[2020-08-06] MEDS: Ferrous Gluconate 324 MG TAB PO SCH (09:03)
[2020-08-06] MEDS: Carvedilol 6.25 MG TAB PO SCH (09:39)
[2020-08-06] MEDS: hydrALAZINE 25 MG TAB PO SCH ×2 (09:40→16:12)
--- NOTE | 2020-08-06 13:52 | PDOC.HOSPP ---
- Subjective Encounter Date: 08/06/20 Subjective: Patient seen this morning. He was still in bed, no orthopnea reported. Not visibly dyspneic, appeared comfortable. - Objective Vital Signs & Weight: Vital Signs (12 hours) Temp Pulse Resp BP Pulse Ox 08/06/20 11:17 97.8 F 75 18 105/52 L 96 08/06/20 08:55 98.0 F 75 18 117/56 L 99 08/06/20 07:51 85 L 08/06/20 07:43 82 18 85 L 08/06/20 04:30 97.5 F L 73 120/62 94 L Weight Weight 248 lb 14.43 oz I&O: 08/05/20 08/06/20 08/07/20 06:59 06:59 06:59 Intake Total 1494 600 Output Total 1075 1550 Balance 419 -950 Result Diagrams: 08/06/20 03:16 08/06/20 03:16 Additional Labs: Accuchecks 08/06/20 08/06/20 08/05/20 10:28 05:26 20:26 POC Glucose 229 H 192 H 238 H 08/05/20 17:05 POC Glucose 246 H Hospitalist ROS - Medication Medications: Active Medications Generic Name Dose Route Start Last Admin Trade Name Freq PRN Reason Stop Dose Admin Hydrocodone Bitart/Acetaminophen 2 tab 08/04/20 09:23 08/06/20 08:59 Hydrocodone/Acetaminophen 5/325 Mg Tablet PO 2 tab TIDPRN PRN Administration Moderate Pain (4-6) Albuterol/Ipratropium 3 ml 08/04/20 13:00 08/06/20 13:19 Ipratropium/Albuterol Sulfate 3 Ml Neb EZPAP 3 ml [id number] Administration Amiodarone HCl 200 mg 08/05/20 09:00 08/06/20 09:02 Amiodarone 200 Mg Tab PO 200 mg DAILY [facility] Administration Amoxicillin/Clavulanate Potassium 875 mg 08/04/20 21:00 08/06/20 09:02 Amoxicillin/Potassium Clav 875 Mg Tab PO 875 mg Q12HR [facility] Administration Apixaban 2.5 mg 08/04/20 21:00 08/06/20 09:02 Apixaban 2.5 Mg Tab PO 2.5 mg BID [facility] Administration Aspirin 81 mg 08/05/20 09:00 08/06/20 09:02 Aspirin Chewable 81 Mg Tab PO 81 mg DAILY [facility] Administration Carvedilol 6.25 mg 08/04/20 17:00 08/06/20 09:39 Carvedilol 6.25 Mg Tab PO 6.25 mg BID-[facility] Administration Dexamethasone 2 mg 08/05/20 09:00 08/06/20 09:01 Dexamethasone 1 Mg Tab PO 2 mg DAILY [facility] Administration Duloxetine HCl 30 mg 08/05/20 09:00 08/06/20 09:03 Duloxetine 30 Mg Cap PO 30 mg DAILY [facility] Administration Famotidine 20 mg 08/04/20 09:00 08/06/20 09:02 Famotidine 20 Mg Tab PO 20 mg DAILY [facility] Administration Ferrous Gluconate 324 mg 08/05/20 08:00 08/06/20 09:03 Ferrous Gluconate 324 Mg Tab PO 324 mg QAM-[facility] Administration Fludrocortisone Acetate 0.1 mg 08/05/20 09:00 08/06/20 09:01 Fludrocortisone Acetate 0.1 Mg Tab PO 0.1 mg DAILY [facility] Administration Furosemide 40 mg 08/04/20 14:00 08/06/20 05:28 Furosemide 40 Mg/4 Ml Vial SLOW IVP 40 mg 0600,1400 [facility] Administration Hydralazine HCl 25 mg 08/04/20 15:00 08/06/20 09:40 Hydralazine 25 Mg Tab PO 25 mg TID [facility] Administration Insulin Glargine 10 units/ 0.1 mls @ 0 mls/hr 08/05/20 09:00 08/06/20 08:55 Miscellaneous Medication SC 0.1 mls QAM [facility] Administration Insulin Human Lispro 0 units 08/05/20 14:43 08/06/20 11:20 Humalog 300 Units/3 Ml Vial SC 3 unit .MILD SLIDING SCALE PRN Administration Mild Correctional Scale Insulin Human Lispro 0 units 08/05/20 20:59 08/05/20 21:22 Humalog 300 Units/3 Ml Vial SC 2 unit .BEDTIME SLIDING SC PRN Administration Bedtime Correctional Scale Isosorbide Dinitrate 20 mg 08/04/20 15:00 08/06/20 09:03 Isosorbide Dinitrate 20 Mg Tab PO 20 mg TID [facility] Administration Magnesium Oxide 400 mg 08/04/20 21:00 08/06/20 09:02 Magnesium Oxide 400 Mg Tab PO 400 mg BID [facility] Administration Metolazone 2.5 mg 08/06/20 05:30 08/06/20 04:32 Metolazone 2.5 Mg Tab PO 2.5 mg 0530 [facility] Administration Sacubitril/Valsartan 1 tab 08/04/20 21:00 08/06/20 09:01 Sacubitril 24mg/Valsartan 26mg Tab PO 1 tab BID [facility] Administration Sodium Chloride 10 ml 08/04/20 21:00 08/06/20 09:26 Flush - Normal Saline 10 Ml Syringe IVF 10 ml Q12HR [facility] Administration Sodium Chloride 10 ml 08/04/20 10:00 08/05/20 05:30 Flush - Normal Saline 10 Ml Syringe IVF 10 ml PRN PRN Administration Saline Flush Hospitalist Exam Vitals: Vital Signs (12 hours) Temp Pulse Resp BP Pulse Ox 08/06/20 11:17 97.8 F 75 18 105/52 L 96 08/06/20 08:55 98.0 F 75 18 117/56 L 99 08/06/20 07:51 85 L 08/06/20 07:43 82 18 85 L 08/06/20 04:30 97.5 F L 73 120/62 94 L Weight Weight 248 lb 14.43 oz General Appearance: NAD Eye: anicteric sclera ENT: normocephalic atraumatic Neck: supple Heart: RRR, no murmur, no gallops, no rubs Respiratory: CTAB, no wheezes, no ronchi Gastrointestinal: non-tender, distended Extremities: no edema Psychiatric: normal affect, normal behavior Hosp A/P (1) Acute on chronic systolic heart failure, NYHA class 3 Code(s): I50.23 - ACUTE ON CHRONIC SYSTOLIC (CONGESTIVE) HEART FAILURE Status: Acute Plan: as per impression (2) Acute respiratory failure with hypoxia Code(s): J96.01 - ACUTE RESPIRATORY FAILURE WITH HYPOXIA Status: Acute Plan: as per impression (3) CAD (coronary artery disease) of artery bypass graft Code(s): I25.810 - ATHEROSCLEROSIS OF CABG W/O ANGINA PECTORIS Status: Acute Plan: as per impression (4) CKD (chronic kidney disease), stage III Code(s): N18.30 - CHRONIC KIDNEY DISEASE, STAGE 3 UNSPECIFIED Status: Chronic Plan: as per impression (5) COPD (chronic obstructive pulmonary disease) Status: Chronic Qualifiers: Emphysema type: unspecified Plan: as per impression (6) DM2 (diabetes mellitus, type 2) Status: Chronic Plan: as per impression (7) GERD (gastroesophageal reflux disease) Code(s): K21.9 - GASTRO-ESOPHAGEAL REFLUX DISEASE WITHOUT ESOPHAGITIS Status: Chronic Plan: as per impression (8) HLD (hyperlipidemia) Code(s): E78.5 - HYPERLIPIDEMIA, UNSPECIFIED Status: Chronic Plan: as per impression (9) HTN (hypertension) Code(s): I10 - ESSENTIAL (PRIMARY) HYPERTENSION Status: Chronic Qualifiers: Hypertension type: essential hypertension Qualified Code(s): I10 - Essential (primary) hypertension Plan: as per impression - Plan Assessment Patient is a 69-year-old -[place] male with a past medical history of coronary artery disease status post CABG, systolic CHF status post AICD, medication noncompliance, type 2 diabetes mellitus and hypertension. He is admitted to the hospital with acute on chronic CHF exacerbation possible parapneumonic effusion after he presented with shortness of breath and wheezing. Doing well on diuresis and antibiotics. Extensive chart review, is had multi ple hospitalizations since January 2020. Patient has not been able to successfully refill his medications and is suspected of medication noncompliance as mentioned above. During my encounter with him this morning he is requesting home oxygen, which is supposed to be on. Acute on chronic hypoxemic respiratory failure Acute on chronic systolic CHF exacerbation - Last echo 07/20/2020. LVEF 20-25% w ith global hypokinesis Possible parapneumonic effusion Atrial fibrillation COPD Type 2 diabetes mellitus -A1c of 7.3 on 07/16/2020 CKD stage III-renal function at baseline Hypertension Hyperlipidemia Obesity Medication noncompliance Plan: Obtain a 6-minute walk test to see if he qualifies for home oxygen continue diuresis with metolazone and furosemide Fluid restriction < 1.5 L per day Strict I/O Continue Entresto Coreg and hydralazine to be given if BP tolerates Continue amiodarone and Eliquis for atrial fibrillation Continue Augmentin and plan to treat for total of 7 days Continue dexamethasone Continue Lantus and insulin sliding scale Obtain an abdominal x-ray and a lactic acid assess abdominal distention
--- NOTE | 2020-08-06 16:17 | PDOC.CPN ---
- Subjective Date: 08/06/20 Time: 16:15 Interval history: Patient lying in bed resting. He states he is feeling better, he states his cough is now gone, he denies any chest pain or shortness of breath. He denies any other complaints today. - Review of Systems General: denies: fever/chills, weight/appetite/sleep changes, night sweats, fatigue Respiratory: denies: cough, congestion, shortness of breath, exercise intolerance Cardiovascular: denies: chest pain, palpitation, edema, paroxysmal nocturnal dyspnea, orthopnea Gastrointestinal: denies: nausea, vomiting, diarrhea, constipation, abd pain, GI bleeding Musculoskeletal: denies: pain, tenderness, stiffness, swelling, arthritis/arthralgias Neurological: denies: numbness, syncope, seizure, weakness - Objective Allergies/Adverse Reactions: Allergies Allergy/AdvReac Type Severity Reaction Status Date / Time ibuprofen Allergy Verified 06/13/20 22:56 tomato Allergy Verified 06/13/20 22:56 Visit Medications: Current Medications Acetaminophen (Acetaminophen 325 Mg Tab) 650 mg PO Q4H PRN PRN Reason: Headache/Fever/Mild Pain (1-3) Hydrocodone Bitart/Acetaminophen (Hydrocodone/Acetaminophen 5/325 Mg Tablet) 2 tab PO TIDPRN PRN PRN Reason: Moderate Pain (4-6) Last Admin: 08/06/20 08:59 Dose: 2 tab Documented by: Albuterol/Ipratropium (Ipratropium/Albuterol Sulfate 3 Ml Neb) 3 ml EZPAP Q6HR- RT [facility] Last Admin: 08/06/20 13:19 Dose: 3 ml Documented by: Amiodarone HCl (Amiodarone 200 Mg Tab) 200 mg PO DAILY [facility] Last Admin: 08/06/20 09:02 Dose: 200 mg Documented by: Amoxicillin/Clavulanate Potassium (Amoxicillin/Potassium Clav 875 Mg Tab) 875 mg PO Q12HR [facility] Last Admin: 08/06/20 09:02 Dose: 875 mg Documented by: Apixaban (Apixaban 2.5 Mg Tab) 2.5 mg PO BID [facility] Last Admin: 08/06/20 09:02 Dose: 2.5 mg Documented by: Aspirin (Aspirin Chewable 81 Mg Tab) 81 mg PO DAILY [facility] Last Admin: 08/06/20 09:02 Dose: 81 mg Documented by: Dexamethasone (Dexamethasone 1 Mg Tab) 2 mg PO DAILY [facility] Last Admin: 08/06/20 09:01 Dose: 2 mg Documented by: Dextrose/Water (Dextrose 50% Abboject 50 Ml Syringe) 25 gm SLOW IVP PRN PRN PRN Reason: Hypoglycemia Duloxetine HCl (Duloxetine 30 Mg Cap) 30 mg PO DAILY [facility] Last Admin: 08/06/20 09:03 Dose: 30 mg Documented by: Famotidine (Famotidine 20 Mg Tab) 20 mg PO DAILY [facility] Last Admin: 08/06/20 09:02 Dose: 20 mg Documented by: Ferrous Gluconate (Ferrous Gluconate 324 Mg Tab) 324 mg PO QA-[facility] Last Admin: 08/06/20 09:03 Dose: 324 mg Documented by: Fludrocortisone Acetate (Fludrocortisone Acetate 0.1 Mg Tab) 0.1 mg PO DAILY [facility] Last Admin: 08/06/20 09:01 Dose: 0.1 mg Documented by: Furosemide (Furosemide 40 Mg/4 Ml Vial) 40 mg SLOW IVP 0600,1400 [facility] Last Admin: 08/06/20 05:28 Dose: 40 mg Documented by: Glucagon (Glucagon 1 Mg/Ml Vial) 1 mg IM PRN PRN PRN Reason: Hypoglycemia Insulin Glargine 10 units/ (Miscellaneous Medication) 0.1 mls @ 0 mls/hr [facility] Last Admin: 08/06/20 08:55 Dose: 0.1 mls Documented by: Dextrose/Water (D5w) 1,000 mls @ 0 mls/hr IV .Q0M PRN PRN Reason: Hypoglycemia Insulin Human Lispro (Humalog 300 Units/3 Ml Vial) 0 units SC .MILD SLIDING SCALE PRN PRN Reason: Mild Correctional Scale Last Admin: 08/06/20 11:20 Dose: 3 unit Documented by: Insulin Human Lispro (Humalog 300 Units/3 Ml Vial) 0 units SC .BEDTIME SLIDING SC PRN PRN Reason: Bedtime Correctional Scale Last Admin: 08/05/20 21:22 Dose: 2 unit Documented by: Isosorbide Dinitrate (Isosorbide Dinitrate 20 Mg Tab) 20 mg PO TID [facility] Last Admin: 08/06/20 16:12 Dose: 20 mg Documented by: Magnesium Oxide (Magnesium Oxide 400 Mg Tab) 400 mg PO BID [facility] Last Admin: 08/06/20 09:02 Dose: 400 mg Documented by: Metolazone (Metolazone 2.5 Mg Tab) 2.5 mg PO 0530 [facility] Last Admin: 08/06/20 04:32 Dose: 2.5 mg Documented by: Ondansetron HCl (Ondansetron Odt 4 Mg Tab) 4 mg PO Q6H PRN PRN Reason: Nausea/Vomiting Sacubitril/Valsartan (Sacubitril 24mg/Valsartan 26mg Tab) 1 tab PO BID [facility] Last Admin: 08/06/20 09:01 Dose: 1 tab Documented by: Senna/Docusate Sodium (Senokot S 8.6-50 Mg Tab) 2 tab PO BIDPRN PRN PRN Reason: Constipation Sodium Chloride (Flush - Normal Saline 10 Ml Syringe) 10 ml IVF Q12HR [facility] Last Admin: 08/06/20 09:26 Dose: 10 ml Documented by: Sodium Chloride (Flush - Normal Saline 10 Ml Syringe) 10 ml IVF PRN PRN PRN Reason: Saline Flush Last Admin: 08/05/20 05:30 Dose: 10 ml Documented by: Vital Signs & Weight: Vital Signs Temp Pulse Resp BP Pulse Ox 08/06/20 16:12 75 08/06/20 15:06 98.0 F 75 18 104/57 L 97 08/06/20 11:17 97.8 F 75 18 105/52 L 96 08/06/20 08:55 98.0 F 75 18 117/56 L 99 08/06/20 07:51 85 L 08/06/20 07:43 82 18 85 L 08/06/20 04:30 97.5 F L 73 120/62 94 L Weight 248 lb 14.43 oz - Quality Measures CV meds: Beta Damaris: Yes, YORDY/ARB: Yes, ASA: Yes, Anticoagulant: Yes - Medication Contraindications No Antithrombotic reason: Treatment not indicated - Physical Exam General: alert & oriented x3, appears well, no apparent distress HEENT: mucus membranes moist, normocephaly Neck: midline trachea, no JVD/HJR, no bruit Cardiac: no murmur, regular rate, S1/S2 Lungs: normal breath sounds, no wheeze, rales, rhonchi, oxygen Neuro: grossly intact, motor function intact Abdomen: active bowel sounds, soft, non-tender Extremities: no cyanosis, no clubbing, no edema, 2+ Posterior Tibial, 2+ Dorsalis Pedus Skin: clear Musculoskeletal: no pain - Labs Result Diagrams: 08/06/20 03:16 08/06/20 03:16 Troponin/CKMB CK-MB (CK-2) 1.3 ng/mL (0-6.6) 08/03/20 23:10 Troponin I 0.081 ng/mL (< 0.028) H 08/04/20 06:07 - EKG Interpretation EKG Method: Telemetry (A sensed V paced) - Assessment/Plan Assessment/Plan: 1. CHF exacerbation: his lung sounds are clear today, he states his breathing is better and also states his cough is now gone. He is currently on Aspirin, Entresto, Coreg, and Eliquis, he is on a lower dose due to CKD. He was able to diureis 1500ml 2. Left pleural effusion: Receiving antibiotics, he states his HARDING and SOB have improved, currently on 1 L NC 3. COPD 4. Type II NSTEMI more than likely due to demand ischemia 5. UTI: treated by primary care services he states dysuria is resolved and back to normal 6. Chronic Anemia 7. Chronic low back pain 8. Chronic kidney disease, his Creatinine has improved to 1.18 today 9. Morbid obesity 10. BiV ICD 11. Noncompliance Continue current treatment plan, he is symptomatically improving, we will continue to follow the patient, he is awaiting a test to see if he qualifies for home oxygen Pt. seen and eval. by me. I agree with the A/P by the BULK PALLET BUILDER. No new events. Abd. XRays, no significant findings. Chest clear. RRR. gjm
--- NOTE | 2020-08-06 17:06 | RAD ---
KUB: Comparison: None History: Abdominal distention FINDINGS: Single view of the abdomen shows a nonspecific, nonobstructed bowel gas pattern. Air and stool is see n in the colon. Degenerative changes are seen in the spine. A pacemaker is partially visualized overl santo an enlarged heart. IMPRESSION: No evidence of obstruction. POS: EAA
[2020-08-07] MEDS ORDERED: Metolazone 2.5 MG TAB ONE ×2 (06:21→06:26)
[2020-08-07] MEDS ORDERED: Furosemide 40 MG/4 ML VIAL ONE ×3 (06:26→11:17)
[2020-08-07] MEDS ORDERED: Apixaban 2.5 MG TAB ONE (08:45)
[2020-08-07] MEDS ORDERED: Isosorbide Dinitrate 20 MG TAB ONE ×2 (08:45→11:17)
[2020-08-07] MEDS ORDERED: DULoxetine 30 MG CAP ONE (08:45)
[2020-08-07] MEDS ORDERED: Ferrous Gluconate 324 MG TAB ONE (08:45)
[2020-08-07] MEDS ORDERED: Dexamethasone 4 MG TAB ONE (08:45)
[2020-08-07] MEDS ORDERED: Magnesium Oxide 400 MG TAB PO ONE (08:45)
[2020-08-07] MEDS ORDERED: Amiodarone 200 MG TAB ONE (08:45)
[2020-08-07] MEDS ORDERED: Amoxicillin/Potassium Clav 875 MG TAB ONE (08:45)
[2020-08-07] MEDS ORDERED: Aspirin Chewable 81 MG TAB ONE (08:45)
[2020-08-07] MEDS ORDERED: HYDROcodone/Acetaminophen 5/325 mg Tablet ONE (09:33)
[2020-08-07] MEDS: HYDROcodone/Acetaminophen 5/325 mg Tablet PO PRN ×3 (09:37→20:53)
[2020-08-07] MEDS: HumaLOG 300 UNITS/3 ML VIAL SC PRN ×3 (12:07→20:59)
[2020-08-07 14:10] LABS: Anion Gap 13 mmol/L (10-20); BUN (Urea Nitrogen) 44 mg/dL (8.4-25.7); Calc. Creatinine Clearance 58 mL/min (70-130); Calcium 8.9 mg/dL (7.8-10.44); Carbon Dioxide 33 mmol/L (23-31); Chloride 95 mmol/L (98-107); Glucose 318 mg/dL (80-115); Potassium 4.5 mmol/L (3.5-5.1); Sodium 136 mmol/L (136-145)
--- NOTE | 2020-08-07 14:29 | PDOC.HOSPP ---
- Subjective Encounter Date: 08/07/20 Subjective: No acute events overnight. Patient is comfortable. On minimal O2 requirement via nasal cannula - Objective Vital Signs & Weight: Vital Signs (12 hours) Pulse Resp Pulse Ox 08/07/20 07:00 74 14 87 L Weight Weight 248 lb 14.43 oz I&O: 08/06/20 08/07/20 08/08/20 06:59 06:59 06:59 Intake Total 600 600 Output Total 1550 2325 Balance -950 -1725 Result Diagrams: 08/06/20 03:16 08/07/20 01:15 Additional Labs: Accuchecks 08/07/20 08/07/20 08/06/20 11:02 05:42 20:10 POC Glucose 188 H 201 H 282 H 08/06/20 16:38 POC Glucose 182 H Hospitalist ROS - Medication Medications: Active Medications Generic Name Dose Route Start Last Admin Trade Name Freq PRN Reason Stop Dose Admin Hydrocodone Bitart/Acetaminophen 2 tab 08/04/20 09:23 08/06/20 20:33 Hydrocodone/Acetaminophen 5/325 Mg Tablet PO 2 tab TIDPRN PRN Administration Moderate Pain (4-6) Albuterol/Ipratropium 3 ml 08/04/20 13:00 08/07/20 07:00 Ipratropium/Albuterol Sulfate 3 Ml Neb EZPAP 3 ml [id number] WAYNE Administration Amiodarone HCl 200 mg 08/05/20 09:00 08/06/20 09:02 Amiodarone 200 Mg Tab PO 200 mg DAILY WAYNE Administration Amoxicillin/Clavulanate Potassium 875 mg 08/04/20 21:00 08/06/20 20:33 Amoxicillin/Potassium Clav 875 Mg Tab PO 875 mg Q12HR WAYNE Administration Apixaban 2.5 mg 08/04/20 21:00 08/06/20 20:34 Apixaban 2.5 Mg Tab PO 2.5 mg BID WAYNE Administration Aspirin 81 mg 08/05/20 09:00 08/06/20 09:02 Aspirin Chewable 81 Mg Tab PO 81 mg DAILY WAYNE Administration Dexamethasone 2 mg 08/05/20 09:00 08/06/20 09:01 Dexamethasone 1 Mg Tab PO 2 mg DAILY WAYNE Administration Duloxetine HCl 30 mg 08/05/20 09:00 08/06/20 09:03 Duloxetine 30 Mg Cap PO 30 mg DAILY WAYNE Administration Famotidine 20 mg 08/04/20 09:00 08/06/20 09:02 Famotidine 20 Mg Tab PO 20 mg DAILY WAYNE Administration Ferrous Gluconate 324 mg 08/05/20 08:00 08/06/20 09:03 Ferrous Gluconate 324 Mg Tab PO 324 mg QAM-WM WAYNE Administration Fludrocortisone Acetate 0.1 mg 08/05/20 09:00 08/06/20 09:01 Fludrocortisone Acetate 0.1 Mg Tab PO 0.1 mg DAILY WAYNE Administration Furosemide 40 mg 08/04/20 14:00 08/06/20 17:37 Furosemide 40 Mg/4 Ml Vial SLOW IVP 40 mg 0600,1400 WAYNE Administration Insulin Glargine 10 units/ 0.1 mls @ 0 mls/hr 08/05/20 09:00 08/06/20 08:55 Miscellaneous Medication SC 0.1 mls QAM WAYNE Administration Insulin Human Lispro 0 units 08/05/20 14:43 08/06/20 16:47 Humalog 300 Units/3 Ml Vial SC 2 unit .MILD SLIDING SCALE PRN Administration Mild Correctional Scale Insulin Human Lispro 0 units 08/05/20 20:59 08/06/20 20:37 Humalog 300 Units/3 Ml Vial SC 3 unit .BEDTIME SLIDING SC PRN Administration Bedtime Correctional Scale Isosorbide Dinitrate 20 mg 08/04/20 15:00 08/06/20 20:34 Isosorbide Dinitrate 20 Mg Tab PO 20 mg TID WAYNE Administration Magnesium Oxide 400 mg 08/04/20 21:00 08/06/20 20:33 Magnesium Oxide 400 Mg Tab PO 400 mg BID WAYNE Administration Metolazone 2.5 mg 08/06/20 05:30 08/06/20 04:32 Metolazone 2.5 Mg Tab PO 2.5 mg 0530 WAYNE Administration Sacubitril/Valsartan 1 tab 08/04/20 21:00 08/06/20 20:33 Sacubitril 24mg/Valsartan 26mg Tab PO 1 tab BID WAYNE Administration Sodium Chloride 10 ml 08/04/20 21:00 08/06/20 20:34 Flush - Normal Saline 10 Ml Syringe IVF 10 ml Q12HR WAYNE Administration Sodium Chloride 10 ml 08/04/20 10:00 08/05/20 05:30 Flush - Normal Saline 10 Ml Syringe IVF 10 ml PRN PRN Administration Saline Flush Hospitalist Exam Vitals: Vital Signs (12 hours) Pulse Resp Pulse Ox 08/07/20 07:00 74 14 87 L Weight Weight 248 lb 14.43 oz General Appearance: NAD, awake alert Eye: anicteric sclera ENT: normocephalic atraumatic Neck: supple Heart: RRR, no murmur, no gallops, no rubs Respiratory: CTAB, no wheezes, no rales, no ronchi Gastrointestinal - other findings: Mildly distended but softer and less tense Extremities: no clubbing, no edema Neurological: cranial nerve grossly intact Psychiatric: normal affect, normal behavior Hosp A/P (1) Acute on chronic systolic heart failure, NYHA class 3 Code(s): I50.23 - ACUTE ON CHRONIC SYSTOLIC (CONGESTIVE) HEART FAILURE Status: Acute (2) Acute respiratory failure with hypoxia Code(s): J96.01 - ACUTE RESPIRATORY FAILURE WITH HYPOXIA Status: Acute (3) CAD (coronary artery disease) of artery bypass graft Code(s): I25.810 - ATHEROSCLEROSIS OF CABG W/O ANGINA PECTORIS Status: Acute (4) CKD (chronic kidney disease), stage III Code(s): N18.30 - CHRONIC KIDNEY DISEASE, STAGE 3 UNSPECIFIED Status: Chronic (5) COPD (chronic obstructive pulmonary disease) Status: Chronic Qualifiers: Emphysema type: unspecified (6) DM2 (diabetes mellitus, type 2) Status: Chronic (7) GERD (gastroesophageal reflux disease) Code(s): K21.9 - GASTRO-ESOPHAGEAL REFLUX DISEASE WITHOUT ESOPHAGITIS Status: Chronic (8) HLD (hyperlipidemia) Code(s): E78.5 - HYPERLIPIDEMIA, UNSPECIFIED Status: Chronic (9) HTN (hypertension) Code(s): I10 - ESSENTIAL (PRIMARY) HYPERTENSION Status: Chronic Qualifiers: Hypertension type: essential hypertension Qualified Code(s): I10 - Essential (primary) hypertension - Plan Assessment Patient is a 69-year-old -[place] male with a past medical history of coronary artery disease status post CABG, systolic CHF status post AICD, medication noncompliance, type 2 diabetes mellitus and hypertension. He presented with shortness of breath and wheezing. and is currently admitted with acute on chronic CHF exacerbation, and possible PNA with effusion. He also has evidence of UTI as per UA. Has done well on diuresis and antibiotics. Upon chart review, he's had multiple hospitalizations since January 2020. Patient has not been able to successfully refill his medications and is suspected of medication noncompliance as mentioned above. During my encounter with him this morning he is requesting home oxygen, which is supposed to be on. Acute on chronic hypoxemic respiratory failure Acute on chronic systolic CHF exacerbation s/p AICD - Last echo 07/20/2020. LVEF 20-25% with global hypokinesis UTI Atrial fibrillation COPD Type 2 diabetes mellitus -A1c of 7.3 on 07/16/2020 CKD stage III-renal function at baseline Hypertension Hyperlipidemia Obesity Medication noncompliance Plan: I will place a case management consult for home O2 continue diuresis with metolazone and furosemide Trend BNP daily Fluid restriction < 1.5 L per day Strict I/O Continue Entresto Coreg and hydralazine to be given if BP tolerates Continue amiodarone and Eliquis for atrial fibrillation Continue Augmentin - day 09/27 Follow up urine cultures Continue dexamethasone Continue Lantus and insulin sliding scale
[2020-08-07] MEDS: Metolazone 2.5 MG TAB PO SCH (15:00)
[2020-08-07] MEDS: Furosemide 40 MG/4 ML VIAL SLOW IVP SCH ×2 (15:00→15:44)
[2020-08-07] MEDS: Ferrous Gluconate 324 MG TAB PO SCH (15:00)
[2020-08-07] MEDS: Amoxicillin/Potassium Clav 875 MG TAB PO SCH ×2 (15:00→20:52)
[2020-08-07] MEDS: Amiodarone 200 MG TAB PO SCH (15:00)
[2020-08-07] MEDS: Apixaban 2.5 MG TAB PO SCH ×2 (15:01→20:53)
[2020-08-07] MEDS: Dexamethasone 1 MG TAB PO SCH (15:01)
[2020-08-07] MEDS: Isosorbide Dinitrate 20 MG TAB PO SCH ×3 (15:01→20:53)
[2020-08-07] MEDS: Insulin Glargine 10 UNITS in Pre-Filled Syringe 1 EACH SC SCH (15:01)
[2020-08-07] MEDS: Famotidine 20 MG TAB PO SCH (15:01)
[2020-08-07] MEDS: Aspirin Chewable 81 MG TAB PO SCH (15:01)
[2020-08-07] MEDS: Magnesium Oxide 400 MG TAB PO SCH ×2 (15:01→20:53)
[2020-08-07] MEDS: DULoxetine 30 MG CAP PO SCH (15:01)
[2020-08-07] MEDS: Fludrocortisone Acetate 0.1 MG TAB PO SCH (15:01)
[2020-08-07 16:30] LABS: #Lymphocytes 0.4 thou/uL (1.20-3.40); #Monocytes 0.6 thou/uL (0.11-0.59); %Basophils 0.3 % (0.0-1.0); %Eosinophils 0.1 % (0.0-10.0); %Lymphocytes 4.8 % (21.0-51.0); %Monocytes 6.7 % (0.0-10.0); %Neutrophils 88.1 % (42.0-75.0); Anisocytosis SLIGHT = 6-15 cells (100X) (0-5/hpf); Helmet Cells SLIGHT = 2-5 cells (100X) (0-1/hpf); Hemoglobin 11.4 g/dL (14.0-18.0); MDiff Complete? YES; Mean Corpuscular HGB CONC 29.4 g/dL (32.0-36.0); Mean Corpuscular Hemoglobin 25.7 pg (27.0-31.0); Mean Corpuscular Volume 87.4 fL (78.0-98.0); Mean Platelet Volume 10.7 fL (7.4-10.4); Ovalocytes SLIGHT = 2-5 cells (100X) (0-1/hpf); Platelet Count 226 thou/uL (130-400); Platelet Morphology Comment Appears Adequate; Polychromasia SLIGHT = 2-3 cells (100X) (0-2/hpf); RBC Distribution Width 18.9 % (11.5-14.5); Red Blood Cell (RBC) Count 4.42 mill/uL (4.70-6.10); Schistocytes SLIGHT = 2-5 cells (100X) (0-1/hpf); Target Cells SLIGHT = 2-5 cells (100X) (0-1/hpf); Tear Drops SLIGHT = 2-5 cells (100X) (0-1/hpf); White Blood Cell (WBC) Count 9.1 thou/uL (4.8-10.8)
[2020-08-08 00:05] LABS: L.pneumophilia Abs <0.91 OD ratio (0.00-0.90)
[2020-08-08] MEDS: HYDROcodone/Acetaminophen 5/325 mg Tablet PO PRN ×4 (02:11→22:51)
[2020-08-08] MEDS: Metolazone 2.5 MG TAB PO SCH (05:57)
[2020-08-08] MEDS: HumaLOG 300 UNITS/3 ML VIAL SC PRN (06:02)
[2020-08-08] MEDS: Furosemide 40 MG/4 ML VIAL SLOW IVP SCH ×2 (06:29→15:11)
[2020-08-08] MEDS: Aspirin Chewable 81 MG TAB PO SCH (08:44)
[2020-08-08] MEDS: Famotidine 20 MG TAB PO SCH (08:44)
[2020-08-08] MEDS: Magnesium Oxide 400 MG TAB PO SCH ×2 (08:44→22:52)
[2020-08-08] MEDS: Amiodarone 200 MG TAB PO SCH (08:45)
[2020-08-08] MEDS: Isosorbide Dinitrate 20 MG TAB PO SCH ×3 (08:45→22:52)
[2020-08-08] MEDS: Fludrocortisone Acetate 0.1 MG TAB PO SCH (08:45)
[2020-08-08] MEDS: Ferrous Gluconate 324 MG TAB PO SCH (08:45)
[2020-08-08] MEDS: Apixaban 2.5 MG TAB PO SCH ×2 (08:45→22:52)
[2020-08-08] MEDS: Amoxicillin/Potassium Clav 875 MG TAB PO SCH ×2 (08:45→22:52)
[2020-08-08] MEDS: DULoxetine 30 MG CAP PO SCH (08:45)
[2020-08-08] MEDS: Insulin Glargine 10 UNITS in Pre-Filled Syringe 1 EACH SC SCH (09:53)
--- NOTE | 2020-08-08 18:34 | PDOC.HOSPP ---
- Subjective Encounter Date: 08/08/20 Subjective: No acute events overnight. Patient was supposed to be discharged today. Home oxygen arranged but he did not have any ride. Discharge canceled and postponed until tomorrow. - Objective Vital Signs & Weight: Vital Signs (12 hours) Temp Pulse Resp BP Pulse Ox 08/08/20 15:11 97.6 F 75 16 117/58 L 100 08/08/20 11:22 97.8 F 71 20 128/60 92 L 08/08/20 08:45 99 08/08/20 08:37 97.9 F 74 17 139/67 99 08/08/20 08:04 74 16 98 Weight Weight 235 lb 0.204 oz I&O: 08/07/20 08/08/20 08/09/20 06:59 06:59 06:59 Intake Total 600 1320 720 Output Total 232 3550 1400 Balance -1725 -2230 -680 Result Diagrams: 08/07/20 01:15 08/07/20 01:15 Additional Labs: Accuchecks 08/08/20 08/08/20 08/08/20 16:41 10:33 06:03 POC Glucose 158 H 155 H 209 H 08/07/20 08/04/20 21:00 20:57 POC Glucose 222 H 306 H Hospitalist ROS - Medication Medications: Active Medications Generic Name Dose Route Start Last Admin Trade Name Freq PRN Reason Stop Dose Admin Hydrocodone Bitart/Acetaminophen 2 tab 08/04/20 09:23 08/08/20 15:21 Hydrocodone/Acetaminophen 5/325 Mg Tablet PO 2 tab TIDPRN PRN Administration Moderate Pain (4-6) Albuterol/Ipratropium 3 ml 08/04/20 13:00 08/08/20 15:18 Ipratropium/Albuterol Sulfate 3 Ml Neb EZPAP Not Given [id number] WAYNE Amiodarone HCl 200 mg 08/05/20 09:00 08/08/20 08:45 Amiodarone 200 Mg Tab PO 200 mg DAILY WAYNE Administration Amoxicillin/Clavulanate Potassium 875 mg 08/04/20 21:00 08/08/20 08:45 Amoxicillin/Potassium Clav 875 Mg Tab PO 875 mg Q12HR WAYNE Administration Apixaban 2.5 mg 08/04/20 21:00 08/08/20 08:45 Apixaban 2.5 Mg Tab PO 2.5 mg BID WAYNE Administration Aspirin 81 mg 08/05/20 09:00 08/08/20 08:44 Aspirin Chewable 81 Mg Tab PO 81 mg DAILY WAYNE Administration Duloxetine HCl 30 mg 08/05/20 09:00 08/08/20 08:45 Duloxetine 30 Mg Cap PO 30 mg DAILY WAYNE Administration Famotidine 20 mg 08/04/20 09:00 08/08/20 08:44 Famotidine 20 Mg Tab PO 20 mg DAILY WAYNE Administration Ferrous Gluconate 324 mg 08/05/20 08:00 08/08/20 08:45 Ferrous Gluconate 324 Mg Tab PO 324 mg QAM-WM WAYNE Administration Fludrocortisone Acetate 0.1 mg 08/05/20 09:00 08/08/20 08:45 Fludrocortisone Acetate 0.1 Mg Tab PO 0.1 mg DAILY WAYNE Administration Furosemide 40 mg 08/04/20 14:00 08/08/20 15:11 Furosemide 40 Mg/4 Ml Vial SLOW IVP 40 mg 0600,1400 [facility] WAYNE Administration Insulin Glargine 10 units/ 0.1 mls @ 0 mls/hr 08/05/20 09:00 08/08/20 09:53 Miscellaneous Medication SC 0.1 mls QAM WAYNE Administration Insulin Human Lispro 0 units 08/05/20 14:43 08/08/20 06:02 Humalog 300 Units/3 Ml Vial SC 3 unit .MILD SLIDING SCALE PRN Administration Mild Correctional Scale Insulin Human Lispro 0 units 08/05/20 20:59 08/07/20 20:59 Humalog 300 Units/3 Ml Vial SC 2 unit .BEDTIME SLIDING SC PRN Administration Bedtime Correctional Scale Isosorbide Dinitrate 20 mg 08/04/20 15:00 08/08/20 15:11 Isosorbide Dinitrate 20 Mg Tab PO 20 mg TID WAYNE Administration Magnesium Oxide 400 mg 08/04/20 21:00 08/08/20 08:44 Magnesium Oxide 400 Mg Tab PO 400 mg BID WAYNE Administration Metolazone 2.5 mg 08/06/20 05:30 08/08/20 05:57 Metolazone 2.5 Mg Tab PO 2.5 mg 0530 WAYNE Administration Sacubitril/Valsartan 1 tab 08/04/20 21:00 02/16/21 08:44 Sacubitril 24mg/Valsartan 26mg Tab PO 1 tab BID WAYNE Administration Sodium Chloride 10 ml 08/04/20 21:00 08/08/20 08:45 Flush - Normal Saline 10 Ml Syringe IVF 10 ml Q12HR WAYNE Administration Sodium Chloride 10 ml 08/04/20 10:00 08/05/20 05:30 Flush - Normal Saline 10 Ml Syringe IVF 10 ml PRN PRN Administration Saline Flush Hospitalist Exam Vitals: Vital Signs (12 hours) Temp Pulse Resp BP Pulse Ox 08/08/20 15:11 97.6 F 75 16 117/58 L 100 08/08/20 11:22 97.8 F 71 20 128/60 92 L 08/08/20 08:45 99 08/08/20 08:37 97.9 F 74 17 139/67 99 08/08/20 08:04 74 16 98 Weight Weight 235 lb 0.204 oz General Appearance: NAD Eye: anicteric sclera ENT: normocephalic atraumatic Heart: RRR, no murmur, no gallops, no rubs Respiratory: CTAB, no wheezes, no rales, no ronchi Gastrointestinal: soft, non-tender Extremities: no clubbing, no edema Neurological: cranial nerve grossly intact Psychiatric: normal affect, normal behavior Hosp A/P (1) Acute on chronic systolic heart failure, NYHA class 3 Code(s): I50.23 - ACUTE ON CHRONIC SYSTOLIC (CONGESTIVE) HEART FAILURE Status: Acute (2) Acute respiratory failure with hypoxia Code(s): J96.01 - ACUTE RESPIRATORY FAILURE WITH HYPOXIA Status: Acute (3) CAD (coronary artery disease) of artery bypass graft Code(s): I25.810 - ATHEROSCLEROSIS OF CABG W/O ANGINA PECTORIS Status: Acute (4) CKD (chronic kidney disease), stage III Code(s): N18.30 - CHRONIC KIDNEY DISEASE, STAGE 3 UNSPECIFIED Status: Chronic (5) COPD (chronic obstructive pulmonary disease) Status: Chronic Qualifiers: Emphysema type: unspecified (6) DM2 (diabetes mellitus, type 2) Status: Chronic (7) GERD (gastroesophageal reflux disease) Code(s): K21.9 - GASTRO-ESOPHAGEAL REFLUX DISEASE WITHOUT ESOPHAGITIS Status: Chronic (8) HLD (hyperlipidemia) Code(s): E78.5 - HYPERLIPIDEMIA, UNSPECIFIED Status: Chronic (9) HTN (hypertension) Code(s): I10 - ESSENTIAL (PRIMARY) HYPERTENSION Status: Chronic Qualifiers: Hypertension type: essential hypertension Qualified Code(s): I10 - Essential (primary) hypertension - Plan Assessment Patient is a 69-year-old -[place] male with a past medical history of coronary artery disease status post CABG, systolic CHF status post AICD, medication noncompliance, type 2 diabetes mellitus and hypertension. He presented with shortness of breath and wheezing. and is currently admitted with acute on chronic CHF exacerbation, and possible PNA with effusion. He also has evidence of UTI as per UA. Has done well on diuresis and antibiotics. Upon chart review, he's had multiple hospitalizations since January 2020. Patient has not been able to successfully refill his medications and is suspected of medication noncompliance as mentioned above. Patient is medically cleared pending transportation home Acute on chronic hypoxemic respiratory failure Acute on chronic systolic CHF exacerbation s/p AICD - Last echo 07/20/2020. LVEF 20-25% with global hypokinesis UTI Atrial fibrillation COPD Type 2 diabetes mellitus -A1c of 7.3 on 07/16/2020 CKD stage III-renal function at baseline Hypertension Hyperlipidemia Obesity Medication noncompliance Plan: Home oxygen secured. Patient can be discharged once transportation is available Transition to oral diuresis upon discharge Continue fFluid restriction < 1.5 L per day while inpatient Strict I/O Continue Entresto, Coreg and hydralazine Continue amiodarone and Eliquis for atrial fibrillation Continue Augmentin - day 5/7 Follow up urine cultures Discontinue dexamethasone Continue Lantus and insulin sliding scale
[2020-08-09] MEDS: HYDROcodone/Acetaminophen 5/325 mg Tablet PO PRN (04:59)
[2020-08-09] MEDS: Metolazone 2.5 MG TAB PO SCH (04:59)
[2020-08-09] MEDS: Furosemide 40 MG/4 ML VIAL SLOW IVP SCH (05:34)
[2020-08-09] MEDS: Ferrous Gluconate 324 MG TAB PO SCH (09:13)
[2020-08-09] MEDS: Apixaban 2.5 MG TAB PO SCH (09:13)
[2020-08-09] MEDS: Aspirin Chewable 81 MG TAB PO SCH (09:13)
[2020-08-09] MEDS: Amoxicillin/Potassium Clav 875 MG TAB PO SCH (09:13)
[2020-08-09] MEDS: Famotidine 20 MG TAB PO SCH (09:13)
[2020-08-09] MEDS: Magnesium Oxide 400 MG TAB PO SCH (09:13)
[2020-08-09] MEDS: Amiodarone 200 MG TAB PO SCH (09:14)
[2020-08-09] MEDS: DULoxetine 30 MG CAP PO SCH (09:14)
[2020-08-09] MEDS: Isosorbide Dinitrate 20 MG TAB PO SCH ×2 (09:14→14:21)
[2020-08-09] MEDS: Fludrocortisone Acetate 0.1 MG TAB PO SCH (09:14)
[2020-08-09] MEDS: Insulin Glargine 10 UNITS in Pre-Filled Syringe 1 EACH SC SCH (09:17)
[2020-08-09 11:37] VITALS: BP 128/59; TEMP 97.7
--- NOTE | 2020-08-09 13:35 | PDOC.DS.DS ---
Provider Date of Admission: 08/04/20 08:40 Date of Discharge: 08/09/20 Admitting Provider: Herb Damon MD Primary Care Physician: NO PCP PROVIDER Course Hospital Course: Patient is a 69-year-old -[place]ron[place] male with a past medical history of coronary artery disease status post CABG, systolic CHF status post AICD, medication noncompliance, type 2 diabetes mellitus and hypertension. He presented with shortness of breath and wheezing and was admitted with acute on chronic CHF exacerbation, and possible PNA with effusion. He also had evidence of UTI as per UA. He did well on diuresis and antibiotics. His hospital course has been prolonged due to ongoing weather conditions, lack of transportation, and arrangement for home oxygen. Everything has been set in place. Patient is medically cleared go home today. Several occasions I have counseled patient on medication compliance in order to minimize rehospitalizations and improve survival. Resuscitation Status: 08/04/20 08:40 Resuscitation Status Routine Resuscitation Status: FULL: Full Resuscitation Lab Results: 08/07/20 01:15 08/07/20 01:15 Abnormal Lab Results - Last 48 hrs 08/07/20 01:15: Chloride 95 L, Carbon Dioxide 33 H, BUN 44 H, Creatinine 1.92 H 08/07/20 01:15: RBC 4.42 L, Hgb 11.4 L, Hct 38.6 L, MCH 25.7 L, MCHC 29.4 L, RDW 18.9 H, MPV 10.7 H, Neutrophils % 88.1 H, Lymphocytes % 4.8 L, Neutrophils # 8.0 H, Lymphocytes # 0.4 L, Monocytes # 0.6 H 08/07/20 03:30: B-Natriuretic Peptide 507.5 H 08/08/20 03:04: B-Natriuretic Peptide 795.3 H 08/09/20 04:30: B-Natriuretic Peptide 475.1 H Microbiology - Entire Visit 08/04/20 00:34 Venous blood - Right Hand Blood Culture - Final NO GROWTH IN 5 DAYS 08/04/20 00:34 Venous blood - Left Hand Blood Culture - Final NO GROWTH IN 5 DAYS Vitals: Vital Signs (12 hours) Temp Pulse Resp BP BP Pulse Ox 08/09/20 11:35 97.7 F 75 18 128/59 L 92 L 08/09/20 09:08 98.2 F 72 16 139/63 97 02/17/21 07:56 78 14 92 L 08/09/20 03:58 97.9 F 75 16 125/56 L 99 Weight Weight 227 lb 11.8 oz Physical Exam: The patient was seen and examined on the day of discharge. General Appearance: NAD, awake alert Eye: anicteric sclera ENT: normocephalic atraumatic Neck: supple, symmetric Respiratory: CTAB, no wheezes Cardiovascular: RRR, no murmur, no gallops, no rubs Gastrointestinal: soft, non-tender, non-distended, normal bowel sounds Extremities: no clubbing, no edema Neurological: cranial nerve grossly intact PSYCH: normal affect, normal behavior Problem Assessment: Please refer to hospital course (1) Acute on chronic systolic heart failure, NYHA class 3 Code(s): I50.23 - ACUTE ON CHRONIC SYSTOLIC (CONGESTIVE) HEART FAILURE Status: Acute (2) Acute respiratory failure with hypoxia Code(s): J96.01 - ACUTE RESPIRATORY FAILURE WITH HYPOXIA Status: Acute (3) CAD (coronary artery disease) of artery bypass graft Code(s): I25.810 - ATHEROSCLEROSIS OF CABG W/O ANGINA PECTORIS Status: Acute (4) CKD (chronic kidney disease), stage III Code(s): N18.30 - CHRONIC KIDNEY DISEASE, STAGE 3 UNSPECIFIED Status: Chronic (5) COPD (chronic obstructive pulmonary disease) Status: Chronic Qualifiers: Emphysema type: unspecified (6) DM2 (diabetes mellitus, type 2) Status: Chronic (7) GERD (gastroesophageal reflux disease) Code(s): K21.9 - GASTRO-ESOPHAGEAL REFLUX DISEASE WITHOUT ESOPHAGITIS Status: Chronic (8) HLD (hyperlipidemia) Code(s): E78.5 - HYPERLIPIDEMIA, UNSPECIFIED Status: Chronic (9) HTN (hypertension) Code(s): I10 - ESSENTIAL (PRIMARY) HYPERTENSION Status: Chronic Qualifiers: Hypertension type: essential hypertension Qualified Code(s): I10 - Essential (primary) hypertension Plan Home Medications: Medication Instructions Recorded Confirmed Type Aspirin Chewable [Aspirin Chewable 81 mg PO DAILY #30 tab 04/03/20 08/04/20 Rx Tablet] Ferrous Gluconate [Fergon] 324 mg PO QAM-WM #30 tab 04/03/20 08/04/20 Rx Amiodarone [Cordarone] 200 mg PO DAILY #30 tab 07/17/20 08/04/20 Rx Apixaban [Eliquis] 2.5 mg PO BID #60 tab 07/17/20 08/04/20 Rx Carvedilol [Coreg] 6.25 mg PO BID-WM #60 tab 07/17/20 08/04/20 Rx DULoxetine [Cymbalta] 30 mg PO DAILY #30 cap 07/17/20 08/04/20 Rx Fludrocortisone Acetate [Florinef] 0.1 mg PO DAILY #30 tab 07/17/20 08/04/20 Rx Furosemide [Lasix] 40 mg PO DAILY-AC #30 tab 07/17/20 08/04/20 Rx HYDROcodone Bit/APAP 5/325 [[place]] 2 tab PO TIDPRN PRN tab 07/17/20 08/04/20 Rx Insulin Glargine [Lantus Vial] 10 units SC QAM #1 vial 07/17/20 08/06/20 Rx Isosorbide Dinitrate [Isordil] 20 mg PO TID #90 tab 07/17/20 08/04/20 Rx Magnesium Oxide 400 mg PO BID #60 tab 07/17/20 08/04/20 Rx Sacubitril/Valsartan [Entresto 24 1 tab PO BID #60 tab 07/17/20 08/04/20 Rx mg-26 mg Tablet] hydrALAZINE [Apresoline] 25 mg PO TID #90 tab 07/17/20 08/04/20 Rx Fludrocortisone Acetate [Florinef] 0.1 mg PO DAILY tab 08/09/20 Rx Furosemide [Lasix] 40 mg PO 0900,1400 tab 08/09/20 Rx Metolazone [Zaroxolyn] 2.5 mg PO 0530 tab 08/09/20 Rx Ondansetron [Zofran ODT] 4 mg PO Q6H PRN tab 08/09/20 Rx Allergies: ibuprofen Allergy (Verified 06/13/20 22:56) tomato Allergy (Verified 06/13/20 22:56) Referrals: PROVIDER,NO PCP [Primary Care Provider] - Disposition: HOME HEALTH Quality CORE MEASURES:: N/A
[2020-08-09] MEDS ORDERED: Furosemide 20 MG TAB PO SCH (14:00)
== END 2020-08-09 15:05 | disposition home or self-care (01) | DRG 280 ==
LOC: ERS 22:28 → 3SE 08-04 01:02 → OBSVTOIN 08-04 08:40 → 2NO 08-05 16:24
PROVIDERS: ADMIT Internal Medicine; ATTEND Internal Medicine
DX: I13.0 Hypertensive heart and chronic kidney disease with heart failure and stage 1 through stage 4 chronic kidney disease, or unspecified chronic kidney disease (principal); I21.A1 Myocardial infarction type 2; I50.23 Acute on chronic systolic (congestive) heart failure; J96.01 Acute respiratory failure with hypoxia; J18.9 Pneumonia, unspecified organism; N39.0 Urinary tract infection, site not specified; I25.810 Atherosclerosis of coronary artery bypass graft(s) without angina pectoris; J44.0 Chronic obstructive pulmonary disease with (acute) lower respiratory infection; G89.29 Other chronic pain; M54.5 Low back pain; N18.30 Chronic kidney disease, stage 3 unspecified; K21.9 Gastro-esophageal reflux disease without esophagitis; E66.01 Morbid (severe) obesity due to excess calories; E11.22 Type 2 diabetes mellitus with diabetic chronic kidney disease; E78.5 Hyperlipidemia, unspecified; D63.8 Anemia in other chronic diseases classified elsewhere; Z20.822 Contact with and (suspected) exposure to COVID-19; I48.91 Unspecified atrial fibrillation; Z91.14 Patient's other noncompliance with medication regimen; Z95.1 Presence of aortocoronary bypass graft; Z87.891 Personal history of nicotine dependence; Z68.35 Body mass index [BMI] 35.0-35.9, adult; Z95.810 Presence of automatic (implantable) cardiac defibrillator
CPT/HCPCS: 0240U; 36415; 36416; 71045; 74018; 80048; 80053; 81003; 81015; 82553; 82947; 83605; 83735; 83880; 84484; 85025; 86713; 87040; 87449; 93005; 94640; 96374; 96375; G0378; J0696; J1100; J1815; J1940; J7620; J8540

== ENCOUNTER 2020-10-13 19:16 | Emergency (ER) | payer MEDICARE, MEDICAID ==
[~2020-10-13 19:16] MED LIST: Iopamidol 370 76% 100 ML VIAL ONE
[2020-10-13 20:24] LABS: Hemoglobin 12.1 g/dL (14.0-18.0); Mean Corpuscular HGB CONC 28.1 g/dL (32.0-36.0); Mean Corpuscular Hemoglobin 23.9 pg (27.0-31.0); RBC Distribution Width 18.5 % (11.5-14.5); Red Blood Cell (RBC) Count 5.05 mill/uL (4.70-6.10)
[2020-10-13 20:45] LABS: ALT (SGPT) 74 U/L (8-55); AST (SGOT) 45 U/L (5-34); Albumin 3.6 g/dL (3.4-4.8); Alkaline Phosphatase 61 U/L (40-110); Anion Gap 14 mmol/L (10-20); BUN (Urea Nitrogen) 25 mg/dL (8.4-25.7); Bilirubin, Total 1.3 mg/dL (0.2-1.2); CK (CPK) 179 U/L (30-200); Calc. Creatinine Clearance 0 mL/min (70-130); Calcium 9.2 mg/dL (7.8-10.44); Carbon Dioxide 26 mmol/L (23-31); Chloride 106 mmol/L (98-107); Globulin 4.2 g/dL (2.4-3.5); Glucose 128 mg/dL (80-115); Lipase 51 U/L (8-78); Potassium 4.4 mmol/L (3.5-5.1); Protein, Total 7.8 g/dL (5.8-8.1); Sodium 142 mmol/L (136-145)
[2020-10-13 20:54] LABS: #Eosinphils 0.1 thou/uL (0.0-0.7); #Lymphocytes 0.8 thou/uL (1.20-3.40); #Monocytes 0.6 thou/uL (0.11-0.59); #Neutrophils 4.6 thou/uL (1.40-6.50); %Basophils 0.2 % (0.0-1.0); %Eosinophils 2.3 % (0.0-10.0); %Lymphocytes 13.3 % (21.0-51.0); %Neutrophils 74.2 % (42.0-75.0); Anisocytosis SLIGHT = 6-15 cells (100X) (0-5/hpf); MDiff Complete? YES; Mean Platelet Volume 11.5 fL (7.4-10.4); Platelet Count 164 thou/uL (130-400); White Blood Cell (WBC) Count 6.2 thou/uL (4.8-10.8)
== END 2020-10-13 21:45 | disposition home or self-care (01) ==
LOC: ERS 19:16
DX: S20.212A Contusion of left front wall of thorax, initial encounter (principal); I11.0 Hypertensive heart disease with heart failure; I50.9 Heart failure, unspecified; E11.9 Type 2 diabetes mellitus without complications; E78.5 Hyperlipidemia, unspecified; J44.9 Chronic obstructive pulmonary disease, unspecified; Z87.891 Personal history of nicotine dependence; W19.XXXA Unspecified fall, initial encounter
CPT/HCPCS: 36415; 71045; 71260; 74177; 80053; 82550; 83690; 83880; 84484; 85025; 93005; Q9967

== ENCOUNTER 2020-10-21 18:31 | Inpatient (IN) | payer MEDICARE, MEDICAID ==
[2020-10-21] MEDS ORDERED: Nitroglycerin 2% Ointment 1 INCH/1 GM Packet ONE (18:34)
[2020-10-21] MEDS ORDERED: Furosemide 100 MG/10 ML VIAL ONE (18:34)
[2020-10-21 19:09] LABS: #Eosinphils 0.3 thou/uL (0.0-0.7); #Lymphocytes 0.9 thou/uL (1.20-3.40); %Basophils 0.4 % (0.0-1.0); %Eosinophils 2.7 % (0.0-10.0); %Lymphocytes 10.1 % (21.0-51.0); %Monocytes 11.2 % (0.0-10.0); %Neutrophils 75.6 % (42.0-75.0); Hemoglobin 11.6 g/dL (14.0-18.0); Mean Corpuscular Hemoglobin 24.3 pg (27.0-31.0); Mean Corpuscular Volume 83.5 fL (78.0-98.0); Mean Platelet Volume 11.4 fL (7.4-10.4); Platelet Count 221 thou/uL (130-400); RBC Distribution Width 18.5 % (11.5-14.5); Red Blood Cell (RBC) Count 4.77 mill/uL (4.70-6.10); White Blood Cell (WBC) Count 9.3 thou/uL (4.8-10.8)
[2020-10-21 19:31] LABS: ALT (SGPT) 25 U/L (8-55); AST (SGOT) 20 U/L (5-34); Albumin 3.8 g/dL (3.4-4.8); Alkaline Phosphatase 55 U/L (40-110); Anion Gap 15 mmol/L (10-20); BUN (Urea Nitrogen) 25 mg/dL (8.4-25.7); Bilirubin, Total 2.2 mg/dL (0.2-1.2); Calc. Creatinine Clearance 0 mL/min (70-130); Calcium 9.1 mg/dL (7.8-10.44); Carbon Dioxide 23 mmol/L (23-31); Chloride 102 mmol/L (98-107); Globulin 4.4 g/dL (2.4-3.5); Glucose 147 mg/dL (80-115); Potassium 4.7 mmol/L (3.5-5.1); Protein, Total 8.2 g/dL (5.8-8.1); Sodium 135 mmol/L (136-145)
[2020-10-21 19:51] LABS: CKMB 4.2 ng/mL (0-6.6)
[2020-10-21 19:51] LABS: Bacteria/HPF 4+ HPF (None Seen); Bilirubin Negative (Negative); Blood, Urine 3+ (Negative); Clarity Extra Turbid (Clear); Glucose, Urine (Dipstick) Normal (Negative); Ketone, Urine Negative (Negative); Leukocyte 500 Leu/uL (Negative); Nitrite Negative (Negative); Protein, Urine (Dipstick) 200 mg/dL (Neg-Trace); RBC/HPF Greater than 50 HPF (0-3); Specific Gravity, Urine 1.011 (1.002-1.036); Squamous Epithelial None Seen HPF (0-3); Urobilinogen 3 mg/dL (Less than 2); WBC/HPF Greater than 50 HPF (0-3)
[2020-10-21] MEDS ORDERED: Acetaminophen 325 MG TAB PO PRN (20:48)
[2020-10-21] MEDS ORDERED: Dextrose 5% in Water 1,000 ML IV PRN (20:48)
[2020-10-21] MEDS ORDERED: Ondansetron PF 4 MG/2 ML Vial IVP PRN (20:48)
[2020-10-21] MEDS ORDERED: Dextrose 50% Abboject 50 ML SYRINGE SLOW IVP PRN (20:48)
[2020-10-21] MEDS ORDERED: hydrALAZINE 20 MG/ML VIAL SLOW IVP PRN (21:03)
[2020-10-21 21:09] LABS: SARS-CoV-2 NAA Rapid Test Not Detected (NotDetected)
[2020-10-21] MEDS ORDERED: hydrALAZINE 20 MG/ML VIAL ONE (21:42)
[2020-10-21] MEDS ORDERED: Aspirin Chewable 81 MG TAB ONE (21:42)
[2020-10-21] MEDS: HYDROcodone/Acetaminophen 5/325 mg Tablet PO PRN (23:41)
[2020-10-21] MEDS: Cefepime 1 GM in Sodium Chloride 0.9% 100 ML IVPB SCH (23:42)
[2020-10-21 23:59] LABS: Lactic Acid 1.6 mmol/L (0.5-2.2)
[2020-10-22 00:08] LABS: Troponin I 0.103 ng/mL (< 0.028)
[2020-10-22 02:37] LABS: #Basophils 0.1 thou/uL (0.0-0.2); #Lymphocytes 0.6 thou/uL (1.20-3.40); #Monocytes 0.1 thou/uL (0.11-0.59); #Neutrophils 7.6 thou/uL (1.40-6.50); %Basophils 0.7 % (0.0-1.0); %Eosinophils 0.1 % (0.0-10.0); %Lymphocytes 7.3 % (21.0-51.0); %Monocytes 0.6 % (0.0-10.0); %Neutrophils 91.3 % (42.0-75.0); Hemoglobin 11.4 g/dL (14.0-18.0); Mean Corpuscular HGB CONC 28.8 g/dL (32.0-36.0); Mean Corpuscular Volume 83.3 fL (78.0-98.0); Mean Platelet Volume 11.5 fL (7.4-10.4); Platelet Count 197 thou/uL (130-400); RBC Distribution Width 18.6 % (11.5-14.5); Red Blood Cell (RBC) Count 4.74 mill/uL (4.70-6.10); White Blood Cell (WBC) Count 8.3 thou/uL (4.8-10.8)
[2020-10-22 02:57] LABS: Troponin I 0.084 ng/mL (< 0.028)
[2020-10-22 03:04] LABS: Anion Gap 14 mmol/L (10-20); BUN (Urea Nitrogen) 27 mg/dL (8.4-25.7); Calc. Creatinine Clearance 45 mL/min (70-130); Calcium 8.9 mg/dL (7.8-10.44); Carbon Dioxide 25 mmol/L (23-31); Chloride 99 mmol/L (98-107); Glucose 262 mg/dL (80-115); Potassium 4.9 mmol/L (3.5-5.1); Sodium 133 mmol/L (136-145)
[2020-10-22 04:54] VITALS: BMI 40.8
[2020-10-22] MEDS: HumaLOG 300 UNITS/3 ML VIAL SC PRN ×3 (05:36→16:19)
[2020-10-22] MEDS: Furosemide 40 MG/4 ML VIAL SLOW IVP SCH ×2 (05:36→14:15)
[2020-10-22] MEDS: Apixaban 2.5 MG TAB PO SCH ×2 (08:07→20:20)
[2020-10-22] MEDS: methylPREDNISolone Sod Succ 40 MG VIAL IVP SCH ×2 (08:08→20:21)
[2020-10-22] MEDS: Cefepime 1 GM in Sodium Chloride 0.9% 100 ML IVPB SCH ×2 (11:43→21:46)
[2020-10-22] MEDS: HYDROcodone/Acetaminophen 5/325 mg Tablet PO PRN ×3 (11:55→20:21)
[2020-10-23] MEDS: HYDROcodone/Acetaminophen 5/325 mg Tablet PO PRN ×3 (00:23→09:48)
[2020-10-23 04:38] LABS: #Lymphocytes 0.3 thou/uL (1.20-3.40); #Monocytes 0.4 thou/uL (0.11-0.59); #Neutrophils 10.2 thou/uL (1.40-6.50); %Lymphocytes 2.5 % (21.0-51.0); %Monocytes 3.4 % (0.0-10.0); %Neutrophils 94.1 % (42.0-75.0); Hemoglobin 10.7 g/dL (14.0-18.0); Mean Corpuscular HGB CONC 29.6 g/dL (32.0-36.0); Mean Corpuscular Hemoglobin 24.6 pg (27.0-31.0); Mean Corpuscular Volume 83.2 fL (78.0-98.0); Mean Platelet Volume 11.7 fL (7.4-10.4); Platelet Count 190 thou/uL (130-400); RBC Distribution Width 18.8 % (11.5-14.5); Red Blood Cell (RBC) Count 4.34 mill/uL (4.70-6.10); White Blood Cell (WBC) Count 10.8 thou/uL (4.8-10.8)
[2020-10-23 04:57] LABS: Anion Gap 14 mmol/L (10-20); BUN (Urea Nitrogen) 40 mg/dL (8.4-25.7); Calc. Creatinine Clearance 47 mL/min (70-130); Calcium 9.2 mg/dL (7.8-10.44); Carbon Dioxide 25 mmol/L (23-31); Chloride 99 mmol/L (98-107); Glucose 299 mg/dL (80-115); Potassium 5.2 mmol/L (3.5-5.1); Sodium 133 mmol/L (136-145)
[2020-10-23] MEDS: Furosemide 40 MG/4 ML VIAL SLOW IVP SCH ×2 (05:39→15:03)
[2020-10-23] MEDS: HumaLOG 300 UNITS/3 ML VIAL SC PRN ×2 (05:45→11:39)
[2020-10-23] MEDS: methylPREDNISolone Sod Succ 40 MG VIAL IVP SCH (08:03)
[2020-10-23] MEDS: Apixaban 2.5 MG TAB PO SCH (08:03)
[2020-10-23] MEDS ORDERED: Enoxaparin Sodium 30 MG/0.3 ML SYRINGE SC SCH (09:00)
[2020-10-23] MEDS: Cefepime 1 GM in Sodium Chloride 0.9% 100 ML IVPB SCH (09:49)
[2020-10-23 11:39] VITALS: BP 146/76; TEMP 98.3
== END 2020-10-23 15:25 | disposition home or self-care (01) | DRG 291 ==
LOC: ERS 18:31 → IMCU/EMU 20:33 → 2NO 10-22 12:39
PROVIDERS: ADMIT Internal Medicine; ATTEND Internal Medicine
DX: I13.0 Hypertensive heart and chronic kidney disease with heart failure and stage 1 through stage 4 chronic kidney disease, or unspecified chronic kidney disease (principal); I50.23 Acute on chronic systolic (congestive) heart failure; J96.01 Acute respiratory failure with hypoxia; N39.0 Urinary tract infection, site not specified; J44.1 Chronic obstructive pulmonary disease with (acute) exacerbation; N17.9 Acute kidney failure, unspecified; E87.2 Acidosis; Z20.822 Contact with and (suspected) exposure to COVID-19; E11.22 Type 2 diabetes mellitus with diabetic chronic kidney disease; N18.30 Chronic kidney disease, stage 3 unspecified; I48.0 Paroxysmal atrial fibrillation; E78.5 Hyperlipidemia, unspecified; G89.29 Other chronic pain; I25.10 Atherosclerotic heart disease of native coronary artery without angina pectoris; D63.1 Anemia in chronic kidney disease; R77.8 Other specified abnormalities of plasma proteins; F17.210 Nicotine dependence, cigarettes, uncomplicated; M54.9 Dorsalgia, unspecified; Z95.5 Presence of coronary angioplasty implant and graft; Z95.1 Presence of aortocoronary bypass graft; Z91.14 Patient's other noncompliance with medication regimen; Z88.4 Allergy status to anesthetic agent; Z91.018 Allergy to other foods; Z79.899 Other long term (current) drug therapy; Z79.82 Long term (current) use of aspirin; Z79.4 Long term (current) use of insulin; Z79.01 Long term (current) use of anticoagulants; Z95.810 Presence of automatic (implantable) cardiac defibrillator; Z82.49 Family history of ischemic heart disease and other diseases of the circulatory system; Z83.3 Family history of diabetes mellitus
CPT/HCPCS: 0240U; 36415; 36416; 71045; 74018; 80048; 80053; 81003; 81015; 82553; 83605; 83880; 84484; 85025; 87040; 87077; 87086; 87186; 93005; 94640; 94660; 96374; 96375; J0360; J0692; J1815; J1940; J2920; J3490; J7620

== ENCOUNTER 2020-10-26 15:13 | Inpatient (IN) | payer MEDICARE, MEDICAID ==
[2020-10-26] MEDS ORDERED: Albuterol Sulfate 1.25 MG/3 ML NEB ONE (15:45)
[2020-10-26] MEDS ORDERED: Nitroglycerin 2% Ointment 1 INCH/1 GM Packet ONE (15:45)
[2020-10-26] MEDS ORDERED: PROVENTIL INHALER 6.7 G (200 INHALATIONS) ONE (15:46)
[2020-10-26] MEDS ORDERED: Albuterol 200 PUFF (6.7GM INHALER) ONE (15:48)
[2020-10-26] MEDS ORDERED: methylPREDNISolone Sod Succ/PF 125 MG/2 ML VIAL ONE (15:54)
[2020-10-26 16:15] LABS: Actual Bicarbonate (HCO3v) 24 mEq/L (22-28); Analyzer IN Cardio ER; Base Excess -1.9 mEq/L (-2.0 to +3.0); Calcium, Ionized (venous) 1.15 mmol/L (1.16-1.32); Chloride (VBG) 101 mmol/L (98-106); Hemoglobin (Hb) 12.3 g/dL (12.6-17.4); Potassium (VBG) 4.67 mmol/L (3.70-5.30); Sodium 136.2 mmol/L (133-146); pH (venous) 7.36 (7.32-7.43)
[2020-10-26 16:44] LABS: Hemoglobin 11.8 g/dL (14.0-18.0); Mean Corpuscular HGB CONC 28.2 g/dL (32.0-36.0); Mean Corpuscular Hemoglobin 23.4 pg (27.0-31.0); Mean Platelet Volume 11.8 fL (7.4-10.4); Platelet Count 197 thou/uL (130-400); RBC Distribution Width 19.1 % (11.5-14.5); Red Blood Cell (RBC) Count 5.02 mill/uL (4.70-6.10); White Blood Cell (WBC) Count 10.4 thou/uL (4.8-10.8)
[2020-10-26 16:45] LABS: #Eosinphils 0.1 thou/uL (0.0-0.7); #Lymphocytes 0.8 thou/uL (1.20-3.40); #Monocytes 0.8 thou/uL (0.11-0.59); #Neutrophils 8.7 thou/uL (1.40-6.50); %Basophils 0.3 % (0.0-1.0); %Eosinophils 0.6 % (0.0-10.0); %Lymphocytes 7.5 % (21.0-51.0); %Monocytes 7.8 % (0.0-10.0); %Neutrophils 83.8 % (42.0-75.0)
[2020-10-26 16:48] LABS: INR-International Normal Ratio 1.2; PTT 25.2 sec (22.9-36.1); Prothrombin Time 15.8 sec (12.0-14.7)
[2020-10-26 16:57] LABS: ALT (SGPT) 22 U/L (8-55); AST (SGOT) 25 U/L (5-34); Albumin 4.2 g/dL (3.4-4.8); Alkaline Phosphatase 51 U/L (40-110); Anion Gap 15 mmol/L (10-20); BUN (Urea Nitrogen) 49 mg/dL (8.4-25.7); Bilirubin, Total 1.9 mg/dL (0.2-1.2); Calc. Creatinine Clearance 0 mL/min (70-130); Calcium 10.1 mg/dL (7.8-10.44); Carbon Dioxide 25 mmol/L (23-31); Chloride 102 mmol/L (98-107); Globulin 4.2 g/dL (2.4-3.5); Glucose 175 mg/dL (80-115); Potassium 4.7 mmol/L (3.5-5.1); Protein, Total 8.4 g/dL (5.8-8.1); Sodium 137 mmol/L (136-145)
[2020-10-26 17:20] LABS: CKMB 5.5 ng/mL (0-6.6)
[2020-10-26] MEDS ORDERED: Furosemide 40 MG/4 ML VIAL ONE (18:11)
[2020-10-26] MEDS ORDERED: Acetaminophen 325 MG TAB PO PRN (20:16)
[2020-10-26] MEDS ORDERED: Dextrose 5% in Water 1,000 ML IV PRN (20:16)
[2020-10-26] MEDS ORDERED: Bisacodyl 10 MG SUPP PR PRN (20:16)
[2020-10-26] MEDS ORDERED: Senokot S 8.6-50 MG TAB PO PRN (20:16)
[2020-10-26] MEDS ORDERED: Dextrose 50% Abboject 50 ML SYRINGE SLOW IVP PRN (20:16)
[2020-10-26] MEDS ORDERED: Loperamide HCl 2 MG CAP PO PRN (20:16)
[2020-10-26] MEDS ORDERED: Calcium Carbonate 500 MG ChewTAB PO PRN (20:16)
[2020-10-26] MEDS ORDERED: hydrALAZINE 25 MG TAB ONE (21:48)
[2020-10-26] MEDS: hydrALAZINE 25 MG TAB PO SCH (21:55)
[2020-10-26] MEDS ORDERED: HYDROcodone/Acetaminophen 5/325 mg Tablet ONE (22:18)
[2020-10-26] MEDS: Isosorbide Dinitrate 20 MG TAB PO SCH (22:25)
[2020-10-26] MEDS: Apixaban 5 MG TAB PO SCH (22:25)
[2020-10-26] MEDS: Magnesium Oxide 400 MG TAB PO SCH (22:26)
[2020-10-26] MEDS: Guaifenesin DM 100-10/5 ML UDCUP PO PRN (23:22)
[2020-10-27] MEDS ORDERED: Albuterol Sulfate 2.5 mg/0.5 ml Neb ONE (00:58)
[2020-10-27] MEDS ORDERED: HYDROcodone/Acetaminophen 5/325 mg Tablet ONE ×2 (01:17→06:50)
[2020-10-27] MEDS: HYDROcodone/Acetaminophen 5/325 mg Tablet PO PRN ×4 (01:18→20:36)
[2020-10-27 01:54] LABS: SARS-CoV-2 PCR by NAA Not Detected (NotDetected)
[2020-10-27] MEDS ORDERED: Furosemide 40 MG/4 ML VIAL ONE (05:01)
[2020-10-27] MEDS: Metolazone 2.5 MG TAB PO SCH (06:01)
[2020-10-27] MEDS: Furosemide 40 MG/4 ML VIAL SLOW IVP SCH ×2 (06:01→14:03)
[2020-10-27 06:10] LABS: ALT (SGPT) 18 U/L (8-55); AST (SGOT) 15 U/L (5-34); Albumin 3.5 g/dL (3.4-4.8); Alkaline Phosphatase 39 U/L (40-110); Anion Gap 11 mmol/L (10-20); BUN (Urea Nitrogen) 45 mg/dL (8.4-25.7); Bilirubin, Total 1.4 mg/dL (0.2-1.2); Calc. Creatinine Clearance 54 mL/min (70-130); Calcium 9.3 mg/dL (7.8-10.44); Carbon Dioxide 28 mmol/L (23-31); Chloride 101 mmol/L (98-107); Globulin 3.6 g/dL (2.4-3.5); Glucose 326 mg/dL (80-115); Potassium 5.3 mmol/L (3.5-5.1); Protein, Total 7.1 g/dL (5.8-8.1); Sodium 135 mmol/L (136-145)
[2020-10-27 06:48] LABS: #Basophils 0.1 thou/uL (0.0-0.2); #Lymphocytes 0.3 thou/uL (1.20-3.40); #Monocytes 0.1 thou/uL (0.11-0.59); #Neutrophils 7.7 thou/uL (1.40-6.50); %Basophils 1.2 % (0.0-1.0); %Eosinophils 0.1 % (0.0-10.0); %Lymphocytes 3.1 % (21.0-51.0); %Monocytes 1.4 % (0.0-10.0); %Neutrophils 94.2 % (42.0-75.0); Anisocytosis SLIGHT = 6-15 cells (100X) (0-5/hpf); Hemoglobin 10.3 g/dL (14.0-18.0); MDiff Complete? YES; Mean Corpuscular HGB CONC 27.7 g/dL (32.0-36.0); Mean Corpuscular Hemoglobin 23.2 pg (27.0-31.0); Mean Corpuscular Volume 83.9 fL (78.0-98.0); Mean Platelet Volume 12.1 fL (7.4-10.4); Platelet Count 170 thou/uL (130-400); Platelet Morphology Comment Appears Adequate; RBC Distribution Width 18.5 % (11.5-14.5); Red Blood Cell (RBC) Count 4.43 mill/uL (4.70-6.10); White Blood Cell (WBC) Count 8.2 thou/uL (4.8-10.8)
[2020-10-27] MEDS: Guaifenesin DM 100-10/5 ML UDCUP PO PRN (06:49)
[2020-10-27] MEDS: Carvedilol 6.25 MG TAB PO SCH ×2 (10:06→15:38)
[2020-10-27] MEDS: Amiodarone 200 MG TAB PO SCH (10:08)
[2020-10-27] MEDS: Ferrous Gluconate 324 MG TAB PO SCH (10:08)
[2020-10-27] MEDS: Apixaban 5 MG TAB PO SCH ×2 (10:09→20:27)
[2020-10-27] MEDS: Fludrocortisone Acetate 0.1 MG TAB PO SCH (10:10)
[2020-10-27] MEDS: DULoxetine 30 MG CAP PO SCH (10:10)
[2020-10-27] MEDS: hydrALAZINE 25 MG TAB PO SCH ×3 (10:11→20:31)
[2020-10-27] MEDS: Isosorbide Dinitrate 20 MG TAB PO SCH ×3 (10:13→20:27)
[2020-10-27] MEDS: Magnesium Oxide 400 MG TAB PO SCH ×2 (10:14→20:27)
[2020-10-27] MEDS ORDERED: Aspirin Chewable 81 MG TAB ONE (10:16)
[2020-10-27] MEDS ORDERED: methylPREDNISolone Sod Succ 40 MG VIAL ONE (10:16)
[2020-10-27] MEDS ORDERED: Famotidine 20 MG TAB ONE (10:16)
[2020-10-27] MEDS: Aspirin Chewable 81 MG TAB PO SCH (10:20)
[2020-10-27] MEDS: methylPREDNISolone Sod Succ 40 MG VIAL IVP SCH ×2 (10:20→20:27)
[2020-10-27] MEDS: Famotidine 20 MG TAB PO SCH (10:20)
[2020-10-27] MEDS ORDERED: HumaLOG 300 UNITS/3 ML VIAL ONE (10:34)
[2020-10-27] MEDS: Lantus 1000 UNITS/10 ML VIAL SC SCH (11:24)
[2020-10-27] MEDS: Budesonide 0.5 MG/2 ML NEB NEB SCH ×2 (12:41→19:37)
[2020-10-27 13:44] VITALS: BMI 41.2
[2020-10-27] MEDS: HumaLOG 300 UNITS/3 ML VIAL SC PRN ×2 (16:41→21:54)
[2020-10-28] MEDS: HYDROcodone/Acetaminophen 5/325 mg Tablet PO PRN ×3 (06:15→17:35)
[2020-10-28] MEDS: Metolazone 2.5 MG TAB PO SCH (06:15)
[2020-10-28] MEDS: Furosemide 40 MG/4 ML VIAL SLOW IVP SCH ×2 (06:17→14:15)
[2020-10-28] MEDS: HumaLOG 300 UNITS/3 ML VIAL SC PRN ×2 (06:41→17:30)
[2020-10-28] MEDS: Budesonide 0.5 MG/2 ML NEB NEB SCH ×2 (07:15→20:20)
[2020-10-28] MEDS: methylPREDNISolone Sod Succ 40 MG VIAL IVP SCH (08:48)
[2020-10-28] MEDS: Famotidine 20 MG TAB PO SCH (08:48)
[2020-10-28] MEDS: Magnesium Oxide 400 MG TAB PO SCH ×2 (08:49→21:29)
[2020-10-28] MEDS: Ferrous Gluconate 324 MG TAB PO SCH (08:49)
[2020-10-28] MEDS: Apixaban 5 MG TAB PO SCH ×2 (08:49→21:29)
[2020-10-28] MEDS: DULoxetine 30 MG CAP PO SCH (08:49)
[2020-10-28] MEDS: Aspirin Chewable 81 MG TAB PO SCH (08:49)
[2020-10-28] MEDS: Fludrocortisone Acetate 0.1 MG TAB PO SCH (08:50)
[2020-10-28] MEDS: Isosorbide Dinitrate 20 MG TAB PO SCH ×3 (08:51→21:32)
[2020-10-28] MEDS: Amiodarone 200 MG TAB PO SCH (08:52)
[2020-10-28] MEDS: Lantus 1000 UNITS/10 ML VIAL SC SCH (10:33)
[2020-10-28] MEDS: hydrALAZINE 25 MG TAB PO SCH ×3 (14:05→21:31)
[2020-10-28] MEDS: Carvedilol 6.25 MG TAB PO SCH ×2 (14:05→17:38)
[2020-10-29] MEDS: HYDROcodone/Acetaminophen 5/325 mg Tablet PO PRN ×4 (00:56→20:45)
[2020-10-29] MEDS: HumaLOG 300 UNITS/3 ML VIAL SC PRN ×4 (00:57→17:40)
[2020-10-29 05:25] LABS: Anion Gap 11 mmol/L (10-20); BUN (Urea Nitrogen) 54 mg/dL (8.4-25.7); Calc. Creatinine Clearance 50 mL/min (70-130); Calcium 9.3 mg/dL (7.8-10.44); Carbon Dioxide 28 mmol/L (23-31); Chloride 99 mmol/L (98-107); Glucose 238 mg/dL (80-115); Potassium 5.4 mmol/L (3.5-5.1); Sodium 133 mmol/L (136-145)
[2020-10-29] MEDS: Metolazone 2.5 MG TAB PO SCH (06:01)
[2020-10-29] MEDS: Furosemide 40 MG/4 ML VIAL SLOW IVP SCH ×2 (06:10→13:48)
[2020-10-29] MEDS: Guaifenesin DM 100-10/5 ML UDCUP PO PRN ×2 (06:30→14:06)
[2020-10-29] MEDS: Budesonide 0.5 MG/2 ML NEB NEB SCH ×2 (06:52→19:34)
[2020-10-29] MEDS: Apixaban 5 MG TAB PO SCH ×2 (09:04→20:42)
[2020-10-29] MEDS: Famotidine 20 MG TAB PO SCH (09:04)
[2020-10-29] MEDS: Magnesium Oxide 400 MG TAB PO SCH ×2 (09:04→20:41)
[2020-10-29] MEDS: Ferrous Gluconate 324 MG TAB PO SCH (09:04)
[2020-10-29] MEDS: Aspirin Chewable 81 MG TAB PO SCH (09:04)
[2020-10-29] MEDS: DULoxetine 30 MG CAP PO SCH (09:05)
[2020-10-29] MEDS: Fludrocortisone Acetate 0.1 MG TAB PO SCH (09:05)
[2020-10-29] MEDS: Lantus 1000 UNITS/10 ML VIAL SC SCH (09:11)
[2020-10-29] MEDS ORDERED: DOBUTamine 500 mg/250 ml 250 ML IVPB SCH (10:15)
[2020-10-29] MEDS: hydrALAZINE 25 MG TAB PO SCH ×2 (10:15→20:41)
[2020-10-29] MEDS: Amiodarone 200 MG TAB PO SCH (10:15)
[2020-10-29] MEDS: Isosorbide Dinitrate 20 MG TAB PO SCH ×3 (10:16→20:41)
[2020-10-29] MEDS: Carvedilol 6.25 MG TAB PO SCH (10:17)
[2020-10-29] MEDS: Carvedilol 3.125 MG TAB PO SCH (16:00)
[2020-10-30] MEDS: HYDROcodone/Acetaminophen 5/325 mg Tablet PO PRN ×4 (01:00→22:25)
[2020-10-30 05:34] LABS: Anion Gap 11 mmol/L (10-20); BUN (Urea Nitrogen) 51 mg/dL (8.4-25.7); Calc. Creatinine Clearance 54 mL/min (70-130); Calcium 8.9 mg/dL (7.8-10.44); Carbon Dioxide 32 mmol/L (23-31); Chloride 99 mmol/L (98-107); Glucose 64 mg/dL (80-115); Potassium 4.7 mmol/L (3.5-5.1); Sodium 137 mmol/L (136-145)
[2020-10-30] MEDS: Furosemide 40 MG/4 ML VIAL SLOW IVP SCH ×2 (05:40→14:47)
[2020-10-30] MEDS: Metolazone 2.5 MG TAB PO SCH (05:40)
[2020-10-30] MEDS: Budesonide 0.5 MG/2 ML NEB NEB SCH ×2 (07:12→18:30)
[2020-10-30] MEDS: DULoxetine 30 MG CAP PO SCH (08:52)
[2020-10-30] MEDS: Apixaban 5 MG TAB PO SCH ×2 (08:52→21:59)
[2020-10-30] MEDS: Aspirin Chewable 81 MG TAB PO SCH (08:52)
[2020-10-30] MEDS: Isosorbide Dinitrate 20 MG TAB PO SCH ×3 (08:52→22:00)
[2020-10-30] MEDS: Magnesium Oxide 400 MG TAB PO SCH ×2 (08:52→22:00)
[2020-10-30] MEDS: Carvedilol 3.125 MG TAB PO SCH ×2 (08:53→15:59)
[2020-10-30] MEDS: Ferrous Gluconate 324 MG TAB PO SCH (08:53)
[2020-10-30] MEDS: hydrALAZINE 25 MG TAB PO SCH ×2 (08:53→22:00)
[2020-10-30] MEDS: Amiodarone 200 MG TAB PO SCH (08:53)
[2020-10-30] MEDS: Fludrocortisone Acetate 0.1 MG TAB PO SCH (08:53)
[2020-10-30] MEDS: Famotidine 20 MG TAB PO SCH (08:54)
[2020-10-30] MEDS: Lantus 1000 UNITS/10 ML VIAL SC SCH ×2 (09:01→09:06)
[2020-10-30] MEDS: Guaifenesin DM 100-10/5 ML UDCUP PO PRN (15:03)
[2020-10-31] MEDS: HYDROcodone/Acetaminophen 5/325 mg Tablet PO PRN ×3 (02:39→16:27)
[2020-10-31] MEDS: Metolazone 2.5 MG TAB PO SCH (05:51)
[2020-10-31] MEDS: Furosemide 40 MG/4 ML VIAL SLOW IVP SCH ×2 (05:51→12:28)
[2020-10-31] MEDS: Budesonide 0.5 MG/2 ML NEB NEB SCH (07:18)
[2020-10-31] MEDS: HumaLOG 300 UNITS/3 ML VIAL SC PRN (07:25)
[2020-10-31] MEDS: Famotidine 20 MG TAB PO SCH (10:00)
[2020-10-31] MEDS: Apixaban 5 MG TAB PO SCH (10:00)
[2020-10-31] MEDS: Isosorbide Dinitrate 20 MG TAB PO SCH (10:00)
[2020-10-31] MEDS: Magnesium Oxide 400 MG TAB PO SCH (10:00)
[2020-10-31] MEDS: hydrALAZINE 25 MG TAB PO SCH (10:01)
[2020-10-31] MEDS: Aspirin Chewable 81 MG TAB PO SCH (10:01)
[2020-10-31] MEDS: Amiodarone 200 MG TAB PO SCH (10:01)
[2020-10-31] MEDS: Carvedilol 3.125 MG TAB PO SCH (10:01)
[2020-10-31] MEDS: Lantus 1000 UNITS/10 ML VIAL SC SCH (10:01)
[2020-10-31] MEDS: Ferrous Gluconate 324 MG TAB PO SCH (10:01)
[2020-10-31] MEDS: DULoxetine 30 MG CAP PO SCH (10:01)
[2020-10-31] MEDS: Fludrocortisone Acetate 0.1 MG TAB PO SCH (10:01)
[2020-10-31 16:46] VITALS: BP 113/53; TEMP 97.5
== END 2020-10-31 17:07 | disposition home health service (06) | DRG 291 ==
LOC: ERS 15:13 → INTOOBSV 18:16 → ERHOLD 18:16 → 2SW 10-27 13:19 → OBSVTOIN 10-27 22:29
PROVIDERS: ADMIT Internal Medicine; ATTEND Hospitalist
PROC: 5A09357 Assistance with Respiratory Ventilation, Less than 24 Consecutive Hours, Continuous Positive Airway Pressure (ICD-10-PCS; 2020-10-27)
PROC: 3E033XZ Introduction of Vasopressor into Peripheral Vein, Percutaneous Approach (ICD-10-PCS; principal; 2020-10-29)
DX: I13.0 Hypertensive heart and chronic kidney disease with heart failure and stage 1 through stage 4 chronic kidney disease, or unspecified chronic kidney disease (principal); I50.43 Acute on chronic combined systolic (congestive) and diastolic (congestive) heart failure; J96.01 Acute respiratory failure with hypoxia; R57.0 Cardiogenic shock; Z68.41 Body mass index [BMI] 40.0-44.9, adult; J44.1 Chronic obstructive pulmonary disease with (acute) exacerbation; Z20.822 Contact with and (suspected) exposure to COVID-19; I25.5 Ischemic cardiomyopathy; E11.22 Type 2 diabetes mellitus with diabetic chronic kidney disease; E66.01 Morbid (severe) obesity due to excess calories; N18.30 Chronic kidney disease, stage 3 unspecified; I25.10 Atherosclerotic heart disease of native coronary artery without angina pectoris; I48.0 Paroxysmal atrial fibrillation; G89.29 Other chronic pain; M54.5 Low back pain; D63.1 Anemia in chronic kidney disease; E78.5 Hyperlipidemia, unspecified; R77.8 Other specified abnormalities of plasma proteins; D50.9 Iron deficiency anemia, unspecified; Z95.1 Presence of aortocoronary bypass graft; Z88.6 Allergy status to analgesic agent; Z91.018 Allergy to other foods; Z95.810 Presence of automatic (implantable) cardiac defibrillator; Z91.19 Patient's noncompliance with other medical treatment and regimen; Z79.01 Long term (current) use of anticoagulants; Z79.899 Other long term (current) drug therapy; Z79.82 Long term (current) use of aspirin; Z79.4 Long term (current) use of insulin; Z95.5 Presence of coronary angioplasty implant and graft; Z87.891 Personal history of nicotine dependence
CPT/HCPCS: 36415; 36416; 71045; 80048; 80053; 82553; 82805; 83735; 83880; 84484; 85025; 85379; 85610; 85730; 87635; 93005; 94640; 94660; 96374; 96375; 96376; G0378; J1250; J1815; J1940; J2920; J2930; J7611; J7620; J7626; U0003; U0005

== ENCOUNTER 2020-11-05 11:35 | Inpatient (IN) | payer MEDICARE, MEDICAID ==
[2020-11-05 12:09] LABS: #Eosinphils 0.1 thou/uL (0.0-0.7); #Lymphocytes 1.1 thou/uL (1.20-3.40); #Monocytes 0.8 thou/uL (0.11-0.59); #Neutrophils 6.4 thou/uL (1.40-6.50); %Basophils 0.1 % (0.0-1.0); %Eosinophils 1.6 % (0.0-10.0); %Lymphocytes 13.1 % (21.0-51.0); %Monocytes 9.6 % (0.0-10.0); %Neutrophils 75.5 % (42.0-75.0); Mean Corpuscular HGB CONC 30.2 g/dL (32.0-36.0); Mean Corpuscular Hemoglobin 25.3 pg (27.0-31.0); Mean Corpuscular Volume 83.8 fL (78.0-98.0); Mean Platelet Volume 12.3 fL (7.4-10.4); Platelet Count 121 thou/uL (130-400); RBC Distribution Width 20.3 % (11.5-14.5); Red Blood Cell (RBC) Count 4.35 mill/uL (4.70-6.10); White Blood Cell (WBC) Count 8.5 thou/uL (4.8-10.8)
[2020-11-05] MEDS ORDERED: Furosemide 40 MG/4 ML VIAL ONE (12:20)
[2020-11-05 12:22] LABS: Anisocytosis SLIGHT = 6-15 cells (100X) (0-5/hpf); Hypochromia SLIGHT = 6-15 cells (100X) (0-5/hpf); MDiff Complete? YES; Ovalocytes SLIGHT = 2-5 cells (100X) (0-1/hpf); Platelet Morphology Comment Appears Decreased; Polychromasia SLIGHT = 2-3 cells (100X) (0-2/hpf); Target Cells SLIGHT = 2-5 cells (100X) (0-1/hpf)
[2020-11-05 12:28] LABS: ALT (SGPT) 15 U/L (8-55); AST (SGOT) 20 U/L (5-34); Albumin 3.8 g/dL (3.4-4.8); Alkaline Phosphatase 40 U/L (40-110); Anion Gap 15 mmol/L (10-20); BUN (Urea Nitrogen) 23 mg/dL (8.4-25.7); Bilirubin, Total 2.3 mg/dL (0.2-1.2); Calc. Creatinine Clearance 0 mL/min (70-130); Calcium 9.6 mg/dL (7.8-10.44); Carbon Dioxide 33 mmol/L (23-31); Chloride 99 mmol/L (98-107); Globulin 3.6 g/dL (2.4-3.5); Glucose 169 mg/dL (80-115); Potassium 3.7 mmol/L (3.5-5.1); Protein, Total 7.4 g/dL (5.8-8.1); Sodium 143 mmol/L (136-145)
[2020-11-05 12:51] LABS: CKMB 1.9 ng/mL (0-6.6)
[2020-11-05] MEDS ORDERED: Acetaminophen 325 MG TAB PO PRN (13:57)
[2020-11-05] MEDS ORDERED: Ondansetron PF 4 MG/2 ML Vial IVP PRN (13:58)
[2020-11-05] MEDS ORDERED: Aspirin 325 MG TAB PO SCH (14:00)
[2020-11-05] MEDS ORDERED: Insulin Regular 300 UNITS/3 ML VIAL SC PRN ×2 (14:02)
[2020-11-05] MEDS ORDERED: Dextrose 5% in Water 1,000 ML IV PRN (14:02)
[2020-11-05] MEDS ORDERED: Dextrose 50% Abboject 50 ML SYRINGE SLOW IVP PRN (14:02)
[2020-11-05 15:31] LABS: Troponin I 0.085 ng/mL (< 0.028)
[2020-11-05 15:46] VITALS: BMI 35.1
[2020-11-05] MEDS: Furosemide 40 MG/4 ML VIAL SLOW IVP SCH (15:59)
[2020-11-05] MEDS: Nicotine 7 MG PATCH TD SCH (17:23)
[2020-11-05] MEDS: Carvedilol 6.25 MG TAB PO SCH (17:24)
[2020-11-05 18:44] LABS: Troponin I 0.081 ng/mL (< 0.028)
[2020-11-05] MEDS: Apixaban 5 MG TAB PO SCH (20:53)
[2020-11-05] MEDS: HYDROcodone/Acetaminophen 5/325 mg Tablet PO PRN (20:53)
[2020-11-05 21:45] LABS: SARS-CoV-2 PCR by NAA Not Detected (NotDetected)
[2020-11-06] MEDS ORDERED: Magnesium 2 GM/50 ML 2 GM in Premix Bag 1 BAG IVPB SCH (02:15)
[2020-11-06] MEDS: Furosemide 40 MG/4 ML VIAL SLOW IVP SCH ×2 (05:16→14:16)
[2020-11-06] MEDS: HYDROcodone/Acetaminophen 5/325 mg Tablet PO PRN ×3 (05:16→22:38)
[2020-11-06 06:10] LABS: BUN (Urea Nitrogen) 24 mg/dL (8.4-25.7); Calc. Creatinine Clearance 49 mL/min (70-130); Calcium 9.3 mg/dL (7.8-10.44); Glucose 133 mg/dL (80-115); Magnesium 1.9 mg/dL (1.6-2.6)
[2020-11-06 06:12] LABS: #Eosinphils 0.2 thou/uL (0.0-0.7); #Lymphocytes 0.9 thou/uL (1.20-3.40); #Monocytes 0.8 thou/uL (0.11-0.59); #Neutrophils 6.6 thou/uL (1.40-6.50); %Basophils 0.2 % (0.0-1.0); %Eosinophils 2.3 % (0.0-10.0); %Lymphocytes 10.3 % (21.0-51.0); %Monocytes 9.1 % (0.0-10.0); %Neutrophils 78.1 % (42.0-75.0); Hemoglobin 9.4 g/dL (14.0-18.0); Mean Corpuscular HGB CONC 28.8 g/dL (32.0-36.0); Mean Corpuscular Hemoglobin 24.5 pg (27.0-31.0); Mean Corpuscular Volume 85.2 fL (78.0-98.0); Mean Platelet Volume 10.6 fL (7.4-10.4); Platelet Count 113 thou/uL (130-400); Red Blood Cell (RBC) Count 3.84 mill/uL (4.70-6.10); White Blood Cell (WBC) Count 8.4 thou/uL (4.8-10.8)
[2020-11-06 06:19] LABS: Chloride 98 mmol/L (98-107); Potassium 3.9 mmol/L (3.5-5.1); Sodium 143 mmol/L (136-145)
[2020-11-06 06:22] LABS: Anion Gap 12 mmol/L (10-20); Carbon Dioxide 37 mmol/L (23-31)
[2020-11-06 08:47] LABS: Hypochromia SLIGHT = 6-15 cells (100X) (0-5/hpf); Polychromasia SLIGHT = 2-3 cells (100X) (0-2/hpf)
[2020-11-06] MEDS: Carvedilol 6.25 MG TAB PO SCH ×2 (08:50→17:17)
[2020-11-06] MEDS: Apixaban 5 MG TAB PO SCH ×2 (08:50→20:42)
[2020-11-06] MEDS: Ferrous Gluconate 324 MG TAB PO SCH (08:50)
[2020-11-06] MEDS: Amiodarone 200 MG TAB PO SCH (08:50)
[2020-11-06] MEDS: Aspirin Chewable 81 MG TAB PO SCH (08:50)
[2020-11-06] MEDS: DULoxetine 30 MG CAP PO SCH (08:50)
[2020-11-06] MEDS: Isosorbide Dinitrate 20 MG TAB PO SCH ×3 (08:51→22:44)
[2020-11-06] MEDS: hydrALAZINE 25 MG TAB PO SCH ×3 (08:51→22:44)
[2020-11-06] MEDS: Magnesium Oxide 400 MG TAB PO SCH ×2 (08:53→20:41)
[2020-11-06] MEDS: Nicotine 7 MG PATCH TD SCH (14:31)
[2020-11-07] MEDS ORDERED: Metolazone 2.5 MG TAB PO SCH (05:30)
[2020-11-07] MEDS: Furosemide 40 MG/4 ML VIAL SLOW IVP SCH ×2 (05:31→15:04)
[2020-11-07 06:04] LABS: Anion Gap 13 mmol/L (10-20); BUN (Urea Nitrogen) 31 mg/dL (8.4-25.7); Calc. Creatinine Clearance 49 mL/min (70-130); Calcium 8.6 mg/dL (7.8-10.44); Carbon Dioxide 37 mmol/L (23-31); Chloride 94 mmol/L (98-107); Glucose 106 mg/dL (80-115); Potassium 4.1 mmol/L (3.5-5.1); Sodium 140 mmol/L (136-145)
[2020-11-07] MEDS: Carvedilol 6.25 MG TAB PO SCH ×3 (08:15→17:07)
[2020-11-07] MEDS: HYDROcodone/Acetaminophen 5/325 mg Tablet PO PRN ×2 (08:15→16:38)
[2020-11-07] MEDS: Aspirin Chewable 81 MG TAB PO SCH (08:15)
[2020-11-07] MEDS: hydrALAZINE 25 MG TAB PO SCH ×2 (08:15→15:04)
[2020-11-07] MEDS: Isosorbide Dinitrate 20 MG TAB PO SCH ×2 (08:15→15:04)
[2020-11-07] MEDS: Magnesium Oxide 400 MG TAB PO SCH ×2 (08:15→21:17)
[2020-11-07] MEDS: Amiodarone 200 MG TAB PO SCH (08:16)
[2020-11-07] MEDS: Apixaban 5 MG TAB PO SCH ×2 (08:16→21:17)
[2020-11-07] MEDS: DULoxetine 30 MG CAP PO SCH (08:17)
[2020-11-07] MEDS: Ferrous Gluconate 324 MG TAB PO SCH (08:18)
[2020-11-07] MEDS: Nicotine 7 MG PATCH TD SCH (15:04)
[2020-11-08] MEDS: HYDROcodone/Acetaminophen 5/325 mg Tablet PO PRN ×4 (00:05→23:49)
[2020-11-08] MEDS: Furosemide 40 MG/4 ML VIAL SLOW IVP SCH ×2 (05:23→14:17)
[2020-11-08 06:04] LABS: BUN (Urea Nitrogen) 41 mg/dL (8.4-25.7); Calc. Creatinine Clearance 50 mL/min (70-130); Calcium 8.7 mg/dL (7.8-10.44); Glucose 126 mg/dL (80-115)
[2020-11-08 06:34] LABS: Chloride 95 mmol/L (98-107); Potassium 4.1 mmol/L (3.5-5.1)
[2020-11-08 06:35] LABS: Sodium 142 mmol/L (136-145)
[2020-11-08 06:37] LABS: Anion Gap 17 mmol/L (10-20); Carbon Dioxide 34 mmol/L (23-31)
[2020-11-08] MEDS: Magnesium Oxide 400 MG TAB PO SCH ×2 (08:24→21:24)
[2020-11-08] MEDS: Aspirin Chewable 81 MG TAB PO SCH (08:24)
[2020-11-08] MEDS: Amiodarone 200 MG TAB PO SCH (08:24)
[2020-11-08] MEDS: DULoxetine 30 MG CAP PO SCH (08:24)
[2020-11-08] MEDS: Ferrous Gluconate 324 MG TAB PO SCH (08:25)
[2020-11-08] MEDS: Apixaban 5 MG TAB PO SCH ×2 (08:25→21:24)
[2020-11-08] MEDS: Carvedilol 3.125 MG TAB PO SCH ×2 (08:25→16:58)
[2020-11-08] MEDS: Nicotine 7 MG PATCH TD SCH (14:17)
[2020-11-09] MEDS: Furosemide 40 MG/4 ML VIAL SLOW IVP SCH ×2 (05:45→14:11)
[2020-11-09 05:52] LABS: Anion Gap 16 mmol/L (10-20); BUN (Urea Nitrogen) 48 mg/dL (8.4-25.7); Calc. Creatinine Clearance 48 mL/min (70-130); Calcium 8.4 mg/dL (7.8-10.44); Carbon Dioxide 30 mmol/L (23-31); Chloride 95 mmol/L (98-107); Glucose 111 mg/dL (80-115); Potassium 4.3 mmol/L (3.5-5.1); Sodium 137 mmol/L (136-145)
[2020-11-09] MEDS: HYDROcodone/Acetaminophen 5/325 mg Tablet PO PRN ×2 (09:37→17:48)
[2020-11-09] MEDS: Apixaban 5 MG TAB PO SCH ×2 (09:43→21:48)
[2020-11-09] MEDS: Ferrous Gluconate 324 MG TAB PO SCH (09:43)
[2020-11-09] MEDS: Carvedilol 3.125 MG TAB PO SCH ×2 (09:43→15:56)
[2020-11-09] MEDS: Amiodarone 200 MG TAB PO SCH (09:43)
[2020-11-09] MEDS: Aspirin Chewable 81 MG TAB PO SCH (09:44)
[2020-11-09] MEDS: Magnesium Oxide 400 MG TAB PO SCH ×2 (09:44→21:48)
[2020-11-09] MEDS: DULoxetine 30 MG CAP PO SCH (09:44)
[2020-11-09] MEDS ORDERED: Nitroglycerin 2% Ointment 1 INCH/1 GM Packet TOP SCH (09:45)
[2020-11-09] MEDS: Nicotine 7 MG PATCH TD SCH (15:56)
[2020-11-10 05:24] LABS: Bacteria/HPF None Seen HPF (None Seen); Bilirubin Negative (Negative); Blood, Urine Negative (Negative); Clarity Clear (Clear); Glucose, Urine (Dipstick) Normal (Negative); Ketone, Urine Negative (Negative); Leukocyte 25 Leu/uL (Negative); Nitrite Negative (Negative); Protein, Urine (Dipstick) Negative (Neg-Trace); RBC/HPF 0-3 HPF (0-3); Specific Gravity, Urine 1.014 (1.002-1.036); Squamous Epithelial 0-3 HPF (0-3); Urobilinogen 3 mg/dL (Less than 2); WBC/HPF 0-3 HPF (0-3); pH, Urine 7.5 (5.0-9.0)
[2020-11-10 05:38] LABS: BUN (Urea Nitrogen) 63 mg/dL (8.4-25.7); Calc. Creatinine Clearance 45 mL/min (70-130); Calcium 8.6 mg/dL (7.8-10.44); Glucose 123 mg/dL (80-115)
[2020-11-10 05:48] LABS: Anion Gap 16 mmol/L (10-20); Carbon Dioxide 35 mmol/L (23-31); Chloride 94 mmol/L (98-107); Potassium 4.5 mmol/L (3.5-5.1); Sodium 140 mmol/L (136-145)
[2020-11-10] MEDS: HYDROcodone/Acetaminophen 5/325 mg Tablet PO PRN (06:58)
[2020-11-10] MEDS ORDERED: Furosemide 40 MG TAB PO SCH (09:00)
[2020-11-10] MEDS: Carvedilol 3.125 MG TAB PO SCH (09:18)
[2020-11-10] MEDS: Ferrous Gluconate 324 MG TAB PO SCH (09:18)
[2020-11-10] MEDS: DULoxetine 30 MG CAP PO SCH (09:19)
[2020-11-10] MEDS: Magnesium Oxide 400 MG TAB PO SCH (09:19)
[2020-11-10] MEDS: Apixaban 5 MG TAB PO SCH (09:19)
[2020-11-10] MEDS: Aspirin Chewable 81 MG TAB PO SCH (09:19)
[2020-11-10] MEDS: Amiodarone 200 MG TAB PO SCH (09:19)
[2020-11-10 12:19] VITALS: BP 111/54; TEMP 98.1
== END 2020-11-10 13:55 | disposition home or self-care (01) | DRG 291 ==
LOC: ERS 11:35 → 2SW 13:06 → OBSVTOIN 11-06 10:13
PROVIDERS: ADMIT Internal Medicine; ATTEND Internal Medicine
DX: I13.0 Hypertensive heart and chronic kidney disease with heart failure and stage 1 through stage 4 chronic kidney disease, or unspecified chronic kidney disease (principal); I50.23 Acute on chronic systolic (congestive) heart failure; J96.01 Acute respiratory failure with hypoxia; I47.1 Supraventricular tachycardia; E78.5 Hyperlipidemia, unspecified; E11.22 Type 2 diabetes mellitus with diabetic chronic kidney disease; I25.10 Atherosclerotic heart disease of native coronary artery without angina pectoris; N18.30 Chronic kidney disease, stage 3 unspecified; J43.9 Emphysema, unspecified; I25.5 Ischemic cardiomyopathy; G89.29 Other chronic pain; D50.9 Iron deficiency anemia, unspecified; M54.9 Dorsalgia, unspecified; F17.210 Nicotine dependence, cigarettes, uncomplicated; I48.0 Paroxysmal atrial fibrillation; Z20.822 Contact with and (suspected) exposure to COVID-19; Z95.1 Presence of aortocoronary bypass graft; Z79.01 Long term (current) use of anticoagulants; Z88.8 Allergy status to other drugs, medicaments and biological substances; Z91.018 Allergy to other foods; Z79.82 Long term (current) use of aspirin; Z79.899 Other long term (current) drug therapy; Z95.810 Presence of automatic (implantable) cardiac defibrillator; Z98.890 Other specified postprocedural states; Z71.6 Tobacco abuse counseling
CPT/HCPCS: 36415; 36416; 71045; 76770; 80048; 80053; 81001; 82553; 83735; 83880; 84443; 84484; 85025; 87635; 93005; 93010; 93306; 93970; 94640; 96365; 96374; 96375; 96376; G0378; J1815; J1940; J3475; J7620; U0003; U0005

== ENCOUNTER 2020-11-11 05:10 | Inpatient (IN) | payer MEDICARE, MEDICAID ==
[2020-11-11 06:31] LABS: Hemoglobin 6.3 g/dL (14.0-18.0); Mean Corpuscular HGB CONC 30.6 g/dL (32.0-36.0); Mean Corpuscular Hemoglobin 25.6 pg (27.0-31.0); Mean Corpuscular Volume 83.9 fL (78.0-98.0); RBC Distribution Width 20.8 % (11.5-14.5); Red Blood Cell (RBC) Count 2.45 mill/uL (4.70-6.10); White Blood Cell (WBC) Count 10.9 thou/uL (4.8-10.8)
[2020-11-11 06:42] LABS: #Eosinphils 0.1 thou/uL (0.0-0.7); #Lymphocytes 1.8 thou/uL (1.20-3.40); #Monocytes 0.8 thou/uL (0.11-0.59); #Neutrophils 8.2 thou/uL (1.40-6.50); %Basophils 0.1 % (0.0-1.0); %Eosinophils 0.6 % (0.0-10.0); %Lymphocytes 16.4 % (21.0-51.0); %Monocytes 7.7 % (0.0-10.0); %Neutrophils 75.2 % (42.0-75.0); Mean Platelet Volume 8.7 fL (7.4-10.4); Platelet Count 106 thou/uL (130-400)
[2020-11-11 06:43] LABS: ALT (SGPT) 11 U/L (8-55); AST (SGOT) 12 U/L (5-34); Albumin 3.5 g/dL (3.4-4.8); Alkaline Phosphatase 31 U/L (40-110); Anion Gap 17 mmol/L (10-20); BUN (Urea Nitrogen) 75 mg/dL (8.4-25.7); Bilirubin, Total 0.9 mg/dL (0.2-1.2); Calc. Creatinine Clearance 0 mL/min (70-130); Calcium 8.8 mg/dL (7.8-10.44); Carbon Dioxide 32 mmol/L (23-31); Chloride 95 mmol/L (98-107); Globulin 3.2 g/dL (2.4-3.5); Glucose 162 mg/dL (80-115); Potassium 4.2 mmol/L (3.5-5.1); Protein, Total 6.7 g/dL (5.8-8.1); Sodium 140 mmol/L (136-145)
[2020-11-11 07:06] LABS: CKMB 1.3 ng/mL (0-6.6)
[2020-11-11] MEDS ORDERED: Dextrose 50% Abboject 50 ML SYRINGE SLOW IVP PRN (08:16)
[2020-11-11] MEDS ORDERED: Dextrose 5% in Water 1,000 ML IV PRN (08:16)
[2020-11-11] MEDS ORDERED: Furosemide 40 MG/4 ML VIAL SLOW IVP SCH ×2 (09:00→16:30)
[2020-11-11 09:34] LABS: Hemoglobin 6.2 g/dL (14.0-18.0); Mean Corpuscular HGB CONC 30.7 g/dL (32.0-36.0); Mean Corpuscular Hemoglobin 25.9 pg (27.0-31.0); Mean Corpuscular Volume 84.1 fL (78.0-98.0); Mean Platelet Volume 7.9 fL (7.4-10.4); Platelet Count 100 thou/uL (130-400); RBC Distribution Width 20.7 % (11.5-14.5); Red Blood Cell (RBC) Count 2.39 mill/uL (4.70-6.10); White Blood Cell (WBC) Count 9.6 thou/uL (4.8-10.8)
[2020-11-11] MEDS ORDERED: Furosemide 40 MG/4 ML VIAL ONE (09:48)
[2020-11-11] MEDS ORDERED: Pantoprazole 40 MG VIAL ONE (09:48)
[2020-11-11 09:59] LABS: Troponin I 0.088 ng/mL (< 0.028)
[2020-11-11] MEDS: Pantoprazole 40 MG VIAL IVP SCH ×2 (10:19→21:25)
[2020-11-11 13:49] LABS: Troponin I 0.121 ng/mL (< 0.028)
[2020-11-11 15:23] VITALS: BMI 35.9
[2020-11-11] MEDS: HYDROcodone/Acetaminophen 5/325 mg Tablet PO PRN (18:34)
[2020-11-11] MEDS: HumaLOG 300 UNITS/3 ML VIAL SC PRN (18:38)
[2020-11-11 20:30] LABS: Mean Corpuscular HGB CONC 30.1 g/dL (32.0-36.0); Mean Corpuscular Hemoglobin 25.9 pg (27.0-31.0); Mean Corpuscular Volume 86.3 fL (78.0-98.0); Mean Platelet Volume 12.1 fL (7.4-10.4); Platelet Count 117 thou/uL (130-400); RBC Distribution Width 19.7 % (11.5-14.5); White Blood Cell (WBC) Count 10.1 thou/uL (4.8-10.8)
[2020-11-11] MEDS ORDERED: Lantus 1000 UNITS/10 ML VIAL SC SCH (22:00)
[2020-11-12] MEDS: HYDROcodone/Acetaminophen 5/325 mg Tablet PO PRN ×3 (02:23→22:10)
[2020-11-12] MEDS ORDERED: Furosemide 40 MG/4 ML VIAL SLOW IVP SCH (03:00)
[2020-11-12] MEDS: Nitroglycerin 2% Ointment 1 INCH/1 GM Packet TOP SCH ×2 (03:20→16:23)
[2020-11-12 05:21] LABS: #Lymphocytes 1.2 thou/uL (1.20-3.40); #Neutrophils 10.6 thou/uL (1.40-6.50); %Basophils 0.1 % (0.0-1.0); %Eosinophils 0.1 % (0.0-10.0); %Lymphocytes 9.5 % (21.0-51.0); %Monocytes 7.7 % (0.0-10.0); %Neutrophils 82.7 % (42.0-75.0); Anisocytosis SLIGHT = 6-15 cells (100X) (0-5/hpf); Hemoglobin 6.6 g/dL (14.0-18.0); Hypochromia SLIGHT = 6-15 cells (100X) (0-5/hpf); MDiff Complete? YES; Mean Corpuscular HGB CONC 30.2 g/dL (32.0-36.0); Mean Corpuscular Volume 85.8 fL (78.0-98.0); Mean Platelet Volume 12.1 fL (7.4-10.4); Platelet Count 143 thou/uL (130-400); Polychromasia SLIGHT = 2-3 cells (100X) (0-2/hpf); Red Blood Cell (RBC) Count 2.53 mill/uL (4.70-6.10); White Blood Cell (WBC) Count 12.9 thou/uL (4.8-10.8)
[2020-11-12 05:54] LABS: Anion Gap 16 mmol/L (10-20); BUN (Urea Nitrogen) 82 mg/dL (8.4-25.7); Calc. Creatinine Clearance 42 mL/min (70-130); Calcium 8.6 mg/dL (7.8-10.44); Carbon Dioxide 31 mmol/L (23-31); Chloride 93 mmol/L (98-107); Glucose 256 mg/dL (80-115); Potassium 4.3 mmol/L (3.5-5.1); Sodium 136 mmol/L (136-145)
[2020-11-12] MEDS: HumaLOG 300 UNITS/3 ML VIAL SC PRN ×2 (06:58→12:17)
[2020-11-12] MEDS: Furosemide 40 MG/4 ML VIAL SLOW IVP SCH ×2 (07:31→14:04)
[2020-11-12] MEDS: Pantoprazole 40 MG VIAL IVP SCH ×2 (08:11→21:51)
[2020-11-12] MEDS: Amiodarone 200 MG TAB PO SCH (08:11)
[2020-11-12] MEDS: Carvedilol 3.125 MG TAB PO SCH ×2 (08:11→16:25)
[2020-11-12] MEDS: DULoxetine 30 MG CAP PO SCH (08:11)
[2020-11-12 08:31] LABS: #Lymphocytes 1.2 thou/uL (1.20-3.40); #Monocytes 0.9 thou/uL (0.11-0.59); #Neutrophils 9.5 thou/uL (1.40-6.50); %Basophils 0.1 % (0.0-1.0); %Eosinophils 0.1 % (0.0-10.0); %Lymphocytes 10.2 % (21.0-51.0); %Monocytes 7.3 % (0.0-10.0); %Neutrophils 82.3 % (42.0-75.0); Hemoglobin 6.3 g/dL (14.0-18.0); Mean Corpuscular HGB CONC 30.4 g/dL (32.0-36.0); Mean Corpuscular Hemoglobin 26.3 pg (27.0-31.0); Mean Corpuscular Volume 86.5 fL (78.0-98.0); Mean Platelet Volume 11.6 fL (7.4-10.4); Platelet Count 131 thou/uL (130-400); RBC Distribution Width 19.8 % (11.5-14.5); Red Blood Cell (RBC) Count 2.38 mill/uL (4.70-6.10); White Blood Cell (WBC) Count 11.6 thou/uL (4.8-10.8)
[2020-11-12 08:42] LABS: INR-International Normal Ratio 1.4; PTT 28.1 sec (22.9-36.1); Prothrombin Time 17.4 sec (12.0-14.7)
[2020-11-12 08:55] LABS: Troponin I 0.207 ng/mL (< 0.028)
[2020-11-12 14:00] LABS: Hemoglobin A1c 6.3 % (4.0-6.0)
[2020-11-12 14:16] LABS: Troponin I 0.243 ng/mL (< 0.028)
[2020-11-12 16:07] LABS: #Lymphocytes 1.1 thou/uL (1.20-3.40); #Monocytes 0.8 thou/uL (0.11-0.59); %Eosinophils 0.1 % (0.0-10.0); %Lymphocytes 9.7 % (21.0-51.0); %Monocytes 7.6 % (0.0-10.0); %Neutrophils 82.6 % (42.0-75.0); Anisocytosis SLIGHT = 6-15 cells (100X) (0-5/hpf); Band 19 % (5-11); Hemoglobin 7.5 g/dL (14.0-18.0); Hypochromia MODERATE=16-30 cells (100X) (0-5/hpf); Lymphocytes 17 % (21-51); MDiff Complete? YES; Mean Corpuscular HGB CONC 31.7 g/dL (32.0-36.0); Mean Corpuscular Hemoglobin 27.6 pg (27.0-31.0); Mean Corpuscular Volume 86.9 fL (78.0-98.0); Mean Platelet Volume 12.1 fL (7.4-10.4); Monocytes 8 % (0-10); Neutrophil 56 % (42-75); Platelet Count 133 thou/uL (130-400); Poikilocytosis MODERATE=16-30 cells (100X) (0-5/hpf); RBC Distribution Width 18.9 % (11.5-14.5); Red Blood Cell (RBC) Count 2.72 mill/uL (4.70-6.10); White Blood Cell (WBC) Count 10.9 thou/uL (4.8-10.8)
[2020-11-12 20:46] LABS: Troponin I 0.245 ng/mL (< 0.028)
[2020-11-12] MEDS: Lantus 1000 UNITS/10 ML VIAL SC SCH (21:51)
[2020-11-13 01:28] LABS: Troponin I 0.251 ng/mL (< 0.028)
[2020-11-13] MEDS: Nitroglycerin 2% Ointment 1 INCH/1 GM Packet TOP SCH ×2 (04:25→17:35)
[2020-11-13] MEDS: Furosemide 40 MG/4 ML VIAL SLOW IVP SCH ×2 (06:56→14:02)
[2020-11-13 07:46] LABS: Anion Gap 15 mmol/L (10-20); BUN (Urea Nitrogen) 82 mg/dL (8.4-25.7); Calc. Creatinine Clearance 43 mL/min (70-130); Calcium 8.3 mg/dL (7.8-10.44); Carbon Dioxide 29 mmol/L (23-31); Chloride 101 mmol/L (98-107); Glucose 115 mg/dL (80-115); Sodium 141 mmol/L (136-145)
[2020-11-13 07:46] LABS: SARS-CoV-2 NAA Rapid Test Not Detected (NotDetected)
[2020-11-13 07:49] LABS: Troponin I 0.225 ng/mL (< 0.028)
[2020-11-13 08:26] LABS: #Eosinphils 0.1 thou/uL (0.0-0.7); #Monocytes 0.5 thou/uL (0.11-0.59); #Neutrophils 5.1 thou/uL (1.40-6.50); %Basophils 0.2 % (0.0-1.0); %Eosinophils 0.9 % (0.0-10.0); %Lymphocytes 14.5 % (21.0-51.0); %Monocytes 7.5 % (0.0-10.0); %Neutrophils 76.9 % (42.0-75.0); Hemoglobin 6.9 g/dL (14.0-18.0); Hypochromia SLIGHT = 6-15 cells (100X) (0-5/hpf); MDiff Complete? YES; Mean Corpuscular HGB CONC 30.6 g/dL (32.0-36.0); Mean Corpuscular Volume 88.3 fL (78.0-98.0); Platelet Count 116 thou/uL (130-400); Platelet Morphology Comment Appears Decreased; Polychromasia MODERATE = 3-4 cells (100X) (0-2/hpf); RBC Distribution Width 18.7 % (11.5-14.5); Red Blood Cell (RBC) Count 2.54 mill/uL (4.70-6.10); Schistocytes SLIGHT = 2-5 cells (100X) (0-1/hpf); White Blood Cell (WBC) Count 6.6 thou/uL (4.8-10.8)
[2020-11-13] MEDS ORDERED: Midazolam HCl 2 mg/2 ml Vial ONE (08:56)
[2020-11-13] MEDS ORDERED: PHENYLEPHRINE-NS 100 MCG/ML 10 ML SYRINGE ONE (09:11)
[2020-11-13] MEDS ORDERED: PROPOFOL 200 MG/20 ML VIAL ONE (09:11)
[2020-11-13] MEDS ORDERED: Lidocaine 1% PF 5 ML VIAL ONE (09:11)
[2020-11-13] MEDS ORDERED: Ondansetron HCl/PF 4 MG/2 ML Vial IVP PRN (09:22)
[2020-11-13] MEDS ORDERED: GoLYTELY 4,000 ml Bottle PO SCH ×2 (09:38→18:00)
[2020-11-13] MEDS: Carvedilol 3.125 MG TAB PO SCH ×2 (10:30→17:36)
[2020-11-13] MEDS: Amiodarone 200 MG TAB PO SCH (10:31)
[2020-11-13] MEDS: Pantoprazole 40 MG VIAL IVP SCH ×2 (10:31→20:38)
[2020-11-13] MEDS: HYDROcodone/Acetaminophen 5/325 mg Tablet PO PRN ×2 (10:31→22:19)
[2020-11-13] MEDS: DULoxetine 30 MG CAP PO SCH (10:31)
[2020-11-13 21:07] LABS: Hemoglobin 8.2 g/dL (14.0-18.0)
[2020-11-13] MEDS: Lantus 1000 UNITS/10 ML VIAL SC SCH (22:27)
[2020-11-14] MEDS: Furosemide 40 MG/4 ML VIAL SLOW IVP SCH ×2 (05:05→15:01)
[2020-11-14] MEDS: Nitroglycerin 2% Ointment 1 INCH/1 GM Packet TOP SCH ×2 (05:05→16:58)
[2020-11-14] MEDS: HYDROcodone/Acetaminophen 5/325 mg Tablet PO PRN ×4 (06:14→18:02)
[2020-11-14] MEDS: Amiodarone 200 MG TAB PO SCH (08:56)
[2020-11-14] MEDS: DULoxetine 30 MG CAP PO SCH (08:56)
[2020-11-14] MEDS: Pantoprazole 40 MG VIAL IVP SCH ×2 (08:57→19:27)
[2020-11-14] MEDS: Carvedilol 3.125 MG TAB PO SCH ×2 (09:02→18:02)
[2020-11-14] MEDS ORDERED: PHENYLEPHRINE-NS 100 MCG/ML 10 ML SYRINGE ONE ×2 (12:51→13:00)
[2020-11-14] MEDS ORDERED: ePHEDrine Sulfate 50 MG/10 ML VIAL ONE (13:00)
[2020-11-14] MEDS ORDERED: PROPOFOL 200 MG/20 ML VIAL ONE (13:00)
[2020-11-14] MEDS: Lantus 1000 UNITS/10 ML VIAL SC SCH (21:20)
[2020-11-15] MEDS: HYDROcodone/Acetaminophen 5/325 mg Tablet PO PRN ×3 (00:25→13:16)
[2020-11-15] MEDS: Nitroglycerin 2% Ointment 1 INCH/1 GM Packet TOP SCH ×2 (02:44→15:16)
[2020-11-15] MEDS ORDERED: Furosemide 40 MG TAB PO SCH (07:30)
[2020-11-15] MEDS: Carvedilol 3.125 MG TAB PO SCH ×2 (08:07→16:18)
[2020-11-15] MEDS: Pantoprazole 40 MG VIAL IVP SCH (08:08)
[2020-11-15] MEDS: DULoxetine 30 MG CAP PO SCH (08:08)
[2020-11-15] MEDS: Amiodarone 200 MG TAB PO SCH (08:08)
[2020-11-15 15:10] VITALS: BP 106/51; TEMP 98.8
== END 2020-11-15 17:50 | disposition home or self-care (01) | DRG 811 ==
LOC: ERS 05:10 → ERHOLD 07:37 → 2NO 14:58
PROVIDERS: ADMIT Internal Medicine; ATTEND Emergency Medicine
PROC: 30233N1 Transfusion of Nonautologous Red Blood Cells into Peripheral Vein, Percutaneous Approach (ICD-10-PCS; principal; 2020-11-11)
PROC: 0DJ08ZZ Inspection of Upper Intestinal Tract, Via Natural or Artificial Opening Endoscopic (ICD-10-PCS; 2020-11-13)
PROC: 0DBH8ZZ Excision of Cecum, Via Natural or Artificial Opening Endoscopic (ICD-10-PCS; 2020-11-14)
PROC: 0DBL8ZZ Excision of Transverse Colon, Via Natural or Artificial Opening Endoscopic (ICD-10-PCS; 2020-11-14)
DX: D50.9 Iron deficiency anemia, unspecified (principal); I50.43 Acute on chronic combined systolic (congestive) and diastolic (congestive) heart failure; I13.0 Hypertensive heart and chronic kidney disease with heart failure and stage 1 through stage 4 chronic kidney disease, or unspecified chronic kidney disease; Z20.822 Contact with and (suspected) exposure to COVID-19; I24.8 Other forms of acute ischemic heart disease; I82.431 Acute embolism and thrombosis of right popliteal vein; K92.1 Melena; D64.89 Other specified anemias; T45.515A Adverse effect of anticoagulants, initial encounter; N18.30 Chronic kidney disease, stage 3 unspecified; E11.22 Type 2 diabetes mellitus with diabetic chronic kidney disease; I25.10 Atherosclerotic heart disease of native coronary artery without angina pectoris; G89.29 Other chronic pain; M54.9 Dorsalgia, unspecified; K21.9 Gastro-esophageal reflux disease without esophagitis; E78.00 Pure hypercholesterolemia, unspecified; I48.0 Paroxysmal atrial fibrillation; F17.210 Nicotine dependence, cigarettes, uncomplicated; I25.5 Ischemic cardiomyopathy; J43.9 Emphysema, unspecified; E78.2 Mixed hyperlipidemia; D17.5 Benign lipomatous neoplasm of intra-abdominal organs; K63.5 Polyp of colon; Z95.1 Presence of aortocoronary bypass graft; Z95.5 Presence of coronary angioplasty implant and graft; Z95.810 Presence of automatic (implantable) cardiac defibrillator; Z79.899 Other long term (current) drug therapy; Z79.82 Long term (current) use of aspirin; Z79.01 Long term (current) use of anticoagulants; Z88.6 Allergy status to analgesic agent; Z91.018 Allergy to other foods; Z86.16 Personal history of COVID-19
CPT/HCPCS: 0240U; 36415; 36416; 36430; 71045; 71250; 74177; 80048; 80053; 82274; 82553; 83036; 83880; 84484; 85014; 85018; 85025; 85610; 85730; 86850; 86900; 86901; 88305; 93005; 93010; C9113; J1815; J1940; J2250; J2704; P9016

== ENCOUNTER 2020-11-24 10:30 | Inpatient (IN) | payer MEDICAID, MEDICARE, OTHER ==
[2020-11-24 11:42] LABS: #Eosinphils 0.1 thou/uL (0.0-0.7); #Lymphocytes 1.4 thou/uL (1.20-3.40); #Monocytes 0.6 thou/uL (0.11-0.59); #Neutrophils 4.8 thou/uL (1.40-6.50); %Basophils 0.5 % (0.0-1.0); %Eosinophils 1.9 % (0.0-10.0); %Lymphocytes 20.3 % (21.0-51.0); %Monocytes 8.2 % (0.0-10.0); Hemoglobin 8.8 g/dL (14.0-18.0); Mean Corpuscular Hemoglobin 27.1 pg (27.0-31.0); Mean Corpuscular Volume 87.3 fL (78.0-98.0); Mean Platelet Volume 9.6 fL (7.4-10.4); Platelet Count 222 thou/uL (130-400); RBC Distribution Width 17.3 % (11.5-14.5); Red Blood Cell (RBC) Count 3.25 mill/uL (4.70-6.10)
[2020-11-24 11:53] LABS: INR-International Normal Ratio 1.2; PTT 29.4 sec (22.9-36.1); Prothrombin Time 15.2 sec (12.0-14.7)
[2020-11-24 12:13] LABS: ALT (SGPT) 11 U/L (8-55); AST (SGOT) 10 U/L (5-34); Albumin 3.8 g/dL (3.4-4.8); Alkaline Phosphatase 43 U/L (40-110); Anion Gap 13 mmol/L (10-20); BUN (Urea Nitrogen) 16 mg/dL (8.4-25.7); Bilirubin, Total 1.3 mg/dL (0.2-1.2); Calc. Creatinine Clearance 0 mL/min (70-130); Calcium 9.6 mg/dL (7.8-10.44); Carbon Dioxide 29 mmol/L (23-31); Chloride 105 mmol/L (98-107); Globulin 3.3 g/dL (2.4-3.5); Glucose 156 mg/dL (80-115); Lipase 22 U/L (8-78); Potassium 3.7 mmol/L (3.5-5.1); Protein, Total 7.1 g/dL (5.8-8.1); Sodium 143 mmol/L (136-145)
[2020-11-24] MEDS ORDERED: Furosemide 40 MG/4 ML VIAL ONE (12:24)
[2020-11-24 12:44] LABS: Bilirubin Negative (Negative); Blood, Urine Negative (Negative); Clarity Clear (Clear); Glucose, Urine (Dipstick) Normal (Negative); Ketone, Urine Negative (Negative); Leukocyte Negative Leu/uL (Negative); Nitrite Negative (Negative); Protein, Urine (Dipstick) Negative (Neg-Trace); Urobilinogen Normal mg/dL (Less than 2)
[2020-11-24] MEDS ORDERED: Aspirin 325 MG TAB ONE (12:54)
== END 2020-11-24 13:44 | DRG 291 ==
LOC: ERS 10:30 → ERHOLD 12:59
PROVIDERS: ADMIT Student in an Organized Health Care Education/Training Program; ATTEND Student in an Organized Health Care Education/Training Program
DX: I13.0 Hypertensive heart and chronic kidney disease with heart failure and stage 1 through stage 4 chronic kidney disease, or unspecified chronic kidney disease (principal); I50.23 Acute on chronic systolic (congestive) heart failure; Z20.822 Contact with and (suspected) exposure to COVID-19; N18.30 Chronic kidney disease, stage 3 unspecified; I48.91 Unspecified atrial fibrillation; I25.10 Atherosclerotic heart disease of native coronary artery without angina pectoris; E78.5 Hyperlipidemia, unspecified; M54.9 Dorsalgia, unspecified; G89.29 Other chronic pain; Z95.1 Presence of aortocoronary bypass graft; Z86.718 Personal history of other venous thrombosis and embolism; Z79.01 Long term (current) use of anticoagulants; Z95.0 Presence of cardiac pacemaker; Z87.891 Personal history of nicotine dependence; Z88.6 Allergy status to analgesic agent; Z91.010 Allergy to peanuts; Z79.82 Long term (current) use of aspirin; Z79.899 Other long term (current) drug therapy
CPT/HCPCS: 36415; 70450; 71045; 80053; 81003; 83690; 83880; 84484; 85025; 85610; 85730; 93005; 96374; J1940

== ENCOUNTER 2020-12-08 10:16 | Emergency (ER) | payer MEDICARE, MEDICAID ==
[2020-12-08 11:55] LABS: Hemoglobin 10.6 g/dL (14.0-18.0); Mean Corpuscular HGB CONC 31.9 g/dL (32.0-36.0); Mean Corpuscular Hemoglobin 26.5 pg (27.0-31.0); Mean Corpuscular Volume 82.9 fL (78.0-98.0); Mean Platelet Volume 12.4 fL (7.4-10.4); Platelet Count 127 thou/uL (130-400); RBC Distribution Width 17.7 % (11.5-14.5); Red Blood Cell (RBC) Count 4.01 mill/uL (4.70-6.10); White Blood Cell (WBC) Count 8.6 thou/uL (4.8-10.8)
[2020-12-08 12:04] LABS: Prothrombin Time 13.3 sec (12.0-14.7)
[2020-12-08 12:05] LABS: PTT 26.9 sec (22.9-36.1)
[2020-12-08 12:09] LABS: #Eosinphils 0.8 thou/uL (0.0-0.7); #Lymphocytes 1.5 thou/uL (1.20-3.40); #Monocytes 0.7 thou/uL (0.11-0.59); #Neutrophils 5.5 thou/uL (1.40-6.50); %Basophils 0.5 % (0.0-1.0); %Eosinophils 9.2 % (0.0-10.0); %Lymphocytes 17.8 % (21.0-51.0); %Monocytes 8.6 % (0.0-10.0); %Neutrophils 63.8 % (42.0-75.0)
[2020-12-08 12:16] LABS: ALT (SGPT) 18 U/L (8-55); AST (SGOT) 20 U/L (5-34); Albumin 4.1 g/dL (3.4-4.8); Alkaline Phosphatase 46 U/L (40-110); Anion Gap 13 mmol/L (10-20); BUN (Urea Nitrogen) 46 mg/dL (8.4-25.7); Bilirubin, Total 0.7 mg/dL (0.2-1.2); CK (CPK) 72 U/L (30-200); Calc. Creatinine Clearance 0 mL/min (70-130); Calcium 9.5 mg/dL (7.8-10.44); Carbon Dioxide 34 mmol/L (23-31); Chloride 95 mmol/L (98-107); Globulin 3.8 g/dL (2.4-3.5); Glucose 136 mg/dL (80-115); Hypochromia SLIGHT = 6-15 cells (100X) (0-5/hpf); Large Platelets MODERATE; MDiff Complete? YES; Platelet Morphology Comment Appears Decreased; Protein, Total 7.9 g/dL (5.8-8.1); Sodium 138 mmol/L (136-145)
[2020-12-08 12:54] LABS: Bilirubin Negative (Negative); Blood, Urine Negative (Negative); Clarity Clear (Clear); Glucose, Urine (Dipstick) Normal (Negative); Ketone, Urine Negative (Negative); Leukocyte Negative Leu/uL (Negative); Nitrite Negative (Negative); Protein, Urine (Dipstick) Negative (Neg-Trace); Specific Gravity, Urine 1.012 (1.002-1.036); Urobilinogen Normal mg/dL (Less than 2); pH, Urine 6.5 (5.0-9.0)
== END 2020-12-08 13:49 | disposition home or self-care (01) ==
LOC: ERS 10:16 → EEVIPCON 10:16 → ERS 13:49
DX: M62.81 Muscle weakness (generalized) (principal); E11.9 Type 2 diabetes mellitus without complications; E78.5 Hyperlipidemia, unspecified; I11.0 Hypertensive heart disease with heart failure; I50.9 Heart failure, unspecified; I25.10 Atherosclerotic heart disease of native coronary artery without angina pectoris; J44.9 Chronic obstructive pulmonary disease, unspecified; Z87.891 Personal history of nicotine dependence; Z79.82 Long term (current) use of aspirin; Z79.899 Other long term (current) drug therapy; Z79.4 Long term (current) use of insulin
CPT/HCPCS: 71045; 74177; 80053; 81003; 82550; 83880; 84484; 85025; 85610; 85730; 86850; 86900; 86901; 93005

== ENCOUNTER 2021-02-11 23:58 | Inpatient (IN) | payer MEDICARE, MEDICAID ==
[2021-02-12 00:38] LABS: #Eosinphils 1.6 thou/uL (0.0-0.7); #Lymphocytes 1.3 thou/uL (1.20-3.40); #Monocytes 0.9 thou/uL (0.11-0.59); %Basophils 0.3 % (0.0-1.0); %Eosinophils 16.8 % (0.0-10.0); %Lymphocytes 12.8 % (21.0-51.0); %Neutrophils 61.1 % (42.0-75.0); Hemoglobin 8.2 g/dL (14.0-18.0); Mean Corpuscular HGB CONC 29.2 g/dL (32.0-36.0); Mean Corpuscular Hemoglobin 21.6 pg (27.0-31.0); Mean Corpuscular Volume 74.1 fL (78.0-98.0); Mean Platelet Volume 6.7 fL (7.4-10.4); Platelet Count 152 thou/uL (130-400); RBC Distribution Width 19.6 % (11.5-14.5); Red Blood Cell (RBC) Count 3.77 mill/uL (4.70-6.10); White Blood Cell (WBC) Count 9.7 thou/uL (4.8-10.8)
[2021-02-12 01:00] LABS: ALT (SGPT) 16 U/L (8-55); AST (SGOT) 17 U/L (5-34); Albumin 3.8 g/dL (3.4-4.8); Alkaline Phosphatase 47 U/L (40-110); Anion Gap 11 mmol/L (10-20); BUN (Urea Nitrogen) 22 mg/dL (8.4-25.7); Bilirubin, Total 1.6 mg/dL (0.2-1.2); Calc. Creatinine Clearance 0 mL/min (70-130); Carbon Dioxide 21 mmol/L (23-31); Chloride 111 mmol/L (98-107); Globulin 3.5 g/dL (2.4-3.5); Glucose 112 mg/dL (80-115); Potassium 4.2 mmol/L (3.5-5.1); Protein, Total 7.3 g/dL (5.8-8.1); Sodium 139 mmol/L (136-145)
[2021-02-12 01:21] LABS: CKMB 2.7 ng/mL (0-6.6)
[2021-02-12] MEDS ORDERED: Aspirin 325 MG TAB ONE (02:25)
[2021-02-12] MEDS ORDERED: Furosemide 40 MG/4 ML VIAL ONE ×2 (02:25→12:17)
[2021-02-12 04:23] LABS: SARS-CoV-2 NAA Rapid Test Not Detected (NotDetected)
[2021-02-12 08:57] VITALS: BMI 40.8
[2021-02-12] MEDS ORDERED: Furosemide 100 MG/10 ML VIAL SLOW IVP SCH ×2 (12:00→20:30)
[2021-02-12 12:08] LABS: Troponin I 0.021 ng/mL (< 0.028)
[2021-02-12] MEDS ORDERED: Furosemide 20 MG/2 ML VIAL ONE (12:17)
[2021-02-12] MEDS ORDERED: Acetaminophen 325 MG TAB PO PRN (14:27)
[2021-02-12] MEDS ORDERED: Acetaminophen 325 MG Suppository PR PRN (14:27)
[2021-02-12] MEDS ORDERED: Furosemide 40 MG/4 ML VIAL SLOW IVP SCH ×2 (14:30→21:00)
[2021-02-12 15:19] LABS: Troponin I 0.034 ng/mL (< 0.028)
[2021-02-12] MEDS: Ferrous Sulfate 325 MG TAB PO SCH (15:24)
[2021-02-12] MEDS: HYDROcodone/Acetaminophen 5/325 mg Tablet PO PRN ×3 (15:24→23:37)
[2021-02-12] MEDS ORDERED: Dextrose 50% Abboject 50 ML SYRINGE SLOW IVP PRN (18:50)
[2021-02-12] MEDS ORDERED: HumaLOG 300 UNITS/3 ML VIAL SC PRN (18:50)
[2021-02-12] MEDS ORDERED: Dextrose 5% in Water 1,000 ML IV PRN (18:50)
[2021-02-12 19:53] LABS: Hemoglobin A1c 5.6 % (4.0-6.0)
[2021-02-12] MEDS: Morphine 4 MG/ML VIAL SLOW IVP PRN (19:59)
[2021-02-12] MEDS ORDERED: Potassium Chloride 20 MEQ TAB PO SCH (20:30)
[2021-02-12] MEDS: Atorvastatin Calcium 40 MG TAB PO SCH (21:02)
[2021-02-12] MEDS: Nicotine 14 MG PATCH TD SCH (21:03)
[2021-02-13] MEDS: Furosemide 40 MG/4 ML VIAL SLOW IVP SCH ×3 (05:30→20:20)
[2021-02-13] MEDS: HYDROcodone/Acetaminophen 5/325 mg Tablet PO PRN ×4 (05:30→20:20)
[2021-02-13 07:20] LABS: #Basophils 0.1 thou/uL (0.0-0.2); #Eosinphils 1.4 thou/uL (0.0-0.7); #Lymphocytes 1.2 thou/uL (1.20-3.40); #Monocytes 0.9 thou/uL (0.11-0.59); #Neutrophils 6.1 thou/uL (1.40-6.50); %Basophils 0.6 % (0.0-1.0); %Eosinophils 14.3 % (0.0-10.0); %Lymphocytes 12.5 % (21.0-51.0); %Monocytes 9.4 % (0.0-10.0); %Neutrophils 63.2 % (42.0-75.0); Hemoglobin 8.5 g/dL (14.0-18.0); Mean Corpuscular HGB CONC 29.1 g/dL (32.0-36.0); Mean Corpuscular Hemoglobin 21.8 pg (27.0-31.0); Mean Corpuscular Volume 74.9 fL (78.0-98.0); Mean Platelet Volume 6.7 fL (7.4-10.4); Platelet Count 150 thou/uL (130-400); RBC Distribution Width 19.9 % (11.5-14.5); Red Blood Cell (RBC) Count 3.92 mill/uL (4.70-6.10); White Blood Cell (WBC) Count 9.7 thou/uL (4.8-10.8)
[2021-02-13 07:43] LABS: ALT (SGPT) 15 U/L (8-55); AST (SGOT) 17 U/L (5-34); Albumin 3.9 g/dL (3.4-4.8); Alkaline Phosphatase 57 U/L (40-110); Anion Gap 13 mmol/L (10-20); BUN (Urea Nitrogen) 26 mg/dL (8.4-25.7); Calc. Creatinine Clearance 52 mL/min (70-130); Calcium 9.4 mg/dL (7.8-10.44); Carbon Dioxide 24 mmol/L (23-31); Cardiac Risk 3.6 (Less than 4.5); Chloride 104 mmol/L (98-107); Cholesterol 135 mg/dl (< 200 Desired); Globulin 3.7 g/dL (2.4-3.5); Glucose 103 mg/dL (80-115); HDL Cholesterol 37 mg/dL (>60 Neg Risk); LDL Cholesterol, Calculated 87 mg/dL; Potassium 4.6 mmol/L (3.5-5.1); Protein, Total 7.6 g/dL (5.8-8.1); Sodium 136 mmol/L (136-145); Triglycerides 57 mg/dL (Less than 150)
[2021-02-13 08:18] LABS: Hypochromia MODERATE=16-30 cells (100X) (0-5/hpf); MDiff Complete? YES; Microcytosis SLIGHT = 6-15 cells (100X) (0-5/hpf); Ovalocytes SLIGHT = 2-5 cells (100X) (0-1/hpf); Platelet Morphology Comment Appears Adequate; Polychromasia SLIGHT = 2-3 cells (100X) (0-2/hpf); Stomatocytes SLIGHT = 2-5 cells (100X) (0-1/hpf)
[2021-02-13] MEDS ORDERED: Enoxaparin Sodium 40 MG/0.4 ML SYRINGE SC SCH (09:00)
[2021-02-13] MEDS ORDERED: Aspirin Chewable 81 MG TAB PO SCH (09:00)
[2021-02-13] MEDS: Ferrous Sulfate 325 MG TAB PO SCH ×2 (09:58→17:03)
[2021-02-13] MEDS: Amiodarone 200 MG TAB PO SCH (09:59)
[2021-02-13] MEDS: DULoxetine 30 MG CAP PO SCH (09:59)
[2021-02-13] MEDS: Aspirin Chewable 81 MG TAB PO SCH (09:59)
[2021-02-13] MEDS: Atorvastatin Calcium 40 MG TAB PO SCH (20:20)
[2021-02-13] MEDS: Nicotine 14 MG PATCH TD SCH (20:20)
[2021-02-13] MEDS: Apixaban 5 MG TAB PO SCH (20:20)
[2021-02-13] MEDS: Morphine 4 MG/ML VIAL SLOW IVP PRN (22:44)
[2021-02-14] MEDS: HYDROcodone/Acetaminophen 5/325 mg Tablet PO PRN ×5 (04:04→21:28)
[2021-02-14 05:01] LABS: #Eosinphils 1.5 thou/uL (0.0-0.7); #Monocytes 0.7 thou/uL (0.11-0.59); #Neutrophils 4.9 thou/uL (1.40-6.50); %Basophils 0.4 % (0.0-1.0); %Eosinophils 18.4 % (0.0-10.0); %Lymphocytes 12.4 % (21.0-51.0); %Monocytes 8.9 % (0.0-10.0); %Neutrophils 59.8 % (42.0-75.0); Hemoglobin 8.2 g/dL (14.0-18.0); Mean Corpuscular HGB CONC 28.6 g/dL (32.0-36.0); Mean Corpuscular Hemoglobin 21.4 pg (27.0-31.0); Mean Corpuscular Volume 74.7 fL (78.0-98.0); Mean Platelet Volume 6.9 fL (7.4-10.4); Platelet Count 132 thou/uL (130-400); RBC Distribution Width 19.8 % (11.5-14.5); Red Blood Cell (RBC) Count 3.84 mill/uL (4.70-6.10); White Blood Cell (WBC) Count 8.1 thou/uL (4.8-10.8)
[2021-02-14 05:20] LABS: ALT (SGPT) 13 U/L (8-55); AST (SGOT) 14 U/L (5-34); Albumin 3.5 g/dL (3.4-4.8); Alkaline Phosphatase 48 U/L (40-110); Anion Gap 11 mmol/L (10-20); BUN (Urea Nitrogen) 28 mg/dL (8.4-25.7); Bilirubin, Total 1.8 mg/dL (0.2-1.2); Calc. Creatinine Clearance 53 mL/min (70-130); Calcium 9.1 mg/dL (7.8-10.44); Carbon Dioxide 28 mmol/L (23-31); Chloride 101 mmol/L (98-107); Globulin 3.4 g/dL (2.4-3.5); Glucose 96 mg/dL (80-115); Potassium 4.1 mmol/L (3.5-5.1); Protein, Total 6.9 g/dL (5.8-8.1); Sodium 136 mmol/L (136-145)
[2021-02-14] MEDS: Furosemide 40 MG/4 ML VIAL SLOW IVP SCH ×2 (08:36→22:05)
[2021-02-14] MEDS: DULoxetine 30 MG CAP PO SCH (08:36)
[2021-02-14] MEDS: Aspirin Chewable 81 MG TAB PO SCH (08:37)
[2021-02-14] MEDS: Apixaban 5 MG TAB PO SCH ×2 (08:37→21:28)
[2021-02-14] MEDS: Ferrous Sulfate 325 MG TAB PO SCH ×2 (08:37→16:34)
[2021-02-14] MEDS: Amiodarone 200 MG TAB PO SCH (08:37)
[2021-02-14] MEDS: Atorvastatin Calcium 40 MG TAB PO SCH (21:28)
[2021-02-14] MEDS: Nicotine 14 MG PATCH TD SCH (21:31)
[2021-02-15] MEDS: HYDROcodone/Acetaminophen 5/325 mg Tablet PO PRN ×2 (01:30→05:31)
[2021-02-15 03:53] VITALS: BP 112/57; TEMP 97.9
== END 2021-02-15 06:55 | disposition home or self-care (01) | DRG 291 ==
LOC: ERS 23:58 → ERHOLD 02-12 04:10 → 2NO 02-12 04:16
PROVIDERS: ADMIT Internal Medicine; ATTEND Family Medicine
DX: I13.0 Hypertensive heart and chronic kidney disease with heart failure and stage 1 through stage 4 chronic kidney disease, or unspecified chronic kidney disease (principal); I50.43 Acute on chronic combined systolic (congestive) and diastolic (congestive) heart failure; J96.11 Chronic respiratory failure with hypoxia; N18.4 Chronic kidney disease, stage 4 (severe); N17.9 Acute kidney failure, unspecified; J44.1 Chronic obstructive pulmonary disease with (acute) exacerbation; R18.8 Other ascites; Z20.822 Contact with and (suspected) exposure to COVID-19; I25.10 Atherosclerotic heart disease of native coronary artery without angina pectoris; D63.1 Anemia in chronic kidney disease; E11.22 Type 2 diabetes mellitus with diabetic chronic kidney disease; E80.6 Other disorders of bilirubin metabolism; M54.5 Low back pain; G89.29 Other chronic pain; E78.5 Hyperlipidemia, unspecified; Z91.14 Patient's other noncompliance with medication regimen; Z99.81 Dependence on supplemental oxygen; Z95.1 Presence of aortocoronary bypass graft; Z87.891 Personal history of nicotine dependence; Z88.5 Allergy status to narcotic agent; Z95.810 Presence of automatic (implantable) cardiac defibrillator
CPT/HCPCS: 0240U; 36415; 36416; 36430; 71045; 76705; 80053; 80061; 82553; 83036; 83880; 84443; 84484; 85025; 86850; 86900; 86901; 93005; 93798; 96374; J1650; J1940; J2270; P9016

== ENCOUNTER 2021-02-27 22:53 | Inpatient (IN) | payer MEDICARE, MEDICAID ==
[2021-02-27] MEDS ORDERED: Furosemide 40 MG/4 ML VIAL ONE (23:21)
[2021-02-28] MEDS ORDERED: HYDROcodone/Acetaminophen 5/325 mg Tablet ONE ×2 (00:02→14:04)
[2021-02-28 00:04] LABS: ALT (SGPT) 9 U/L (8-55); AST (SGOT) 14 U/L (5-34); Albumin 4.1 g/dL (3.4-4.8); Alkaline Phosphatase 47 U/L (40-110); Anion Gap 14 mmol/L (10-20); BUN (Urea Nitrogen) 19 mg/dL (8.4-25.7); Bilirubin, Total 1.8 mg/dL (0.2-1.2); Calc. Creatinine Clearance 0 mL/min (70-130); Calcium 9.5 mg/dL (7.8-10.44); Carbon Dioxide 26 mmol/L (23-31); Chloride 104 mmol/L (98-107); Globulin 3.7 g/dL (2.4-3.5); Glucose 119 mg/dL (80-115); Potassium 5.3 mmol/L (3.5-5.1); Protein, Total 7.8 g/dL (5.8-8.1); Sodium 139 mmol/L (136-145)
[2021-02-28 00:24] LABS: #Eosinphils 0.8 thou/uL (0.0-0.7); #Lymphocytes 1.2 thou/uL (1.20-3.40); #Monocytes 1.1 thou/uL (0.11-0.59); #Neutrophils 7.7 thou/uL (1.40-6.50); %Basophils 0.1 % (0.0-1.0); %Eosinophils 7.4 % (0.0-10.0); %Lymphocytes 11.4 % (21.0-51.0); %Monocytes 9.8 % (0.0-10.0); %Neutrophils 71.3 % (42.0-75.0); Hemoglobin 8.7 g/dL (14.0-18.0); Mean Corpuscular HGB CONC 28.2 g/dL (32.0-36.0); Mean Corpuscular Hemoglobin 21.2 pg (27.0-31.0); Mean Corpuscular Volume 75.1 fL (78.0-98.0); Mean Platelet Volume 11.8 fL (7.4-10.4); Platelet Count 288 thou/uL (130-400); RBC Distribution Width 20.1 % (11.5-14.5); White Blood Cell (WBC) Count 10.8 thou/uL (4.8-10.8)
[2021-02-28 00:25] LABS: Anisocytosis SLIGHT = 6-15 cells (100X) (0-5/hpf); Band 2 % (5-11); CKMB 3.1 ng/mL (0-6.6); Eosinophils 3 % (0-10); Hypochromia MODERATE=16-30 cells (100X) (0-5/hpf); Lymphocytes 9 % (21-51); MDiff Complete? YES; Microcytosis SLIGHT = 6-15 cells (100X) (0-5/hpf); Monocytes 3 % (0-10); Neutrophil 82 % (42-75); Platelet Morphology Comment Appears Adequate; Polychromasia SLIGHT = 2-3 cells (100X) (0-2/hpf); Reactive Lymphocytes 1 % (0-10)
[2021-02-28 07:43] LABS: Troponin I 0.027 ng/mL (< 0.028)
[2021-02-28 08:50] LABS: SARS-CoV-2 NAA Rapid Test Not Detected (NotDetected)
[2021-02-28] MEDS ORDERED: Acetaminophen 325 MG TAB PO PRN (11:25)
[2021-02-28] MEDS ORDERED: Dextrose 5% in Water 1,000 ML IV PRN (11:25)
[2021-02-28] MEDS ORDERED: Calcium Carbonate 500 MG ChewTAB PO PRN (11:25)
[2021-02-28] MEDS ORDERED: Ondansetron ODT 4 MG TAB PO PRN (11:25)
[2021-02-28] MEDS ORDERED: Senokot S 8.6-50 MG TAB PO PRN (11:25)
[2021-02-28] MEDS ORDERED: Guaifenesin DM 100-10/5 ML UDCUP PO PRN (11:25)
[2021-02-28] MEDS ORDERED: Dextrose 50% Abboject 50 ML SYRINGE SLOW IVP PRN (11:25)
[2021-02-28] MEDS ORDERED: HumaLOG 300 UNITS/3 ML VIAL SC PRN ×2 (11:25)
[2021-02-28] MEDS ORDERED: cefTRIAXone\\ROCEPHIN 1 GM VIAL ONE (13:46)
[2021-02-28] MEDS ORDERED: Sodium Chloride 0.9% 100 ML ONE (13:47)
[2021-02-28] MEDS ORDERED: Furosemide 40 MG/4 ML VIAL ONE (13:48)
[2021-02-28] MEDS: cefTRIAXone\\ROCEPHIN 1 GM in Sodium Chloride 0.9% 100 ML IVPB SCH (14:06)
[2021-02-28] MEDS: Furosemide 40 MG/4 ML VIAL SLOW IVP SCH (14:06)
[2021-02-28] MEDS: HYDROcodone/Acetaminophen 5/325 mg Tablet PO PRN ×2 (14:06→20:34)
[2021-02-28] MEDS: Nicotine 14 MG PATCH TD SCH (14:06)
[2021-02-28] MEDS: Azithromycin 500 MG in Sodium Chloride 0.9% 250 ML 250 ML IVPB SCH (14:35)
[2021-02-28] MEDS ORDERED: Sodium Chloride 0.9% 10 ML ONE (15:48)
[2021-02-28] MEDS: Ferrous Sulfate 325 MG TAB PO SCH (16:25)
[2021-02-28] MEDS ORDERED: tiZANidine HCl 4 MG TAB PO PRN (19:15)
[2021-02-28] MEDS: Carvedilol 3.125 MG TAB PO SCH (20:34)
[2021-02-28] MEDS: Apixaban 5 MG TAB PO SCH (20:34)
[2021-02-28] MEDS: Atorvastatin Calcium 40 MG TAB PO SCH (20:34)
[2021-02-28] MEDS ORDERED: Apixaban 5 MG TAB PO SCH (21:00)
[2021-03-01] MEDS ORDERED: Lidocaine 5% Patch TD PRN (00:39)
[2021-03-01] MEDS ORDERED: Transdermal Patch Removal TOP PRN (01:10)
[2021-03-01] MEDS: HYDROcodone/Acetaminophen 5/325 mg Tablet PO PRN ×3 (04:48→20:47)
[2021-03-01] MEDS: Furosemide 40 MG/4 ML VIAL SLOW IVP SCH ×2 (04:50→15:04)
[2021-03-01 06:25] LABS: ALT (SGPT) 8 U/L (8-55); AST (SGOT) 14 U/L (5-34); Albumin 3.8 g/dL (3.4-4.8); Alkaline Phosphatase 48 U/L (40-110); Anion Gap 16 mmol/L (10-20); BUN (Urea Nitrogen) 23 mg/dL (8.4-25.7); Bilirubin, Total 1.7 mg/dL (0.2-1.2); Calc. Creatinine Clearance 0 mL/min (70-130); Calcium 9.6 mg/dL (7.8-10.44); Carbon Dioxide 22 mmol/L (23-31); Chloride 105 mmol/L (98-107); Globulin 3.9 g/dL (2.4-3.5); Glucose 112 mg/dL (80-115); Potassium 5.3 mmol/L (3.5-5.1); Protein, Total 7.7 g/dL (5.8-8.1); Sodium 138 mmol/L (136-145)
[2021-03-01] MEDS: Apixaban 5 MG TAB PO SCH ×2 (08:18→20:46)
[2021-03-01] MEDS: Ferrous Sulfate 325 MG TAB PO SCH ×2 (08:18→16:35)
[2021-03-01] MEDS: Amiodarone 200 MG TAB PO SCH (08:18)
[2021-03-01] MEDS: Aspirin Chewable 81 MG TAB PO SCH (08:18)
[2021-03-01] MEDS: Carvedilol 3.125 MG TAB PO SCH ×2 (08:18→20:46)
[2021-03-01] MEDS: DULoxetine 30 MG CAP PO SCH (08:19)
[2021-03-01] MEDS ORDERED: Enoxaparin Sodium 40 MG/0.4 ML SYRINGE SC SCH (09:00)
[2021-03-01 09:34] LABS: #Eosinphils 0.7 thou/uL (0.0-0.7); #Lymphocytes 1.1 thou/uL (1.20-3.40); #Neutrophils 6.2 thou/uL (1.40-6.50); %Eosinophils 7.4 % (0.0-10.0); %Lymphocytes 12.3 % (21.0-51.0); %Monocytes 10.8 % (0.0-10.0); %Neutrophils 69.5 % (42.0-75.0); Hemoglobin 8.9 g/dL (14.0-18.0); Mean Corpuscular HGB CONC 28.5 g/dL (32.0-36.0); Mean Corpuscular Volume 73.7 fL (78.0-98.0); Mean Platelet Volume 7.3 fL (7.4-10.4); Platelet Count 262 thou/uL (130-400); RBC Distribution Width 20.2 % (11.5-14.5); Red Blood Cell (RBC) Count 4.24 mill/uL (4.70-6.10)
[2021-03-01 09:56] LABS: Band 1 % (5-11); Eosinophils 7 % (0-10); Hypochromia MODERATE=16-30 cells (100X) (0-5/hpf); Lymphocytes 12 % (21-51); MDiff Complete? YES; Microcytosis MODERATE=15-30 cells (100X) (0-5/hpf); Monocytes 7 % (0-10); Neutrophil 73 % (42-75); Platelet Morphology Comment Appears Adequate; Polychromasia SLIGHT = 2-3 cells (100X) (0-2/hpf)
[2021-03-01] MEDS: Azithromycin 500 MG in Sodium Chloride 0.9% 250 ML 250 ML IVPB SCH (13:28)
[2021-03-01] MEDS: Nicotine 14 MG PATCH TD SCH (13:30)
[2021-03-01] MEDS: cefTRIAXone\\ROCEPHIN 1 GM in Sodium Chloride 0.9% 100 ML IVPB SCH (15:04)
[2021-03-01] MEDS: Atorvastatin Calcium 40 MG TAB PO SCH (20:46)
[2021-03-02] MEDS: HYDROcodone/Acetaminophen 5/325 mg Tablet PO PRN ×2 (03:02→09:12)
[2021-03-02 04:22] VITALS: BMI 36.5
[2021-03-02 04:47] LABS: ALT (SGPT) Less than 7 U/L (8-55); AST (SGOT) 15 U/L (5-34); Albumin 3.2 g/dL (3.4-4.8); Alkaline Phosphatase 38 U/L (40-110); Anion Gap 14 mmol/L (10-20); BUN (Urea Nitrogen) 25 mg/dL (8.4-25.7); Bilirubin, Total 1.4 mg/dL (0.2-1.2); Calc. Creatinine Clearance 48 mL/min (70-130); Calcium 9.3 mg/dL (7.8-10.44); Carbon Dioxide 24 mmol/L (23-31); Chloride 101 mmol/L (98-107); Globulin 3.5 g/dL (2.4-3.5); Glucose 120 mg/dL (80-115); Potassium 4.7 mmol/L (3.5-5.1); Protein, Total 6.7 g/dL (5.8-8.1); Sodium 134 mmol/L (136-145)
[2021-03-02] MEDS: Furosemide 40 MG/4 ML VIAL SLOW IVP SCH (06:03)
[2021-03-02] MEDS: Ferrous Sulfate 325 MG TAB PO SCH (08:22)
[2021-03-02] MEDS: Aspirin Chewable 81 MG TAB PO SCH (08:22)
[2021-03-02] MEDS: Apixaban 5 MG TAB PO SCH (08:23)
[2021-03-02] MEDS: Amiodarone 200 MG TAB PO SCH (08:23)
[2021-03-02] MEDS: Carvedilol 3.125 MG TAB PO SCH (08:23)
[2021-03-02] MEDS: DULoxetine 30 MG CAP PO SCH (08:23)
[2021-03-02 08:34] LABS: Hemoglobin 8.8 g/dL (14.0-18.0); Mean Corpuscular HGB CONC 27.8 g/dL (32.0-36.0); Mean Corpuscular Hemoglobin 20.8 pg (27.0-31.0); Mean Corpuscular Volume 74.8 fL (78.0-98.0); Mean Platelet Volume 12.1 fL (7.4-10.4); Platelet Count 268 thou/uL (130-400); RBC Distribution Width 19.7 % (11.5-14.5); Red Blood Cell (RBC) Count 4.24 mill/uL (4.70-6.10); White Blood Cell (WBC) Count 9.1 thou/uL (4.8-10.8)
[2021-03-02 09:07] LABS: Eosinophils 10 % (0-10); Hypochromia MODERATE=16-30 cells (100X) (0-5/hpf); Lymphocytes 24 % (21-51); MDiff Complete? YES; Microcytosis SLIGHT = 6-15 cells (100X) (0-5/hpf); Monocytes 5 % (0-10); Neutrophil 61 % (42-75); Platelet Morphology Comment Appears Adequate; Polychromasia MODERATE = 3-4 cells (100X) (0-2/hpf)
[2021-03-02 11:10] VITALS: TEMP 98.7
[2021-03-02 13:35] VITALS: BP 122/60
== END 2021-03-02 12:30 | disposition home or self-care (01) | DRG 291 ==
LOC: ERS 22:53 → ERHOLD 02-28 04:24 → PACU-TCU 02-28 09:05 → 2SE 02-28 18:04
PROVIDERS: ADMIT Student in an Organized Health Care Education/Training Program; ATTEND Internal Medicine
DX: I13.0 Hypertensive heart and chronic kidney disease with heart failure and stage 1 through stage 4 chronic kidney disease, or unspecified chronic kidney disease (principal); I50.23 Acute on chronic systolic (congestive) heart failure; J96.11 Chronic respiratory failure with hypoxia; R18.8 Other ascites; Z20.822 Contact with and (suspected) exposure to COVID-19; E11.22 Type 2 diabetes mellitus with diabetic chronic kidney disease; E78.5 Hyperlipidemia, unspecified; I48.0 Paroxysmal atrial fibrillation; G89.29 Other chronic pain; D63.1 Anemia in chronic kidney disease; J43.9 Emphysema, unspecified; F39 Unspecified mood [affective] disorder; N18.30 Chronic kidney disease, stage 3 unspecified; M54.9 Dorsalgia, unspecified; Z91.14 Patient's other noncompliance with medication regimen; Z91.11 Patient's noncompliance with dietary regimen; Z95.5 Presence of coronary angioplasty implant and graft; Z99.81 Dependence on supplemental oxygen; Z95.1 Presence of aortocoronary bypass graft; Z95.0 Presence of cardiac pacemaker; Z87.891 Personal history of nicotine dependence; Z88.6 Allergy status to analgesic agent; Z91.018 Allergy to other foods; Z79.899 Other long term (current) drug therapy; Z79.01 Long term (current) use of anticoagulants; Z79.82 Long term (current) use of aspirin
CPT/HCPCS: 36415; 36416; 71045; 80053; 82553; 83735; 83880; 84484; 85025; 93005; 93798; 96374; J0456; J0696; J1940; J3490; J7050; U0002

== ENCOUNTER 2021-03-02 19:50 | Emergency (ER) | payer MEDICARE, MEDICAID ==
[2021-03-02 20:46] LABS: #Basophils 0.1 thou/uL (0.0-0.2); #Eosinphils 0.6 thou/uL (0.0-0.7); #Lymphocytes 1.5 thou/uL (1.20-3.40); #Monocytes 0.8 thou/uL (0.11-0.59); #Neutrophils 7.5 thou/uL (1.40-6.50); %Basophils 0.6 % (0.0-1.0); %Eosinophils 5.9 % (0.0-10.0); %Monocytes 7.9 % (0.0-10.0); %Neutrophils 71.7 % (42.0-75.0); Hemoglobin 9.5 g/dL (14.0-18.0); Mean Corpuscular HGB CONC 28.7 g/dL (32.0-36.0); Mean Corpuscular Hemoglobin 21.5 pg (27.0-31.0); Mean Corpuscular Volume 75.1 fL (78.0-98.0); Platelet Count 262 thou/uL (130-400); RBC Distribution Width 19.9 % (11.5-14.5); White Blood Cell (WBC) Count 10.4 thou/uL (4.8-10.8)
[2021-03-02 20:47] LABS: ALT (SGPT) 7 U/L (8-55); AST (SGOT) 13 U/L (5-34); Albumin 3.6 g/dL (3.4-4.8); Alkaline Phosphatase 46 U/L (40-110); Anion Gap 16 mmol/L (10-20); BUN (Urea Nitrogen) 23 mg/dL (8.4-25.7); Bilirubin, Total 1.8 mg/dL (0.2-1.2); Calc. Creatinine Clearance 0 mL/min (70-130); Calcium 9.7 mg/dL (7.8-10.44); Carbon Dioxide 27 mmol/L (23-31); Chloride 101 mmol/L (98-107); Globulin 3.4 g/dL (2.4-3.5); Glucose 104 mg/dL (80-115); Potassium 4.2 mmol/L (3.5-5.1); Sodium 140 mmol/L (136-145)
== END 2021-03-02 21:45 | disposition home or self-care (01) ==
LOC: ERS 19:50
DX: S00.83XA Contusion of other part of head, initial encounter (principal); I11.0 Hypertensive heart disease with heart failure; I50.9 Heart failure, unspecified; E11.9 Type 2 diabetes mellitus without complications; E78.5 Hyperlipidemia, unspecified; J44.9 Chronic obstructive pulmonary disease, unspecified; I25.10 Atherosclerotic heart disease of native coronary artery without angina pectoris; F17.210 Nicotine dependence, cigarettes, uncomplicated; Z79.4 Long term (current) use of insulin; Z79.899 Other long term (current) drug therapy; W19.XXXA Unspecified fall, initial encounter
CPT/HCPCS: 36415; 70450; 71045; 84484; 93005; 94760

== ENCOUNTER 2021-03-16 08:39 | Inpatient (IN) | payer MEDICARE, MEDICAID ==
[2021-03-16] MEDS ORDERED: methylPREDNISolone Sod Succ/PF 125 MG/2 ML VIAL ONE (09:50)
[2021-03-16] MEDS ORDERED: Magnesium 2 GM/50 ML BAG (IN WATER) ONE (09:50)
[2021-03-16 10:02] LABS: ALT (SGPT) 10 U/L (8-55); AST (SGOT) 22 U/L (5-34); Albumin 4.2 g/dL (3.4-4.8); Alkaline Phosphatase 49 U/L (40-110); Anion Gap 19 mmol/L (10-20); BUN (Urea Nitrogen) 23 mg/dL (8.4-25.7); Bilirubin, Total 3.2 mg/dL (0.2-1.2); Calc. Creatinine Clearance 0 mL/min (70-130); Calcium 9.3 mg/dL (7.8-10.44); Carbon Dioxide 17 mmol/L (23-31); Chloride 104 mmol/L (98-107); Globulin 4.2 g/dL (2.4-3.5); Glucose 92 mg/dL (80-115); Protein, Total 8.4 g/dL (5.8-8.1); Sodium 135 mmol/L (136-145)
[2021-03-16 10:13] LABS: CKMB 3.6 ng/mL (0-6.6)
[2021-03-16] MEDS ORDERED: Albuterol 200 PUFF (6.7GM INHALER) ONE (10:25)
[2021-03-16 12:01] LABS: #Eosinphils 0.1 thou/uL (0.0-0.7); #Lymphocytes 0.8 thou/uL (1.20-3.40); #Monocytes 0.7 thou/uL (0.11-0.59); #Neutrophils 5.3 thou/uL (1.40-6.50); %Basophils 0.7 % (0.0-1.0); %Eosinophils 1.6 % (0.0-10.0); %Lymphocytes 11.4 % (21.0-51.0); %Monocytes 9.9 % (0.0-10.0); %Neutrophils 76.5 % (42.0-75.0); Hemoglobin 9.3 g/dL (14.0-18.0); Hypochromia MODERATE=16-30 cells (100X) (0-5/hpf); MDiff Complete? YES; Mean Corpuscular HGB CONC 27.4 g/dL (32.0-36.0); Mean Corpuscular Volume 73.1 fL (78.0-98.0); Mean Platelet Volume 7.8 fL (7.4-10.4); Microcytosis SLIGHT = 6-15 cells (100X) (0-5/hpf); Platelet Count 133 thou/uL (130-400); Platelet Morphology Comment Appears Adequate; Polychromasia SLIGHT = 2-3 cells (100X) (0-2/hpf); RBC Distribution Width 19.5 % (11.5-14.5); Red Blood Cell (RBC) Count 4.64 mill/uL (4.70-6.10); White Blood Cell (WBC) Count 6.9 thou/uL (4.8-10.8)
[2021-03-16] MEDS ORDERED: Aspirin Chewable 81 MG TAB ONE (12:45)
[2021-03-16] MEDS ORDERED: Acetaminophen 325 MG TAB PO PRN (13:01)
[2021-03-16] MEDS ORDERED: Acetaminophen 650 MG Suppository PR PRN (13:01)
[2021-03-16] MEDS ORDERED: Ondansetron PF 4 MG/2 ML Vial IVP PRN (13:01)
[2021-03-16] MEDS ORDERED: Ondansetron ODT 4 MG TAB PO PRN (13:01)
[2021-03-16] MEDS ORDERED: Furosemide 100 MG/10 ML VIAL SLOW IVP SCH (13:15)
[2021-03-16 13:20] LABS: Troponin I 0.035 ng/mL (< 0.028)
[2021-03-16 15:18] LABS: SARS-CoV-2 NAA Rapid Test Not Detected (NotDetected)
[2021-03-16 16:56] LABS: Troponin I 0.031 ng/mL (< 0.028)
[2021-03-16 17:58] VITALS: BMI 36.9
[2021-03-16] MEDS: Ferrous Sulfate 325 MG TAB PO SCH (18:08)
[2021-03-16] MEDS: Carvedilol 3.125 MG TAB PO SCH (21:40)
[2021-03-16] MEDS: Apixaban 5 MG TAB PO SCH (21:40)
[2021-03-16] MEDS: HYDROcodone/Acetaminophen 5/325 mg Tablet PO PRN (21:40)
[2021-03-16] MEDS: Atorvastatin Calcium 40 MG TAB PO SCH (21:40)
[2021-03-16] MEDS ORDERED: Dextrose 50% Abboject 50 ML SYRINGE SLOW IVP PRN (23:04)
[2021-03-16] MEDS ORDERED: Dextrose 5% in Water 1,000 ML IV PRN (23:04)
[2021-03-16] MEDS ORDERED: HumaLOG 300 UNITS/3 ML VIAL SC PRN ×2 (23:04)
[2021-03-17] MEDS: HYDROcodone/Acetaminophen 5/325 mg Tablet PO PRN ×3 (03:53→17:34)
[2021-03-17 04:53] LABS: Anion Gap 14 mmol/L (10-20); BUN (Urea Nitrogen) 34 mg/dL (8.4-25.7); Calc. Creatinine Clearance 42 mL/min (70-130); Calcium 9.4 mg/dL (7.8-10.44); Carbon Dioxide 23 mmol/L (23-31); Chloride 103 mmol/L (98-107); Glucose 215 mg/dL (80-115); Magnesium 2.3 mg/dL (1.6-2.6); Sodium 135 mmol/L (136-145)
[2021-03-17 05:43] LABS: #Lymphocytes 0.4 thou/uL (1.20-3.40); #Monocytes 0.4 thou/uL (0.11-0.59); #Neutrophils 5.2 thou/uL (1.40-6.50); %Eosinophils 0.1 % (0.0-10.0); %Lymphocytes 7.2 % (21.0-51.0); %Monocytes 5.9 % (0.0-10.0); %Neutrophils 86.8 % (42.0-75.0); Anisocytosis SLIGHT = 6-15 cells (100X) (0-5/hpf); Hemoglobin 8.9 g/dL (14.0-18.0); Hypochromia MODERATE=16-30 cells (100X) (0-5/hpf); MDiff Complete? YES; Mean Corpuscular HGB CONC 27.5 g/dL (32.0-36.0); Mean Corpuscular Hemoglobin 20.3 pg (27.0-31.0); Mean Corpuscular Volume 73.6 fL (78.0-98.0); Mean Platelet Volume 8.4 fL (7.4-10.4); Microcytosis SLIGHT = 6-15 cells (100X) (0-5/hpf); Platelet Count 105 thou/uL (130-400); Platelet Morphology Comment Appears Decreased; RBC Distribution Width 19.2 % (11.5-14.5); Red Blood Cell (RBC) Count 4.41 mill/uL (4.70-6.10)
[2021-03-17] MEDS: Aspirin 81 mg Enteric Coated Tablet PO SCH (09:06)
[2021-03-17] MEDS: DULoxetine 30 MG CAP PO SCH (09:06)
[2021-03-17] MEDS: Furosemide 40 MG/4 ML VIAL SLOW IVP SCH ×2 (09:06→15:37)
[2021-03-17] MEDS: Ferrous Sulfate 325 MG TAB PO SCH ×2 (09:06→17:34)
[2021-03-17] MEDS: Amiodarone 200 MG TAB PO SCH (09:06)
[2021-03-17] MEDS: Carvedilol 3.125 MG TAB PO SCH ×2 (09:06→20:17)
[2021-03-17] MEDS: Apixaban 5 MG TAB PO SCH ×2 (09:06→20:17)
[2021-03-17] MEDS: Atorvastatin Calcium 40 MG TAB PO SCH (20:17)
[2021-03-18] MEDS: HYDROcodone/Acetaminophen 5/325 mg Tablet PO PRN ×4 (00:04→21:48)
[2021-03-18 04:48] LABS: Anion Gap 18 mmol/L (10-20); BUN (Urea Nitrogen) 47 mg/dL (8.4-25.7); Calc. Creatinine Clearance 35 mL/min (70-130); Calcium 8.9 mg/dL (7.8-10.44); Carbon Dioxide 17 mmol/L (23-31); Chloride 103 mmol/L (98-107); Glucose 106 mg/dL (80-115); Potassium 4.8 mmol/L (3.5-5.1); Sodium 133 mmol/L (136-145)
[2021-03-18] MEDS: Furosemide 40 MG/4 ML VIAL SLOW IVP SCH (06:12)
[2021-03-18] MEDS: Ferrous Sulfate 325 MG TAB PO SCH ×2 (08:14→17:04)
[2021-03-18] MEDS: Carvedilol 3.125 MG TAB PO SCH ×2 (08:14→21:48)
[2021-03-18] MEDS: Aspirin 81 mg Enteric Coated Tablet PO SCH (08:14)
[2021-03-18] MEDS: DULoxetine 30 MG CAP PO SCH (08:14)
[2021-03-18] MEDS: Amiodarone 200 MG TAB PO SCH (08:14)
[2021-03-18] MEDS: Apixaban 5 MG TAB PO SCH ×2 (08:14→21:50)
[2021-03-18 13:15] LABS: #Lymphocytes 0.9 thou/uL (1.20-3.40); #Monocytes 0.6 thou/uL (0.11-0.59); #Neutrophils 6.5 thou/uL (1.40-6.50); %Basophils 0.1 % (0.0-1.0); %Eosinophils 0.3 % (0.0-10.0); %Lymphocytes 11.1 % (21.0-51.0); %Neutrophils 81.5 % (42.0-75.0); Hemoglobin 9.5 g/dL (14.0-18.0); Mean Corpuscular HGB CONC 27.3 g/dL (32.0-36.0); Mean Corpuscular Hemoglobin 20.1 pg (27.0-31.0); Mean Corpuscular Volume 73.7 fL (78.0-98.0); Platelet Count 121 thou/uL (130-400); RBC Distribution Width 20.1 % (11.5-14.5); Red Blood Cell (RBC) Count 4.73 mill/uL (4.70-6.10)
[2021-03-18 13:18] LABS: Anisocytosis SLIGHT = 6-15 cells (100X) (0-5/hpf); Hypochromia SLIGHT = 6-15 cells (100X) (0-5/hpf); MDiff Complete? YES; Microcytosis SLIGHT = 6-15 cells (100X) (0-5/hpf); Ovalocytes SLIGHT = 2-5 cells (100X) (0-1/hpf); Platelet Morphology Comment Appears Decreased; Polychromasia MODERATE = 3-4 cells (100X) (0-2/hpf); Schistocytes SLIGHT = 2-5 cells (100X) (0-1/hpf); Target Cells SLIGHT = 2-5 cells (100X) (0-1/hpf); Tear Drops SLIGHT = 2-5 cells (100X) (0-1/hpf)
[2021-03-18] MEDS: Atorvastatin Calcium 40 MG TAB PO SCH (21:50)
[2021-03-19] MEDS: HYDROcodone/Acetaminophen 5/325 mg Tablet PO PRN ×2 (03:49→10:13)
[2021-03-19] MEDS: Apixaban 5 MG TAB PO SCH (08:37)
[2021-03-19] MEDS: Aspirin 81 mg Enteric Coated Tablet PO SCH (08:37)
[2021-03-19] MEDS: Amiodarone 200 MG TAB PO SCH (08:38)
[2021-03-19] MEDS: Carvedilol 3.125 MG TAB PO SCH (08:38)
[2021-03-19] MEDS: DULoxetine 30 MG CAP PO SCH (08:38)
[2021-03-19] MEDS: Ferrous Sulfate 325 MG TAB PO SCH (08:38)
[2021-03-19 09:18] LABS: #Eosinphils 0.1 thou/uL (0.0-0.7); #Lymphocytes 1.1 thou/uL (1.20-3.40); #Monocytes 0.6 thou/uL (0.11-0.59); #Neutrophils 4.9 thou/uL (1.40-6.50); %Basophils 0.2 % (0.0-1.0); %Eosinophils 0.9 % (0.0-10.0); %Lymphocytes 16.6 % (21.0-51.0); %Monocytes 8.8 % (0.0-10.0); %Neutrophils 73.5 % (42.0-75.0); Hemoglobin 9.3 g/dL (14.0-18.0); Mean Corpuscular HGB CONC 27.2 g/dL (32.0-36.0); Mean Corpuscular Hemoglobin 19.9 pg (27.0-31.0); Mean Corpuscular Volume 73.3 fL (78.0-98.0); Mean Platelet Volume 7.3 fL (7.4-10.4); Platelet Count 118 thou/uL (130-400); RBC Distribution Width 19.6 % (11.5-14.5); Red Blood Cell (RBC) Count 4.69 mill/uL (4.70-6.10); White Blood Cell (WBC) Count 6.7 thou/uL (4.8-10.8)
[2021-03-19 09:36] LABS: Chloride 100 mmol/L (98-107); Potassium 4.9 mmol/L (3.5-5.1); Sodium 135 mmol/L (136-145)
[2021-03-19 09:41] LABS: Calcium 9.6 mg/dL (7.8-10.44)
[2021-03-19 09:42] LABS: Glucose 90 mg/dL (80-115)
[2021-03-19 09:43] LABS: Carbon Dioxide 26 mmol/L (23-31)
[2021-03-19 09:45] LABS: Calc. Creatinine Clearance 35 mL/min (70-130)
[2021-03-19 09:46] LABS: BUN (Urea Nitrogen) 47 mg/dL (8.4-25.7)
[2021-03-19 10:38] LABS: Elliptocytes SLIGHT = 2-5 cells (100X) (0-1/hpf); Hypochromia MODERATE=16-30 cells (100X) (0-5/hpf); MDiff Complete? YES; Microcytosis SLIGHT = 6-15 cells (100X) (0-5/hpf); Ovalocytes SLIGHT = 2-5 cells (100X) (0-1/hpf); Platelet Morphology Comment Appears Decreased; Polychromasia SLIGHT = 2-3 cells (100X) (0-2/hpf)
[2021-03-19 11:22] LABS: Anion Gap 14 mmol/L (10-20)
[2021-03-19 11:44] VITALS: BP 129/60; TEMP 97.8
== END 2021-03-19 14:48 | disposition home or self-care (01) | DRG 291 ==
LOC: ERS 08:39 → 2NO 13:01 → UNDOADMOB 17:52 → OBSVTOIN 17:52 → 2NO 17:52 → INTOOBSV 17:52 → UNDODISOB 03-19 14:48
PROVIDERS: ADMIT Internal Medicine; ATTEND Internal Medicine
DX: I13.0 Hypertensive heart and chronic kidney disease with heart failure and stage 1 through stage 4 chronic kidney disease, or unspecified chronic kidney disease (principal); I50.23 Acute on chronic systolic (congestive) heart failure; J96.21 Acute and chronic respiratory failure with hypoxia; N17.9 Acute kidney failure, unspecified; E78.5 Hyperlipidemia, unspecified; E11.22 Type 2 diabetes mellitus with diabetic chronic kidney disease; J44.9 Chronic obstructive pulmonary disease, unspecified; Z20.822 Contact with and (suspected) exposure to COVID-19; N18.30 Chronic kidney disease, stage 3 unspecified; I25.10 Atherosclerotic heart disease of native coronary artery without angina pectoris; I25.5 Ischemic cardiomyopathy; F17.210 Nicotine dependence, cigarettes, uncomplicated; I48.0 Paroxysmal atrial fibrillation; D63.1 Anemia in chronic kidney disease; Z99.81 Dependence on supplemental oxygen; Z79.01 Long term (current) use of anticoagulants; Z91.14 Patient's other noncompliance with medication regimen; Z95.1 Presence of aortocoronary bypass graft; Z88.6 Allergy status to analgesic agent; Z91.018 Allergy to other foods; Z79.899 Other long term (current) drug therapy; Z95.810 Presence of automatic (implantable) cardiac defibrillator; Z79.4 Long term (current) use of insulin
CPT/HCPCS: 36415; 36416; 71045; 80048; 80053; 82553; 83735; 83880; 84443; 84484; 85025; 93005; 93798; 96365; 96366; 96375; 97139; G0378; J1815; J1940; J2930; J3475; U0002

== ENCOUNTER 2021-04-13 21:12 | Inpatient (IN) | payer MEDICARE, MEDICAID ==
[2021-04-13] MEDS ORDERED: Furosemide 40 MG/4 ML VIAL ONE (22:02)
[2021-04-13] MEDS ORDERED: Nitroglycerin 2% Ointment 1 INCH/1 GM Packet ONE (22:02)
[2021-04-13 22:24] LABS: Hemoglobin 9.3 g/dL (14.0-18.0); Mean Corpuscular HGB CONC 27.9 g/dL (32.0-36.0); Mean Corpuscular Hemoglobin 20.2 pg (27.0-31.0); Mean Corpuscular Volume 72.3 fL (78.0-98.0); Mean Platelet Volume 7.4 fL (7.4-10.4); Platelet Count 207 thou/uL (130-400); RBC Distribution Width 20.7 % (11.5-14.5); Red Blood Cell (RBC) Count 4.62 mill/uL (4.70-6.10); White Blood Cell (WBC) Count 8.3 thou/uL (4.8-10.8)
[2021-04-13 22:35] LABS: ALT (SGPT) 33 U/L (8-55); AST (SGOT) 20 U/L (5-34); Alkaline Phosphatase 50 U/L (40-110); Anion Gap 19 mmol/L (10-20); BUN (Urea Nitrogen) 40 mg/dL (8.4-25.7); Bilirubin, Total 2.4 mg/dL (0.2-1.2); Calc. Creatinine Clearance 0 mL/min (70-130); Calcium 9.1 mg/dL (7.8-10.44); Carbon Dioxide 18 mmol/L (23-31); Chloride 107 mmol/L (98-107); Globulin 4.3 g/dL (2.4-3.5); Glucose 97 mg/dL (80-115); Potassium 5.5 mmol/L (3.5-5.1); Protein, Total 8.3 g/dL (5.8-8.1); Sodium 138 mmol/L (136-145)
[2021-04-13 22:44] LABS: #Basophils 0.1 thou/uL (0.0-0.2); #Eosinphils 0.2 thou/uL (0.0-0.7); #Monocytes 0.9 thou/uL (0.11-0.59); #Neutrophils 6.1 thou/uL (1.40-6.50); %Basophils 0.8 % (0.0-1.0); %Eosinophils 2.6 % (0.0-10.0); %Lymphocytes 11.6 % (21.0-51.0); MDiff Complete? YES
[2021-04-13 22:45] LABS: Anisocytosis SLIGHT = 6-15 cells (100X) (0-5/hpf); Elliptocytes SLIGHT = 2-5 cells (100X) (0-1/hpf); Hypochromia MODERATE=16-30 cells (100X) (0-5/hpf); Microcytosis SLIGHT = 6-15 cells (100X) (0-5/hpf)
[2021-04-13 22:52] LABS: CKMB 4.8 ng/mL (0-6.6)
[2021-04-14 01:49] LABS: Troponin I 0.066 ng/mL (< 0.028)
[2021-04-14] MEDS ORDERED: Ondansetron PF 4 MG/2 ML Vial IVP PRN (02:32)
[2021-04-14] MEDS ORDERED: Acetaminophen 325 MG TAB PO PRN (02:32)
[2021-04-14] MEDS ORDERED: hydrALAZINE 20 MG/ML VIAL SLOW IVP PRN (02:34)
[2021-04-14] MEDS ORDERED: Dextrose 50% Abboject 50 ML SYRINGE SLOW IVP PRN (02:47)
[2021-04-14] MEDS ORDERED: Dextrose 5% in Water 1,000 ML IV PRN (02:47)
[2021-04-14 03:07] LABS: SARS-CoV-2 NAA Rapid Test Not Detected (NotDetected)
[2021-04-14 04:15] LABS: Hemoglobin 9.3 g/dL (14.0-18.0); Mean Corpuscular HGB CONC 28.3 g/dL (32.0-36.0); Mean Corpuscular Hemoglobin 20.7 pg (27.0-31.0); Mean Corpuscular Volume 73.3 fL (78.0-98.0); Mean Platelet Volume 9.9 fL (7.4-10.4); Platelet Count 194 thou/uL (130-400); RBC Distribution Width 20.9 % (11.5-14.5); Red Blood Cell (RBC) Count 4.46 mill/uL (4.70-6.10); White Blood Cell (WBC) Count 7.8 thou/uL (4.8-10.8)
[2021-04-14 04:27] LABS: ALT (SGPT) 32 U/L (8-55); AST (SGOT) 21 U/L (5-34); Albumin 4.2 g/dL (3.4-4.8); Alkaline Phosphatase 53 U/L (40-110); Anion Gap 16 mmol/L (10-20); BUN (Urea Nitrogen) 45 mg/dL (8.4-25.7); Bilirubin, Total 2.7 mg/dL (0.2-1.2); Calc. Creatinine Clearance 0 mL/min (70-130); Calcium 9.2 mg/dL (7.8-10.44); Carbon Dioxide 20 mmol/L (23-31); Chloride 105 mmol/L (98-107); Globulin 4.5 g/dL (2.4-3.5); Glucose 98 mg/dL (80-115); Potassium 5.6 mmol/L (3.5-5.1); Protein, Total 8.7 g/dL (5.8-8.1); Sodium 135 mmol/L (136-145)
[2021-04-14] MEDS ORDERED: Cefepime 2 GM in Sodium Chloride 0.9% 100 ML IVPB SCH (04:30)
[2021-04-14 04:32] LABS: Troponin I 0.078 ng/mL (< 0.028)
[2021-04-14 04:40] LABS: #Eosinphils 0.1 thou/uL (0.0-0.7); #Lymphocytes 0.8 thou/uL (1.20-3.40); #Neutrophils 5.8 thou/uL (1.40-6.50); %Basophils 0.3 % (0.0-1.0); %Eosinophils 1.5 % (0.0-10.0); %Lymphocytes 10.5 % (21.0-51.0); %Monocytes 12.8 % (0.0-10.0); Anisocytosis SLIGHT = 6-15 cells (100X) (0-5/hpf); Elliptocytes SLIGHT = 2-5 cells (100X) (0-1/hpf); Hypochromia MODERATE=16-30 cells (100X) (0-5/hpf); MDiff Complete? YES; Microcytosis SLIGHT = 6-15 cells (100X) (0-5/hpf)
[2021-04-14] MEDS: Furosemide 40 MG/4 ML VIAL SLOW IVP SCH ×2 (05:07→15:24)
[2021-04-14] MEDS: methylPREDNISolone Sod Succ 40 MG VIAL IVP SCH ×4 (05:07→21:23)
[2021-04-14] MEDS ORDERED: Furosemide 40 MG/4 ML VIAL SLOW IVP SCH (06:00)
[2021-04-14 06:44] VITALS: BMI 40.3
[2021-04-14] MEDS: Apixaban 5 MG TAB PO SCH ×2 (09:53→21:23)
[2021-04-14] MEDS: HYDROcodone/Acetaminophen 5/325 mg Tablet PO PRN ×2 (11:26→17:34)
[2021-04-14] MEDS: Ferrous Sulfate 325 MG TAB PO SCH (17:34)
[2021-04-14] MEDS: HumaLOG 300 UNITS/3 ML VIAL SC PRN ×2 (17:35→21:23)
[2021-04-14] MEDS: Cefepime 1 GM in Sodium Chloride 0.9% 100 ML IVPB SCH (21:22)
[2021-04-14] MEDS: Carvedilol 3.125 MG TAB PO SCH (21:23)
[2021-04-14] MEDS: Atorvastatin Calcium 40 MG TAB PO SCH (21:23)
[2021-04-15] MEDS: HYDROcodone/Acetaminophen 5/325 mg Tablet PO PRN ×4 (00:15→19:33)
[2021-04-15] MEDS: methylPREDNISolone Sod Succ 40 MG VIAL IVP SCH ×2 (02:45→09:34)
[2021-04-15] MEDS: HumaLOG 300 UNITS/3 ML VIAL SC PRN ×4 (06:15→21:06)
[2021-04-15] MEDS: Furosemide 40 MG/4 ML VIAL SLOW IVP SCH ×2 (06:15→14:27)
[2021-04-15 07:24] LABS: Phosphorus 4.3 mg/dL (2.3-4.7)
[2021-04-15 07:28] LABS: ALT (SGPT) 28 U/L (8-55); AST (SGOT) 15 U/L (5-34); Alkaline Phosphatase 50 U/L (40-110); Anion Gap 15 mmol/L (10-20); BUN (Urea Nitrogen) 55 mg/dL (8.4-25.7); Calc. Creatinine Clearance 40 mL/min (70-130); Carbon Dioxide 19 mmol/L (23-31); Chloride 103 mmol/L (98-107); Globulin 4.2 g/dL (2.4-3.5); Glucose 209 mg/dL (80-115); Magnesium 2.2 mg/dL (1.6-2.6); Potassium 5.4 mmol/L (3.5-5.1); Protein, Total 8.2 g/dL (5.8-8.1); Sodium 132 mmol/L (136-145)
[2021-04-15 08:08] LABS: #Lymphocytes 0.4 thou/uL (1.20-3.40); #Monocytes 0.2 thou/uL (0.11-0.59); #Neutrophils 6.4 thou/uL (1.40-6.50); %Eosinophils 0.1 % (0.0-10.0); %Neutrophils 91.9 % (42.0-75.0); Hemoglobin 9.1 g/dL (14.0-18.0); Mean Corpuscular HGB CONC 27.5 g/dL (32.0-36.0); Mean Corpuscular Volume 72.6 fL (78.0-98.0); Mean Platelet Volume 7.4 fL (7.4-10.4); Platelet Count 161 thou/uL (130-400); RBC Distribution Width 20.7 % (11.5-14.5); Red Blood Cell (RBC) Count 4.53 mill/uL (4.70-6.10)
[2021-04-15] MEDS: Cefepime 1 GM in Sodium Chloride 0.9% 100 ML IVPB SCH ×2 (09:33→19:34)
[2021-04-15] MEDS: Ferrous Sulfate 325 MG TAB PO SCH ×2 (09:34→16:21)
[2021-04-15] MEDS: Apixaban 5 MG TAB PO SCH ×2 (09:34→19:34)
[2021-04-15] MEDS: Carvedilol 3.125 MG TAB PO SCH ×2 (09:34→19:34)
[2021-04-15] MEDS: DULoxetine 30 MG CAP PO SCH (09:34)
[2021-04-15] MEDS: Sodium Bicarbonate Tab 325 MG TAB PO SCH ×3 (09:35→19:32)
[2021-04-15] MEDS: predniSONE 20 MG TAB PO SCH (16:21)
[2021-04-15] MEDS: Atorvastatin Calcium 40 MG TAB PO SCH (19:34)
[2021-04-16] MEDS: HYDROcodone/Acetaminophen 5/325 mg Tablet PO PRN ×3 (02:15→21:15)
[2021-04-16] MEDS: Furosemide 40 MG/4 ML VIAL SLOW IVP SCH ×2 (05:15→14:41)
[2021-04-16] MEDS: HumaLOG 300 UNITS/3 ML VIAL SC PRN ×2 (06:23→21:16)
[2021-04-16 06:51] LABS: ALT (SGPT) 26 U/L (8-55); AST (SGOT) 13 U/L (5-34); Alkaline Phosphatase 45 U/L (40-110); Anion Gap 15 mmol/L (10-20); BUN (Urea Nitrogen) 61 mg/dL (8.4-25.7); Bilirubin, Total 1.8 mg/dL (0.2-1.2); Calc. Creatinine Clearance 38 mL/min (70-130); Calcium 9.2 mg/dL (7.8-10.44); Carbon Dioxide 20 mmol/L (23-31); Chloride 102 mmol/L (98-107); Globulin 4.2 g/dL (2.4-3.5); Glucose 169 mg/dL (80-115); Magnesium 2.1 mg/dL (1.6-2.6); Potassium 5.2 mmol/L (3.5-5.1); Protein, Total 8.2 g/dL (5.8-8.1); Sodium 132 mmol/L (136-145)
[2021-04-16 07:38] LABS: #Lymphocytes 0.4 thou/uL (1.20-3.40); #Monocytes 0.3 thou/uL (0.11-0.59); %Basophils 0.1 % (0.0-1.0); %Lymphocytes 4.1 % (21.0-51.0); %Monocytes 3.9 % (0.0-10.0); %Neutrophils 91.9 % (42.0-75.0); Hemoglobin 9.4 g/dL (14.0-18.0); Mean Corpuscular HGB CONC 27.4 g/dL (32.0-36.0); Mean Corpuscular Hemoglobin 19.9 pg (27.0-31.0); Mean Corpuscular Volume 72.8 fL (78.0-98.0); Mean Platelet Volume 7.3 fL (7.4-10.4); Platelet Count 160 thou/uL (130-400); RBC Distribution Width 21.5 % (11.5-14.5); White Blood Cell (WBC) Count 8.7 thou/uL (4.8-10.8)
[2021-04-16] MEDS: Carvedilol 3.125 MG TAB PO SCH ×2 (08:01→21:15)
[2021-04-16] MEDS: Ferrous Sulfate 325 MG TAB PO SCH ×2 (08:01→18:44)
[2021-04-16] MEDS: Apixaban 5 MG TAB PO SCH ×2 (08:01→21:14)
[2021-04-16] MEDS: Cefepime 1 GM in Sodium Chloride 0.9% 100 ML IVPB SCH (08:01)
[2021-04-16] MEDS: DULoxetine 30 MG CAP PO SCH (08:02)
[2021-04-16] MEDS: predniSONE 20 MG TAB PO SCH ×2 (08:02→18:44)
[2021-04-16] MEDS ORDERED: Milrinone 20 MG in Sodium Chloride 0.9% 100 ML IVPB SCH (10:45)
[2021-04-16] MEDS ORDERED: EPOETIN ALFA-EPBX (ESRD) 4,000 UNIT/ML VIAL SC SCH (17:00)
[2021-04-16] MEDS: Doxycycline 100 MG CAP PO SCH (21:14)
[2021-04-16] MEDS: Atorvastatin Calcium 40 MG TAB PO SCH (21:14)
[2021-04-17] MEDS: Furosemide 40 MG/4 ML VIAL SLOW IVP SCH (05:07)
[2021-04-17 05:08] LABS: Anion Gap 16 mmol/L (10-20); BUN (Urea Nitrogen) 58 mg/dL (8.4-25.7); Calc. Creatinine Clearance 36 mL/min (70-130); Carbon Dioxide 21 mmol/L (23-31); Chloride 101 mmol/L (98-107); Glucose 132 mg/dL (80-115); Potassium 5.2 mmol/L (3.5-5.1); Sodium 133 mmol/L (136-145)
[2021-04-17] MEDS: HYDROcodone/Acetaminophen 5/325 mg Tablet PO PRN ×2 (05:08→09:50)
[2021-04-17] MEDS ORDERED: Cefepime 0.5 GM in Sodium Chloride 0.9% 100 ML IVPB SCH (09:00)
[2021-04-17] MEDS: predniSONE 20 MG TAB PO SCH (09:47)
[2021-04-17] MEDS: Doxycycline 100 MG CAP PO SCH (09:47)
[2021-04-17] MEDS: DULoxetine 30 MG CAP PO SCH (09:47)
[2021-04-17] MEDS: Apixaban 5 MG TAB PO SCH (09:47)
[2021-04-17] MEDS: Ferrous Sulfate 325 MG TAB PO SCH (09:47)
[2021-04-17] MEDS: Carvedilol 3.125 MG TAB PO SCH (09:48)
[2021-04-17 13:39] VITALS: BP 140/80; TEMP 98
== END 2021-04-17 15:12 | disposition home or self-care (01) | DRG 291 ==
LOC: ERS 21:12 → 2NO 23:48
PROVIDERS: ADMIT Internal Medicine; ATTEND Internal Medicine
DX: I13.0 Hypertensive heart and chronic kidney disease with heart failure and stage 1 through stage 4 chronic kidney disease, or unspecified chronic kidney disease (principal); J96.21 Acute and chronic respiratory failure with hypoxia; I50.43 Acute on chronic combined systolic (congestive) and diastolic (congestive) heart failure; J44.1 Chronic obstructive pulmonary disease with (acute) exacerbation; N17.9 Acute kidney failure, unspecified; R18.8 Other ascites; E87.2 Acidosis; Z20.822 Contact with and (suspected) exposure to COVID-19; I25.10 Atherosclerotic heart disease of native coronary artery without angina pectoris; I48.0 Paroxysmal atrial fibrillation; E11.22 Type 2 diabetes mellitus with diabetic chronic kidney disease; M54.59 Other low back pain; D63.1 Anemia in chronic kidney disease; E78.5 Hyperlipidemia, unspecified; F17.210 Nicotine dependence, cigarettes, uncomplicated; F41.9 Anxiety disorder, unspecified; K76.1 Chronic passive congestion of liver; E66.9 Obesity, unspecified; N18.30 Chronic kidney disease, stage 3 unspecified; G89.4 Chronic pain syndrome; Z79.4 Long term (current) use of insulin; Z99.81 Dependence on supplemental oxygen; Z88.8 Allergy status to other drugs, medicaments and biological substances; Z79.899 Other long term (current) drug therapy; Z95.810 Presence of automatic (implantable) cardiac defibrillator; Z95.5 Presence of coronary angioplasty implant and graft; Z98.890 Other specified postprocedural states; Z68.39 Body mass index [BMI] 39.0-39.9, adult
CPT/HCPCS: 36415; 36416; 71045; 80048; 80053; 82553; 83735; 83880; 84100; 84484; 85025; 85379; 93005; 93798; 93970; 94640; 96374; J0692; J1815; J1940; J2920; J3490; J7512; J7620; Q5105; U0002

== ENCOUNTER 2021-04-27 08:38 | Emergency (ER) | payer MEDICARE, MEDICAID ==
[2021-04-27 09:51] LABS: #Basophils 0.1 thou/uL (0.0-0.2); #Eosinphils 0.2 thou/uL (0.0-0.7); #Lymphocytes 0.7 thou/uL (1.20-3.40); #Monocytes 0.7 thou/uL (0.11-0.59); #Neutrophils 5.8 thou/uL (1.40-6.50); %Basophils 0.9 % (0.0-1.0); %Eosinophils 2.1 % (0.0-10.0); %Lymphocytes 9.4 % (21.0-51.0); %Neutrophils 78.6 % (42.0-75.0); Hemoglobin 9.2 g/dL (14.0-18.0); Mean Corpuscular Hemoglobin 21.1 pg (27.0-31.0); Mean Corpuscular Volume 75.2 fL (78.0-98.0); Mean Platelet Volume 7.3 fL (7.4-10.4); Platelet Count 129 thou/uL (130-400); Red Blood Cell (RBC) Count 4.36 mill/uL (4.70-6.10); White Blood Cell (WBC) Count 7.4 thou/uL (4.8-10.8)
[2021-04-27 09:59] LABS: ALT (SGPT) 15 U/L (8-55); AST (SGOT) 18 U/L (5-34); Albumin 3.9 g/dL (3.4-4.8); Alkaline Phosphatase 44 U/L (40-110); Anion Gap 13 mmol/L (10-20); BUN (Urea Nitrogen) 23 mg/dL (8.4-25.7); Bilirubin, Total 2.1 mg/dL (0.2-1.2); Calc. Creatinine Clearance 0 mL/min (70-130); Calcium 8.8 mg/dL (7.8-10.44); Carbon Dioxide 25 mmol/L (23-31); Chloride 105 mmol/L (98-107); Globulin 3.8 g/dL (2.4-3.5); Glucose 105 mg/dL (80-115); Lipase 26 U/L (8-78); Potassium 4.5 mmol/L (3.5-5.1); Protein, Total 7.7 g/dL (5.8-8.1); Sodium 138 mmol/L (136-145)
[2021-04-27 10:16] LABS: Anisocytosis SLIGHT = 6-15 cells (100X) (0-5/hpf); Hypochromia MODERATE=16-30 cells (100X) (0-5/hpf); MDiff Complete? YES; Microcytosis SLIGHT = 6-15 cells (100X) (0-5/hpf); Platelet Morphology Comment Appears Adequate
[2021-04-27] MEDS ORDERED: Furosemide 20 MG/2 ML VIAL ONE (10:20)
[2021-04-27 10:21] LABS: CKMB 2.8 ng/mL (0-6.6)
[2021-04-27 10:23] LABS: Bilirubin Negative (Negative); Blood, Urine Negative (Negative); Clarity Clear (Clear); Glucose, Urine (Dipstick) Normal (Negative); Ketone, Urine Negative (Negative); Leukocyte 500 Leu/uL (Negative); Nitrite Negative (Negative); Protein, Urine (Dipstick) 100 mg/dL (Neg-Trace); RBC/HPF 0-3 HPF (0-3); Specific Gravity, Urine 1.021 (1.002-1.036); Squamous Epithelial 0-3 HPF (0-3); Urobilinogen 12 mg/dL (Less than 2); WBC/HPF Greater than 50 HPF (0-3)
[2021-04-27 10:26] LABS: Bacteria/HPF 1+ HPF (None Seen)
[2021-04-27] MEDS ORDERED: Furosemide 40 MG TAB ONE (10:55)
== END 2021-04-27 10:44 | disposition home or self-care (01) ==
LOC: ERS 08:38
DX: R60.0 Localized edema (principal); B37.42 Candidal balanitis; E11.22 Type 2 diabetes mellitus with diabetic chronic kidney disease; I13.0 Hypertensive heart and chronic kidney disease with heart failure and stage 1 through stage 4 chronic kidney disease, or unspecified chronic kidney disease; I50.9 Heart failure, unspecified; D63.1 Anemia in chronic kidney disease; N18.30 Chronic kidney disease, stage 3 unspecified; I48.91 Unspecified atrial fibrillation; E78.5 Hyperlipidemia, unspecified; J44.9 Chronic obstructive pulmonary disease, unspecified; Z79.4 Long term (current) use of insulin; Z79.01 Long term (current) use of anticoagulants; Z79.899 Other long term (current) drug therapy
CPT/HCPCS: 36415; 71045; 80053; 81003; 81015; 82553; 83690; 83880; 84484; 85025; 93005; J1940

== ENCOUNTER 2021-04-30 01:56 | Inpatient (IN) | payer MEDICARE, MEDICAID ==
[2021-04-30 03:07] LABS: ALT (SGPT) 15 U/L (8-55); AST (SGOT) 24 U/L (5-34); Albumin 3.7 g/dL (3.4-4.8); Alkaline Phosphatase 44 U/L (40-110); Anion Gap 17 mmol/L (10-20); BUN (Urea Nitrogen) 30 mg/dL (8.4-25.7); Bilirubin, Total 2.9 mg/dL (0.2-1.2); Calc. Creatinine Clearance 0 mL/min (70-130); Calcium 8.9 mg/dL (7.8-10.44); Carbon Dioxide 21 mmol/L (23-31); Chloride 104 mmol/L (98-107); Globulin 3.9 g/dL (2.4-3.5); Glucose 99 mg/dL (80-115); Potassium 4.9 mmol/L (3.5-5.1); Protein, Total 7.6 g/dL (5.8-8.1); Sodium 137 mmol/L (136-145)
[2021-04-30] MEDS ORDERED: Furosemide 20 MG/2 ML VIAL ONE (03:23)
[2021-04-30 03:27] LABS: CKMB 3.7 ng/mL (0-6.6)
[2021-04-30 03:47] LABS: #Eosinphils 0.1 thou/uL (0.0-0.7); #Lymphocytes 0.8 thou/uL (1.20-3.40); #Monocytes 0.9 thou/uL (0.11-0.59); #Neutrophils 6.3 thou/uL (1.40-6.50); %Basophils 0.3 % (0.0-1.0); %Eosinophils 1.5 % (0.0-10.0); %Lymphocytes 10.1 % (21.0-51.0); %Monocytes 10.8 % (0.0-10.0); %Neutrophils 77.3 % (42.0-75.0); Hemoglobin 9.4 g/dL (14.0-18.0); Mean Corpuscular HGB CONC 27.7 g/dL (32.0-36.0); Mean Corpuscular Hemoglobin 20.7 pg (27.0-31.0); Mean Corpuscular Volume 74.9 fL (78.0-98.0); Platelet Count 154 thou/uL (130-400); RBC Distribution Width 22.2 % (11.5-14.5); Red Blood Cell (RBC) Count 4.54 mill/uL (4.70-6.10); White Blood Cell (WBC) Count 8.2 thou/uL (4.8-10.8)
[2021-04-30 03:48] LABS: Anisocytosis MODERATE=16-30 cells (100X) (0-5/hpf); Elliptocytes SLIGHT = 2-5 cells (100X) (0-1/hpf); MDiff Complete? YES; Platelet Morphology Comment Appears Adequate
[2021-04-30] MEDS ORDERED: Morphine 4 MG/ML VIAL ONE (05:36)
[2021-04-30 05:47] LABS: Bacteria/HPF None Seen HPF (None Seen); Bilirubin Negative (Negative); Blood, Urine Negative (Negative); Clarity Clear (Clear); Glucose, Urine (Dipstick) Normal (Negative); Ketone, Urine Negative (Negative); Leukocyte 250 Leu/uL (Negative); Nitrite Negative (Negative); Protein, Urine (Dipstick) 70 mg/dL (Neg-Trace); Specific Gravity, Urine 1.016 (1.002-1.036); Squamous Epithelial None Seen HPF (0-3); WBC/HPF Greater than 50 HPF (0-3); pH, Urine 5.5 (5.0-9.0)
[2021-04-30 08:57] LABS: Troponin I 0.073 ng/mL (< 0.028)
[2021-04-30 10:09] LABS: Amphetamine Not Detected (NotDetected); Barbiturates Screen Not Detected (NotDetected); Benzodiazepine Screen Not Detected (NotDetected); Cocaine Metabolite Screen Detected (NotDetected); Methadone Not Detected (NotDetected); Methamphetamine Not Detected (NotDetected); Opiate Screen Not Detected (NotDetected); Oxycodone Screen Not Detected (NotDetected); Phencyclidine (PCP) Not Detected (NotDetected); THC/Cannabinoid Screen Not Detected (NotDetected); Tricyclic Screen Not Detected (NotDetected)
[2021-04-30] MEDS ORDERED: Albuterol Sulfate 2.5 mg/3 ml Neb NEB PRN (11:42)
[2021-04-30] MEDS ORDERED: Furosemide 40 MG/4 ML VIAL SLOW IVP SCH (11:45)
[2021-04-30 11:50] LABS: HBCM Index 0.11 S/CO (0-0.79); HBSAg Index 0.22 S/CO (0-0.99); Hep A IgM AB Non-Reactive (NonReactive); Hep A IgM S/CO 0.23 S/CO (0-0.79); Hep B Surf Ag Non-Reactive S/CO (NonReactive); Hepatitis B Core IgM Abs Non-Reactive (NonReactive)
[2021-04-30 11:56] LABS: Hep C IgG Ab Reflex HepC Qnt (NonReactive); Hep C Index 11.93 S/CO (0-0.79)
[2021-04-30] MEDS ORDERED: Ondansetron ODT 4 MG TAB SL PRN (13:30)
[2021-04-30] MEDS ORDERED: Ondansetron PF 4 MG/2 ML Vial IVP PRN (13:30)
[2021-04-30 13:45] LABS: Hemoglobin A1c 5.8 % (4.0-6.0)
[2021-04-30 14:31] LABS: SARS-CoV-2 NAA Rapid Test Not Detected (NotDetected)
[2021-04-30] MEDS: Ferrous Sulfate 325 MG TAB PO SCH (17:39)
[2021-04-30 18:06] LABS: Anion Gap 15 mmol/L (10-20); BUN (Urea Nitrogen) 30 mg/dL (8.4-25.7); Calc. Creatinine Clearance 42 mL/min (70-130); Calcium 8.9 mg/dL (7.8-10.44); Carbon Dioxide 24 mmol/L (23-31); Chloride 103 mmol/L (98-107); Glucose 133 mg/dL (80-115); Potassium 4.8 mmol/L (3.5-5.1); Sodium 137 mmol/L (136-145)
[2021-04-30] MEDS ORDERED: Furosemide 80 MG TAB PO SCH (18:30)
[2021-04-30] MEDS ORDERED: Furosemide 100 MG/10 ML VIAL SLOW IVP SCH (18:30)
[2021-04-30 19:59] VITALS: BMI 27.7
[2021-04-30] MEDS: Atorvastatin Calcium 40 MG TAB PO SCH (20:11)
[2021-04-30] MEDS: Carvedilol 3.125 MG TAB PO SCH (20:11)
[2021-04-30] MEDS: Apixaban 5 MG TAB PO SCH (20:11)
[2021-04-30] MEDS ORDERED: HYDROcodone/Acetaminophen 5/325 mg Tablet PO PRN (22:03)
[2021-05-01 05:30] LABS: ALT (SGPT) 14 U/L (8-55); AST (SGOT) 18 U/L (5-34); Albumin 3.6 g/dL (3.4-4.8); Alkaline Phosphatase 44 U/L (40-110); Anion Gap 14 mmol/L (10-20); BUN (Urea Nitrogen) 29 mg/dL (8.4-25.7); Bilirubin, Total 2.8 mg/dL (0.2-1.2); Calc. Creatinine Clearance 29 mL/min (70-130); Calcium 9.2 mg/dL (7.8-10.44); Carbon Dioxide 25 mmol/L (23-31); Chloride 102 mmol/L (98-107); Globulin 4.1 g/dL (2.4-3.5); Glucose 98 mg/dL (80-115); Potassium 4.8 mmol/L (3.5-5.1); Protein, Total 7.7 g/dL (5.8-8.1); Sodium 136 mmol/L (136-145)
[2021-05-01 05:52] LABS: Hemoglobin 9.2 g/dL (14.0-18.0); Lymphocytes 10 % (21-51); MDiff Complete? YES; Mean Corpuscular HGB CONC 26.6 g/dL (32.0-36.0); Mean Corpuscular Hemoglobin 20.5 pg (27.0-31.0); Mean Corpuscular Volume 76.9 fL (78.0-98.0); Mean Platelet Volume 7.4 fL (7.4-10.4); Monocytes 3 % (0-10); Neutrophil 87 % (42-75); Nucleated RBC 1 % (0); Platelet Count 173 thou/uL (130-400); RBC Distribution Width 22.2 % (11.5-14.5); White Blood Cell (WBC) Count 8.5 thou/uL (4.8-10.8)
[2021-05-01] MEDS: Ferrous Sulfate 325 MG TAB PO SCH ×2 (08:01→17:43)
[2021-05-01] MEDS: Lidocaine 5% Patch TD SCH (08:01)
[2021-05-01] MEDS: Apixaban 5 MG TAB PO SCH ×2 (08:02→20:09)
[2021-05-01] MEDS: Carvedilol 3.125 MG TAB PO SCH ×2 (08:02→20:09)
[2021-05-01] MEDS: DULoxetine 30 MG CAP PO SCH (08:02)
[2021-05-01] MEDS ORDERED: Furosemide 40 MG/4 ML VIAL SLOW IVP SCH ×2 (08:15→09:00)
[2021-05-01] MEDS: Acetaminophen 325 MG TAB PO PRN ×2 (08:42→21:30)
[2021-05-01] MEDS ORDERED: Furosemide 100 MG/10 ML VIAL SLOW IVP SCH (14:30)
[2021-05-01] MEDS: Atorvastatin Calcium 40 MG TAB PO SCH (20:09)
[2021-05-01] MEDS: Transdermal Patch Removal TOP SCH (20:16)
[2021-05-02 06:42] LABS: ALT (SGPT) 13 U/L (8-55); AST (SGOT) 21 U/L (5-34); Albumin 3.3 g/dL (3.4-4.8); Alkaline Phosphatase 41 U/L (40-110); Anion Gap 12 mmol/L (10-20); BUN (Urea Nitrogen) 28 mg/dL (8.4-25.7); Bilirubin, Total 2.3 mg/dL (0.2-1.2); Calc. Creatinine Clearance 44 mL/min (70-130); Calcium 9.2 mg/dL (7.8-10.44); Carbon Dioxide 28 mmol/L (23-31); Chloride 100 mmol/L (98-107); Globulin 3.8 g/dL (2.4-3.5); Glucose 92 mg/dL (80-115); Potassium 4.4 mmol/L (3.5-5.1); Protein, Total 7.1 g/dL (5.8-8.1); Sodium 136 mmol/L (136-145)
[2021-05-02 06:44] LABS: #Eosinphils 0.1 thou/uL (0.0-0.7); #Lymphocytes 0.6 thou/uL (1.20-3.40); #Monocytes 0.5 thou/uL (0.11-0.59); #Neutrophils 4.7 thou/uL (1.40-6.50); %Basophils 0.1 % (0.0-1.0); %Eosinophils 1.9 % (0.0-10.0); %Lymphocytes 10.1 % (21.0-51.0); %Monocytes 8.3 % (0.0-10.0); %Neutrophils 79.5 % (42.0-75.0); Anisocytosis SLIGHT = 6-15 cells (100X) (0-5/hpf); Elliptocytes SLIGHT = 2-5 cells (100X) (0-1/hpf); Hemoglobin 8.8 g/dL (14.0-18.0); Hypochromia SLIGHT = 6-15 cells (100X) (0-5/hpf); MDiff Complete? YES; Mean Corpuscular HGB CONC 27.2 g/dL (32.0-36.0); Mean Corpuscular Hemoglobin 20.5 pg (27.0-31.0); Mean Corpuscular Volume 75.5 fL (78.0-98.0); Mean Platelet Volume 10.5 fL (7.4-10.4); Platelet Count 159 thou/uL (130-400); RBC Distribution Width 21.2 % (11.5-14.5); Red Blood Cell (RBC) Count 4.28 mill/uL (4.70-6.10); White Blood Cell (WBC) Count 5.9 thou/uL (4.8-10.8)
[2021-05-02] MEDS: Lidocaine 5% Patch TD SCH (08:40)
[2021-05-02] MEDS: Ferrous Sulfate 325 MG TAB PO SCH ×2 (08:41→16:57)
[2021-05-02] MEDS: Carvedilol 3.125 MG TAB PO SCH ×2 (08:41→20:19)
[2021-05-02] MEDS: DULoxetine 30 MG CAP PO SCH (08:41)
[2021-05-02] MEDS: Apixaban 5 MG TAB PO SCH ×2 (08:41→20:18)
[2021-05-02] MEDS ORDERED: Furosemide 100 MG/10 ML VIAL SLOW IVP SCH ×2 (09:00→16:45)
[2021-05-02 16:13] LABS: Hep C PCR-Quant HCV Not Detected IU/mL (.)
[2021-05-02] MEDS: Atorvastatin Calcium 40 MG TAB PO SCH (20:19)
[2021-05-02] MEDS: Transdermal Patch Removal TOP SCH (20:20)
[2021-05-02] MEDS: Acetaminophen 325 MG TAB PO PRN (23:10)
[2021-05-03 05:32] LABS: #Eosinphils 0.1 thou/uL (0.0-0.7); #Lymphocytes 0.7 thou/uL (1.20-3.40); #Monocytes 0.5 thou/uL (0.11-0.59); #Neutrophils 3.4 thou/uL (1.40-6.50); %Eosinophils 2.5 % (0.0-10.0); %Lymphocytes 13.9 % (21.0-51.0); %Neutrophils 73.6 % (42.0-75.0); Hemoglobin 8.9 g/dL (14.0-18.0); Mean Corpuscular HGB CONC 28.2 g/dL (32.0-36.0); Mean Corpuscular Hemoglobin 21.2 pg (27.0-31.0); Mean Corpuscular Volume 75.1 fL (78.0-98.0); Mean Platelet Volume 6.7 fL (7.4-10.4); Platelet Count 175 thou/uL (130-400); RBC Distribution Width 21.7 % (11.5-14.5); Red Blood Cell (RBC) Count 4.21 mill/uL (4.70-6.10); White Blood Cell (WBC) Count 4.7 thou/uL (4.8-10.8)
[2021-05-03 05:42] LABS: ALT (SGPT) 13 U/L (8-55); AST (SGOT) 17 U/L (5-34); Albumin 3.5 g/dL (3.4-4.8); Alkaline Phosphatase 42 U/L (40-110); Anion Gap 14 mmol/L (10-20); BUN (Urea Nitrogen) 26 mg/dL (8.4-25.7); Bilirubin, Total 2.2 mg/dL (0.2-1.2); Calc. Creatinine Clearance 44 mL/min (70-130); Calcium 9.5 mg/dL (7.8-10.44); Carbon Dioxide 29 mmol/L (23-31); Chloride 97 mmol/L (98-107); Globulin 3.9 g/dL (2.4-3.5); Glucose 86 mg/dL (80-115); Potassium 4.1 mmol/L (3.5-5.1); Protein, Total 7.4 g/dL (5.8-8.1); Sodium 136 mmol/L (136-145)
[2021-05-03] MEDS: Ferrous Sulfate 325 MG TAB PO SCH ×2 (08:44→15:50)
[2021-05-03] MEDS: DULoxetine 30 MG CAP PO SCH (08:44)
[2021-05-03] MEDS: Lidocaine 5% Patch TD SCH (08:44)
[2021-05-03] MEDS: Apixaban 5 MG TAB PO SCH ×2 (08:44→20:47)
[2021-05-03] MEDS: Carvedilol 3.125 MG TAB PO SCH ×2 (08:44→20:47)
[2021-05-03] MEDS ORDERED: Metolazone 5 MG TAB PO SCH (09:00)
[2021-05-03] MEDS ORDERED: Furosemide 40 MG/4 ML VIAL SLOW IVP SCH (09:30)
[2021-05-03] MEDS ORDERED: Furosemide 100 MG/10 ML VIAL SLOW IVP SCH (15:15)
[2021-05-03] MEDS: Transdermal Patch Removal TOP SCH (20:47)
[2021-05-03] MEDS: Atorvastatin Calcium 40 MG TAB PO SCH (20:47)
[2021-05-04 05:35] LABS: #Lymphocytes 0.5 thou/uL (1.20-3.40); #Monocytes 0.5 thou/uL (0.11-0.59); #Neutrophils 4.1 thou/uL (1.40-6.50); %Basophils 0.3 % (0.0-1.0); %Eosinophils 0.9 % (0.0-10.0); %Lymphocytes 10.3 % (21.0-51.0); %Monocytes 10.1 % (0.0-10.0); %Neutrophils 78.5 % (42.0-75.0); Hemoglobin 8.8 g/dL (14.0-18.0); Mean Corpuscular HGB CONC 27.5 g/dL (32.0-36.0); Mean Corpuscular Hemoglobin 20.9 pg (27.0-31.0); Mean Corpuscular Volume 76.1 fL (78.0-98.0); Mean Platelet Volume 7.6 fL (7.4-10.4); Platelet Count 185 thou/uL (130-400); RBC Distribution Width 21.6 % (11.5-14.5); Red Blood Cell (RBC) Count 4.22 mill/uL (4.70-6.10); White Blood Cell (WBC) Count 5.3 thou/uL (4.8-10.8)
[2021-05-04 05:52] LABS: ALT (SGPT) 12 U/L (8-55); AST (SGOT) 17 U/L (5-34); Albumin 3.6 g/dL (3.4-4.8); Alkaline Phosphatase 44 U/L (40-110); Anion Gap 13 mmol/L (10-20); BUN (Urea Nitrogen) 28 mg/dL (8.4-25.7); Calc. Creatinine Clearance 42 mL/min (70-130); Calcium 9.7 mg/dL (7.8-10.44); Carbon Dioxide 31 mmol/L (23-31); Chloride 95 mmol/L (98-107); Globulin 3.9 g/dL (2.4-3.5); Glucose 106 mg/dL (80-115); Potassium 4.1 mmol/L (3.5-5.1); Protein, Total 7.5 g/dL (5.8-8.1); Sodium 135 mmol/L (136-145)
[2021-05-04] MEDS: Lidocaine 5% Patch TD SCH (08:58)
[2021-05-04] MEDS: Ferrous Sulfate 325 MG TAB PO SCH ×2 (08:58→15:14)
[2021-05-04] MEDS: Apixaban 5 MG TAB PO SCH ×2 (08:58→21:36)
[2021-05-04] MEDS: Carvedilol 3.125 MG TAB PO SCH ×2 (08:58→21:36)
[2021-05-04] MEDS: DULoxetine 30 MG CAP PO SCH (08:58)
[2021-05-04] MEDS: Torsemide 20 MG TAB PO SCH ×2 (08:58→15:14)
[2021-05-04] MEDS: Atorvastatin Calcium 40 MG TAB PO SCH (21:36)
[2021-05-04] MEDS: Transdermal Patch Removal TOP SCH (21:40)
[2021-05-05 09:10] LABS: ALT (SGPT) 11 U/L (8-55); AST (SGOT) 16 U/L (5-34); Albumin 3.4 g/dL (3.4-4.8); Alkaline Phosphatase 42 U/L (40-110); Anion Gap 16 mmol/L (10-20); BUN (Urea Nitrogen) 26 mg/dL (8.4-25.7); Calc. Creatinine Clearance 42 mL/min (70-130); Carbon Dioxide 30 mmol/L (23-31); Chloride 95 mmol/L (98-107); Glucose 88 mg/dL (80-115); Hemoglobin 9.4 g/dL (14.0-18.0); Mean Corpuscular HGB CONC 27.9 g/dL (32.0-36.0); Mean Corpuscular Hemoglobin 20.8 pg (27.0-31.0); Mean Corpuscular Volume 74.5 fL (78.0-98.0); Protein, Total 7.4 g/dL (5.8-8.1); RBC Distribution Width 21.8 % (11.5-14.5); Red Blood Cell (RBC) Count 4.51 mill/uL (4.70-6.10); Sodium 137 mmol/L (136-145); White Blood Cell (WBC) Count 6.1 thou/uL (4.8-10.8)
[2021-05-05] MEDS: Carvedilol 3.125 MG TAB PO SCH ×2 (09:28→21:56)
[2021-05-05] MEDS: Torsemide 20 MG TAB PO SCH ×2 (09:28→15:22)
[2021-05-05] MEDS: Lidocaine 5% Patch TD SCH (09:28)
[2021-05-05] MEDS: Apixaban 5 MG TAB PO SCH ×2 (09:28→21:51)
[2021-05-05] MEDS: DULoxetine 30 MG CAP PO SCH (09:28)
[2021-05-05] MEDS: Ferrous Sulfate 325 MG TAB PO SCH ×2 (09:28→15:22)
[2021-05-05 12:39] LABS: #Eosinphils 0.1 thou/uL (0.0-0.7); #Lymphocytes 0.7 thou/uL (1.20-3.40); #Monocytes 0.6 thou/uL (0.11-0.59); #Neutrophils 4.7 thou/uL (1.40-6.50); %Basophils 0.4 % (0.0-1.0); %Eosinophils 1.8 % (0.0-10.0); %Lymphocytes 11.6 % (21.0-51.0); %Monocytes 9.4 % (0.0-10.0); %Neutrophils 76.8 % (42.0-75.0); Anisocytosis SLIGHT = 6-15 cells (100X) (0-5/hpf); Eosinophils 4 % (0-10); Hypochromia SLIGHT = 6-15 cells (100X) (0-5/hpf); Lymphocytes 11 % (21-51); MDiff Complete? YES; Mean Platelet Volume 7.1 fL (7.4-10.4); Microcytosis SLIGHT = 6-15 cells (100X) (0-5/hpf); Monocytes 9 % (0-10); Neutrophil 74 % (42-75); Platelet Count 194 thou/uL (130-400); Platelet Morphology Comment Appears Adequate; Polychromasia SLIGHT = 2-3 cells (100X) (0-2/hpf); Target Cells SLIGHT = 2-5 cells (100X) (0-1/hpf)
[2021-05-05] MEDS: Atorvastatin Calcium 40 MG TAB PO SCH (21:51)
[2021-05-05] MEDS: Transdermal Patch Removal TOP SCH (21:57)
[2021-05-06 05:25] LABS: #Eosinphils 0.1 thou/uL (0.0-0.7); #Lymphocytes 0.7 thou/uL (1.20-3.40); #Monocytes 0.6 thou/uL (0.11-0.59); %Basophils 0.1 % (0.0-1.0); %Eosinophils 1.2 % (0.0-10.0); %Monocytes 9.3 % (0.0-10.0); %Neutrophils 78.4 % (42.0-75.0); Hemoglobin 8.7 g/dL (14.0-18.0); Mean Corpuscular HGB CONC 27.3 g/dL (32.0-36.0); Mean Corpuscular Hemoglobin 20.6 pg (27.0-31.0); Mean Corpuscular Volume 75.4 fL (78.0-98.0); Mean Platelet Volume 8.2 fL (7.4-10.4); Platelet Count 183 thou/uL (130-400); RBC Distribution Width 21.9 % (11.5-14.5); Red Blood Cell (RBC) Count 4.22 mill/uL (4.70-6.10); White Blood Cell (WBC) Count 6.3 thou/uL (4.8-10.8)
[2021-05-06 05:44] LABS: ALT (SGPT) 10 U/L (8-55); AST (SGOT) 13 U/L (5-34); Albumin 3.3 g/dL (3.4-4.8); Alkaline Phosphatase 45 U/L (40-110); Anion Gap 13 mmol/L (10-20); BUN (Urea Nitrogen) 25 mg/dL (8.4-25.7); Bilirubin, Total 1.8 mg/dL (0.2-1.2); Calc. Creatinine Clearance 39 mL/min (70-130); Calcium 9.7 mg/dL (7.8-10.44); Carbon Dioxide 37 mmol/L (23-31); Chloride 91 mmol/L (98-107); Globulin 3.6 g/dL (2.4-3.5); Glucose 134 mg/dL (80-115); Potassium 3.7 mmol/L (3.5-5.1); Protein, Total 6.9 g/dL (5.8-8.1); Sodium 137 mmol/L (136-145)
[2021-05-06] MEDS: Lidocaine 5% Patch TD SCH (08:11)
[2021-05-06] MEDS: Apixaban 5 MG TAB PO SCH ×2 (08:11→22:24)
[2021-05-06] MEDS: Torsemide 20 MG TAB PO SCH ×2 (08:11→14:45)
[2021-05-06] MEDS: Carvedilol 3.125 MG TAB PO SCH ×2 (08:11→22:23)
[2021-05-06] MEDS: DULoxetine 30 MG CAP PO SCH (08:11)
[2021-05-06] MEDS: Ferrous Sulfate 325 MG TAB PO SCH ×2 (08:11→17:29)
[2021-05-06] MEDS: Atorvastatin Calcium 40 MG TAB PO SCH (22:23)
[2021-05-06] MEDS: Transdermal Patch Removal TOP SCH (22:26)
[2021-05-07 04:38] LABS: #Eosinphils 0.1 thou/uL (0.0-0.7); #Lymphocytes 0.7 thou/uL (1.20-3.40); #Monocytes 0.6 thou/uL (0.11-0.59); #Neutrophils 3.7 thou/uL (1.40-6.50); %Basophils 0.2 % (0.0-1.0); %Eosinophils 1.5 % (0.0-10.0); %Monocytes 12.2 % (0.0-10.0); %Neutrophils 73.1 % (42.0-75.0); Hemoglobin 8.6 g/dL (14.0-18.0); Mean Corpuscular HGB CONC 28.7 g/dL (32.0-36.0); Mean Corpuscular Hemoglobin 21.5 pg (27.0-31.0); Mean Corpuscular Volume 74.9 fL (78.0-98.0); Mean Platelet Volume 7.8 fL (7.4-10.4); Platelet Count 173 thou/uL (130-400); RBC Distribution Width 21.2 % (11.5-14.5); Red Blood Cell (RBC) Count 3.99 mill/uL (4.70-6.10); White Blood Cell (WBC) Count 5.1 thou/uL (4.8-10.8)
[2021-05-07 04:57] LABS: ALT (SGPT) 10 U/L (8-55); AST (SGOT) 13 U/L (5-34); Albumin 3.4 g/dL (3.4-4.8); Alkaline Phosphatase 39 U/L (40-110); BUN (Urea Nitrogen) 27 mg/dL (8.4-25.7); Calc. Creatinine Clearance 40 mL/min (70-130); Calcium 9.9 mg/dL (7.8-10.44); Globulin 3.8 g/dL (2.4-3.5); Glucose 96 mg/dL (80-115); Protein, Total 7.2 g/dL (5.8-8.1)
[2021-05-07 05:06] LABS: Anion Gap 16 mmol/L (10-20); Carbon Dioxide 36 mmol/L (23-31); Chloride 90 mmol/L (98-107); Sodium 138 mmol/L (136-145)
[2021-05-07] MEDS: Torsemide 20 MG TAB PO SCH ×2 (09:17→18:34)
[2021-05-07] MEDS: DULoxetine 30 MG CAP PO SCH (09:18)
[2021-05-07] MEDS: Apixaban 5 MG TAB PO SCH (09:18)
[2021-05-07] MEDS: Ferrous Sulfate 325 MG TAB PO SCH (09:18)
[2021-05-07] MEDS: Carvedilol 3.125 MG TAB PO SCH (09:18)
[2021-05-07] MEDS: Lidocaine 5% Patch TD SCH (09:18)
[2021-05-07 11:09] VITALS: BP 136/64; TEMP 97.6
== END 2021-05-07 15:53 | disposition home health service (06) | DRG 291 ==
LOC: ERS 01:56 → ERHOLD 08:03 → 2NO 13:08
PROVIDERS: ADMIT Student in an Organized Health Care Education/Training Program; ATTEND Student in an Organized Health Care Education/Training Program
DX: I13.0 Hypertensive heart and chronic kidney disease with heart failure and stage 1 through stage 4 chronic kidney disease, or unspecified chronic kidney disease (principal); I50.43 Acute on chronic combined systolic (congestive) and diastolic (congestive) heart failure; R18.8 Other ascites; E78.5 Hyperlipidemia, unspecified; G89.29 Other chronic pain; I25.10 Atherosclerotic heart disease of native coronary artery without angina pectoris; F17.210 Nicotine dependence, cigarettes, uncomplicated; N18.32 Chronic kidney disease, stage 3b; J43.9 Emphysema, unspecified; E11.22 Type 2 diabetes mellitus with diabetic chronic kidney disease; M54.9 Dorsalgia, unspecified; B19.20 Unspecified viral hepatitis C without hepatic coma; R77.8 Other specified abnormalities of plasma proteins; D63.1 Anemia in chronic kidney disease; E80.6 Other disorders of bilirubin metabolism; Z95.810 Presence of automatic (implantable) cardiac defibrillator; Z79.01 Long term (current) use of anticoagulants; Z88.6 Allergy status to analgesic agent; Z91.018 Allergy to other foods; Z79.899 Other long term (current) drug therapy; Z95.828 Presence of other vascular implants and grafts; Z95.1 Presence of aortocoronary bypass graft; Z82.49 Family history of ischemic heart disease and other diseases of the circulatory system; Z91.19 Patient's noncompliance with other medical treatment and regimen; Z99.81 Dependence on supplemental oxygen
CPT/HCPCS: 36415; 36416; 70450; 71045; 76705; 80053; 80074; 80306; 81003; 81015; 82140; 82248; 82553; 83036; 83690; 83880; 84484; 85025; 87086; 87522; 93005; 96372; 96374; J1940; J2270; U0002

== ENCOUNTER 2021-05-30 08:30 | Inpatient (IN) | payer MEDICARE, OTHER ==
[2021-05-30] MEDS ORDERED: Furosemide 20 MG/2 ML VIAL ONE (08:48)
[2021-05-30] MEDS ORDERED: methylPREDNISolone Sod Succ/PF 125 MG/2 ML VIAL ONE (09:31)
[2021-05-30 09:36] LABS: #Eosinphils 0.1 thou/uL (0.0-0.7); #Lymphocytes 0.9 thou/uL (1.20-3.40); #Monocytes 0.7 thou/uL (0.11-0.59); #Neutrophils 4.7 thou/uL (1.40-6.50); %Basophils 0.2 % (0.0-1.0); %Eosinophils 1.7 % (0.0-10.0); %Lymphocytes 13.4 % (21.0-51.0); %Monocytes 11.3 % (0.0-10.0); %Neutrophils 73.4 % (42.0-75.0); Hemoglobin 8.7 g/dL (14.0-18.0); Mean Corpuscular HGB CONC 28.1 g/dL (32.0-36.0); Mean Corpuscular Hemoglobin 22.5 pg (27.0-31.0); Mean Corpuscular Volume 80.1 fL (78.0-98.0); Mean Platelet Volume 9.6 fL (7.4-10.4); Platelet Count 171 thou/uL (130-400); RBC Distribution Width 22.7 % (11.5-14.5); Red Blood Cell (RBC) Count 3.87 mill/uL (4.70-6.10); White Blood Cell (WBC) Count 6.4 thou/uL (4.8-10.8)
[2021-05-30 09:52] LABS: ALT (SGPT) 10 U/L (8-55); AST (SGOT) 25 U/L (5-34); Alkaline Phosphatase 45 U/L (40-110); Anion Gap 16 mmol/L (10-20); BUN (Urea Nitrogen) 29 mg/dL (8.4-25.7); Bilirubin, Total 1.6 mg/dL (0.2-1.2); Calc. Creatinine Clearance 0 mL/min (70-130); Carbon Dioxide 20 mmol/L (23-31); Chloride 105 mmol/L (98-107); Globulin 4.3 g/dL (2.4-3.5); Glucose 88 mg/dL (80-115); Potassium 5.7 mmol/L (3.5-5.1); Protein, Total 8.3 g/dL (5.8-8.1); Sodium 135 mmol/L (136-145)
[2021-05-30 10:02] LABS: Anisocytosis MODERATE=16-30 cells (100X) (0-5/hpf); Hypochromia SLIGHT = 6-15 cells (100X) (0-5/hpf); MDiff Complete? YES; Platelet Morphology Comment Appears Adequate; Polychromasia SLIGHT = 2-3 cells (100X) (0-2/hpf)
[2021-05-30 10:15] LABS: CKMB 3.8 ng/mL (0-6.6)
[2021-05-30] MEDS ORDERED: Acetaminophen 325 MG TAB PO PRN (11:00)
[2021-05-30] MEDS ORDERED: Sodium Chloride 0.9% 1,000 ML IV SCH (11:00)
[2021-05-30] MEDS ORDERED: Ondansetron PF 4 MG/2 ML Vial IVP PRN (11:00)
[2021-05-30] MEDS ORDERED: Ondansetron ODT 4 MG TAB SL PRN (11:00)
[2021-05-30] MEDS ORDERED: Lorazepam 1 MG TAB ONE (11:17)
[2021-05-30] MEDS ORDERED: Aspirin Chewable 81 MG TAB ONE (11:17)
[2021-05-30 12:52] LABS: Anion Gap 17 mmol/L (10-20); BUN (Urea Nitrogen) 28 mg/dL (8.4-25.7); Calc. Creatinine Clearance 0 mL/min (70-130); Calcium 9.6 mg/dL (7.8-10.44); Carbon Dioxide 21 mmol/L (23-31); Chloride 104 mmol/L (98-107); Glucose 91 mg/dL (80-115); Potassium 5.2 mmol/L (3.5-5.1); Sodium 137 mmol/L (136-145)
[2021-05-30 12:58] LABS: Troponin I 0.044 ng/mL (< 0.028)
[2021-05-30 13:05] LABS: SARS-CoV-2 NAA Rapid Test Not Detected (NotDetected)
[2021-05-30 14:13] VITALS: BMI 35.4
[2021-05-30] MEDS ORDERED: Dextrose 50% Abboject 50 ML SYRINGE SLOW IVP PRN (14:43)
[2021-05-30] MEDS ORDERED: Dextrose 5% in Water 1,000 ML IV PRN (14:43)
[2021-05-30] MEDS ORDERED: HumaLOG 300 UNITS/3 ML VIAL SC PRN (14:43)
[2021-05-30] MEDS ORDERED: FLU VACC QS2021-22(65YR UP)/PF 240 MCG/0.7 ML SYRINGE IM ONE (14:45)
[2021-05-30] MEDS ORDERED: Albuterol Sulfate 2.5 mg/3 ml Neb NEB PRN (14:59)
[2021-05-30] MEDS ORDERED: Furosemide 40 MG/4 ML VIAL SLOW IVP SCH (15:15)
[2021-05-30 16:15] LABS: Troponin I 0.038 ng/mL (< 0.028)
[2021-05-30] MEDS: HumaLOG 300 UNITS/3 ML VIAL SC PRN (17:48)
[2021-05-30 19:01] LABS: Anion Gap 16 mmol/L (10-20); BUN (Urea Nitrogen) 32 mg/dL (8.4-25.7); Calc. Creatinine Clearance 45 mL/min (70-130); Calcium 9.4 mg/dL (7.8-10.44); Carbon Dioxide 24 mmol/L (23-31); Chloride 100 mmol/L (98-107); Glucose 227 mg/dL (80-115); Potassium 5.3 mmol/L (3.5-5.1); Sodium 135 mmol/L (136-145)
[2021-05-30] MEDS: Apixaban 5 MG TAB PO SCH (19:53)
[2021-05-30] MEDS: HYDROcodone/Acetaminophen 5/325 mg Tablet PO PRN (19:54)
[2021-05-30] MEDS: Carvedilol 3.125 MG TAB PO SCH (19:54)
[2021-05-30] MEDS: Atorvastatin Calcium 40 MG TAB PO SCH (19:54)
[2021-05-31] MEDS: HYDROcodone/Acetaminophen 5/325 mg Tablet PO PRN ×4 (02:32→22:32)
[2021-05-31 04:54] LABS: Hemoglobin 8.4 g/dL (14.0-18.0); Mean Corpuscular HGB CONC 27.6 g/dL (32.0-36.0); Mean Corpuscular Hemoglobin 22.1 pg (27.0-31.0); Mean Corpuscular Volume 80.2 fL (78.0-98.0); Mean Platelet Volume 6.5 fL (7.4-10.4); Platelet Count 187 thou/uL (130-400); RBC Distribution Width 21.3 % (11.5-14.5); Red Blood Cell (RBC) Count 3.79 mill/uL (4.70-6.10)
[2021-05-31 05:07] LABS: Anion Gap 17 mmol/L (10-20); BUN (Urea Nitrogen) 39 mg/dL (8.4-25.7); Calc. Creatinine Clearance 44 mL/min (70-130); Calcium 9.5 mg/dL (7.8-10.44); Carbon Dioxide 22 mmol/L (23-31); Chloride 101 mmol/L (98-107); Glucose 227 mg/dL (80-115); Potassium 5.3 mmol/L (3.5-5.1); Sodium 135 mmol/L (136-145)
[2021-05-31 05:28] LABS: #Lymphocytes 0.4 thou/uL (1.20-3.40); #Monocytes 0.4 thou/uL (0.11-0.59); #Neutrophils 5.2 thou/uL (1.40-6.50); %Basophils 0.7 % (0.0-1.0); %Eosinophils 0.1 % (0.0-10.0); %Lymphocytes 6.1 % (21.0-51.0); %Monocytes 6.6 % (0.0-10.0); %Neutrophils 86.5 % (42.0-75.0); Anisocytosis SLIGHT = 6-15 cells (100X) (0-5/hpf); Hypochromia SLIGHT = 6-15 cells (100X) (0-5/hpf); MDiff Complete? YES; Microcytosis SLIGHT = 6-15 cells (100X) (0-5/hpf)
[2021-05-31] MEDS: HumaLOG 300 UNITS/3 ML VIAL SC PRN ×2 (05:41→12:50)
[2021-05-31] MEDS ORDERED: Furosemide 40 MG/4 ML VIAL SLOW IVP SCH (06:00)
[2021-05-31] MEDS ORDERED: Epoetin (ESRD) 20,000 UNITS/ML SC SCH (09:00)
[2021-05-31] MEDS: Ferrous Gluconate 324 MG TAB PO SCH (09:01)
[2021-05-31] MEDS: DULoxetine 30 MG CAP PO SCH (09:01)
[2021-05-31] MEDS: Carvedilol 3.125 MG TAB PO SCH ×2 (09:02→20:20)
[2021-05-31] MEDS: Apixaban 5 MG TAB PO SCH ×2 (09:02→20:20)
[2021-05-31] MEDS: Furosemide 40 MG/4 ML VIAL SLOW IVP SCH (09:10)
[2021-05-31] MEDS ORDERED: Carvedilol 3.125 MG TAB PO SCH (10:00)
[2021-05-31] MEDS ORDERED: EPOETIN ALFA-EPBX (ESRD) 4,000 UNIT/ML VIAL SC SCH (12:00)
[2021-05-31] MEDS: Atorvastatin Calcium 40 MG TAB PO SCH (20:20)
[2021-06-01 04:28] LABS: #Eosinphils 0.1 thou/uL (0.0-0.7); #Lymphocytes 0.7 thou/uL (1.20-3.40); #Monocytes 0.7 thou/uL (0.11-0.59); #Neutrophils 4.9 thou/uL (1.40-6.50); %Basophils 0.4 % (0.0-1.0); %Lymphocytes 10.5 % (21.0-51.0); %Monocytes 10.4 % (0.0-10.0); %Neutrophils 77.7 % (42.0-75.0); Hemoglobin 8.5 g/dL (14.0-18.0); Mean Corpuscular HGB CONC 27.4 g/dL (32.0-36.0); Mean Corpuscular Hemoglobin 21.9 pg (27.0-31.0); Mean Platelet Volume 6.5 fL (7.4-10.4); Platelet Count 190 thou/uL (130-400); RBC Distribution Width 20.9 % (11.5-14.5); Red Blood Cell (RBC) Count 3.88 mill/uL (4.70-6.10); White Blood Cell (WBC) Count 6.3 thou/uL (4.8-10.8)
[2021-06-01 04:46] LABS: Anion Gap 14 mmol/L (10-20); BUN (Urea Nitrogen) 45 mg/dL (8.4-25.7); Calc. Creatinine Clearance 38 mL/min (70-130); Calcium 9.3 mg/dL (7.8-10.44); Carbon Dioxide 25 mmol/L (23-31); Chloride 100 mmol/L (98-107); Glucose 112 mg/dL (80-115); Potassium 4.2 mmol/L (3.5-5.1); Sodium 135 mmol/L (136-145)
[2021-06-01] MEDS: HYDROcodone/Acetaminophen 5/325 mg Tablet PO PRN ×3 (05:50→20:50)
[2021-06-01] MEDS: Apixaban 5 MG TAB PO SCH ×2 (09:09→20:48)
[2021-06-01] MEDS: DULoxetine 30 MG CAP PO SCH (09:09)
[2021-06-01] MEDS: Ferrous Gluconate 324 MG TAB PO SCH (09:09)
[2021-06-01] MEDS: Carvedilol 3.125 MG TAB PO SCH ×2 (09:09→20:49)
[2021-06-01] MEDS: Furosemide 40 MG/4 ML VIAL SLOW IVP SCH (09:10)
[2021-06-01 11:54] LABS: Amphetamine Not Detected (NotDetected); Barbiturates Screen Not Detected (NotDetected); Benzodiazepine Screen Detected (NotDetected); Cocaine Metabolite Screen Detected (NotDetected); Methadone Not Detected (NotDetected); Methamphetamine Not Detected (NotDetected); Opiate Screen Not Detected (NotDetected); Oxycodone Screen Not Detected (NotDetected); Phencyclidine (PCP) Not Detected (NotDetected); THC/Cannabinoid Screen Not Detected (NotDetected); Tricyclic Screen Not Detected (NotDetected)
[2021-06-01] MEDS: HumaLOG 300 UNITS/3 ML VIAL SC PRN (11:58)
[2021-06-01] MEDS: Atorvastatin Calcium 40 MG TAB PO SCH (20:48)
[2021-06-02] MEDS: HYDROcodone/Acetaminophen 5/325 mg Tablet PO PRN (03:41)
[2021-06-02 04:50] LABS: #Basophils 0.1 thou/uL (0.0-0.2); #Eosinphils 0.1 thou/uL (0.0-0.7); #Lymphocytes 0.9 thou/uL (1.20-3.40); #Monocytes 0.8 thou/uL (0.11-0.59); #Neutrophils 4.5 thou/uL (1.40-6.50); %Basophils 0.9 % (0.0-1.0); %Lymphocytes 13.9 % (21.0-51.0); %Neutrophils 70.1 % (42.0-75.0); Hemoglobin 8.2 g/dL (14.0-18.0); Mean Corpuscular HGB CONC 27.9 g/dL (32.0-36.0); Mean Corpuscular Hemoglobin 22.3 pg (27.0-31.0); Mean Corpuscular Volume 79.9 fL (78.0-98.0); Mean Platelet Volume 11.7 fL (7.4-10.4); Platelet Count 184 thou/uL (130-400); RBC Distribution Width 20.6 % (11.5-14.5); White Blood Cell (WBC) Count 6.4 thou/uL (4.8-10.8)
[2021-06-02 05:01] LABS: Anion Gap 15 mmol/L (10-20); BUN (Urea Nitrogen) 47 mg/dL (8.4-25.7); Calc. Creatinine Clearance 40 mL/min (70-130); Calcium 9.7 mg/dL (7.8-10.44); Carbon Dioxide 25 mmol/L (23-31); Chloride 101 mmol/L (98-107); Glucose 113 mg/dL (80-115); Potassium 4.5 mmol/L (3.5-5.1); Sodium 136 mmol/L (136-145)
[2021-06-02] MEDS: Carvedilol 3.125 MG TAB PO SCH (08:34)
[2021-06-02] MEDS: DULoxetine 30 MG CAP PO SCH (08:35)
[2021-06-02] MEDS: Ferrous Gluconate 324 MG TAB PO SCH (08:35)
[2021-06-02] MEDS: Furosemide 40 MG/4 ML VIAL SLOW IVP SCH (08:35)
[2021-06-02] MEDS: Apixaban 5 MG TAB PO SCH (08:35)
[2021-06-02 09:31] VITALS: TEMP 97.7
[2021-06-02 10:47] VITALS: BP 142/64
== END 2021-06-02 12:00 | disposition home or self-care (01) | DRG 291 ==
LOC: ERS 08:30 → ERHOLD 11:54 → 2NO 14:03
PROVIDERS: ADMIT Family Medicine; ATTEND Internal Medicine
DX: I13.0 Hypertensive heart and chronic kidney disease with heart failure and stage 1 through stage 4 chronic kidney disease, or unspecified chronic kidney disease (principal); I50.43 Acute on chronic combined systolic (congestive) and diastolic (congestive) heart failure; J44.1 Chronic obstructive pulmonary disease with (acute) exacerbation; N17.9 Acute kidney failure, unspecified; N18.4 Chronic kidney disease, stage 4 (severe); Z20.822 Contact with and (suspected) exposure to COVID-19; F17.210 Nicotine dependence, cigarettes, uncomplicated; I25.10 Atherosclerotic heart disease of native coronary artery without angina pectoris; E78.00 Pure hypercholesterolemia, unspecified; E11.22 Type 2 diabetes mellitus with diabetic chronic kidney disease; E78.5 Hyperlipidemia, unspecified; D63.1 Anemia in chronic kidney disease; I48.0 Paroxysmal atrial fibrillation; M54.9 Dorsalgia, unspecified; G89.29 Other chronic pain; E87.6 Hypokalemia; F41.9 Anxiety disorder, unspecified; I25.5 Ischemic cardiomyopathy; M48.061 Spinal stenosis, lumbar region without neurogenic claudication; F14.10 Cocaine abuse, uncomplicated; D50.9 Iron deficiency anemia, unspecified; Z99.81 Dependence on supplemental oxygen; Z95.810 Presence of automatic (implantable) cardiac defibrillator; Z95.1 Presence of aortocoronary bypass graft; Z79.01 Long term (current) use of anticoagulants; Z88.6 Allergy status to analgesic agent; Z91.018 Allergy to other foods; Z91.19 Patient's noncompliance with other medical treatment and regimen; Z95.5 Presence of coronary angioplasty implant and graft; Z79.899 Other long term (current) drug therapy; Z91.14 Patient's other noncompliance with medication regimen
CPT/HCPCS: 36415; 36416; 71045; 72128; 72131; 80048; 80053; 80306; 82553; 83880; 84484; 85025; 93005; 94640; 96374; 96375; J1815; J1940; J2930; J7611; J7620; Q5105; U0002

== ENCOUNTER 2021-08-07 13:48 | Inpatient (IN) | payer MEDICARE, MEDICAID ==
[2021-08-07] MEDS ORDERED: Furosemide 40 MG/4 ML VIAL ONE (14:14)
[2021-08-07] MEDS ORDERED: Nitroglycerin 2% Ointment 1 INCH/1 GM Packet ONE (14:14)
[2021-08-07 15:06] LABS: Actual Bicarbonate (HCO3v) 21 mEq/L (22-28); Analyzer IN Cardio ER; Base Excess -6.6 mEq/L (-2.0 to +3.0); Chloride (VBG) 102 mmol/L (98-106); Hemoglobin (Hb) 12.9 g/dL (12.6-17.4); Potassium (VBG) 4.57 mmol/L (3.70-5.30); Sodium 137.8 mmol/L (133-146); pH (venous) 7.26 (7.32-7.43)
[2021-08-07 15:37] LABS: ALT (SGPT) 14 U/L (8-55); AST (SGOT) 19 U/L (5-34); Albumin 4.3 g/dL (3.4-4.8); Alkaline Phosphatase 52 U/L (40-110); Anion Gap 21 mmol/L (10-20); BUN (Urea Nitrogen) 26 mg/dL (8.4-25.7); Calc. Creatinine Clearance 0 mL/min (70-130); Calcium 9.9 mg/dL (7.8-10.44); Carbon Dioxide 17 mmol/L (23-31); Chloride 103 mmol/L (98-107); Globulin 5.5 g/dL (2.4-3.5); Glucose 96 mg/dL (80-115); Magnesium 2.2 mg/dL (1.6-2.6); Potassium 4.9 mmol/L (3.5-5.1); Protein, Total 9.8 g/dL (5.8-8.1); Sodium 136 mmol/L (136-145)
[2021-08-07 15:55] LABS: CKMB 4.9 ng/mL (0-6.6)
[2021-08-07] MEDS ORDERED: Acetaminophen 325 MG TAB PO PRN (16:14)
[2021-08-07] MEDS ORDERED: Ondansetron PF 4 MG/2 ML Vial IVP PRN (16:14)
[2021-08-07] MEDS ORDERED: Senokot S 8.6-50 MG TAB PO PRN (16:14)
[2021-08-07] MEDS ORDERED: HYDROcodone/Acetaminophen 5/325 mg Tablet PO PRN (16:14)
[2021-08-07] MEDS ORDERED: Cyclobenzaprine 10 MG TAB PO PRN (16:58)
[2021-08-07] MEDS ORDERED: Guaifenesin DM 100-10/5 ML UDCUP PO PRN (16:58)
[2021-08-07 17:02] LABS: Bilirubin Negative (Negative); Blood, Urine 1+ (Negative); Clarity Clear (Clear); Glucose, Urine (Dipstick) Normal (Negative); Ketone, Urine Negative (Negative); Leukocyte 500 Leu/uL (Negative); Nitrite Negative (Negative); Protein, Urine (Dipstick) 10 mg/dL (Neg-Trace); RBC/HPF 21-50 HPF (0-3); Specific Gravity, Urine 1.009 (1.002-1.036); Squamous Epithelial 0-3 HPF (0-3); Urobilinogen Normal mg/dL (Less than 2); WBC/HPF 21-50 HPF (0-3)
[2021-08-07 17:03] LABS: Bacteria/HPF 1+ HPF (None Seen)
[2021-08-07 17:12] LABS: #Lymphocytes 0.3 thou/uL (1.20-3.40); #Monocytes 0.1 thou/uL (0.11-0.59); #Neutrophils 6.7 thou/uL (1.40-6.50); %Basophils 0.2 % (0.0-1.0); %Eosinophils 0.4 % (0.0-10.0); %Lymphocytes 4.1 % (21.0-51.0); %Monocytes 1.4 % (0.0-10.0); %Neutrophils 93.9 % (42.0-75.0); Hemoglobin 10.7 g/dL (14.0-18.0); Mean Corpuscular HGB CONC 27.4 g/dL (32.0-36.0); Mean Corpuscular Hemoglobin 21.4 pg (27.0-31.0); Mean Corpuscular Volume 77.9 fL (78.0-98.0); Mean Platelet Volume 7.8 fL (7.4-10.4); Platelet Count 133 thou/uL (130-400); RBC Distribution Width 19.2 % (11.5-14.5); White Blood Cell (WBC) Count 7.2 thou/uL (4.8-10.8)
[2021-08-07 17:27] LABS: Anisocytosis SLIGHT = 6-15 cells (100X) (0-5/hpf); Hypochromia SLIGHT = 6-15 cells (100X) (0-5/hpf); MDiff Complete? YES; Microcytosis SLIGHT = 6-15 cells (100X) (0-5/hpf); Ovalocytes MODERATE= 6-15 cells (100X) (0-1/hpf); Platelet Morphology Comment Appears Adequate; Polychromasia SLIGHT = 2-3 cells (100X) (0-2/hpf); Target Cells SLIGHT = 2-5 cells (100X) (0-1/hpf)
[2021-08-07 18:46] LABS: SARS-CoV-2 NAA Rapid Test Not Detected (NotDetected)
[2021-08-07] MEDS ORDERED: Apixaban 5 MG TAB PO SCH (21:00)
[2021-08-07] MEDS: HYDROcodone/Acetaminophen 10/325 mg Tablet PO PRN (21:24)
[2021-08-07] MEDS: Carvedilol 6.25 MG TAB PO SCH (21:24)
[2021-08-07] MEDS: Atorvastatin Calcium 40 MG TAB PO SCH (21:24)
[2021-08-07] MEDS: Famotidine/PF 20 mg/2ml Vial SLOW IVP SCH (21:26)
[2021-08-07 21:31] VITALS: BMI 36.6
[2021-08-08] MEDS: HYDROcodone/Acetaminophen 10/325 mg Tablet PO PRN ×3 (03:48→21:44)
[2021-08-08 05:32] LABS: #Lymphocytes 0.3 thou/uL (1.20-3.40); #Monocytes 0.1 thou/uL (0.11-0.59); #Neutrophils 2.9 thou/uL (1.40-6.50); %Eosinophils 0.1 % (0.0-10.0); %Lymphocytes 7.8 % (21.0-51.0); %Monocytes 3.9 % (0.0-10.0); %Neutrophils 88.2 % (42.0-75.0); Hemoglobin 9.6 g/dL (14.0-18.0); Mean Corpuscular HGB CONC 27.5 g/dL (32.0-36.0); Mean Corpuscular Hemoglobin 21.7 pg (27.0-31.0); Mean Corpuscular Volume 78.9 fL (78.0-98.0); Mean Platelet Volume 8.1 fL (7.4-10.4); Platelet Count 106 thou/uL (130-400); RBC Distribution Width 18.6 % (11.5-14.5); White Blood Cell (WBC) Count 3.3 thou/uL (4.8-10.8)
[2021-08-08 05:57] LABS: Hemoglobin A1c 5.9 % (4.0-6.0)
[2021-08-08] MEDS ORDERED: Furosemide 40 MG/4 ML VIAL SLOW IVP SCH (06:00)
[2021-08-08] MEDS: Furosemide 40 MG/4 ML VIAL SLOW IVP SCH ×2 (06:12→16:06)
[2021-08-08 06:15] LABS: Anion Gap 13 mmol/L (10-20); BUN (Urea Nitrogen) 29 mg/dL (8.4-25.7); Calc. Creatinine Clearance 43 mL/min (70-130); Carbon Dioxide 26 mmol/L (23-31); Chloride 104 mmol/L (98-107); Cholesterol 104 mg/dl (< 200 Desired); Glucose 213 mg/dL (80-115); HDL Cholesterol 35 mg/dL (>60 Neg Risk); LDL Cholesterol, Calculated 62 mg/dL; Potassium 5.2 mmol/L (3.5-5.1); Sodium 138 mmol/L (136-145); Triglycerides 37 mg/dL (Less than 150)
[2021-08-08] MEDS ORDERED: Potassium Chloride 20 MEQ TAB PO SCH (08:00)
[2021-08-08] MEDS: Carvedilol 6.25 MG TAB PO SCH ×2 (08:58→20:43)
[2021-08-08] MEDS ORDERED: Enoxaparin Sodium 40 MG/0.4 ML SYRINGE SC SCH (09:00)
[2021-08-08] MEDS ORDERED: Dextrose 50% Abboject 50 ML SYRINGE SLOW IVP PRN (11:15)
[2021-08-08] MEDS ORDERED: HumaLOG 300 UNITS/3 ML VIAL SC PRN ×2 (11:15)
[2021-08-08] MEDS ORDERED: Dextrose 5% in Water 1,000 ML IV PRN (11:15)
[2021-08-08] MEDS: Atorvastatin Calcium 40 MG TAB PO SCH (20:43)
[2021-08-08] MEDS: Famotidine/PF 20 mg/2ml Vial SLOW IVP SCH (20:43)
[2021-08-09] MEDS: Furosemide 40 MG/4 ML VIAL SLOW IVP SCH ×2 (05:07→15:25)
[2021-08-09] MEDS: HYDROcodone/Acetaminophen 10/325 mg Tablet PO PRN ×3 (05:07→21:22)
[2021-08-09] MEDS: Carvedilol 6.25 MG TAB PO SCH ×2 (10:38→21:24)
[2021-08-09] MEDS: Atorvastatin Calcium 40 MG TAB PO SCH (21:22)
[2021-08-09] MEDS: Famotidine/PF 20 mg/2ml Vial SLOW IVP SCH (23:22)
[2021-08-10] MEDS: HYDROcodone/Acetaminophen 10/325 mg Tablet PO PRN ×2 (03:27→09:54)
[2021-08-10] MEDS: Furosemide 40 MG/4 ML VIAL SLOW IVP SCH (05:30)
[2021-08-10] MEDS: Carvedilol 6.25 MG TAB PO SCH (08:54)
[2021-08-10 11:38] VITALS: BP 136/74; TEMP 98
== END 2021-08-10 13:10 | disposition home or self-care (01) | DRG 291 ==
LOC: ERS 13:48 → 2NO 16:17
PROVIDERS: ADMIT Hospitalist; ATTEND Internal Medicine
DX: I13.0 Hypertensive heart and chronic kidney disease with heart failure and stage 1 through stage 4 chronic kidney disease, or unspecified chronic kidney disease (principal); I50.23 Acute on chronic systolic (congestive) heart failure; J96.01 Acute respiratory failure with hypoxia; J44.1 Chronic obstructive pulmonary disease with (acute) exacerbation; R18.8 Other ascites; I48.0 Paroxysmal atrial fibrillation; E11.22 Type 2 diabetes mellitus with diabetic chronic kidney disease; E78.2 Mixed hyperlipidemia; G89.29 Other chronic pain; K21.9 Gastro-esophageal reflux disease without esophagitis; Z20.822 Contact with and (suspected) exposure to COVID-19; M48.061 Spinal stenosis, lumbar region without neurogenic claudication; M54.50 Low back pain, unspecified; N18.32 Chronic kidney disease, stage 3b; I25.708 Atherosclerosis of coronary artery bypass graft(s), unspecified, with other forms of angina pectoris; F17.210 Nicotine dependence, cigarettes, uncomplicated; I25.5 Ischemic cardiomyopathy; Z95.810 Presence of automatic (implantable) cardiac defibrillator; Z88.8 Allergy status to other drugs, medicaments and biological substances; Z79.01 Long term (current) use of anticoagulants; Z79.899 Other long term (current) drug therapy; Z95.1 Presence of aortocoronary bypass graft
CPT/HCPCS: 36415; 36416; 71045; 72128; 72131; 80048; 80053; 80061; 81003; 81015; 82553; 82805; 83036; 83735; 83880; 84484; 85025; 87086; 93005; 93306; 93798; 94640; 94660; 96374; J1815; J1940; J7620; S0028; U0002

== ENCOUNTER 2021-08-23 20:05 | Emergency (ER) | payer MEDICARE, OTHER ==
[2021-08-23 20:56] LABS: Hemoglobin 10.5 g/dL (14.0-18.0); Mean Corpuscular Volume 78.5 fL (78.0-98.0); Red Blood Cell (RBC) Count 4.78 mill/uL (4.70-6.10); White Blood Cell (WBC) Count 8.4 thou/uL (4.8-10.8)
[2021-08-23 20:57] LABS: #Eosinphils 0.1 thou/uL (0.0-0.7); #Lymphocytes 0.8 thou/uL (1.20-3.40); #Monocytes 0.8 thou/uL (0.11-0.59); #Neutrophils 6.7 thou/uL (1.40-6.50); %Basophils 0.3 % (0.0-1.0); %Eosinophils 0.9 % (0.0-10.0); %Lymphocytes 9.7 % (21.0-51.0); %Monocytes 9.4 % (0.0-10.0); %Neutrophils 79.7 % (42.0-75.0); Mean Corpuscular HGB CONC 27.9 g/dL (32.0-36.0); Mean Corpuscular Hemoglobin 21.9 pg (27.0-31.0); Mean Platelet Volume 6.7 fL (7.4-10.4); Platelet Count 211 thou/uL (130-400); RBC Distribution Width 21.4 % (11.5-14.5)
[2021-08-23 21:11] LABS: ALT (SGPT) 11 U/L (8-55); AST (SGOT) 18 U/L (5-34); Albumin 3.8 g/dL (3.4-4.8); Alkaline Phosphatase 50 U/L (40-110); Anion Gap 17 mmol/L (10-20); BUN (Urea Nitrogen) 28 mg/dL (8.4-25.7); Bilirubin, Total 3.7 mg/dL (0.2-1.2); Calc. Creatinine Clearance 0 mL/min (70-130); Calcium 9.2 mg/dL (7.8-10.44); Carbon Dioxide 20 mmol/L (23-31); Chloride 102 mmol/L (98-107); Globulin 4.7 g/dL (2.4-3.5); Glucose 133 mg/dL (80-115); Potassium 4.9 mmol/L (3.5-5.1); Protein, Total 8.5 g/dL (5.8-8.1); Sodium 134 mmol/L (136-145)
[2021-08-23 21:31] LABS: CKMB 4.7 ng/mL (0-6.6)
== END 2021-08-23 23:10 | disposition home or self-care (01) ==
LOC: ERS 20:05
DX: R06.00 Dyspnea, unspecified (principal); I13.0 Hypertensive heart and chronic kidney disease with heart failure and stage 1 through stage 4 chronic kidney disease, or unspecified chronic kidney disease; E11.22 Type 2 diabetes mellitus with diabetic chronic kidney disease; N18.30 Chronic kidney disease, stage 3 unspecified; I50.9 Heart failure, unspecified; I48.91 Unspecified atrial fibrillation; I25.10 Atherosclerotic heart disease of native coronary artery without angina pectoris; E78.5 Hyperlipidemia, unspecified; D63.1 Anemia in chronic kidney disease; F17.210 Nicotine dependence, cigarettes, uncomplicated; J44.9 Chronic obstructive pulmonary disease, unspecified; Z79.01 Long term (current) use of anticoagulants; Z79.899 Other long term (current) drug therapy
CPT/HCPCS: 36415; 70450; 71045; 80053; 82553; 83880; 84484; 85025; 93005; 94760